=== PATIENT | female | born 1950 | race Caucasian/White ===

== ENCOUNTER 2017-03-10 00:56 | Inpatient (IN) | payer MEDICARE, MEDICAID ==
[2017-03-10] MEDS ORDERED: Diltiazem 25 MG/5 ML SDV IVPUSH ONE ×2 (01:05→01:44)
[2017-03-10] MEDS ORDERED: Diltiazem 25 MG/5 ML SDV ONE (01:09)
--- NOTE | 2017-03-10 01:16 | EDM.PDOC ---
ED HPI GENERAL MEDICAL PROBLEM - General Chief Complaint: Cardiovascular Problem Stated Complaint: [facility] Time Seen by Provider: 03/10/17 01:00 Source of Information: Reports: Patient, EMS History Limitations: Reports: No Limitations - History of Present Illness INITIAL COMMENTS - FREE TEXT/NARRATIVE: This is a 66-year-old female. She was noted to have a fever this afternoon where she resides at the [facility] in [place]. Apparently this evening the staff noted she had an elevated heart rate and a fever of 102 and they called the ambulance and brought her here to the ER for evaluation. She has a history of atrial fibrillation and she's had several episodes of rapid ventricular response and she has that tonight. She is noted to have a rate of approximately 180. She denies any chest pain during this rapid heart rate. The EMS indicated she has a fever of 102.7 when a picture up from the home. The patient is awake and alert and she is talking. She states she's not been coughing though she does have difficulty in defecation and urination. She states she hasn't overreactive bladder she can't control her urine. She normally has swelling in her lower extremities and that has not changed. She does not appear to be in acute distress at this time. She is talkative though she is challenged. He states she's had no nausea and vomiting and no diarrhea though she is constipated. She might have some mild nasal congestion and might have an intermittent sore throat as well. - Related Data Allergies Allergy/AdvReac Type Severity Reaction Status Date / Time clopidogrel [From Plavix] Allergy Cannot Verified 06/21/16 15:19 Remember iodine Allergy Cannot Verified 03/10/17 01:29 Remember Penicillins Allergy Cannot Verified 06/21/16 15:19 Remember Home Meds: Home Meds Acetaminophen [Tylenol Extra Strength] 1,000 mg PO BID 02/02/16 [History] Allopurinol [Zyloprim] 150 mg PO DAILY 02/02/16 [History] Aspirin [Aspir-Low] 81 mg PO DAILY 02/02/16 [History] Cholecalciferol (Vitamin D3) [Vitamin D3] 400 units PO DAILY 02/02/16 [History] Digoxin 125 mcg PO DAILY 02/02/16 [History] Docusate Sodium [Doc-Q-Lace] 100 mg PO BID 02/02/16 [History] Enalapril Maleate 5 mg PO DAILY 02/02/16 [History] Ferrous Sulfate 325 mg PO DAILY 02/02/16 [History] Furosemide 80 mg PO BID 02/02/16 [History] Insulin Aspart [NovoLOG] 8 units SQ 1200 02/02/16 [History] Insulin Aspart [NovoLOG] 10 units SQ 0800 02/02/16 [History] Insulin Aspart [NovoLOG] 10 units SQ 1700 02/02/16 [History] Methimazole 5 mg PO MOTUWETHFR 02/02/16 [History] Metolazone 2.5 mg PO ASDIRECTED 02/02/16 [History] Metoprolol Succinate 100 mg PO DAILY 02/02/16 [History] Potassium Chloride [Klor-Con 10] 10 meq PO 1200 02/02/16 [History] Potassium Chloride [Klor-Con 10] 20 meq PO BID 02/02/16 [History] Pravastatin Sodium 10 mg PO DAILY 02/02/16 [History] Sertraline [Zoloft] 50 mg PO DAILY 02/02/16 [History] Vit C/E/Zn/Coppr/Lutein/Zeaxan [Preservision Areds 2 Softgel] 2 tab PO DAILY [History] Pantoprazole [ProTONIX] 40 mg PO DAILY #30 tab.cr 02/03/16 [Rx] Mirabegron [Myrbetriq] 50 mg PO 1700 06/21/16 [History] Acetaminophen [Tylenol] 650 mg PO Q4H PRN #0 tablet 06/28/16 [Rx] Diltiazem [Cardizem] 180 mg PO DAILY 03/10/17 [History] Warfarin [Coumadin] 2 mg PO ASDIRECTED 03/10/17 [History] Warfarin [Coumadin] 5 mg PO MOFR 03/10/17 [History] Past Medical History HEENT History: Reports: Impaired Vision, Other (See Below) Other HEENT History: blind Cardiovascular History: Reports: Afib, Heart Failure, Other (See Below) Other Cardiovascular History: edema Respiratory History: Reports: Other (See Below) Other Respiratory History: hypoxemia Gastrointestinal History: Reports: Chronic Constipation, Other (See Below) Other Gastrointestinal History: hematochezia Neurological History: Reports: Other (See Below) 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 Psychiatric History: Reports: Depression Endocrine/Metabolic History: Reports: Diabetes, Type II, Hyperthyroidism Hematologic History: Reports: Anemia, Iron Deficiency - Past Surgical History HEENT Surgical History: Reports: Detached Retina, Tonsillectomy Musculoskeletal Surgical History: Reports: Other (See Below) Social & Family History - Tobacco Use Smoking Status *Q: Never Smoker Second Hand Smoke Exposure: No - Caffeine Use Caffeine Use: Reports: Coffee - Alcohol Use Days Per Week of Alcohol Use: 0 - Recreational Drug Use Recreational Drug Use: No - Living Situation & Occupation Living situation: Reports: Single Occupation: Disabled ED ROS GENERAL - Review of Systems Review Of Systems: See Below Constitutional: Reports: Fever, Chills, Malaise HEENT: Reports: Rhinitis, Throat Pain Respiratory: Denies: Shortness of Breath, Wheezing, Cough Cardiovascular: Reports: Other (Rapid heartbeat). Denies: Chest Pain Endocrine: Reports: No Symptoms GI/Abdominal: Reports: Constipation. Denies: Abdominal Pain, Nausea, Vomiting : Reports: Incontinence, Other (She hasn't over active bladder) Musculoskeletal: Reports: No Symptoms, Other (Chronic lower extremity swelling) Skin: Reports: No Symptoms Neurological: Reports: No Symptoms, Other (No change) Psychiatric: Reports: No Symptoms Hematologic/Lymphatic: Reports: No Symptoms ED EXAM, GENERAL - Physical Exam Exam: See Below Exam Limited By: No Limitations General Appearance: Alert, WD/WN, No Apparent Distress Eye Exam: Bilateral Eye: Normal Inspection Ears: Normal External Exam, Normal Canal, Normal TMs Nose: Normal Inspection, Normal Mucosa. No: Nasal Drainage Throat/Mouth: Normal Inspection, Normal Lips, Normal Voice, No Airway Compromise , Other (Mildly inflamed pharynx but no exudates). No: Normal Oropharynx Head: Normocephalic Neck: Supple Respiratory/Chest: No Respiratory Distress, Lungs Clear, Normal Breath Sounds, Other (There are no wheezing crackles or rhonchi there is no consolidation and lung sounds noted) Cardiovascular: Regular Rate, Rhythm, Tachycardia, Other (Monitor suggests atrial fibrillation with a rapid ventricular response) GI/Abdominal: Other (Diminishes protuberant and slightly tense but she does not appear to have pain on palpation in any of the 4 quadrants but over the bladder there is some tenderness noted bowel sounds are decreased, she is noted to have some bruising on her abdomen and I believe it will he give her her insulin shots ) Back Exam: Other (Patient appeared to be bedbound) Extremities: Other (Her lower extremities have 1-2+ pitting edema she does have some abrasions and some brawny skin changes but there is no evidence of a skin infection of her lower extremities at this time) Neurological: Alert, Oriented, Other (H and is oriented to place and person no she's in the ER) Psychiatric: Normal Affect, Normal Mood. No: Anxious Skin Exam: Warm, Dry. No: Diaphoretic Course - Vital Signs Last Recorded V/S: Last Vital Signs Temp 100.1 F 03/10/17 01:00 Pulse 186 H 03/10/17 01:00 Resp 16 03/10/17 01:00 BP 99/76 03/10/17 01:00 Pulse Ox 81 L 03/10/17 01:00 - Orders/Labs/Meds Orders: Active Orders 24 hr Category Date Time Status EKG 12 Lead [EKG Documentation Completion] [RC] STAT Care 03/10/17 01:06 Active Chest 2V [CR] Stat Exams 03/10/17 01:06 Taken CULTURE BLOOD [BC] Stat Lab 03/10/17 01:31 Received CULTURE BLOOD [BC] Stat Lab 03/10/17 01:38 Received Azithromycin [Zithromax] 500 mg Med 03/10/17 02:16 Active Sodium Chloride 0.9% [Normal Saline] 250 ml IV ONETIME Diltiazem 125 mg Med 03/10/17 02:15 Active Sodium Chloride 0.9% [Normal Saline] 100 ml IV TITRATE cefTRIAXone [Rocephin] 1 gm Med 03/10/17 02:23 Active Sodium Chloride 0.9% [Normal Saline] 100 ml IV ONETIME Blood Culture x2 Reflex Set [OM.PC] Stat Oth 03/10/17 01:06 Ordered Medication Orders Diltiazem HCl 125 mg/ Sodium (Chloride) 125 mls @ 5 mls/hr IV TITRATE BRANDON; 5 MG /HR PRN Reason: Protocol Last Admin: 03/10/17 02:36 Dose: 5 mg/hr, 5 mls/hr Azithromycin 500 mg/ Sodium (Chloride) 250 mls @ 250 mls/hr IV ONETIME ONE Stop: 03/10/17 03:15 Ceftriaxone Sodium 1 gm/ (Sodium Chloride) 100 mls @ 200 mls/hr IV ONETIME ONE Stop: 03/10/17 02:52 Last Admin: 03/10/17 02:38 Dose: 200 mls/hr Sodium Chloride (Normal Saline) 500 mls @ 999 mls/hr IV .BOLUS ONE Stop: 03/10/17 03:12 Labs: Laboratory Tests 03/10/17 03/10/17 03/10/17 Range/Units 01:15 01:31 01:31 WBC 30.67 H (3.98-10.04) K/mm3 RBC 3.99 (3.98-5.22) M/mm3 Hgb 12.0 (11.2-15.7) gm/L Hct 37.5 (34.1-44.9) % MCV 94.0 (79.4-94.8) fl MCH 30.1 (25.6-32.2) pg MCHC 32.0 L (32.2-35.5) g/dl RDW Std Deviation 54.0 H (36.4-46.3) fL Plt Count 244 (182-369) K/mm3 MPV 10.4 (9.4-12.3) fl Neut % (Auto) 94.0 H (34.0-71.1) % Lymph % (Auto) 1.9 L (19.3-51.7) % [place] % (Auto) 3.3 L (4.7-12.5) % Eos % (Auto) 0.2 L (0.7-5.8) Baso % (Auto) 0.1 (0.1-1.2) % Neut # (Auto) 28.86 H (1.56-6.13) K/mm3 Lymph # (Auto) 0.59 L (1.18-3.74) K/mm3 [place] # (Auto) 1.01 H (0.24-0.36) K/mm3 Eos # (Auto) 0.05 (0.04-0.36) K/mm3 Baso # (Auto) 0.02 (0.01-0.08) K/mm3 Manual Slide Review Abnormal smear PT (8.0-13.0) SECONDS INR Sodium 141 (136-145) mEq/L Potassium 3.4 L (3.5-5.1) mEq/L Chloride 101 (98-107) mEq/L Carbon Dioxide 26 (21-32) mEq/L Anion Gap 17.4 H (5-15) BUN 49 H (7-18) mg/dL Creatinine 1.4 H (0.55-1.02) mg/dL Est Cr Clr Drug Dosing 42.74 mL/min Estimated GFR (MDRD) 38 (>60) mL/min BUN/Creatinine Ratio 35.0 H (14-18) Glucose 251 H (80-115) mg/dL Lactic Acid (0.4-2.0) mmol/L Calcium 9.0 (8.5-10.1) mg/dL Total Bilirubin 1.0 (0.2-1.0) mg/dL AST 22 (15-37) U/L ALT 18 (14-59) U/L Alkaline Phosphatase 71 (46-116) U/L Troponin I < 0.017 (0.00-0.056) ng/mL Total Protein 6.7 (6.4-8.2) g/dl Albumin 3.6 (3.4-5.0) g/dl Globulin 3.1 gm/dL Albumin/Globulin Ratio 1.2 (1-2) Urine Color Yellow (Yellow) Urine Appearance Clear (Clear) Urine pH 6.0 (5.0-8.0) Ur Specific Kyle 1.015 (1.005-1.030) Urine Protein Negative (Negative) Urine Glucose (UA) Negative (Negative) Urine Ketones Negative (Negative) Urine Occult Blood Negative (Negative) Urine Nitrite Negative (Negative) Urine Bilirubin Negative (Negative) Urine Urobilinogen 0.2 (0.2-1.0) Ur Leukocyte Esterase Negative (Negative) Urine RBC 0-5 (0-5) /hpf Urine WBC 0-5 (0-5) /hpf Ur Epithelial Cells 0-5 (0-5) /hpf Urine Bacteria Not seen (FEW) /hpf Hyaline Casts 0-5 (0-5) /lpf Urine Mucus Not seen (FEW) /hpf Digoxin (0.9-2.0) ng/mL 03/10/17 03/10/17 03/10/17 Range/Units 01:31 01:31 01:31 WBC (3.98-10.04) K/mm3 RBC (3.98-5.22) M/mm3 Hgb (11.2-15.7) gm/L Hct (34.1-44.9) % MCV (79.4-94.8) fl MCH (25.6-32.2) pg MCHC (32.2-35.5) g/dl RDW Std Deviation (36.4-46.3) fL Plt Count (182-369) K/mm3 MPV (9.4-12.3) fl Neut % (Auto) (34.0-71.1) % Lymph % (Auto) (19.3-51.7) % [place] % (Auto) (4.7-12.5) % Eos % (Auto) (0.7-5.8) Baso % (Auto) (0.1-1.2) % Neut # (Auto) (1.56-6.13) K/mm3 Lymph # (Auto) (1.18-3.74) K/mm3 [place] # (Auto) (0.24-0.36) K/mm3 Eos # (Auto) (0.04-0.36) K/mm3 Baso # (Auto) (0.01-0.08) K/mm3 Manual Slide Review PT 23.9 H (8.0-13.0) SECONDS INR 2.09 Sodium (136-145) mEq/L Potassium (3.5-5.1) mEq/L Chloride (98-107) mEq/L Carbon Dioxide (21-32) mEq/L Anion Gap (5-15) BUN (7-18) mg/dL Creatinine (0.55-1.02) mg/dL Est Cr Clr Drug Dosing mL/min Estimated GFR (MDRD) (>60) mL/min BUN/Creatinine Ratio (14-18) Glucose (80-115) mg/dL Lactic Acid 1.8 (0.4-2.0) mmol/L Calcium (8.5-10.1) mg/dL Total Bilirubin (0.2-1.0) mg/dL AST (15-37) U/L ALT (14-59) U/L Alkaline Phosphatase (46-116) U/L Troponin I (0.00-0.056) ng/mL Total Protein (6.4-8.2) g/dl Albumin (3.4-5.0) g/dl Globulin gm/dL Albumin/Globulin Ratio (1-2) Urine Color (Yellow) Urine Appearance (Clear) Urine pH (5.0-8.0) Ur Specific Kyle (1.005-1.030) Urine Protein (Negative) Urine Glucose (UA) (Negative) Urine Ketones (Negative) Urine Occult Blood (Negative) Urine Nitrite (Negative) Urine Bilirubin (Negative) Urine Urobilinogen (0.2-1.0) Ur Leukocyte Esterase (Negative) Urine RBC (0-5) /hpf Urine WBC (0-5) /hpf Ur Epithelial Cells (0-5) /hpf Urine Bacteria (FEW) /hpf Hyaline Casts (0-5) /lpf Urine Mucus (FEW) /hpf Digoxin 0.5 L (0.9-2.0) ng/mL Meds: Medications Generic Name Dose Route Start Last Admin Trade Name Freq PRN Reason Stop Dose Admin Diltiazem HCl 125 mg/ Sodium 125 mls @ 5 mls/hr 03/10/17 02:15 03/10/17 02:36 Chloride IV 5 mg/hr TITRATE BRANDON 5 mls/hr Protocol Administration 5 MG/HR Azithromycin 500 mg/ Sodium 250 mls @ 250 mls/hr 03/10/17 02:16 Chloride IV 03/10/17 03:15 ONETIME ONE Ceftriaxone Sodium 1 gm/ 100 mls @ 200 mls/hr 03/10/17 02:23 03/10/17 02:38 Sodium Chloride IV 03/10/17 02:52 200 mls/hr ONETIME ONE Administration Sodium Chloride 500 mls @ 999 mls/hr 03/10/17 02:42 Normal Saline IV 03/10/17 03:12 .BOLUS ONE Discontinued Medications Generic Name Dose Route Start Last Admin Trade Name Freq PRN Reason Stop Dose Admin Diltiazem HCl 10 mg 03/10/17 01:05 03/10/17 01:07 Diltiazem IVPUSH 03/10/17 01:06 10 mg ONETIME ONE Administration Diltiazem HCl Confirm 03/10/17 01:09 03/10/17 01:25 Diltiazem Administered 03/10/17 01:10 Not Given Dose 25 mg .ROUTE .STK-MED ONE Diltiazem HCl 10 mg 03/10/17 01:44 03/10/17 01:57 Diltiazem IVPUSH 03/10/17 01:45 10 mg ONETIME ONE Administration Sodium Chloride 500 mls @ 500 mls/hr 03/10/17 01:24 03/10/17 01:25 Normal Saline IV 03/10/17 02:23 500 mls/hr .BOLUS ONE Administration Sodium Chloride Confirm 03/10/17 01:27 03/10/17 01:27 Normal Saline Administered 03/10/17 01:28 Not Given Dose 1,000 mls @ as directed .ROUTE .STK-MED ONE Ceftriaxone Sodium 1 gm/ 100 mls @ 200 mls/hr 03/10/17 02:15 Sodium Chloride IV 03/10/17 02:44 ONETIME ONE - Radiology Interpretation Free Text/Narrative:: Chest x-ray suggested a right lower lobe infiltrate beginning - Re-Assessments/Exams Free Text/Narrative Re-Assessment/Exam: 03/10/17 02:01 I spoke to the patient regarding her possible early pneumonia in the right lower lobe. I noted that her white count is 30,000 and I suspect that she is on the verge of sepsis next was keeping her atrial fibrillation with a fast ventricular response somewhat unresponsive to the diltiazem bolus seems to be improving at this time. 03/10/17 02:19 Lab called indicating the patient was strep positive pharyngitis. 03/10/17 02:49 I spoke to the patient regarding her pneumonia and that she'll need to be in the hospital for medication. She is okay with this. 03/10/17 02:[address] Werner and he will admit the patient to the ICU for further evaluation and treatment. Departure - Departure Time of Disposition: 02:50 Disposition: Admitted As Inpatient 66 Condition: Fair Clinical Impression: Atrial fibrillation with rapid ventricular response, Dehydration, Renal insufficiency, Insulin dependent diabetes mellitus, Elevated blood sugar, Strep pharyngitis Right lower lobe pneumonia Qualifiers: Pneumonia type: due to unspecified organism Qualified Code(s): J18.1 - Lobar pneumonia, unspecified organism Sepsis Qualifiers: Sepsis type: sepsis due to unspecified organism Qualified Code(s): A41.9 - Sepsis, unspecified organism Hypotension Qualifiers: Hypotension type: unspecified hypotension type Qualified Code(s): I95.9 - Hypotension, unspecified Leukocytosis Qualifiers: Leukocytosis type: unspecified Qualified Code(s): D72.829 - Elevated white blood cell count, unspecified ED Communication - ED Communication Date/Time Date: 03/10/17 Time Called: 02:49 - Discussed Case With (1) Discussed Case With (1): Admitting Provider Person/s Notified (1): Pili Marquezsantosh (He will admitted to the ICU) - My Orders Last 24 Hours: My Active Orders 03/10/17 01:06 EKG 12 Lead [EKG Documentation Completion] [RC] STAT Chest 2V [CR] Stat Blood Culture x2 Reflex Set [OM.PC] Stat 03/10/17 01:31 CULTURE BLOOD [BC] Stat 03/10/17 01:38 CULTURE BLOOD [BC] Stat 03/10/17 02:15 Diltiazem 125 mg Sodium Chloride 0.9% [Normal Saline] 100 ml IV TITRATE 03/10/17 02:16 Azithromycin [Zithromax] 500 mg Sodium Chloride 0.9% [Normal Saline] 250 ml IV ONETIME 03/10/17 02:23 cefTRIAXone [Rocephin] 1 gm Sodium Chloride 0.9% [Normal Saline] 100 ml IV ONETIME - Assessment/Plan Last 24 Hours: My Active Orders 03/10/17 01:06 EKG 12 Lead [EKG Documentation Completion] [RC] STAT Chest 2V [CR] Stat Blood Culture x2 Reflex Set [OM.PC] Stat 03/10/17 01:31 CULTURE BLOOD [BC] Stat 03/10/17 01:38 CULTURE BLOOD [BC] Stat 03/10/17 02:15 Diltiazem 125 mg Sodium Chloride 0.9% [Normal Saline] 100 ml IV TITRATE 03/10/17 02:16 Azithromycin [Zithromax] 500 mg Sodium Chloride 0.9% [Normal Saline] 250 ml IV ONETIME 03/10/17 02:23 cefTRIAXone [Rocephin] 1 gm Sodium Chloride 0.9% [Normal Saline] 100 ml IV ONETIME
[2017-03-10] MEDS ORDERED: Sodium Chloride 0.9% 500 ML IV ONE ×2 (01:24→02:42)
[2017-03-10] MEDS ORDERED: Sodium Chloride 0.9% 1,000 ML ONE (01:27)
[2017-03-10] MEDS ORDERED: cefTRIAXone 1 GM in Sodium Chloride 0.9% 100 ML IV ONE ×2 (02:15→02:23)
[2017-03-10] MEDS ORDERED: Diltiazem 125 MG in Sodium Chloride 0.9% 100 ML IV SCH (02:15)
[2017-03-10] MEDS ORDERED: Azithromycin 500 MG in Sodium Chloride 0.9% 250 ML IV ONE (02:16)
[2017-03-10] MEDS ORDERED: HYDROmorphone 0.5 MG/0.5 ML Syringe IVPUSH PRN (03:06)
[2017-03-10] MEDS ORDERED: Acetaminophen 325 MG Tab PO PRN (03:06)
[2017-03-10] MEDS ORDERED: Ondansetron 4 MG/2 ML SDV IV PRN (03:06)
[2017-03-10] MEDS ORDERED: Promethazine 12.5 MG in Sodium Chloride 0.9% 50 ML IV PRN (03:06)
[2017-03-10] MEDS ORDERED: Acetaminophen/HYDROcodone 325-5 MG Tab PO PRN (03:06)
--- NOTE | 2017-03-10 03:08 | PCM.HP ---
H&P History of Present Illness - General Date of Service: 03/10/17 Admit Problem/Dx: Admission Diagnosis/Problem Admission Diagnosis/Problem Pneumonia Source of Information: Patient, Old Records, Provider, RN Notes Reviewed History Limitations: Reports: Other (Blind and Mentally Challanged) - History of Present Illness Initial Comments - Free Text/Narative: This is a 66 yo white female with past medical hx/o Chronic Atrial Fibrillation on Warfarin, HLD, Cardiomyopathy, HF with Reduced EF of 20% 12/16/2013, CKD Stage 2-3, GERD with Esophagitis, Gout, LESLYE, Constipation, Overactive Bladder/Urinary Incontinence, Hyperthyroidism, Peripheral Edema, Right Eye Blindness, Dry Eyes Syndrome, Macular Degeneration, Intellectual Disability, and Obesity with BMI of 30+ who presents to the emergency department with complaints of fever of 102 associated with elevated heart rate as high as 180. She denies any chest pain, shortness of breath or dizziness. She denies any other signs of systemic infection. Her initial workup in emergency department shows a CBC remarkable for WBC of 30.77, RBC of 3.67, hemoglobin 10.9, MCHC of 31.4, RDW of 54.2, neutrophils of 94.2%, lymphocytes of 2%, and monocytes of 3.2%. Chemistry is remarkable for potassium of 3.4, and anion gap of 6.4, BUN of 48, creatinine of1.3, glucose of 233, calcium of 8.1, CRP of 10.3 and digoxin level of 0.5. Her EKG shows atrial fibrillation with heart rate of 190. Chest x-ray shows increased lung markings versus right-sided patchy consolidation. Patient is being admitted for medical management of atrial fibrillation with RVR along with possible bronchitis/right-sided pneumonia. She is full code. - Related Data Allergies/Adverse Reactions: Allergies Allergy/AdvReac Type Severity Reaction Status Date / Time clopidogrel [From Plavix] Allergy Cannot Verified 03/10/17 21:39 Remember iodine Allergy Cannot Verified 03/10/17 21:39 Remember Penicillins Allergy Cannot Verified 03/10/17 21:39 Remember Home Medications: Home Meds Acetaminophen [Tylenol Extra Strength] 1,000 mg PO BID 02/02/16 [History] Allopurinol [Zyloprim] 150 mg PO DAILY 02/02/16 [History] Aspirin [Aspir-Low] 81 mg PO DAILY 02/02/16 [History] Cholecalciferol (Vitamin D3) [Vitamin D3] 400 units PO DAILY 02/02/16 [History] Digoxin 125 mcg PO DAILY 02/02/16 [History] Docusate Sodium [Doc-Q-Lace] 100 mg PO BID 02/02/16 [History] Enalapril Maleate 5 mg PO DAILY 02/02/16 [History] Ferrous Sulfate 325 mg PO DAILY 02/02/16 [History] Furosemide 80 mg PO BID 02/02/16 [History] Insulin Aspart [NovoLOG] 8 units SQ 1200 02/02/16 [History] Insulin Aspart [NovoLOG] 10 units SQ 0800 02/02/16 [History] Insulin Aspart [NovoLOG] 10 units SQ 1700 02/02/16 [History] Methimazole 5 mg PO MOTUWETHFR 02/02/16 [History] Metolazone 2.5 mg PO MOTH 02/02/16 [History] Metoprolol Succinate 100 mg PO DAILY 02/02/16 [History] Potassium Chloride [Klor-Con 10] 10 meq PO 1200 02/02/16 [History] Potassium Chloride [Klor-Con 10] 20 meq PO BID 02/02/16 [History] Pravastatin Sodium 10 mg PO DAILY 02/02/16 [History] Sertraline [Zoloft] 50 mg PO DAILY 02/02/16 [History] Vit C/E/Zn/Coppr/Lutein/Zeaxan [Preservision Areds 2 Softgel] 2 tab PO DAILY [History] Pantoprazole [ProTONIX] 40 mg PO DAILY #30 tab.cr 02/03/16 [Rx] Mirabegron [Myrbetriq] 50 mg PO 1700 06/21/16 [History] Acetaminophen [Tylenol] 650 mg PO Q4H PRN #0 tablet 06/28/16 [Rx] Diltiazem [Cardizem] 180 mg PO DAILY 03/10/17 [History] Warfarin [Coumadin] 2 mg PO SUTUWETHSA 03/10/17 [History] Warfarin [Coumadin] 5 mg PO MOFR 03/10/17 [History] Past Medical History HEENT History: Reports: Impaired Vision, Other (See Below) Other HEENT History: blind Cardiovascular History: Reports: Afib, Heart Failure, Other (See Below) Other Cardiovascular History: edema Respiratory History: Reports: Other (See Below) Other Respiratory History: hypoxemia Gastrointestinal History: Reports: Chronic Constipation, Other (See Below) Other Gastrointestinal History: hematochezia Neurological History: Reports: Other (See Below) 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 Psychiatric History: Reports: Depression Endocrine/Metabolic History: Reports: Diabetes, Type II, Hyperthyroidism Hematologic History: Reports: Anemia, Iron Deficiency - Past Surgical History HEENT Surgical History: Reports: Detached Retina, Tonsillectomy Musculoskeletal Surgical History: Reports: Other (See Below) Social & Family History - Family History Family Medical History: Noncontributory - Tobacco Use Smoking Status *Q: Never Smoker Second Hand Smoke Exposure: No - Caffeine Use Caffeine Use: Reports: Coffee - Alcohol Use Days Per Week of Alcohol Use: 0 - Recreational Drug Use Recreational Drug Use: No - Living Situation & Occupation Living situation: Reports: Single Occupation: Disabled H&P Review of Systems - Review of Systems: Review Of Systems: See Below Exam - Exam Exam: See Below - Vital Signs Vital Signs: Last Vital Signs Temp 37.8 C 03/10/17 01:00 Pulse 186 H 03/10/17 01:00 Resp 16 03/10/17 01:00 BP 99/76 03/10/17 01:00 Pulse Ox 81 L 03/10/17 01:00 Weight: 101.151 kg - Exam Quality Assessment: Supplemental Oxygen General: Alert, Oriented, Cooperative, Other (oBese). No: Mild Distress HEENT: Conjunctiva Clear, Hearing Intact, Mucosa Moist & [place], Nares Patent, Normal Nasal Septum, Posterior Pharynx Clear Neck: Supple, Trachea Midline, +2 Carotid Pulse wo Bruit Lungs: Normal Respiratory Effort, Decreased Breath Sounds Cardiovascular: Irregular Rhythm GI/Abdominal Exam: Normal Bowel Sounds, Soft, Non-Tender, No Organomegaly, No Distention, No Abnormal Bruit, Other (protuberant/obese ) (Female) Exam: Deferred Rectal (Female) Exam: Deferred Back Exam: Normal Inspection Extremities: Normal Inspection, Normal Range of Motion, Non-Tender, Pedal Edema (1-2 + pitting). No: Leg Pain, Increased Warmth Peripheral Pulses: 1+: Dorsalis Pedis (L), Dorsalis Pedis (R) Skin: Warm, Dry, Intact, Ecchymosis Neuro Extensive - Mental Status: Alert, Other (Baseline intellectual disability) . No: Disorientation to Time Neuro Extensive - Motor, Sensory, Reflexes: Normal Gait Psychiatric: Alert, Normal Affect, Normal Mood - Patient Data Result Diagrams: 03/10/17 12:06 03/10/17 12:06 EKG INTERPRETATION EKG Date: 03/10/17 Time: 01:05 Rhythm: A-Fib Rate (Beats/Min): 190 *Q Meaningful Use (ADM) - VTE *Q VTE Criteria *Q: - Stroke *Q Stroke Criteria *Q: - AMI *Q AMI Criteria *Q: Problem List Initiated/Reviewed/Updated: Yes Orders Last 24hrs: Active Orders 24 hr Category Date Time Status Patient Status [ADT] Routine ADT 03/10/17 02:59 Active Sodium Chloride 0.9% [Normal Saline] 500 ml Med 03/10/17 02:42 Active IV .BOLUS Medication Orders Diltiazem HCl 125 mg/ Sodium (Chloride) 125 mls @ 5 mls/hr IV TITRATE BRANDON; 5 MG /HR PRN Reason: Protocol Last Admin: 03/10/17 02:36 Dose: 5 mg/hr, 5 mls/hr Azithromycin 500 mg/ Sodium (Chloride) 250 mls @ 250 mls/hr IV ONETIME ONE Stop: 03/10/17 03:15 Sodium Chloride (Normal Saline) 500 mls @ 999 mls/hr IV .BOLUS ONE Stop: 03/10/17 03:12 Assessment/Plan Comment:: Assessment/Plan: Acute: Atrial Fibrillation with RVR - Acute on Chronic - HR as high at 190s - She is on Warfarin for stroke prophylaxis - She takes Digoxin 125 mg po daily, Metoprolol 100 mg po daily and Cardizem 180 mg po daily - Her digoxin level was low - She is currently on cardizem drip; titrate to keep HR < 100 - Daily INR Bronchitis/Right Sided Developing PNA - CXR shows increased lung markings pending formal radiology report - Pending Strep A screening; Influenza screening negative - Supplemental O2, Routine RT Care, Bronchodilators, Sputum Cx/Sx and Mycoplasma/Strep Pneumoniae Ag test - IV ATB with 500 mg Azithromycin and 1 gram Rocephin daily - Oral probiotic daily - IS as directed Heart Failure with Reduced EF 20% 12/16/2013 - Hx/o Cardiomyopathy - BNP 2976; repeat level in AM - Peripheral edema 1-2+ edema - Continue Lasix 80 mg po BID and Metolazone 2.5 mg po MoTh - Is/Os, Daily Weight and Sodium/Fluid Restriction Subtherapeutic Digoxin - Digoxin 0.5 (0.9-2 normal ) - Likely contributory to uncontrolled HR - Will start 125 mcg IVP Q6 x 2 doses then repeat digoxin level - Once therapeutic with continue home oral dose of 125 mcg po daily Leukocytosis - WBC 30.77; CRP 10.3 - Likely 2/2 above - Treat underlying cause - Continue to monitor Hypokalemia - K 3.4 - Likely 2/2 renal loss form loop diuretic - Continue K oral supplements DM2 with Hyperglycemia - On Insulin Regimen: SA and LA - Last A1C was 6.6 10/13/2014; will re-check in AM - Accu-check QID AC and HS with Low dose ISS Chronic: HLD Cardiomyopathy CKD Stage 2-3, Stable GERD with Esophagitis Gout LESLYE, Stable Urinary Incontinence Hyperthyroidism Constipation Peripheral Edema Right Eye Blindness Dry Eyes Syndrome Macular Degeneration Intellectual Disability Obesity with BMI of 31 Plan: Admit to ICU Resume Home Meds Routine AM Labs PT/OT/RT consult [employer] [employer] for swallow eval Aspiration/Fall Precautions DVT/GI PPx: Warfarin and PPI SW/CM for d/c planning Additional orders as above Code status: 1
[2017-03-10] MEDS ORDERED: Bisacodyl 5 MG Tab PO PRN (03:17)
[2017-03-10] MEDS ORDERED: Temazepam 7.5 MG Cap PO PRN (03:17)
[2017-03-10] MEDS ORDERED: Docusate Sodium 100 MG Cap PO PRN (03:17)
[2017-03-10] MEDS ORDERED: Polyethylene Glycol 3350 Powder 17 GM Packet PO PRN (03:17)
[2017-03-10] MEDS ORDERED: Albuterol/Ipratropium 3.0-0.5 MG/3 ML Neb Soln NEB PRN (03:17)
[2017-03-10] MEDS ORDERED: LORazepam 2 MG/ML MDV IVPUSH PRN (03:34)
[2017-03-10] MEDS ORDERED: hydrALAZINE 20 MG/ML SDV IVPUSH PRN (03:34)
[2017-03-10] MEDS ORDERED: Digoxin 500 MCG/2 ML Amp IVPUSH SCH (04:00)
[2017-03-10] MEDS: Digoxin 500 MCG/2 ML Amp IVPUSH SCH ×2 (04:25→11:02)
[2017-03-10] MEDS: Sodium Chloride 0.9% 1,000 ML IV SCH ×2 (04:26→11:41)
[2017-03-10] MEDS: Metoprolol Tartrate 5 MG/5 ML SDV IVPUSH PRN (05:01)
[2017-03-10] MEDS: Pantoprazole 40 MG Tab.CR PO SCH (06:02)
[2017-03-10] MEDS: Furosemide 80 MG Tab PO SCH ×2 (06:02→14:40)
[2017-03-10] MEDS: Insulin Aspart 100 Units/ML 3 ML Pen SUBCUT SCH ×3 (08:33→17:50)
[2017-03-10] MEDS: Ferrous Sulfate 325 MG Tab PO SCH (08:33)
[2017-03-10] MEDS: Allopurinol 300 MG Tab PO SCH (08:35)
[2017-03-10] MEDS: Diltiazem IR 60 MG Tab PO SCH (08:36)
[2017-03-10] MEDS: Sertraline 50 MG Tab PO SCH (08:37)
[2017-03-10] MEDS: Metoprolol Succinate 50 MG Tab.ER PO SCH (08:37)
[2017-03-10] MEDS: Acetaminophen 325 MG Tab PO SCH ×2 (08:38→20:19)
[2017-03-10] MEDS: Aspirin 81 MG Tab.EC PO SCH (08:39)
[2017-03-10] MEDS: Simvastatin 10 MG Tab PO SCH (08:39)
[2017-03-10] MEDS: Cholecalciferol (Vitamin D3) 1,000 Unit Tab PO SCH (08:40)
[2017-03-10] MEDS: Digoxin 125 MCG Tab PO SCH (08:41)
[2017-03-10] MEDS: Saccharomyces Boulardii (Probiotic) 250 MG Cap PO SCH (08:42)
[2017-03-10] MEDS: Potassium Chloride 10 MEQ Tab.ER PO SCH ×3 (08:42→20:19)
--- NOTE | 2017-03-10 09:54 | CR ---
Chest: Two views of the chest were obtained. Comparison: Prior chest x-ray of 06/28/16. Heart is enlarged. Tortuous thoracic aorta is seen. Lung markings diffusely increased from prior study. No alveolar densities are seen. Bony structures are unremarkable for the patient's age. Impression: 1. Cardiomegaly. 2. Diffuse increased lung markings with prior study. Given the history of fever, findings most likely represent diffuse bronchitis. Diagnostic code #3
--- NOTE | 2017-03-10 10:42 | PCM.SN ---
- Free Text/Narrative Note: Patient seen and examined at bedside. She has no new complaints. She is now at 5 mcg on cardizem drip. She feels pretty good and appears clinically stable.
[2017-03-10] MEDS: Mirabegron [Myrbetriq] 50 MG PO SCH (17:00)
[2017-03-10] MEDS: Warfarin 2 MG Tab PO SCH (17:50)
[2017-03-10] MEDS ORDERED: Bumetanide 1 MG/4 ML MDV IVPUSH ONE (18:03)
[2017-03-10] MEDS: Sodium Chloride 0.9% 10 ML Syringe FLUSH PRN (20:20)
[2017-03-11] MEDS: Metoprolol Tartrate 5 MG/5 ML SDV IVPUSH PRN ×3 (00:47→08:14)
[2017-03-11] MEDS: Sodium Chloride 0.9% 10 ML Syringe FLUSH PRN (00:50)
[2017-03-11] MEDS: Pantoprazole 40 MG Tab.CR PO SCH (05:10)
[2017-03-11] MEDS: Furosemide 80 MG Tab PO SCH ×2 (05:11→14:05)
[2017-03-11] MEDS: Insulin Aspart 100 Units/ML 3 ML Pen SUBCUT SCH ×7 (06:47→21:21)
[2017-03-11] MEDS ORDERED: Bumetanide 1 MG/4 ML MDV IVPUSH ONE (07:00)
[2017-03-11] MEDS: Simvastatin 10 MG Tab PO SCH (08:01)
[2017-03-11] MEDS: Aspirin 81 MG Tab.EC PO SCH (08:01)
[2017-03-11] MEDS: Digoxin 125 MCG Tab PO SCH (08:02)
[2017-03-11] MEDS: Cholecalciferol (Vitamin D3) 1,000 Unit Tab PO SCH (08:02)
[2017-03-11] MEDS: Allopurinol 300 MG Tab PO SCH (08:02)
[2017-03-11] MEDS: Potassium Chloride 10 MEQ Tab.ER PO SCH ×3 (08:03→20:04)
[2017-03-11] MEDS: Ferrous Sulfate 325 MG Tab PO SCH (08:03)
[2017-03-11] MEDS: Sertraline 50 MG Tab PO SCH (08:04)
[2017-03-11] MEDS: Metoprolol Succinate 50 MG Tab.ER PO SCH ×2 (08:10→20:04)
[2017-03-11] MEDS: Methimazole 5 MG Tab PO SCH (08:11)
[2017-03-11] MEDS: Potassium Chloride 20 MEQ Tab.ER PO SCH ×2 (08:14→12:48)
[2017-03-11] MEDS: Azithromycin 500 MG in Sodium Chloride 0.9% 250 ML IV SCH (08:22)
[2017-03-11] MEDS: Diltiazem IR 60 MG Tab PO SCH (08:37)
[2017-03-11] MEDS: Acetaminophen 325 MG Tab PO SCH ×2 (09:20→20:03)
[2017-03-11] MEDS: Saccharomyces Boulardii (Probiotic) 250 MG Cap PO SCH (09:20)
[2017-03-11] MEDS: Metolazone 2.5 MG Tab PO SCH (09:21)
[2017-03-11] MEDS: Esmolol/Normal Saline 2.5 GM/250 ML BAG IV SCH ×4 (09:22→21:14)
[2017-03-11] MEDS: cefTRIAXone 1 GM in Sodium Chloride 0.9% 100 ML IV SCH (09:35)
--- NOTE | 2017-03-11 11:10 | CR ---
Chest: Portable view of the chest was obtained. Comparison: Previous chest x-ray of 03/10/17. Heart is enlarged. Lung markings are diffusely increased which appear fairly stable from previous exam. Bony structures are grossly intact. Impression: 1. Findings as noted above without definite change from previous study. Diagnostic code #3
--- NOTE | 2017-03-11 11:40 | PCM.PN ---
- General Info Date of Service: 03/11/17 Admission Dx/Problem (Free Text): Admission Diagnosis/Problem Admission Diagnosis/Problem Pneumonia Subjective Update: Follow Up Functional Status: Reports: Pain Controlled, Tolerating Diet, Urinating. Denies : New Symptoms - Review of Systems General: Denies: Fever, Weakness, Fatigue, Malaise, Chills HEENT: Reports: No Symptoms Pulmonary: Denies: Shortness of Breath, Cough Cardiovascular: Denies: Chest Pain Gastrointestinal: Denies: Abdominal Pain, Nausea, Vomiting Genitourinary: Reports: No Symptoms Musculoskeletal: Reports: No Symptoms Neurological: Denies: Confusion, Difficulty Walking, Weakness, Gait Disturbance Psychiatric: Denies: Depression, Anxiety, Agitation, Hallucinations Systems Review Comment:: No significant overnight or acute issues. She was off Cardizem drip but her heart rate this morning is not controlled. She is running in the 130s-140s and at some point it went up to as high as 160s. She reports no symptoms. - Patient Data Vitals - Most Recent: Last Vital Signs Temp 36.9 C 03/11/17 08:00 Pulse 121 H 03/11/17 09:22 Resp 22 H 03/11/17 08:00 BP 100/70 03/11/17 08:14 Pulse Ox 90 L 03/11/17 08:00 Weight - Most Recent: 111.357 kg I&O - Last 24 Hours: Intake & Output 03/10/17 03/11/17 03/11/17 22:59 06:59 14:59 Intake Total 3927 300 300 Output Total 250 Balance 3927 300 50 Lab Results Last 24 Hours: Laboratory Results - last 24 hr 03/10/17 03/10/17 03/10/17 Range/Units 11:45 12:06 12:06 WBC 20.70 H (3.98-10.04) K/mm3 RBC 3.52 L (3.98-5.22) M/mm3 Hgb 10.6 L (11.2-15.7) gm/L Hct 33.5 L (34.1-44.9) % MCV 95.2 H (79.4-94.8) fl MCH 30.1 (25.6-32.2) pg MCHC 31.6 L (32.2-35.5) g/dl RDW Std Deviation 54.5 H (36.4-46.3) fL Plt Count 204 (182-369) K/mm3 MPV 10.3 (9.4-12.3) fl Neut % (Auto) 92.2 H (34.0-71.1) % Lymph % (Auto) 4.1 L (19.3-51.7) % Bladen % (Auto) 3.2 L (4.7-12.5) % Eos % (Auto) 0.1 L (0.7-5.8) Baso % (Auto) 0.1 (0.1-1.2) % Neut # (Auto) 19.07 H (1.56-6.13) K/mm3 Lymph # (Auto) 0.85 L (1.18-3.74) K/mm3 Bladen # (Auto) 0.67 H (0.24-0.36) K/mm3 Eos # (Auto) 0.02 L (0.04-0.36) K/mm3 Baso # (Auto) 0.02 (0.01-0.08) K/mm3 Manual Slide Review Abnormal smear PT (8.0-13.0) SECONDS INR Sodium 145 (136-145) mEq/L Potassium 3.2 L (3.5-5.1) mEq/L Chloride 107 (98-107) mEq/L Carbon Dioxide 26 (21-32) mEq/L Anion Gap 15.2 H (5-15) BUN 47 H (7-18) mg/dL Creatinine 1.2 H (0.55-1.02) mg/dL Est Cr Clr Drug Dosing 51.54 mL/min Estimated GFR (MDRD) 45 (>60) mL/min BUN/Creatinine Ratio 39.2 H (14-18) Glucose 185 H (80-115) mg/dL POC Glucose 223 H (80-115) mg/dL Hemoglobin A1c (4.50-6.20) % Calcium 8.2 L (8.5-10.1) mg/dL Magnesium 2.0 (1.8-2.4) mg/dl Troponin I < 0.017 (0.00-0.056) ng/mL C-Reactive Protein 13.8 H* (<1.0) mg/dL NT-Pro-B Natriuret Pep (0-125) pg/mL Digoxin (0.9-2.0) ng/mL Mycoplasma pneumon IgM (NEGATIVE) 03/10/17 03/10/17 03/10/17 Range/Units 17:27 18:40 18:40 WBC (3.98-10.04) K/mm3 RBC (3.98-5.22) M/mm3 Hgb (11.2-15.7) gm/L Hct (34.1-44.9) % MCV (79.4-94.8) fl MCH (25.6-32.2) pg MCHC (32.2-35.5) g/dl RDW Std Deviation (36.4-46.3) fL Plt Count (182-369) K/mm3 MPV (9.4-12.3) fl Neut % (Auto) (34.0-71.1) % Lymph % (Auto) (19.3-51.7) % Bladen % (Auto) (4.7-12.5) % Eos % (Auto) (0.7-5.8) Baso % (Auto) (0.1-1.2) % Neut # (Auto) (1.56-6.13) K/mm3 Lymph # (Auto) (1.18-3.74) K/mm3 Bladen # (Auto) (0.24-0.36) K/mm3 Eos # (Auto) (0.04-0.36) K/mm3 Baso # (Auto) (0.01-0.08) K/mm3 Manual Slide Review PT (8.0-13.0) SECONDS INR Sodium (136-145) mEq/L Potassium (3.5-5.1) mEq/L Chloride (98-107) mEq/L Carbon Dioxide (21-32) mEq/L Anion Gap (5-15) BUN (7-18) mg/dL Creatinine (0.55-1.02) mg/dL Est Cr Clr Drug Dosing mL/min Estimated GFR (MDRD) (>60) mL/min BUN/Creatinine Ratio (14-18) Glucose (80-115) mg/dL POC Glucose 142 H (80-115) mg/dL Hemoglobin A1c (4.50-6.20) % Calcium (8.5-10.1) mg/dL Magnesium (1.8-2.4) mg/dl Troponin I (0.00-0.056) ng/mL C-Reactive Protein (<1.0) mg/dL NT-Pro-B Natriuret Pep 2976 H (0-125) pg/mL Digoxin 0.8 L (0.9-2.0) ng/mL Mycoplasma pneumon IgM (NEGATIVE) 03/10/17 03/11/17 03/11/17 Range/Units 20:24 05:54 05:54 WBC 12.95 H (3.98-10.04) K/mm3 RBC 3.78 L (3.98-5.22) M/mm3 Hgb 11.3 (11.2-15.7) gm/L Hct 36.3 (34.1-44.9) % MCV 96.0 H (79.4-94.8) fl MCH 29.9 (25.6-32.2) pg MCHC 31.1 L (32.2-35.5) g/dl RDW Std Deviation 55.8 H (36.4-46.3) fL Plt Count 208 (182-369) K/mm3 MPV 10.2 (9.4-12.3) fl Neut % (Auto) 85.8 H (34.0-71.1) % Lymph % (Auto) 7.3 L (19.3-51.7) % Bladen % (Auto) 5.1 (4.7-12.5) % Eos % (Auto) 1.5 (0.7-5.8) Baso % (Auto) 0.1 (0.1-1.2) % Neut # (Auto) 11.12 H (1.56-6.13) K/mm3 Lymph # (Auto) 0.95 L (1.18-3.74) K/mm3 Bladen # (Auto) 0.66 H (0.24-0.36) K/mm3 Eos # (Auto) 0.19 (0.04-0.36) K/mm3 Baso # (Auto) 0.01 (0.01-0.08) K/mm3 Manual Slide Review Abnormal smear PT (8.0-13.0) SECONDS INR Sodium 148 H (136-145) mEq/L Potassium 3.2 L (3.5-5.1) mEq/L Chloride 109 H (98-107) mEq/L Carbon Dioxide 27 (21-32) mEq/L Anion Gap 15.2 H (5-15) BUN 34 H (7-18) mg/dL Creatinine 0.9 (0.55-1.02) mg/dL Est Cr Clr Drug Dosing 68.72 mL/min Estimated GFR (MDRD) > 60 (>60) mL/min BUN/Creatinine Ratio 37.8 H (14-18) Glucose 135 H (80-115) mg/dL POC Glucose 161 H (80-115) mg/dL Hemoglobin A1c (4.50-6.20) % Calcium 8.8 (8.5-10.1) mg/dL Magnesium (1.8-2.4) mg/dl Troponin I (0.00-0.056) ng/mL C-Reactive Protein 15.0 H* (<1.0) mg/dL NT-Pro-B Natriuret Pep (0-125) pg/mL Digoxin (0.9-2.0) ng/mL Mycoplasma pneumon IgM Negative (NEGATIVE) 03/11/17 03/11/17 03/11/17 Range/Units 05:54 05:54 06:38 WBC (3.98-10.04) K/mm3 RBC (3.98-5.22) M/mm3 Hgb (11.2-15.7) gm/L Hct (34.1-44.9) % MCV (79.4-94.8) fl MCH (25.6-32.2) pg MCHC (32.2-35.5) g/dl RDW Std Deviation (36.4-46.3) fL Plt Count (182-369) K/mm3 MPV (9.4-12.3) fl Neut % (Auto) (34.0-71.1) % Lymph % (Auto) (19.3-51.7) % Bladen % (Auto) (4.7-12.5) % Eos % (Auto) (0.7-5.8) Baso % (Auto) (0.1-1.2) % Neut # (Auto) (1.56-6.13) K/mm3 Lymph # (Auto) (1.18-3.74) K/mm3 Bladen # (Auto) (0.24-0.36) K/mm3 Eos # (Auto) (0.04-0.36) K/mm3 Baso # (Auto) (0.01-0.08) K/mm3 Manual Slide Review PT 28.8 H (8.0-13.0) SECONDS INR 2.49 Sodium (136-145) mEq/L Potassium (3.5-5.1) mEq/L Chloride (98-107) mEq/L Carbon Dioxide (21-32) mEq/L Anion Gap (5-15) BUN (7-18) mg/dL Creatinine (0.55-1.02) mg/dL Est Cr Clr Drug Dosing mL/min Estimated GFR (MDRD) (>60) mL/min BUN/Creatinine Ratio (14-18) Glucose (80-115) mg/dL POC Glucose 150 H (80-115) mg/dL Hemoglobin A1c 7.50 H (4.50-6.20) % Calcium (8.5-10.1) mg/dL Magnesium (1.8-2.4) mg/dl Troponin I (0.00-0.056) ng/mL C-Reactive Protein (<1.0) mg/dL NT-Pro-B Natriuret Pep (0-125) pg/mL Digoxin (0.9-2.0) ng/mL Mycoplasma pneumon IgM (NEGATIVE) 03/11/17 Range/Units 11:33 WBC (3.98-10.04) K/mm3 RBC (3.98-5.22) M/mm3 Hgb (11.2-15.7) gm/L Hct (34.1-44.9) % MCV (79.4-94.8) fl MCH (25.6-32.2) pg MCHC (32.2-35.5) g/dl RDW Std Deviation (36.4-46.3) fL Plt Count (182-369) K/mm3 MPV (9.4-12.3) fl Neut % (Auto) (34.0-71.1) % Lymph % (Auto) (19.3-51.7) % Bladen % (Auto) (4.7-12.5) % Eos % (Auto) (0.7-5.8) Baso % (Auto) (0.1-1.2) % Neut # (Auto) (1.56-6.13) K/mm3 Lymph # (Auto) (1.18-3.74) K/mm3 Bladen # (Auto) (0.24-0.36) K/mm3 Eos # (Auto) (0.04-0.36) K/mm3 Baso # (Auto) (0.01-0.08) K/mm3 Manual Slide Review PT (8.0-13.0) SECONDS INR Sodium (136-145) mEq/L Potassium (3.5-5.1) mEq/L Chloride (98-107) mEq/L Carbon Dioxide (21-32) mEq/L Anion Gap (5-15) BUN (7-18) mg/dL Creatinine (0.55-1.02) mg/dL Est Cr Clr Drug Dosing mL/min Estimated GFR (MDRD) (>60) mL/min BUN/Creatinine Ratio (14-18) Glucose (80-115) mg/dL POC Glucose 203 H (80-115) mg/dL Hemoglobin A1c (4.50-6.20) % Calcium (8.5-10.1) mg/dL Magnesium (1.8-2.4) mg/dl Troponin I (0.00-0.056) ng/mL C-Reactive Protein (<1.0) mg/dL NT-Pro-B Natriuret Pep (0-125) pg/mL Digoxin (0.9-2.0) ng/mL Mycoplasma pneumon IgM (NEGATIVE) Shaun Results Last 24 Hours: Microbiology 03/11/17 06:10 Gram Stain - Final Sputum - Expectorated Med Orders - Current: Current Medications Acetaminophen (Tylenol) 650 mg PO Q4H PRN PRN Reason: Pain (Mild 1-3)/fever Acetaminophen (Tylenol) 975 mg PO BID [facility] Last Admin: 03/11/17 09:20 Dose: 975 mg Hydrocodone Bitart/Acetaminophen ([place] 325-5 Mg) 1 tab PO Q4H PRN PRN Reason: Pain (moderate 4-6) Albuterol/Ipratropium (Duoneb 3.0-0.5 Mg/3 Ml) 3 ml NEB Q4H PRN PRN Reason: Shortness Of Breath/wheezing Allopurinol (Zyloprim) 150 mg PO DAILY [facility] Last Admin: 03/11/17 08:02 Dose: 150 mg Aspirin (Halfprin) 81 mg PO DAILY [facility] Last Admin: 03/11/17 08:01 Dose: 81 mg Bisacodyl (Dulcolax) 5 mg PO DAILY PRN PRN Reason: Constipation Cholecalciferol (Vitamin D3) 500 units PO DAILY [facility] Last Admin: 03/11/17 08:02 Dose: 500 units Digoxin (Lanoxin) 125 mcg PO DAILY [facility] Last Admin: 03/11/17 08:02 Dose: 125 mcg Diltiazem HCl (Cardizem) 180 mg PO DAILY [facility] Last Admin: 03/11/17 08:37 Dose: Not Given Docusate Sodium (Colace) 100 mg PO BID PRN PRN Reason: Constipation Last Admin: 03/10/17 20:19 Dose: 100 mg Enalapril Maleate (Vasotec) 5 mg PO DAILY [facility] Last Admin: 03/11/17 08:38 Dose: Not Given Ferrous Sulfate (Ferrous Sulfate) 325 mg PO DAILY [facility] Last Admin: 03/11/17 08:03 Dose: 325 mg Furosemide (Lasix) 80 mg PO BIDDIURETIC [facility] Last Admin: 03/11/17 05:11 Dose: 80 mg Hydralazine HCl (Apresoline) 20 mg IVPUSH Q4H PRN PRN Reason: Hypertension Hydromorphone HCl (Dilaudid) 0.25 mg IVPUSH Q2H PRN PRN Reason: Pain (severe 7-10) Diltiazem HCl 125 mg/ Sodium (Chloride) 125 mls @ 5 mls/hr IV TITRATE [facility]; 5 MG /HR PRN Reason: Protocol Last Titration: 03/10/17 10:16 Dose: 0 mg/hr, 0 mls/hr Promethazine HCl 12.5 mg/ (Sodium Chloride) 50.5 mls @ 100 mls/hr IV Q6H PRN PRN Reason: Nausea/Vomiting Azithromycin 500 mg/ Sodium (Chloride) 250 mls @ 250 mls/hr IV Q24H [facility] Last Admin: 03/11/17 08:22 Dose: 250 mls/hr Ceftriaxone Sodium 1 gm/ (Sodium Chloride) 100 mls @ 200 mls/hr IV Q24H [facility] Last Admin: 03/11/17 09:35 Dose: 200 mls/hr Sodium Chloride (Normal Saline) 1,000 mls @ 125 mls/hr IV ASDIRECTED [facility] Last Admin: 03/10/17 11:41 Dose: 125 mls/hr Esmolol HCl (Brevibloc In Ns Premix) 2.5 gm in 250 mls @ 33.3 mls/hr IV TITRATE [facility]; 50 MCG/KG/MIN PRN Reason: Protocol Last Titration: 03/11/17 11:20 Dose: 100 mcg/kg/min, 66.6 mls/hr Insulin Aspart (Novolog) 8 unit SUBCUT 1200 [facility] Last Admin: 03/10/17 12:34 Dose: 8 units Insulin Aspart (Novolog) 10 unit SUBCUT 0800 [facility] Last Admin: 03/11/17 08:32 Dose: 10 units Insulin Aspart (Novolog) 10 unit SUBCUT 1700 [facility] Last Admin: 03/10/17 17:50 Dose: 10 units Insulin Aspart (Novolog) 0 unit SUBCUT QIDACANDBED [facility] PRN Reason: Protocol Last Admin: 03/11/17 11:34 Dose: 2 unit Lorazepam (Ativan) 0.5 mg IV Q6H PRN PRN Reason: Anxiety Lorazepam (Ativan) 2 mg IVPUSH Q4H PRN PRN Reason: Seizures Magnesium Sulfate (Pharmacy To Dose - Magnesium Replacement) 1 dose .XX ASDIRECTED PRN PRN Reason: RX to Dose Methimazole (Methimazole) 5 mg PO MoTuWeThFr@0900 [facility] Last Admin: 03/11/17 08:11 Dose: 5 mg Metolazone (Zaroxolyn) 2.5 mg PO MoTh [facility] Last Admin: 03/11/17 09:21 Dose: 2.5 mg Metoprolol Succinate (Toprol Xl) 100 mg PO DAILY [facility] Last Admin: 03/11/17 08:10 Dose: 100 mg Metoprolol Tartrate (Lopressor) 5 mg IVPUSH Q4H PRN PRN Reason: Tachycardia Last Admin: 03/11/17 08:14 Dose: 5 mg Ondansetron HCl (Zofran) 4 mg IV Q6H PRN PRN Reason: Nausea/Vomiting Pantoprazole Sodium (Protonix) 40 mg PO ACBREAKFAST [facility] Last Admin: 03/11/17 05:10 Dose: 40 mg Mirabegron [ (Myrbetriq] 50 Mg) 0 each PO DAILY@1700 [facility] Last Admin: 03/10/17 17:00 Dose: Not Given Polyethylene Glycol (Miralax) 17 gm PO DAILY PRN PRN Reason: Constipation Potassium Chloride (Klor-Con 10) 10 meq PO 1200 [facility] Last Admin: 03/10/17 12:33 Dose: 10 meq Potassium Chloride (Klor-Con 10) 20 meq PO BID [facility] Last Admin: 03/11/17 08:03 Dose: 20 meq Potassium Chloride (Pharmacy To Dose - Potassium Replacement) 0 dose .XX ASDIRECTED PRN PRN Reason: RX TO WATCH K LEVELS Potassium Chloride (Klor-Con M20) 40 meq PO Q4H [facility] Stop: 03/11/17 12:01 Last Admin: 03/11/17 08:14 Dose: 40 meq Saccharomyces Boulardii (Florastor) 250 mg PO DAILY [facility] Last Admin: 03/11/17 09:20 Dose: 250 mg Senna/Docusate Sodium (Senna Plus) 1 tab PO BID PRN PRN Reason: Constipation Sertraline HCl (Zoloft) 50 mg PO DAILY [facility] Last Admin: 03/11/17 08:04 Dose: 50 mg Simvastatin (Zocor) 5 mg PO DAILY [facility] Last Admin: 03/11/17 08:01 Dose: 5 mg Sodium Chloride (Saline Flush) 10 ml FLUSH ASDIRECTED PRN PRN Reason: Keep Vein Open Last Admin: 03/11/17 00:50 Dose: 10 ml Temazepam (Restoril) 7.5 mg PO BEDTIME PRN PRN Reason: Sleep Warfarin Sodium (Coumadin) 2 mg PO SuTuWeThSa@1800 [facility] Last Admin: 03/10/17 17:50 Dose: 2 mg Warfarin Sodium (Coumadin) 5 mg PO MoFr@1800 [facility] Discontinued Medications Bumetanide (Bumex) 1 mg IVPUSH ONETIME ONE Stop: 03/10/17 18:04 Last Admin: 03/10/17 18:48 Dose: 1 mg Bumetanide (Bumex) 0.5 mg IVPUSH ONETIME ONE Stop: 03/11/17 07:01 Last Admin: 03/11/17 06:44 Dose: 0.5 mg Digoxin (Lanoxin) 250 mcg IVPUSH Q6H [facility] Stop: 03/10/17 10:01 Digoxin (Lanoxin) 125 mcg IVPUSH Q6H [facility] Stop: 03/10/17 10:01 Last Admin: 03/10/17 11:02 Dose: Not Given Diltiazem HCl (Diltiazem) 10 mg IVPUSH ONETIME ONE Stop: 03/10/17 01:06 Last Admin: 03/10/17 01:07 Dose: 10 mg Diltiazem HCl (Diltiazem) Confirm Administered Dose 25 mg .ROUTE .STK-MED ONE Stop: 03/10/17 01:10 Last Admin: 03/10/17 01:25 Dose: Not Given Diltiazem HCl (Diltiazem) 10 mg IVPUSH ONETIME ONE Stop: 03/10/17 01:45 Last Admin: 03/10/17 01:57 Dose: 10 mg Sodium Chloride (Normal Saline) 500 mls @ 500 mls/hr IV .BOLUS ONE Stop: 03/10/17 02:23 Last Admin: 03/10/17 01:25 Dose: 500 mls/hr Sodium Chloride (Normal Saline) Confirm Administered Dose 1,000 mls @ as directed .ROUTE .STK-MED ONE Stop: 03/10/17 01:28 Last Admin: 03/10/17 01:27 Dose: Not Given Ceftriaxone Sodium 1 gm/ (Sodium Chloride) 100 mls @ 200 mls/hr IV ONETIME ONE Stop: 03/10/17 02:44 Last Admin: 03/10/17 03:17 Dose: Not Given Azithromycin 500 mg/ Sodium (Chloride) 250 mls @ 250 mls/hr IV ONETIME ONE Stop: 03/10/17 03:15 Last Admin: 03/10/17 03:09 Dose: 250 mls/hr Ceftriaxone Sodium 1 gm/ (Sodium Chloride) 100 mls @ 200 mls/hr IV ONETIME ONE Stop: 03/10/17 02:52 Last Admin: 03/10/17 02:38 Dose: 200 mls/hr Sodium Chloride (Normal Saline) 500 mls @ 999 mls/hr IV .BOLUS ONE Stop: 03/10/17 03:12 Last Admin: 03/10/17 02:55 Dose: 999 mls/hr - Exam Quality Assessment: Supplemental Oxygen General: Alert, Oriented, Cooperative, No Acute Distress HEENT: Pupils Equal, Pupils Reactive, EOMI, Mucous Membr. Moist/[place] Neck: Supple, Trachea Midline, No JVD Lungs: Normal Respiratory Effort, Decreased Breath Sounds, Crackles (baibasilar) Cardiovascular: Irregular Rhythm, Tachycardia GI/Abdominal Exam: Normal Bowel Sounds, Soft, Non-Tender, No Organomegaly, No Distention, No Abnormal Bruit, No Mass (Female) Exam: Deferred Back Exam: Normal Inspection, Decreased Range of Motion Extremities: Normal Inspection, Normal Range of Motion, Non-Tender, Normal Capillary Refill, Pedal Edema (trace-1+) Peripheral Pulses: 1+: Dorsalis Pedis (L), Dorsalis Pedis (R) Skin: Warm, Dry, Intact Neurological: No New Focal Deficit, Other (Baseline Intellectual Disability) Psy/Mental Status: Alert, Normal Affect, Normal Mood - Problem List Review Problem List Initiated/Reviewed/Updated: Yes - My Orders Last 24 Hours: My Active Orders 03/10/17 11:49 Blood Glucose Check, Bedside [RC] QIDACANDBED 03/10/17 12:00 Insulin Aspart [NovoLOG] 8 unit SUBCUT 1200 Potassium Chloride [Klor-Con 10] 10 meq PO 1200 03/10/17 17:00 Insulin Aspart [NovoLOG] 10 unit SUBCUT 1700 Patient's Own Medication [Ptom] 0 each PO DAILY@1700 03/10/17 18:00 Warfarin [Coumadin] 2 mg PO SuTuWeThSa@1800 03/10/17 18:02 Sodium Chloride 0.9% [Saline Flush] 10 ml FLUSH ASDIRECTED PRN Saline Lock Insert [OM.PC] Routine 03/11/17 00:14 STREP PNEUMONIAE ANTIGEN [MREF] Routine 03/11/17 05:54 BASIC METABOLIC PANEL,BMP [CHEM] AM C-REACTIVE PROTEIN [CHEM] AM MYCOPLASMA PNEUMONIAE IGM AB [CHEM] AM PRO B-TYPE NATRIUR PEPT,BNPPRO [CHEM] Routine 03/11/17 06:10 CULTURE SPUTUM + SMEAR [RM] Stat 03/11/17 07:00 Echo Comp wo Cont [US] Routine Insulin Aspart [NovoLOG] See Protocol SUBCUT QIDACANDBED 03/11/17 07:30 Potassium Rep Pharmacy to Dose [Pharmacy to Dose - Potassium Replacement] 0 dose .XX ASDIRECTED PRN 03/11/17 08:00 Potassium Chloride [Klor-Con M20] 40 meq PO Q4H 03/11/17 09:00 Azithromycin [Zithromax] 500 mg Sodium Chloride 0.9% [Normal Saline] 250 ml IV Q24H Methimazole 5 mg PO MoTuWeThFr@0900 Metolazone [Zaroxolyn] 2.5 mg PO MoTh 03/11/17 09:15 Esmolol/Normal Saline [Brevibloc in NS Premix] 2.5 gm in 250 ml IV TITRATE 03/11/17 10:00 cefTRIAXone [Rocephin] 1 gm Sodium Chloride 0.9% [Normal Saline] 100 ml IV Q24H 03/11/17 18:00 Warfarin [Coumadin] 5 mg PO MoFr@1800 03/11/17 Breakfast Fluid Restriction [DIET] Heart Healthy Diet [DIET] Sodium Restricted Diet [DIET] 03/12/17 05:11 BASIC METABOLIC PANEL,BMP [CHEM] AM C-REACTIVE PROTEIN [CHEM] AM CBC WITH AUTO DIFF [HEME] AM INR,PT,PROTHROMBIN TIME [COAG] AM 03/13/17 05:11 BASIC METABOLIC PANEL,BMP [CHEM] AM C-REACTIVE PROTEIN [CHEM] AM CBC WITH AUTO DIFF [HEME] AM INR,PT,PROTHROMBIN TIME [COAG] AM 03/14/17 05:11 BASIC METABOLIC PANEL,BMP [CHEM] AM C-REACTIVE PROTEIN [CHEM] AM CBC WITH AUTO DIFF [HEME] AM INR,PT,PROTHROMBIN TIME [COAG] AM - Plan Plan:: Assessment/Plan: Acute: Atrial Fibrillation with RVR, Still uncontrolled - Acute on Chronic - HR as high as 160s this am - She is on Warfarin for stroke prophylaxis - She takes Digoxin 125 mg po daily, Metoprolol 100 mg po daily and Cardizem 180 mg po daily - Her digoxin level was low - She was off cardizem drip; will swithc to esmolol drip since her pressues significantly dropped with cardziem drip yesterday. - Daily INR Bronchitis/Pulmonary Vascular Congestion, Unchanged - Initial CXR shows increased lung markings pending formal radiology report; Follow up CXR is about the same - Pos Strep A screening; Influenza screening negative - Continue Supplemental O2, Routine RT Care, Bronchodilators, - Sputum Cx/Sx-pending; Mycoplasma/Strep Pneumoniae Ag test both negative - Continue IV ATB with 500 mg Azithromycin and 1 gram Rocephin daily - Oral probiotic daily - IS as directed Strep Pharyngitis - Antibiotic as above; awaiting culture? for confirmation - She is allergic to PCN - Continue current treatment Heart Failure with Reduced EF 20% 12/16/2013, Slightly Improved - Hx/o Cardiomyopathy - BNP 2976--> 2288 - Peripheral edema 1+ now - Continue Lasix 80 mg po BID, Metolazone 2.5 mg po MoTh, Is/Os, Daily Weight and Sodium/Fluid Restriction - 2D echo 06/21/2016: EF 35-40% With Moderate-Severe Mitral and Tricuspid [place] Regurgitation Subtherapeutic Digoxin, Improved - Digoxin 0.5--> 0.8 (0.9-2 normal) - Likely contributory to uncontrolled HR - Continue daily Digoxin 125 mcg po; consider additional dose - Will repeat level this afternoon Leukocytosis, Improved - WBC 30.77--> 12.95; CRP 10.3--> 15.0 - Likely 2/2 above - Treat underlying cause - Continue to monitor Hypokalemia, Slightly Worse - K 3.4--> 3.2 - Likely 2/2 renal loss form loop diuretic - Pharmacy to replete and monitor DM2 with Hyperglycemia, Improved - On Insulin Regimen: SA and LA - Last A1C was 6.6 10/13/2014; new A1C 7.6 - Accu-check QID AC and HS with Low dose ISS Chronic: HLD Cardiomyopathy CKD Stage 2-3, Stable GERD with Esophagitis Gout LESLYE, Stable Urinary Incontinence Hyperthyroidism Constipation Peripheral Edema Right Eye Blindness Dry Eyes Syndrome Macular Degeneration Intellectual Disability Obesity with BMI of 31 Plan: She is clinically better Continue current treatment Routine AM Labs 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
[2017-03-11] MEDS ORDERED: Digoxin 500 MCG/2 ML Amp IVPUSH ONE (11:42)
[2017-03-11] MEDS: LORazepam 2 MG/ML MDV IV PRN (14:20)
[2017-03-11] MEDS: Mirabegron [Myrbetriq] 50 MG PO SCH (17:28)
[2017-03-11] MEDS: Warfarin 5 MG Tab PO SCH (17:29)
[2017-03-12] MEDS: Metoprolol Tartrate 5 MG/5 ML SDV IVPUSH PRN (05:31)
[2017-03-12] MEDS: Insulin Aspart 100 Units/ML 3 ML Pen SUBCUT SCH ×7 (06:34→21:08)
[2017-03-12] MEDS: Pantoprazole 40 MG Tab.CR PO SCH (06:35)
[2017-03-12] MEDS ORDERED: Bumetanide 1 MG/4 ML MDV IVPUSH ONE (07:00)
--- NOTE | 2017-03-12 07:15 | PCM.PN ---
- General Info Date of Service: 03/12/17 Admission Dx/Problem (Free Text): Admission Diagnosis/Problem Admission Diagnosis/Problem Pneumonia Subjective Update: Follow Up Functional Status: Reports: Pain Controlled, Tolerating Diet, Ambulating, Urinating, Incentive Spirometry. Denies: New Symptoms - Review of Systems General: Denies: Fever, Weakness, Fatigue, Malaise, Chills HEENT: Reports: No Symptoms Pulmonary: Denies: Shortness of Breath, Cough Cardiovascular: Denies: Chest Pain, Dyspnea on Exertion, Edema, Lightheadedness Gastrointestinal: Denies: Abdominal Pain, Nausea, Vomiting Genitourinary: Reports: No Symptoms Musculoskeletal: Reports: Back Pain Skin: Denies: Cyanosis, Pallor, Diaphoresis, Rash Neurological: Denies: Confusion, Difficulty Walking, Weakness, Gait Disturbance Psychiatric: Denies: Confusion, Mood Lability, Anxiety, Agitation, Hallucinations Systems Review Comment:: No overnight or acute issues. She is now off esmolol drip. She slept pretty good and reports no new complaints. She has no new complaints. - Patient Data Vitals - Most Recent: Last Vital Signs Temp 36.5 C 03/12/17 04:00 Pulse 116 H 03/12/17 05:31 Resp 21 H 03/12/17 06:00 BP 135/82 03/12/17 06:00 Pulse Ox 92 L 03/12/17 06:00 Weight - Most Recent: 100.38 kg I&O - Last 24 Hours: Intake & Output 03/11/17 03/12/17 03/12/17 22:59 06:59 14:59 Intake Total 1890 880 Balance 1890 880 Lab Results Last 24 Hours: Laboratory Results - last 24 hr 03/11/17 03/11/17 03/11/17 Range/Units 05:54 05:54 05:54 WBC (3.98-10.04) K/mm3 RBC (3.98-5.22) M/mm3 Hgb (11.2-15.7) gm/L Hct (34.1-44.9) % MCV (79.4-94.8) fl MCH (25.6-32.2) pg MCHC (32.2-35.5) g/dl RDW Std Deviation (36.4-46.3) fL Plt Count (182-369) K/mm3 MPV (9.4-12.3) fl Neut % (Auto) (34.0-71.1) % Lymph % (Auto) (19.3-51.7) % [place] % (Auto) (4.7-12.5) % Eos % (Auto) (0.7-5.8) Baso % (Auto) (0.1-1.2) % Neut # (Auto) (1.56-6.13) K/mm3 Lymph # (Auto) (1.18-3.74) K/mm3 [place] # (Auto) (0.24-0.36) K/mm3 Eos # (Auto) (0.04-0.36) K/mm3 Baso # (Auto) (0.01-0.08) K/mm3 Manual Slide Review Abnormal smear PT (8.0-13.0) SECONDS INR POC Glucose (80-115) mg/dL Hemoglobin A1c 7.50 H (4.50-6.20) % NT-Pro-B Natriuret Pep 2288 H (0-125) pg/mL Free T4 (0.76-1.46) ng/dL Digoxin (0.9-2.0) ng/mL Mycoplasma pneumon IgM Negative (NEGATIVE) 03/11/17 03/11/17 03/11/17 Range/Units 11:33 15:28 15:28 WBC (3.98-10.04) K/mm3 RBC (3.98-5.22) M/mm3 Hgb (11.2-15.7) gm/L Hct (34.1-44.9) % MCV (79.4-94.8) fl MCH (25.6-32.2) pg MCHC (32.2-35.5) g/dl RDW Std Deviation (36.4-46.3) fL Plt Count (182-369) K/mm3 MPV (9.4-12.3) fl Neut % (Auto) (34.0-71.1) % Lymph % (Auto) (19.3-51.7) % [place] % (Auto) (4.7-12.5) % Eos % (Auto) (0.7-5.8) Baso % (Auto) (0.1-1.2) % Neut # (Auto) (1.56-6.13) K/mm3 Lymph # (Auto) (1.18-3.74) K/mm3 [place] # (Auto) (0.24-0.36) K/mm3 Eos # (Auto) (0.04-0.36) K/mm3 Baso # (Auto) (0.01-0.08) K/mm3 Manual Slide Review PT (8.0-13.0) SECONDS INR POC Glucose 203 H (80-115) mg/dL Hemoglobin A1c (4.50-6.20) % NT-Pro-B Natriuret Pep (0-125) pg/mL Free T4 0.95 (0.76-1.46) ng/dL Digoxin 1.1 (0.9-2.0) ng/mL Mycoplasma pneumon IgM (NEGATIVE) 03/11/17 03/11/17 03/12/17 Range/Units 17:18 20:53 05:01 WBC 11.48 H (3.98-10.04) K/mm3 RBC 3.68 L (3.98-5.22) M/mm3 Hgb 10.8 L (11.2-15.7) gm/L Hct 35.7 (34.1-44.9) % MCV 97.0 H (79.4-94.8) fl MCH 29.3 (25.6-32.2) pg MCHC 30.3 L (32.2-35.5) g/dl RDW Std Deviation 55.3 H (36.4-46.3) fL Plt Count 205 (182-369) K/mm3 MPV 10.2 (9.4-12.3) fl Neut % (Auto) 83.7 H (34.0-71.1) % Lymph % (Auto) 9.1 L (19.3-51.7) % [place] % (Auto) 5.0 (4.7-12.5) % Eos % (Auto) 1.7 (0.7-5.8) Baso % (Auto) 0.2 (0.1-1.2) % Neut # (Auto) 9.63 H (1.56-6.13) K/mm3 Lymph # (Auto) 1.04 L (1.18-3.74) K/mm3 [place] # (Auto) 0.57 H (0.24-0.36) K/mm3 Eos # (Auto) 0.19 (0.04-0.36) K/mm3 Baso # (Auto) 0.02 (0.01-0.08) K/mm3 Manual Slide Review PT (8.0-13.0) SECONDS INR POC Glucose 200 H 111 (80-115) mg/dL Hemoglobin A1c (4.50-6.20) % NT-Pro-B Natriuret Pep (0-125) pg/mL Free T4 (0.76-1.46) ng/dL Digoxin (0.9-2.0) ng/mL Mycoplasma pneumon IgM (NEGATIVE) 03/12/17 03/12/17 Range/Units 05:01 06:33 WBC (3.98-10.04) K/mm3 RBC (3.98-5.22) M/mm3 Hgb (11.2-15.7) gm/L Hct (34.1-44.9) % MCV (79.4-94.8) fl MCH (25.6-32.2) pg MCHC (32.2-35.5) g/dl RDW Std Deviation (36.4-46.3) fL Plt Count (182-369) K/mm3 MPV (9.4-12.3) fl Neut % (Auto) (34.0-71.1) % Lymph % (Auto) (19.3-51.7) % [place] % (Auto) (4.7-12.5) % Eos % (Auto) (0.7-5.8) Baso % (Auto) (0.1-1.2) % Neut # (Auto) (1.56-6.13) K/mm3 Lymph # (Auto) (1.18-3.74) K/mm3 [place] # (Auto) (0.24-0.36) K/mm3 Eos # (Auto) (0.04-0.36) K/mm3 Baso # (Auto) (0.01-0.08) K/mm3 Manual Slide Review PT 32.2 H (8.0-13.0) SECONDS INR 2.77 POC Glucose 122 H (80-115) mg/dL Hemoglobin A1c (4.50-6.20) % NT-Pro-B Natriuret Pep (0-125) pg/mL Free T4 (0.76-1.46) ng/dL Digoxin (0.9-2.0) ng/mL Mycoplasma pneumon IgM (NEGATIVE) Shaun Results Last 24 Hours: Microbiology 03/11/17 06:10 Gram Stain - Final Sputum - Expectorated Med Orders - Current: Current Medications Acetaminophen (Tylenol) 650 mg PO Q4H PRN PRN Reason: Pain (Mild 1-3)/fever Acetaminophen (Tylenol) 975 mg PO BID REPLACED BY [facility] Last Admin: 03/11/17 20:03 Dose: 975 mg Hydrocodone Bitart/Acetaminophen (Lamar 325-5 Mg) 1 tab PO Q4H PRN PRN Reason: Pain (moderate 4-6) Albuterol/Ipratropium (Duoneb 3.0-0.5 Mg/3 Ml) 3 ml NEB Q4H PRN PRN Reason: Shortness Of Breath/wheezing Allopurinol (Zyloprim) 150 mg PO DAILY REPLACED BY [facility] Last Admin: 03/11/17 08:02 Dose: 150 mg Aspirin (Halfprin) 81 mg PO DAILY REPLACED BY [facility] Last Admin: 03/11/17 08:01 Dose: 81 mg Bisacodyl (Dulcolax) 5 mg PO DAILY PRN PRN Reason: Constipation Cholecalciferol (Vitamin D3) 500 units PO DAILY REPLACED BY [facility] Last Admin: 03/11/17 08:02 Dose: 500 units Digoxin (Lanoxin) 125 mcg PO DAILY REPLACED BY [facility] Last Admin: 03/11/17 08:02 Dose: 125 mcg Diltiazem HCl (Cardizem) 180 mg PO DAILY REPLACED BY [facility] Last Admin: 03/11/17 08:37 Dose: Not Given Docusate Sodium (Colace) 100 mg PO BID PRN PRN Reason: Constipation Last Admin: 03/10/17 20:19 Dose: 100 mg Enalapril Maleate (Vasotec) 5 mg PO DAILY REPLACED BY [facility] Last Admin: 03/11/17 08:38 Dose: Not Given Ferrous Sulfate (Ferrous Sulfate) 325 mg PO DAILY REPLACED BY [facility] Last Admin: 03/11/17 08:03 Dose: 325 mg Furosemide (Lasix) 80 mg PO BIDDIURETIC REPLACED BY [facility] Last Admin: 03/11/17 14:05 Dose: 80 mg Hydralazine HCl (Apresoline) 20 mg IVPUSH Q4H PRN PRN Reason: Hypertension Hydromorphone HCl (Dilaudid) 0.25 mg IVPUSH Q2H PRN PRN Reason: Pain (severe 7-10) Diltiazem HCl 125 mg/ Sodium (Chloride) 125 mls @ 5 mls/hr IV TITRATE BRANDON; 5 MG /HR PRN Reason: Protocol Last Titration: 03/10/17 10:16 Dose: 0 mg/hr, 0 mls/hr Promethazine HCl 12.5 mg/ (Sodium Chloride) 50.5 mls @ 100 mls/hr IV Q6H PRN PRN Reason: Nausea/Vomiting Azithromycin 500 mg/ Sodium (Chloride) 250 mls @ 250 mls/hr IV Q24H [facility] Last Admin: 03/11/17 08:22 Dose: 250 mls/hr Ceftriaxone Sodium 1 gm/ (Sodium Chloride) 100 mls @ 200 mls/hr IV Q24H [facility] Last Admin: 03/11/17 09:35 Dose: 200 mls/hr Sodium Chloride (Normal Saline) 1,000 mls @ 125 mls/hr IV ASDIRECTED [facility] Last Admin: 03/10/17 11:41 Dose: 125 mls/hr Esmolol HCl (Brevibloc In Ns Premix) 2.5 gm in 250 mls @ 33.3 mls/hr IV TITRATE BRANDON; 50 MCG/KG/MIN PRN Reason: Protocol Last Titration: 03/12/17 03:20 Dose: 0 mcg/kg/min, 0 mls/hr Insulin Aspart (Novolog) 8 unit SUBCUT 1200 [facility] Last Admin: 03/11/17 12:50 Dose: 8 units Insulin Aspart (Novolog) 10 unit SUBCUT 0800 [facility] Last Admin: 03/11/17 08:32 Dose: 10 units Insulin Aspart (Novolog) 10 unit SUBCUT 1700 REPLACED BY [facility] Last Admin: 03/11/17 17:19 Dose: 10 units Insulin Aspart (Novolog) 0 unit SUBCUT QIDACANDBED BR[facility]ON PRN Reason: Protocol Last Admin: 03/12/17 06:34 Dose: Not Given Lorazepam (Ativan) 0.5 mg IV Q6H PRN PRN Reason: Anxiety Last Admin: 03/11/17 14:20 Dose: 0.5 mg Lorazepam (Ativan) 2 mg IVPUSH Q4H PRN PRN Reason: Seizures Magnesium Sulfate (Pharmacy To Dose - Magnesium Replacement) 1 dose .XX ASDIRECTED PRN PRN Reason: RX to Dose Methimazole (Methimazole) 5 mg PO MoTuWeThFr@0900 REPLACED BY [facility] Last Admin: 03/11/17 08:11 Dose: 5 mg Metolazone (Zaroxolyn) 2.5 mg PO MoTh REPLACED BY [facility] Last Admin: 03/11/17 09:21 Dose: 2.5 mg Metoprolol Succinate (Toprol Xl) 100 mg PO BID REPLACED BY [facility] Last Admin: 03/11/17 20:04 Dose: 100 mg Metoprolol Tartrate (Lopressor) 5 mg IVPUSH Q4H PRN PRN Reason: Tachycardia Last Admin: 03/12/17 05:31 Dose: 5 mg Ondansetron HCl (Zofran) 4 mg IV Q6H PRN PRN Reason: Nausea/Vomiting Pantoprazole Sodium (Protonix) 40 mg PO ACBREAKFAST REPLACED BY [facility] Last Admin: 03/12/17 06:35 Dose: 40 mg Mirabegron [ (Myrbetriq] 50 Mg) 0 each PO DAILY@1700 REPLACED BY [facility] Last Admin: 03/11/17 17:28 Dose: 1 each Polyethylene Glycol (Miralax) 17 gm PO DAILY PRN PRN Reason: Constipation Potassium Chloride (Klor-Con 10) 10 meq PO 1200 REPLACED BY [facility] Last Admin: 03/11/17 12:48 Dose: 10 meq Potassium Chloride (Klor-Con 10) 20 meq PO BID REPLACED BY [facility] Last Admin: 03/11/17 20:04 Dose: 20 meq Potassium Chloride (Pharmacy To Dose - Potassium Replacement) 0 dose .XX ASDIRECTED PRN PRN Reason: RX TO WATCH K LEVELS Saccharomyces Boulardii (Florastor) 250 mg PO DAILY REPLACED BY [facility] Last Admin: 03/11/17 09:20 Dose: 250 mg Senna/Docusate Sodium (Senna Plus) 1 tab PO BID PRN PRN Reason: Constipation Sertraline HCl (Zoloft) 50 mg PO DAILY REPLACED BY [facility] Last Admin: 03/11/17 08:04 Dose: 50 mg Simvastatin (Zocor) 5 mg PO DAILY REPLACED BY [facility] Last Admin: 03/11/17 08:01 Dose: 5 mg Sodium Chloride (Saline Flush) 10 ml FLUSH ASDIRECTED PRN PRN Reason: Keep Vein Open Last Admin: 03/11/17 00:50 Dose: 10 ml Temazepam (Restoril) 7.5 mg PO BEDTIME PRN PRN Reason: Sleep Warfarin Sodium (Coumadin) 2 mg PO SuTuWeThSa@1800 [facility] Last Admin: 03/10/17 17:50 Dose: 2 mg Warfarin Sodium (Coumadin) 5 mg PO MoFr@1800 [facility] Last Admin: 03/11/17 17:29 Dose: 5 mg Discontinued Medications Bumetanide (Bumex) 1 mg IVPUSH ONETIME ONE Stop: 03/10/17 18:04 Last Admin: 03/10/17 18:48 Dose: 1 mg Bumetanide (Bumex) 0.5 mg IVPUSH ONETIME ONE Stop: 03/11/17 07:01 Last Admin: 03/11/17 06:44 Dose: 0.5 mg Bumetanide (Bumex) 1 mg IVPUSH ONETIME ONE Stop: 03/12/17 07:01 Last Admin: 03/12/17 06:35 Dose: 1 mg Digoxin (Lanoxin) 250 mcg IVPUSH Q6H REPLACED BY [facility] Stop: 03/10/17 10:01 Digoxin (Lanoxin) 125 mcg IVPUSH Q6H REPLACED BY [facility] Stop: 03/10/17 10:01 Last Admin: 03/10/17 11:02 Dose: Not Given Digoxin (Lanoxin) 125 mcg IVPUSH ONETIME ONE Stop: 03/11/17 11:43 Last Admin: 03/11/17 12:09 Dose: 125 mcg Diltiazem HCl (Diltiazem) 10 mg IVPUSH ONETIME ONE Stop: 03/10/17 01:06 Last Admin: 03/10/17 01:07 Dose: 10 mg Diltiazem HCl (Diltiazem) Confirm Administered Dose 25 mg .ROUTE .STK-MED ONE Stop: 03/10/17 01:10 Last Admin: 03/10/17 01:25 Dose: Not Given Diltiazem HCl (Diltiazem) 10 mg IVPUSH ONETIME ONE Stop: 03/10/17 01:45 Last Admin: 03/10/17 01:57 Dose: 10 mg Sodium Chloride (Normal Saline) 500 mls @ 500 mls/hr IV .BOLUS ONE Stop: 03/10/17 02:23 Last Admin: 03/10/17 01:25 Dose: 500 mls/hr Sodium Chloride (Normal Saline) Confirm Administered Dose 1,000 mls @ as directed .ROUTE .STK-MED ONE Stop: 03/10/17 01:28 Last Admin: 03/10/17 01:27 Dose: Not Given Ceftriaxone Sodium 1 gm/ (Sodium Chloride) 100 mls @ 200 mls/hr IV ONETIME ONE Stop: 03/10/17 02:44 Last Admin: 03/10/17 03:17 Dose: Not Given Azithromycin 500 mg/ Sodium (Chloride) 250 mls @ 250 mls/hr IV ONETIME ONE Stop: 03/10/17 03:15 Last Admin: 03/10/17 03:09 Dose: 250 mls/hr Ceftriaxone Sodium 1 gm/ (Sodium Chloride) 100 mls @ 200 mls/hr IV ONETIME ONE Stop: 03/10/17 02:52 Last Admin: 03/10/17 02:38 Dose: 200 mls/hr Sodium Chloride (Normal Saline) 500 mls @ 999 mls/hr IV .BOLUS ONE Stop: 03/10/17 03:12 Last Admin: 03/10/17 02:55 Dose: 999 mls/hr Metoprolol Succinate (Toprol Xl) 100 mg PO DAILY REPLACED BY [facility] Last Admin: 03/11/17 08:10 Dose: 100 mg Potassium Chloride (Klor-Con M20) 40 meq PO Q4H REPLACED BY [facility] Stop: 03/11/17 12:01 Last Admin: 03/11/17 12:48 Dose: 40 meq - Exam Quality Assessment: Supplemental Oxygen General: Alert, Oriented, Cooperative, No Acute Distress HEENT: Pupils Equal, Pupils Reactive, EOMI, Mucous Membr. Moist/[place] Neck: Supple, Trachea Midline, No JVD Lungs: Clear to Auscultation, Normal Respiratory Effort, Decreased Breath Sounds Cardiovascular: Irregular Rhythm GI/Abdominal Exam: Normal Bowel Sounds, Soft, Non-Tender, No Organomegaly, No Distention, No Abnormal Bruit (Female) Exam: Deferred Back Exam: Normal Inspection, Decreased Range of Motion Extremities: Normal Inspection, Normal Range of Motion, Non-Tender, Normal Capillary Refill (trace), Pedal Edema, Other (varicose veins ) Peripheral Pulses: 2+: Dorsalis Pedis (L), Dorsalis Pedis (R) Skin: Warm, Dry, Intact Neurological: No New Focal Deficit Psy/Mental Status: Alert, Normal Affect, Normal Mood - Problem List Review Problem List Initiated/Reviewed/Updated: Yes - My Orders Last 24 Hours: My Active Orders 03/11/17 07:00 Insulin Aspart [NovoLOG] See Protocol SUBCUT QIDACANDBED 03/11/17 07:30 Potassium Rep Pharmacy to Dose [Pharmacy to Dose - Potassium Replacement] 0 dose .XX ASDIRECTED PRN 03/11/17 09:00 Azithromycin [Zithromax] 500 mg Sodium Chloride 0.9% [Normal Saline] 250 ml IV Q24H Methimazole 5 mg PO MoTuWeThFr@0900 Metolazone [Zaroxolyn] 2.5 mg PO MoTh 03/11/17 09:15 Esmolol/Normal Saline [Brevibloc in NS Premix] 2.5 gm in 250 ml IV TITRATE 03/11/17 10:00 cefTRIAXone [Rocephin] 1 gm Sodium Chloride 0.9% [Normal Saline] 100 ml IV Q24H 03/11/17 18:00 Warfarin [Coumadin] 5 mg PO MoFr@1800 03/11/17 21:00 Metoprolol Succinate [Toprol XL] 100 mg PO BID 03/11/17 Breakfast Fluid Restriction [DIET] Heart Healthy Diet [DIET] Sodium Restricted Diet [DIET] 03/12/17 05:01 BASIC METABOLIC PANEL,BMP [CHEM] AM C-REACTIVE PROTEIN [CHEM] AM CBC WITH AUTO DIFF [HEME] AM 03/12/17 08:00 Modified Barium Swallow Study [Swallowing Function w Video] [CR] Routine 03/12/17 10:00 CXR [Chest 1V Frontal] [CR] Routine 03/13/17 05:11 BASIC METABOLIC PANEL,BMP [CHEM] AM C-REACTIVE PROTEIN [CHEM] AM CBC WITH AUTO DIFF [HEME] AM INR,PT,PROTHROMBIN TIME [COAG] AM 03/14/17 05:11 BASIC METABOLIC PANEL,BMP [CHEM] AM C-REACTIVE PROTEIN [CHEM] AM CBC WITH AUTO DIFF [HEME] AM INR,PT,PROTHROMBIN TIME [COAG] AM - Plan Plan:: Assessment/Plan: Acute: Atrial Fibrillation with RVR, Still not fully controlled - Acute on Chronic - HR as high as 160s this am - She is on Warfarin for stroke prophylaxis - She is now on Digoxin 125 mg po daily, Metoprolol 100 mg po BID and Cardizem 180 mg po daily - Consider increasing Cardizem dose to 240 mg po Daily if no response to treatment - Daily INR Bronchitis/Pulmonary Vascular Congestion, Continues to Improve - Initial CXR shows increased lung markings pending formal radiology report - Pos Strep A screening; Influenza screening negative - Continue Supplemental O2, Routine RT Care, Bronchodilators, Oral Probiotic - Sputum Cx/Sx/Mycoplasma/Strep Pneumoniae Ag test all negative - Discontinue today IV ATB with 500 mg Azithromycin and 1 gram Rocephin daily - Repeat CXR shows improved lung markings - IS as directed Strep Pharyngitis - Antibiotic as above; awaiting culture? for confirmation - She is allergic to PCN - Continue current treatment Heart Failure with Reduced EF 20% 12/16/2013, Slightly Improved - Hx/o Cardiomyopathy - BNP 2976--> 2288; BNP level in AM - Peripheral edema 1+ now - Continue Lasix 80 mg po BID, Metolazone 2.5 mg po MoTh, Is/Os, Daily Weight and Sodium/Fluid Restriction - 2D echo 06/21/2016: EF 35-40% With Moderate-Severe Mitral and Tricuspid Jacqui Regurgitation Leukocytosis, Improved - WBC 30.77--> 12.95--> 11.48; CRP 10.3--> 15.0 --> 13.7 - Likely 2/2 above - Treat underlying cause - Continue to monitor Hypokalemia, Slightly Worse - K 3.4--> now 3.2 - Likely 2/2 renal loss form loop diuretic - Pharmacy to replete and monitor DM2 with Hyperglycemia, Improved - On Insulin Regimen: SA and LA - Last A1C was 6.6 10/13/2014; new A1C 7.6 - Accu-check QID AC and HS with Low dose ISS Probable AMEE - She has apneic episode when she is sleeping - Sleep Study outpatient - Abby Loss Anxiety - 1 mg po Ativan BID Resolved: Subtherapeutic Digoxin, Improved - Digoxin 0.5--> 1.1 (0.9-2 normal) - Likely contributory to uncontrolled HR - Continue daily Digoxin 125 mcg po; consider additional dose - Will repeat level this afternoon Chronic: HLD Cardiomyopathy CKD Stage 2-3, Stable GERD with Esophagitis Gout LESLYE, Stable Urinary Incontinence Hyperthyroidism Constipation Peripheral Edema Right Eye Blindness Dry Eyes Syndrome Macular Degeneration Intellectual Disability Obesity with BMI of 31 Plan: She looks clinically stable Transfer to med-Surg with Tele Continue current treatment with adjustment to rate control meds Routine AM Labs Continue PT/OT/RT Swallow eval --> regular and thin liquid diet [employer]ACHINE recommends Modified Barium Swallow-next week Hypoxia screening if she requires supplemental O2 Aspiration/Fall Precautions DVT/GI PPx: Warfarin and PPI SW/CM for d/c planning Additional orders as above Code status: 1
[2017-03-12] MEDS: Aspirin 81 MG Tab.EC PO SCH (08:20)
[2017-03-12] MEDS: Diltiazem IR 60 MG Tab PO SCH (08:20)
[2017-03-12] MEDS: Metoprolol Succinate 50 MG Tab.ER PO SCH ×2 (08:21→21:04)
[2017-03-12] MEDS: Digoxin 125 MCG Tab PO SCH (08:21)
[2017-03-12] MEDS: Potassium Chloride 20 MEQ Tab.ER PO SCH ×3 (08:22→16:19)
[2017-03-12] MEDS: Saccharomyces Boulardii (Probiotic) 250 MG Cap PO SCH (09:06)
[2017-03-12] MEDS: Allopurinol 300 MG Tab PO SCH (09:07)
[2017-03-12] MEDS: Ferrous Sulfate 325 MG Tab PO SCH (09:07)
[2017-03-12] MEDS: Methimazole 5 MG Tab PO SCH (09:07)
[2017-03-12] MEDS: Cholecalciferol (Vitamin D3) 1,000 Unit Tab PO SCH (09:08)
[2017-03-12] MEDS: Simvastatin 10 MG Tab PO SCH (09:08)
[2017-03-12] MEDS: Acetaminophen 325 MG Tab PO SCH ×2 (09:09→21:03)
[2017-03-12] MEDS: Sertraline 50 MG Tab PO SCH (09:10)
[2017-03-12] MEDS: Azithromycin 500 MG in Sodium Chloride 0.9% 250 ML IV SCH (09:11)
[2017-03-12] MEDS: Potassium Chloride 10 MEQ Tab.ER PO SCH ×3 (09:20→21:04)
[2017-03-12] MEDS: LORazepam 2 MG/ML MDV IV PRN (09:27)
--- NOTE | 2017-03-12 10:53 | CR ---
Chest: Portable view of the chest was obtained. Comparison: Prior chest x-ray of 03/11/17. Heart is enlarged. Pulmonary vessels are congested which appear fairly stable from prior chest x-ray. Possible small right-sided pleural effusion. Bony structures are grossly intact. Impression: 1. Cardiomegaly and pulmonary vascular congestion. Findings are fairly stable from prior exam. 2. Possible small right-sided pleural effusion. Diagnostic code #3
[2017-03-12] MEDS: cefTRIAXone 1 GM in Sodium Chloride 0.9% 100 ML IV SCH (10:58)
[2017-03-12] MEDS: Mirabegron [Myrbetriq] 50 MG PO SCH (17:56)
[2017-03-12] MEDS: Warfarin 2 MG Tab PO SCH (18:18)
[2017-03-12] MEDS: LORazepam 1 MG Tab PO SCH (21:03)
[2017-03-13] MEDS: Pantoprazole 40 MG Tab.CR PO SCH (06:08)
[2017-03-13] MEDS: Sodium Chloride 0.9% 10 ML Syringe FLUSH PRN (06:46)
[2017-03-13] MEDS ORDERED: Bumetanide 1 MG/4 ML MDV IVPUSH ONE (07:00)
[2017-03-13] MEDS ORDERED: Dextrose 5% in Water 1,000 ML IV SCH (07:30)
--- NOTE | 2017-03-13 07:30 | PCM.PN ---
- General Info Date of Service: 03/13/17 Admission Dx/Problem (Free Text): Admission Diagnosis/Problem Admission Diagnosis/Problem Pneumonia Subjective Update: Follow Up Functional Status: Reports: Pain Controlled, Tolerating Diet, Ambulating, Urinating. Denies: New Symptoms - Review of Systems General: Denies: Fever, Chills HEENT: Reports: No Symptoms Pulmonary: Reports: Shortness of Breath Cardiovascular: Denies: Chest Pain, Palpitations, Dyspnea on Exertion, Edema, Lightheadedness Gastrointestinal: Denies: Abdominal Pain, Nausea, Vomiting Genitourinary: Reports: No Symptoms Musculoskeletal: Reports: No Symptoms Skin: Denies: Cyanosis, Pallor, Diaphoresis, Rash Neurological: Reports: Gait Disturbance. Denies: Confusion, Difficulty Walking , Weakness Psychiatric: Denies: Depression, Anxiety, Agitation, Hallucinations Systems Review Comment:: No significant overnight or acute issues. She is essentially the same. However her HR remains uncontrolled. However her sodium continues to trend up. Her INR is slightly elevated at 3.29. - Patient Data Vitals - Most Recent: Last Vital Signs Temp 36.4 C 03/13/17 00:00 Pulse 120 H 03/13/17 04:00 Resp 18 03/13/17 04:00 BP 122/75 03/13/17 04:00 Pulse Ox 92 L 03/13/17 04:00 Weight - Most Recent: 112.173 kg I&O - Last 24 Hours: Intake & Output 03/12/17 03/13/17 03/13/17 22:59 06:59 14:59 Intake Total 950 120 Balance 950 120 Lab Results Last 24 Hours: Laboratory Results - last 24 hr 03/12/17 03/12/17 03/12/17 Range/Units 05:01 05:01 08:42 WBC (3.98-10.04) K/mm3 RBC (3.98-5.22) M/mm3 Hgb (11.2-15.7) gm/L Hct (34.1-44.9) % MCV (79.4-94.8) fl MCH (25.6-32.2) pg MCHC (32.2-35.5) g/dl RDW Std Deviation (36.4-46.3) fL Plt Count (182-369) K/mm3 MPV (9.4-12.3) fl Neut % (Auto) (34.0-71.1) % Lymph % (Auto) (19.3-51.7) % [place] % (Auto) (4.7-12.5) % Eos % (Auto) (0.7-5.8) Baso % (Auto) (0.1-1.2) % Neut # (Auto) (1.56-6.13) K/mm3 Lymph # (Auto) (1.18-3.74) K/mm3 [place] # (Auto) (0.24-0.36) K/mm3 Eos # (Auto) (0.04-0.36) K/mm3 Baso # (Auto) (0.01-0.08) K/mm3 Manual Slide Review Abnormal smear PT (8.0-13.0) SECONDS INR Sodium 147 H (136-145) mEq/L Potassium 3.2 L (3.5-5.1) mEq/L Chloride 109 H (98-107) mEq/L Carbon Dioxide 28 (21-32) mEq/L Anion Gap 13.2 (5-15) BUN 26 H (7-18) mg/dL Creatinine 0.8 (0.55-1.02) mg/dL Est Cr Clr Drug Dosing 77.31 mL/min Estimated GFR (MDRD) > 60 (>60) mL/min BUN/Creatinine Ratio 32.5 H (14-18) Glucose 104 (80-115) mg/dL POC Glucose 228 H (80-115) mg/dL Calcium 9.1 (8.5-10.1) mg/dL C-Reactive Protein 13.7 H* (<1.0) mg/dL 03/12/17 03/12/17 03/12/17 Range/Units 11:04 17:53 21:01 WBC (3.98-10.04) K/mm3 RBC (3.98-5.22) M/mm3 Hgb (11.2-15.7) gm/L Hct (34.1-44.9) % MCV (79.4-94.8) fl MCH (25.6-32.2) pg MCHC (32.2-35.5) g/dl RDW Std Deviation (36.4-46.3) fL Plt Count (182-369) K/mm3 MPV (9.4-12.3) fl Neut % (Auto) (34.0-71.1) % Lymph % (Auto) (19.3-51.7) % [place] % (Auto) (4.7-12.5) % Eos % (Auto) (0.7-5.8) Baso % (Auto) (0.1-1.2) % Neut # (Auto) (1.56-6.13) K/mm3 Lymph # (Auto) (1.18-3.74) K/mm3 [place] # (Auto) (0.24-0.36) K/mm3 Eos # (Auto) (0.04-0.36) K/mm3 Baso # (Auto) (0.01-0.08) K/mm3 Manual Slide Review PT (8.0-13.0) SECONDS INR Sodium (136-145) mEq/L Potassium (3.5-5.1) mEq/L Chloride (98-107) mEq/L Carbon Dioxide (21-32) mEq/L Anion Gap (5-15) BUN (7-18) mg/dL Creatinine (0.55-1.02) mg/dL Est Cr Clr Drug Dosing mL/min Estimated GFR (MDRD) (>60) mL/min BUN/Creatinine Ratio (14-18) Glucose (80-115) mg/dL POC Glucose 270 H 172 H 195 H (80-115) mg/dL Calcium (8.5-10.1) mg/dL C-Reactive Protein (<1.0) mg/dL 03/13/17 03/13/17 03/13/17 Range/Units 05:40 05:40 05:40 WBC 10.44 H (3.98-10.04) K/mm3 RBC 3.76 L (3.98-5.22) M/mm3 Hgb 11.3 (11.2-15.7) gm/L Hct 36.5 (34.1-44.9) % MCV 97.1 H (79.4-94.8) fl MCH 30.1 (25.6-32.2) pg MCHC 31.0 L (32.2-35.5) g/dl RDW Std Deviation 55.5 H (36.4-46.3) fL Plt Count 231 (182-369) K/mm3 MPV 10.3 (9.4-12.3) fl Neut % (Auto) 76.6 H (34.0-71.1) % Lymph % (Auto) 13.8 L (19.3-51.7) % [place] % (Auto) 6.5 (4.7-12.5) % Eos % (Auto) 2.5 (0.7-5.8) Baso % (Auto) 0.2 (0.1-1.2) % Neut # (Auto) 8.00 H (1.56-6.13) K/mm3 Lymph # (Auto) 1.44 (1.18-3.74) K/mm3 [place] # (Auto) 0.68 H (0.24-0.36) K/mm3 Eos # (Auto) 0.26 (0.04-0.36) K/mm3 Baso # (Auto) 0.02 (0.01-0.08) K/mm3 Manual Slide Review PT 38.7 H (8.0-13.0) SECONDS INR 3.29 Sodium 150 H (136-145) mEq/L Potassium 4.1 (3.5-5.1) mEq/L Chloride 111 H (98-107) mEq/L Carbon Dioxide 28 (21-32) mEq/L Anion Gap 15.1 H (5-15) BUN 28 H (7-18) mg/dL Creatinine 0.8 (0.55-1.02) mg/dL Est Cr Clr Drug Dosing 77.31 mL/min Estimated GFR (MDRD) > 60 (>60) mL/min BUN/Creatinine Ratio 35.0 H (14-18) Glucose 163 H (80-115) mg/dL POC Glucose (80-115) mg/dL Calcium 9.6 (8.5-10.1) mg/dL C-Reactive Protein 11.4 H* (<1.0) mg/dL 03/13/17 Range/Units 05:50 WBC (3.98-10.04) K/mm3 RBC (3.98-5.22) M/mm3 Hgb (11.2-15.7) gm/L Hct (34.1-44.9) % MCV (79.4-94.8) fl MCH (25.6-32.2) pg MCHC (32.2-35.5) g/dl RDW Std Deviation (36.4-46.3) fL Plt Count (182-369) K/mm3 MPV (9.4-12.3) fl Neut % (Auto) (34.0-71.1) % Lymph % (Auto) (19.3-51.7) % [place] % (Auto) (4.7-12.5) % Eos % (Auto) (0.7-5.8) Baso % (Auto) (0.1-1.2) % Neut # (Auto) (1.56-6.13) K/mm3 Lymph # (Auto) (1.18-3.74) K/mm3 [place] # (Auto) (0.24-0.36) K/mm3 Eos # (Auto) (0.04-0.36) K/mm3 Baso # (Auto) (0.01-0.08) K/mm3 Manual Slide Review PT (8.0-13.0) SECONDS INR Sodium (136-145) mEq/L Potassium (3.5-5.1) mEq/L Chloride (98-107) mEq/L Carbon Dioxide (21-32) mEq/L Anion Gap (5-15) BUN (7-18) mg/dL Creatinine (0.55-1.02) mg/dL Est Cr Clr Drug Dosing mL/min Estimated GFR (MDRD) (>60) mL/min BUN/Creatinine Ratio (14-18) Glucose (80-115) mg/dL POC Glucose 250 H (80-115) mg/dL Calcium (8.5-10.1) mg/dL C-Reactive Protein (<1.0) mg/dL Shaun Results Last 24 Hours: Microbiology 03/11/17 06:10 Gram Stain - Final Sputum - Expectorated Sputum Culture - Preliminary Med Orders - Current: Current Medications Acetaminophen (Tylenol) 650 mg PO Q4H PRN PRN Reason: Pain (Mild 1-3)/fever Acetaminophen (Tylenol) 975 mg PO BID [facility] Last Admin: 03/12/17 21:03 Dose: 975 mg Hydrocodone Bitart/Acetaminophen ([place] 325-5 Mg) 1 tab PO Q4H PRN PRN Reason: Pain (moderate 4-6) Albuterol/Ipratropium (Duoneb 3.0-0.5 Mg/3 Ml) 3 ml NEB Q4H PRN PRN Reason: Shortness Of Breath/wheezing Allopurinol (Zyloprim) 150 mg PO DAILY [facility] Last Admin: 03/12/17 09:07 Dose: 150 mg Aspirin (Halfprin) 81 mg PO DAILY [facility] Last Admin: 03/12/17 08:20 Dose: 81 mg Bisacodyl (Dulcolax) 5 mg PO DAILY PRN PRN Reason: Constipation Cholecalciferol (Vitamin D3) 500 units PO DAILY [facility] Last Admin: 03/12/17 09:08 Dose: 500 units Digoxin (Lanoxin) 125 mcg PO DAILY [facility] Last Admin: 03/12/17 08:21 Dose: 125 mcg Diltiazem HCl (Cardizem) 240 mg PO DAILY [facility] Docusate Sodium (Colace) 100 mg PO BID PRN PRN Reason: Constipation Last Admin: 03/10/17 20:19 Dose: 100 mg Enalapril Maleate (Vasotec) 5 mg PO DAILY [facility] Last Admin: 03/12/17 08:43 Dose: 5 mg Ferrous Sulfate (Ferrous Sulfate) 325 mg PO DAILY [facility] Last Admin: 03/12/17 09:07 Dose: 325 mg Furosemide (Lasix) 80 mg PO BIDDIURETIC [facility] Last Admin: 03/11/17 14:05 Dose: 80 mg Hydralazine HCl (Apresoline) 20 mg IVPUSH Q4H PRN PRN Reason: Hypertension Hydromorphone HCl (Dilaudid) 0.25 mg IVPUSH Q2H PRN PRN Reason: Pain (severe 7-10) Diltiazem HCl 125 mg/ Sodium (Chloride) 125 mls @ 5 mls/hr IV TITRATE BRANDON; 5 MG /HR PRN Reason: Protocol Last Titration: 03/10/17 10:16 Dose: 0 mg/hr, 0 mls/hr Promethazine HCl 12.5 mg/ (Sodium Chloride) 50.5 mls @ 100 mls/hr IV Q6H PRN PRN Reason: Nausea/Vomiting Azithromycin 500 mg/ Sodium (Chloride) 250 mls @ 250 mls/hr IV Q24H [facility] Last Admin: 03/12/17 09:11 Dose: 250 mls/hr Ceftriaxone Sodium 1 gm/ (Sodium Chloride) 100 mls @ 200 mls/hr IV Q24H [facility] Last Admin: 03/12/17 10:58 Dose: 200 mls/hr Sodium Chloride (Normal Saline) 1,000 mls @ 125 mls/hr IV ASDIRECTED [facility] Last Admin: 03/10/17 11:41 Dose: 125 mls/hr Esmolol HCl (Brevibloc In Ns Premix) 2.5 gm in 250 mls @ 33.3 mls/hr IV TITRATE BRANDON; 50 MCG/KG/MIN PRN Reason: Protocol Last Titration: 03/12/17 03:20 Dose: 0 mcg/kg/min, 0 mls/hr Dextrose/Water (Dextrose 5% In Water) 1,000 mls @ 125 mls/hr IV ASDIRECTED [facility] Insulin Aspart (Novolog) 8 unit SUBCUT 1200 [facility] Last Admin: 03/12/17 11:48 Dose: 8 units Insulin Aspart (Novolog) 10 unit SUBCUT 0800 [facility] Last Admin: 03/12/17 08:38 Dose: 10 units Insulin Aspart (Novolog) 10 unit SUBCUT 1700 [facility] Last Admin: 03/12/17 17:54 Dose: 10 units Insulin Aspart (Novolog) 0 unit SUBCUT QIDACANDBED [facility] PRN Reason: Protocol Last Admin: 03/12/17 21:08 Dose: 1 unit Lorazepam (Ativan) 0.5 mg IV Q6H PRN PRN Reason: Anxiety Last Admin: 03/12/17 09:27 Dose: 0.5 mg Lorazepam (Ativan) 2 mg IVPUSH Q4H PRN PRN Reason: Seizures Lorazepam (Ativan) 1 mg PO BID [facility] Last Admin: 03/12/17 21:03 Dose: 1 mg Magnesium Sulfate (Pharmacy To Dose - Magnesium Replacement) 1 dose .XX ASDIRECTED PRN PRN Reason: RX to Dose Methimazole (Methimazole) 5 mg PO MoTuWeThFr@0900 [facility] Last Admin: 03/12/17 09:07 Dose: 5 mg Metolazone (Zaroxolyn) 2.5 mg PO MoTh [facility] Last Admin: 03/11/17 09:21 Dose: 2.5 mg Metoprolol Succinate (Toprol Xl) 100 mg PO BID [facility] Last Admin: 03/12/17 21:04 Dose: 100 mg Metoprolol Tartrate (Lopressor) 5 mg IVPUSH Q4H PRN PRN Reason: Tachycardia Last Admin: 03/12/17 05:31 Dose: 5 mg Ondansetron HCl (Zofran) 4 mg IV Q6H PRN PRN Reason: Nausea/Vomiting Pantoprazole Sodium (Protonix) 40 mg PO ACBREAKFAST [facility] Last Admin: 03/13/17 06:08 Dose: 40 mg Mirabegron [ (Myrbetriq] 50 Mg) 0 each PO DAILY@1700 [facility] Last Admin: 03/12/17 17:56 Dose: 1 each Polyethylene Glycol (Miralax) 17 gm PO DAILY PRN PRN Reason: Constipation Potassium Chloride (Klor-Con 10) 10 meq PO 1200 [facility] Last Admin: 03/12/17 12:48 Dose: 10 meq Potassium Chloride (Klor-Con 10) 20 meq PO BID [facility] Last Admin: 03/12/17 21:04 Dose: 20 meq Potassium Chloride (Pharmacy To Dose - Potassium Replacement) 0 dose .XX ASDIRECTED PRN PRN Reason: RX TO WATCH K LEVELS Saccharomyces Boulardii (Florastor) 250 mg PO DAILY [facility] Last Admin: 03/12/17 09:06 Dose: 250 mg Senna/Docusate Sodium (Senna Plus) 1 tab PO BID PRN PRN Reason: Constipation Sertraline HCl (Zoloft) 50 mg PO DAILY [facility] Last Admin: 03/12/17 09:10 Dose: 50 mg Simvastatin (Zocor) 5 mg PO DAILY [facility] Last Admin: 03/12/17 09:08 Dose: 5 mg Sodium Chloride (Saline Flush) 10 ml FLUSH ASDIRECTED PRN PRN Reason: Keep Vein Open Last Admin: 03/13/17 06:46 Dose: 10 ml Temazepam (Restoril) 7.5 mg PO BEDTIME PRN PRN Reason: Sleep Warfarin Sodium (Coumadin) 2 mg PO SuTuWeThSa@1800 [facility] Last Admin: 03/12/17 18:18 Dose: 2 mg Warfarin Sodium (Coumadin) 5 mg PO MoFr@1800 [facility] Last Admin: 03/11/17 17:29 Dose: 5 mg Discontinued Medications Bumetanide (Bumex) 1 mg IVPUSH ONETIME ONE Stop: 03/10/17 18:04 Last Admin: 03/10/17 18:48 Dose: 1 mg Bumetanide (Bumex) 0.5 mg IVPUSH ONETIME ONE Stop: 03/11/17 07:01 Last Admin: 03/11/17 06:44 Dose: 0.5 mg Bumetanide (Bumex) 1 mg IVPUSH ONETIME ONE Stop: 03/12/17 07:01 Last Admin: 03/12/17 06:35 Dose: 1 mg Bumetanide (Bumex) 1 mg IVPUSH ONETIME ONE Stop: 03/13/17 07:01 Last Admin: 03/13/17 06:46 Dose: 1 mg Digoxin (Lanoxin) 250 mcg IVPUSH Q6H [facility] Stop: 03/10/17 10:01 Digoxin (Lanoxin) 125 mcg IVPUSH Q6H [facility] Stop: 03/10/17 10:01 Last Admin: 03/10/17 11:02 Dose: Not Given Digoxin (Lanoxin) 125 mcg IVPUSH ONETIME ONE Stop: 03/11/17 11:43 Last Admin: 03/11/17 12:09 Dose: 125 mcg Diltiazem HCl (Diltiazem) 10 mg IVPUSH ONETIME ONE Stop: 03/10/17 01:06 Last Admin: 03/10/17 01:07 Dose: 10 mg Diltiazem HCl (Diltiazem) Confirm Administered Dose 25 mg .ROUTE .STK-MED ONE Stop: 03/10/17 01:10 Last Admin: 03/10/17 01:25 Dose: Not Given Diltiazem HCl (Diltiazem) 10 mg IVPUSH ONETIME ONE Stop: 03/10/17 01:45 Last Admin: 03/10/17 01:57 Dose: 10 mg Diltiazem HCl (Cardizem) 180 mg PO DAILY [facility] Last Admin: 03/12/17 08:20 Dose: 180 mg Sodium Chloride (Normal Saline) 500 mls @ 500 mls/hr IV .BOLUS ONE Stop: 03/10/17 02:23 Last Admin: 03/10/17 01:25 Dose: 500 mls/hr Sodium Chloride (Normal Saline) Confirm Administered Dose 1,000 mls @ as directed .ROUTE .STK-MED ONE Stop: 03/10/17 01:28 Last Admin: 03/10/17 01:27 Dose: Not Given Ceftriaxone Sodium 1 gm/ (Sodium Chloride) 100 mls @ 200 mls/hr IV ONETIME ONE Stop: 03/10/17 02:44 Last Admin: 03/10/17 03:17 Dose: Not Given Azithromycin 500 mg/ Sodium (Chloride) 250 mls @ 250 mls/hr IV ONETIME ONE Stop: 03/10/17 03:15 Last Admin: 03/10/17 03:09 Dose: 250 mls/hr Ceftriaxone Sodium 1 gm/ (Sodium Chloride) 100 mls @ 200 mls/hr IV ONETIME ONE Stop: 03/10/17 02:52 Last Admin: 03/10/17 02:38 Dose: 200 mls/hr Sodium Chloride (Normal Saline) 500 mls @ 999 mls/hr IV .BOLUS ONE Stop: 03/10/17 03:12 Last Admin: 03/10/17 02:55 Dose: 999 mls/hr Metoprolol Succinate (Toprol Xl) 100 mg PO DAILY [facility] Last Admin: 03/11/17 08:10 Dose: 100 mg Potassium Chloride (Klor-Con M20) 40 meq PO Q4H [facility] Stop: 03/11/17 12:01 Last Admin: 03/11/17 12:48 Dose: 40 meq Potassium Chloride (Klor-Con M20) 40 meq PO Q4H [facility] Stop: 03/12/17 16:16 Last Admin: 03/12/17 16:19 Dose: 40 meq - Exam Quality Assessment: Supplemental Oxygen General: Alert, Oriented, Cooperative, No Acute Distress HEENT: Pupils Equal, Pupils Reactive, EOMI, Mucous Membr. Moist/[place] Neck: Supple, Trachea Midline, No JVD, No Thyromegaly Lungs: Normal Respiratory Effort, Decreased Breath Sounds Cardiovascular: Irregular Rhythm GI/Abdominal Exam: Normal Bowel Sounds, Soft, Non-Tender, No Organomegaly, No Distention, No Abnormal Bruit, No Mass, Pelvis Stable (Female) Exam: Deferred Back Exam: Normal Inspection, Decreased Range of Motion Extremities: Normal Inspection, Normal Range of Motion, Non-Tender, No Pedal Edema, Normal Capillary Refill, Pedal Edema (trace) Peripheral Pulses: 2+: Popliteal (R), Dorsalis Pedis (L), Dorsalis Pedis (R) Skin: Warm, Dry, Intact Neurological: No New Focal Deficit Psy/Mental Status: Alert, Normal Affect, Normal Mood - Problem List Review Problem List Initiated/Reviewed/Updated: Yes - My Orders Last 24 Hours: My Active Orders 03/12/17 11:43 Patient Status [ADT] Routine 03/12/17 13:48 Evaluate for Home Oxygen [RT Evaluate for Home Oxygen] [RC] Click to Edit 03/12/17 21:00 LORazepam [Ativan] 1 mg PO BID 03/13/17 05:40 BASIC METABOLIC PANEL,BMP [CHEM] AM C-REACTIVE PROTEIN [CHEM] AM PRO B-TYPE NATRIUR PEPT,BNPPRO [CHEM] Routine 03/13/17 07:30 Dextrose 5% in Water @ 125 MLS/HR(1,000ml) Dextrose 5% in Water 1,000 ml IV ASDIRECTED 03/13/17 09:00 Diltiazem [Cardizem] 240 mg PO DAILY 03/13/17 15:00 BMP [BASIC METABOLIC PANEL,BMP] [CHEM] Routine 03/13/17 Lunch Sodium Restricted Diet [DIET] 03/14/17 05:11 BASIC METABOLIC PANEL,BMP [CHEM] AM C-REACTIVE PROTEIN [CHEM] AM CBC WITH AUTO DIFF [HEME] AM INR,PT,PROTHROMBIN TIME [COAG] AM - Plan Plan:: Assessment/Plan: Acute: Atrial Fibrillation with RVR, remains uncontrolled - Acute on Chronic - HR as high as 160s this am - She is on Warfarin for stroke prophylaxis - Continue Metoprolol 100 mg po BID and Cardizem 240 mg po daily - Digoxin level; optimize level with additional dose - Consider increasing Cardizem dose to 240 mg po Daily if no response to treatment - Daily INR and Continue PRN IV Lopressor for rate control Bronchitis/Pulmonary Vascular Congestion, Continues to Improve - Initial CXR shows increased lung markings pending formal radiology report - Pos Strep A screening; Influenza screening negative - Continue Supplemental O2, Routine RT Care, Bronchodilators, Oral Probiotic - Sputum Cx/Sx/Mycoplasma/Strep Pneumoniae Ag test all negative - Discontinue today IV ATB with 500 mg Azithromycin and 1 gram Rocephin daily - Repeat CXR shows improved lung markings - IS as directed Heart Failure with Reduced EF 20% 12/16/2013, Slightly Improved - Hx/o Cardiomyopathy - BNP 2976--> 2288--> 2722 - Peripheral edema 1+ now - Continue Lasix 80 mg po BID, Metolazone 2.5 mg po MoTh, Is/Os, Daily Weight and Sodium/Fluid Restriction - 2D echo 06/21/2016: EF 35-40% With Moderate-Severe Mitral and Tricuspid [place] Regurgitation Leukocytosis, Improved - WBC 30.77--> 10.44; CRP 10.3--> 11.4 - Likely 2/2 above - Treat underlying cause - Continue to monitor DM2 with Hyperglycemia, Improved - On Insulin Regimen: SA and LA - Last A1C was 6.6 10/13/2014; new A1C 7.6 - Accu-check QID AC and HS with Low dose ISS Mild Hypernatremia - Na 148 --> now 150 - Will start D5W IVF at 125 cc/hr - Repeat BMP this afternoon - Continue salt and fluid restriction - PRN loop diuretic Probable AMEE - She has apneic episode when she is sleeping - Sleep Study outpatient - Abby Loss Anxiety, Improved - Undiagnosed - 1 mg po Ativan BID Resolved: Subtherapeutic Digoxin, Improved - Digoxin 0.5--> 1.1 (0.9-2 normal) - Likely contributory to uncontrolled HR - Continue daily Digoxin 125 mcg po; consider additional dose - Will repeat level this afternoon Hypokalemia - K 3.4--> now 4.1 - Likely 2/2 renal loss form loop diuretic - Pharmacy to replete and monitor Strep A Colonization - Received Macrolide/Cephalosporin for antibiotic treatment - She is allergic to PCN - Sputum culture negative for Strep A organism Chronic: HLD Cardiomyopathy CKD Stage 2-3, Stable GERD with Esophagitis Gout LESLYE, Stable Urinary Incontinence Hyperthyroidism Constipation Peripheral Edema Right Eye Blindness Dry Eyes Syndrome Macular Degeneration Intellectual Disability Obesity with BMI of 31 Plan: She remains clinically stable Transfer to med-Surg with Tele Continue current treatment Routine AM Labs Continue PT/OT/RT Hold warfarin dose tonight HOUSE NURSE recommends Modified Barium Swallow-next week Hypoxia screening if she requires supplemental O2 Aspiration/Fall Precautions DVT/GI PPx: Warfarin and PPI SW/CM for d/c planning Additional orders as above Code status: 1 LOS anticipate > 96 hrs due to slow response to treatment and electrolyte/INR abnormalities
[2017-03-13] MEDS: Insulin Aspart 100 Units/ML 3 ML Pen SUBCUT SCH ×7 (07:44→21:33)
[2017-03-13] MEDS: Ferrous Sulfate 325 MG Tab PO SCH (08:36)
[2017-03-13] MEDS: Acetaminophen 325 MG Tab PO SCH ×2 (08:37→21:32)
[2017-03-13] MEDS: LORazepam 1 MG Tab PO SCH ×2 (08:38→21:32)
[2017-03-13] MEDS: Allopurinol 300 MG Tab PO SCH (08:39)
[2017-03-13] MEDS: Potassium Chloride 10 MEQ Tab.ER PO SCH ×2 (08:40→12:58)
[2017-03-13] MEDS: Cholecalciferol (Vitamin D3) 1,000 Unit Tab PO SCH (08:42)
[2017-03-13] MEDS: Methimazole 5 MG Tab PO SCH (08:43)
[2017-03-13] MEDS: Aspirin 81 MG Tab.EC PO SCH (08:44)
[2017-03-13] MEDS: Digoxin 125 MCG Tab PO SCH (08:44)
[2017-03-13] MEDS: Simvastatin 10 MG Tab PO SCH (08:45)
[2017-03-13] MEDS: Sertraline 50 MG Tab PO SCH (08:46)
[2017-03-13] MEDS: Saccharomyces Boulardii (Probiotic) 250 MG Cap PO SCH (08:47)
[2017-03-13] MEDS ORDERED: Diltiazem IR 60 MG Tab PO SCH (09:00)
[2017-03-13] MEDS: Azithromycin 500 MG in Sodium Chloride 0.9% 250 ML IV SCH (09:27)
[2017-03-13] MEDS: Metoprolol Succinate 50 MG Tab.ER PO SCH ×2 (09:28→21:31)
[2017-03-13] MEDS: cefTRIAXone 1 GM in Sodium Chloride 0.9% 100 ML IV SCH (10:23)
[2017-03-13] MEDS: Warfarin 2 MG Tab PO SCH (17:40)
[2017-03-13] MEDS: Mirabegron [Myrbetriq] 50 MG PO SCH (19:01)
[2017-03-13] MEDS: Potassium Chloride 20 MEQ Tab.ER PO SCH (21:32)
[2017-03-14] MEDS ORDERED: Dextrose 5% in Water 1,000 ML IV SCH (02:45)
[2017-03-14] MEDS: Pantoprazole 40 MG Tab.CR PO SCH (06:34)
[2017-03-14] MEDS: Furosemide 80 MG Tab PO SCH ×2 (06:34→14:55)
[2017-03-14] MEDS: Insulin Aspart 100 Units/ML 3 ML Pen SUBCUT SCH ×7 (08:28→21:06)
[2017-03-14] MEDS: Sertraline 50 MG Tab PO SCH (08:29)
[2017-03-14] MEDS: Acetaminophen 325 MG Tab PO SCH ×2 (08:29→21:05)
[2017-03-14] MEDS: Saccharomyces Boulardii (Probiotic) 250 MG Cap PO SCH (08:29)
[2017-03-14] MEDS: Methimazole 5 MG Tab PO SCH (08:32)
[2017-03-14] MEDS: Allopurinol 300 MG Tab PO SCH (08:32)
[2017-03-14] MEDS: Cholecalciferol (Vitamin D3) 1,000 Unit Tab PO SCH (08:32)
[2017-03-14] MEDS: Potassium Chloride 20 MEQ Tab.ER PO SCH ×2 (08:34→21:06)
[2017-03-14] MEDS: Simvastatin 10 MG Tab PO SCH (08:35)
[2017-03-14] MEDS: Metoprolol Succinate 50 MG Tab.ER PO SCH ×2 (08:35→21:06)
[2017-03-14] MEDS: Ferrous Sulfate 325 MG Tab PO SCH (08:36)
[2017-03-14] MEDS: LORazepam 1 MG Tab PO SCH ×2 (08:37→21:06)
[2017-03-14] MEDS: Aspirin 81 MG Tab.EC PO SCH (08:37)
[2017-03-14] MEDS: Digoxin 125 MCG Tab PO SCH (08:39)
[2017-03-14] MEDS ORDERED: Diltiazem 240 MG Cap.ER PO SCH (09:00)
[2017-03-14] MEDS: Metolazone 2.5 MG Tab PO SCH (09:08)
--- NOTE | 2017-03-14 09:49 | PCM.PN ---
- General Info Date of Service: 03/14/17 Admission Dx/Problem (Free Text): Admission Diagnosis/Problem Admission Diagnosis/Problem Pneumonia Subjective Update: Follow Up Functional Status: Reports: Pain Controlled, Tolerating Diet, Urinating. Denies : Ambulating, New Symptoms - Review of Systems General: Denies: Fever, Weakness, Fatigue, Malaise, Chills HEENT: Reports: No Symptoms Pulmonary: Denies: Shortness of Breath Cardiovascular: Denies: Chest Pain Gastrointestinal: Denies: Abdominal Pain, Nausea, Vomiting Genitourinary: Reports: No Symptoms Musculoskeletal: Reports: No Symptoms Skin: Denies: Cyanosis, Diaphoresis Neurological: Reports: Gait Disturbance. Denies: Confusion, Difficulty Walking , Weakness Psychiatric: Denies: Depression, Anxiety, Agitation, Hallucinations Systems Review Comment:: No significant overnight or acute issues. Her HR still not fully controlled. Her cardizem has been increased to 240 mg po daily. She has no new complaints. - Patient Data Vitals - Most Recent: Last Vital Signs Temp 36.6 C 03/14/17 08:00 Pulse 132 H 03/14/17 08:39 Resp 20 03/14/17 08:00 BP 118/96 H 03/14/17 08:38 Pulse Ox 88 L 03/14/17 08:01 Weight - Most Recent: 112.173 kg I&O - Last 24 Hours: Intake & Output 03/13/17 03/14/17 03/14/17 22:59 06:59 14:59 Intake Total 1220 475 Balance 1220 475 Lab Results Last 24 Hours: Laboratory Results - last 24 hr 03/13/17 03/13/17 03/13/17 Range/Units 05:40 11:09 15:19 WBC (3.98-10.04) K/mm3 RBC (3.98-5.22) M/mm3 Hgb (11.2-15.7) gm/L Hct (34.1-44.9) % MCV (79.4-94.8) fl MCH (25.6-32.2) pg MCHC (32.2-35.5) g/dl RDW Std Deviation (36.4-46.3) fL Plt Count (182-369) K/mm3 MPV (9.4-12.3) fl Neut % (Auto) (34.0-71.1) % Lymph % (Auto) (19.3-51.7) % Glynn % (Auto) (4.7-12.5) % Eos % (Auto) (0.7-5.8) Baso % (Auto) (0.1-1.2) % Neut # (Auto) (1.56-6.13) K/mm3 Lymph # (Auto) (1.18-3.74) K/mm3 Glynn # (Auto) (0.24-0.36) K/mm3 Eos # (Auto) (0.04-0.36) K/mm3 Baso # (Auto) (0.01-0.08) K/mm3 PT (8.0-13.0) SECONDS INR Sodium 148 H (136-145) mEq/L Potassium 4.0 (3.5-5.1) mEq/L Chloride 110 H (98-107) mEq/L Carbon Dioxide 28 (21-32) mEq/L Anion Gap 14.0 (5-15) BUN 29 H (7-18) mg/dL Creatinine 1.0 (0.55-1.02) mg/dL Est Cr Clr Drug Dosing 61.85 mL/min Estimated GFR (MDRD) 55 (>60) mL/min BUN/Creatinine Ratio 29.0 H (14-18) Glucose 142 H (80-115) mg/dL POC Glucose 217 H (80-115) mg/dL Calcium 9.2 (8.5-10.1) mg/dL Magnesium (1.8-2.4) mg/dl C-Reactive Protein (<1.0) mg/dL Digoxin 1.0 (0.9-2.0) ng/mL 03/13/17 03/13/17 03/13/17 Range/Units 17:06 20:15 21:20 WBC (3.98-10.04) K/mm3 RBC (3.98-5.22) M/mm3 Hgb (11.2-15.7) gm/L Hct (34.1-44.9) % MCV (79.4-94.8) fl MCH (25.6-32.2) pg MCHC (32.2-35.5) g/dl RDW Std Deviation (36.4-46.3) fL Plt Count (182-369) K/mm3 MPV (9.4-12.3) fl Neut % (Auto) (34.0-71.1) % Lymph % (Auto) (19.3-51.7) % Glynn % (Auto) (4.7-12.5) % Eos % (Auto) (0.7-5.8) Baso % (Auto) (0.1-1.2) % Neut # (Auto) (1.56-6.13) K/mm3 Lymph # (Auto) (1.18-3.74) K/mm3 Glynn # (Auto) (0.24-0.36) K/mm3 Eos # (Auto) (0.04-0.36) K/mm3 Baso # (Auto) (0.01-0.08) K/mm3 PT (8.0-13.0) SECONDS INR Sodium 148 H (136-145) mEq/L Potassium 3.9 (3.5-5.1) mEq/L Chloride 110 H (98-107) mEq/L Carbon Dioxide 28 (21-32) mEq/L Anion Gap 13.9 (5-15) BUN 30 H (7-18) mg/dL Creatinine 0.9 (0.55-1.02) mg/dL Est Cr Clr Drug Dosing 68.72 mL/min Estimated GFR (MDRD) > 60 (>60) mL/min BUN/Creatinine Ratio 33.3 H (14-18) Glucose 174 H (80-115) mg/dL POC Glucose 128 H 141 H (80-115) mg/dL Calcium 9.4 (8.5-10.1) mg/dL Magnesium 2.0 (1.8-2.4) mg/dl C-Reactive Protein (<1.0) mg/dL Digoxin (0.9-2.0) ng/mL 03/14/17 03/14/17 03/14/17 Range/Units 05:19 05:19 05:19 WBC 9.47 (3.98-10.04) K/mm3 RBC 3.72 L (3.98-5.22) M/mm3 Hgb 11.1 L (11.2-15.7) gm/L Hct 36.3 (34.1-44.9) % MCV 97.6 H (79.4-94.8) fl MCH 29.8 (25.6-32.2) pg MCHC 30.6 L (32.2-35.5) g/dl RDW Std Deviation 55.5 H (36.4-46.3) fL Plt Count 241 (182-369) K/mm3 MPV 10.3 (9.4-12.3) fl Neut % (Auto) 73.7 H (34.0-71.1) % Lymph % (Auto) 14.9 L (19.3-51.7) % Glynn % (Auto) 7.0 (4.7-12.5) % Eos % (Auto) 4.1 (0.7-5.8) Baso % (Auto) 0.3 (0.1-1.2) % Neut # (Auto) 6.98 H (1.56-6.13) K/mm3 Lymph # (Auto) 1.41 (1.18-3.74) K/mm3 Glynn # (Auto) 0.66 H (0.24-0.36) K/mm3 Eos # (Auto) 0.39 H (0.04-0.36) K/mm3 Baso # (Auto) 0.03 (0.01-0.08) K/mm3 PT 34.6 H (8.0-13.0) SECONDS INR 2.96 Sodium 149 H (136-145) mEq/L Potassium 4.3 (3.5-5.1) mEq/L Chloride 112 H (98-107) mEq/L Carbon Dioxide 27 (21-32) mEq/L Anion Gap 14.3 (5-15) BUN 24 H (7-18) mg/dL Creatinine 0.8 (0.55-1.02) mg/dL Est Cr Clr Drug Dosing 77.31 mL/min Estimated GFR (MDRD) > 60 (>60) mL/min BUN/Creatinine Ratio 30.0 H (14-18) Glucose 160 H (80-115) mg/dL POC Glucose (80-115) mg/dL Calcium 9.1 (8.5-10.1) mg/dL Magnesium (1.8-2.4) mg/dl C-Reactive Protein 7.8 H* (<1.0) mg/dL Digoxin (0.9-2.0) ng/mL 03/14/17 Range/Units 06:33 WBC (3.98-10.04) K/mm3 RBC (3.98-5.22) M/mm3 Hgb (11.2-15.7) gm/L Hct (34.1-44.9) % MCV (79.4-94.8) fl MCH (25.6-32.2) pg MCHC (32.2-35.5) g/dl RDW Std Deviation (36.4-46.3) fL Plt Count (182-369) K/mm3 MPV (9.4-12.3) fl Neut % (Auto) (34.0-71.1) % Lymph % (Auto) (19.3-51.7) % Glynn % (Auto) (4.7-12.5) % Eos % (Auto) (0.7-5.8) Baso % (Auto) (0.1-1.2) % Neut # (Auto) (1.56-6.13) K/mm3 Lymph # (Auto) (1.18-3.74) K/mm3 Glynn # (Auto) (0.24-0.36) K/mm3 Eos # (Auto) (0.04-0.36) K/mm3 Baso # (Auto) (0.01-0.08) K/mm3 PT (8.0-13.0) SECONDS INR Sodium (136-145) mEq/L Potassium (3.5-5.1) mEq/L Chloride (98-107) mEq/L Carbon Dioxide (21-32) mEq/L Anion Gap (5-15) BUN (7-18) mg/dL Creatinine (0.55-1.02) mg/dL Est Cr Clr Drug Dosing mL/min Estimated GFR (MDRD) (>60) mL/min BUN/Creatinine Ratio (14-18) Glucose (80-115) mg/dL POC Glucose 170 H (80-115) mg/dL Calcium (8.5-10.1) mg/dL Magnesium (1.8-2.4) mg/dl C-Reactive Protein (<1.0) mg/dL Digoxin (0.9-2.0) ng/mL Shaun Results Last 24 Hours: Microbiology 03/11/17 06:10 Gram Stain - Final Sputum - Expectorated Sputum Culture - Final Med Orders - Current: Current Medications Acetaminophen (Tylenol) 650 mg PO Q4H PRN PRN Reason: Pain (Mild 1-3)/fever Acetaminophen (Tylenol) 975 mg PO BID [facility] Last Admin: 03/14/17 08:29 Dose: 975 mg Hydrocodone Bitart/Acetaminophen ([place] 325-5 Mg) 1 tab PO Q4H PRN PRN Reason: Pain (moderate 4-6) Albuterol/Ipratropium (Duoneb 3.0-0.5 Mg/3 Ml) 3 ml NEB Q4H PRN PRN Reason: Shortness Of Breath/wheezing Allopurinol (Zyloprim) 150 mg PO DAILY [facility] Last Admin: 03/14/17 08:32 Dose: 150 mg Aspirin (Halfprin) 81 mg PO DAILY [facility] Last Admin: 03/14/17 08:37 Dose: 81 mg Bisacodyl (Dulcolax) 5 mg PO DAILY PRN PRN Reason: Constipation Cholecalciferol (Vitamin D3) 500 units PO DAILY [facility] Last Admin: 03/14/17 08:32 Dose: 500 units Digoxin (Lanoxin) 125 mcg PO DAILY [facility] Last Admin: 03/14/17 08:39 Dose: 125 mcg Diltiazem HCl (Dilacor Xr) 240 mg PO DAILY [facility] Last Admin: 03/14/17 09:07 Dose: 240 mg Docusate Sodium (Colace) 100 mg PO BID PRN PRN Reason: Constipation Last Admin: 03/10/17 20:19 Dose: 100 mg Enalapril Maleate (Vasotec) 5 mg PO DAILY [facility] Last Admin: 03/14/17 08:38 Dose: 5 mg Ferrous Sulfate (Ferrous Sulfate) 325 mg PO DAILY [facility] Last Admin: 03/14/17 08:36 Dose: 325 mg Furosemide (Lasix) 80 mg PO BIDDIURETIC [facility] Last Admin: 03/14/17 06:34 Dose: 80 mg Hydralazine HCl (Apresoline) 20 mg IVPUSH Q4H PRN PRN Reason: Hypertension Hydromorphone HCl (Dilaudid) 0.25 mg IVPUSH Q2H PRN PRN Reason: Pain (severe 7-10) Promethazine HCl 12.5 mg/ (Sodium Chloride) 50.5 mls @ 100 mls/hr IV Q6H PRN PRN Reason: Nausea/Vomiting Dextrose/Water (Dextrose 5% In Water) 1,000 mls @ 75 mls/hr IV ASDIRECTED [facility] Last Admin: 03/14/17 03:14 Dose: 75 mls/hr Insulin Aspart (Novolog) 8 unit SUBCUT 1200 [facility] Last Admin: 03/13/17 12:59 Dose: 8 units Insulin Aspart (Novolog) 10 unit SUBCUT 0800 [facility] Last Admin: 03/14/17 08:28 Dose: 10 units Insulin Aspart (Novolog) 10 unit SUBCUT 1700 [facility] Last Admin: 03/13/17 19:03 Dose: 10 units Insulin Aspart (Novolog) 0 unit SUBCUT QIDACANDBED [facility] PRN Reason: Protocol Last Admin: 03/14/17 08:28 Dose: 1 unit Lorazepam (Ativan) 0.5 mg IV Q6H PRN PRN Reason: Anxiety Last Admin: 03/12/17 09:27 Dose: 0.5 mg Lorazepam (Ativan) 2 mg IVPUSH Q4H PRN PRN Reason: Seizures Lorazepam (Ativan) 1 mg PO BID [facility] Last Admin: 03/14/17 08:37 Dose: 1 mg Magnesium Sulfate (Pharmacy To Dose - Magnesium Replacement) 1 dose .XX ASDIRECTED PRN PRN Reason: RX to Dose Methimazole (Methimazole) 5 mg PO MoTuWeThFr@0900 [facility] Last Admin: 03/14/17 08:32 Dose: 5 mg Metolazone (Zaroxolyn) 2.5 mg PO MoTh [facility] Last Admin: 03/14/17 09:08 Dose: 2.5 mg Metoprolol Succinate (Toprol Xl) 100 mg PO BID [facility] Last Admin: 03/14/17 08:35 Dose: 100 mg Metoprolol Tartrate (Lopressor) 5 mg IVPUSH Q4H PRN PRN Reason: Tachycardia Last Admin: 03/12/17 05:31 Dose: 5 mg Ondansetron HCl (Zofran) 4 mg IV Q6H PRN PRN Reason: Nausea/Vomiting Pantoprazole Sodium (Protonix) 40 mg PO ACBREAKFAST [facility] Last Admin: 03/14/17 06:34 Dose: 40 mg Mirabegron [ (Myrbetriq] 50 Mg) 0 each PO DAILY@1700 [facility] Last Admin: 03/13/17 19:01 Dose: 1 each Polyethylene Glycol (Miralax) 17 gm PO DAILY PRN PRN Reason: Constipation Potassium Chloride (Klor-Con 10) 10 meq PO 1200 [facility] Last Admin: 03/13/17 12:58 Dose: 10 meq Potassium Chloride (Pharmacy To Dose - Potassium Replacement) 0 dose .XX ASDIRECTED PRN PRN Reason: RX TO WATCH K LEVELS Potassium Chloride (Klor-Con M20) 20 meq PO BID [facility] Last Admin: 03/14/17 08:34 Dose: 20 meq Saccharomyces Boulardii (Florastor) 250 mg PO DAILY [facility] Last Admin: 03/14/17 08:29 Dose: 250 mg Senna/Docusate Sodium (Senna Plus) 1 tab PO BID PRN PRN Reason: Constipation Sertraline HCl (Zoloft) 50 mg PO DAILY [facility] Last Admin: 03/14/17 08:29 Dose: 50 mg Simvastatin (Zocor) 5 mg PO DAILY [facility] Last Admin: 03/14/17 08:35 Dose: 5 mg Sodium Chloride (Saline Flush) 10 ml FLUSH ASDIRECTED PRN PRN Reason: Keep Vein Open Last Admin: 03/13/17 06:46 Dose: 10 ml Temazepam (Restoril) 7.5 mg PO BEDTIME PRN PRN Reason: Sleep Warfarin Sodium (Coumadin) 2 mg PO SuTuWeThSa@1800 [facility] Last Admin: 03/13/17 17:40 Dose: Not Given Warfarin Sodium (Coumadin) 5 mg PO MoFr@1800 [facility] Last Admin: 03/11/17 17:29 Dose: 5 mg Discontinued Medications Bumetanide (Bumex) 1 mg IVPUSH ONETIME ONE Stop: 03/10/17 18:04 Last Admin: 03/10/17 18:48 Dose: 1 mg Bumetanide (Bumex) 0.5 mg IVPUSH ONETIME ONE Stop: 03/11/17 07:01 Last Admin: 03/11/17 06:44 Dose: 0.5 mg Bumetanide (Bumex) 1 mg IVPUSH ONETIME ONE Stop: 03/12/17 07:01 Last Admin: 03/12/17 06:35 Dose: 1 mg Bumetanide (Bumex) 1 mg IVPUSH ONETIME ONE Stop: 03/13/17 07:01 Last Admin: 03/13/17 06:46 Dose: 1 mg Digoxin (Lanoxin) 250 mcg IVPUSH Q6H [facility] Stop: 03/10/17 10:01 Digoxin (Lanoxin) 125 mcg IVPUSH Q6H [facility] Stop: 03/10/17 10:01 Last Admin: 03/10/17 11:02 Dose: Not Given Digoxin (Lanoxin) 125 mcg IVPUSH ONETIME ONE Stop: 03/11/17 11:43 Last Admin: 03/11/17 12:09 Dose: 125 mcg Diltiazem HCl (Diltiazem) 10 mg IVPUSH ONETIME ONE Stop: 03/10/17 01:06 Last Admin: 03/10/17 01:07 Dose: 10 mg Diltiazem HCl (Diltiazem) Confirm Administered Dose 25 mg .ROUTE .STK-MED ONE Stop: 03/10/17 01:10 Last Admin: 03/10/17 01:25 Dose: Not Given Diltiazem HCl (Diltiazem) 10 mg IVPUSH ONETIME ONE Stop: 03/10/17 01:45 Last Admin: 03/10/17 01:57 Dose: 10 mg Diltiazem HCl (Cardizem) 180 mg PO DAILY [facility] Last Admin: 03/12/17 08:20 Dose: 180 mg Diltiazem HCl (Cardizem) 240 mg PO DAILY [facility] Last Admin: 03/13/17 08:41 Dose: 240 mg Sodium Chloride (Normal Saline) 500 mls @ 500 mls/hr IV .BOLUS ONE Stop: 03/10/17 02:23 Last Admin: 03/10/17 01:25 Dose: 500 mls/hr Sodium Chloride (Normal Saline) Confirm Administered Dose 1,000 mls @ as directed .ROUTE .STK-MED ONE Stop: 03/10/17 01:28 Last Admin: 03/10/17 01:27 Dose: Not Given Diltiazem HCl 125 mg/ Sodium (Chloride) 125 mls @ 5 mls/hr IV TITRATE [facility]; 5 MG /HR PRN Reason: Protocol Last Titration: 03/10/17 10:16 Dose: 0 mg/hr, 0 mls/hr Ceftriaxone Sodium 1 gm/ (Sodium Chloride) 100 mls @ 200 mls/hr IV ONETIME ONE Stop: 03/10/17 02:44 Last Admin: 03/10/17 03:17 Dose: Not Given Azithromycin 500 mg/ Sodium (Chloride) 250 mls @ 250 mls/hr IV ONETIME ONE Stop: 03/10/17 03:15 Last Admin: 03/10/17 03:09 Dose: 250 mls/hr Ceftriaxone Sodium 1 gm/ (Sodium Chloride) 100 mls @ 200 mls/hr IV ONETIME ONE Stop: 03/10/17 02:52 Last Admin: 03/10/17 02:38 Dose: 200 mls/hr Sodium Chloride (Normal Saline) 500 mls @ 999 mls/hr IV .BOLUS ONE Stop: 03/10/17 03:12 Last Admin: 03/10/17 02:55 Dose: 999 mls/hr Azithromycin 500 mg/ Sodium (Chloride) 250 mls @ 250 mls/hr IV Q24H [facility] Last Admin: 03/13/17 09:27 Dose: 250 mls/hr Ceftriaxone Sodium 1 gm/ (Sodium Chloride) 100 mls @ 200 mls/hr IV Q24H [facility] Last Admin: 03/13/17 10:23 Dose: 200 mls/hr Sodium Chloride (Normal Saline) 1,000 mls @ 125 mls/hr IV ASDIRECTED [facility] Last Admin: 03/10/17 11:41 Dose: 125 mls/hr Esmolol HCl (Brevibloc In Ns Premix) 2.5 gm in 250 mls @ 33.3 mls/hr IV TITRATE [facility]; 50 MCG/KG/MIN PRN Reason: Protocol Last Titration: 03/12/17 03:20 Dose: 0 mcg/kg/min, 0 mls/hr Dextrose/Water (Dextrose 5% In Water) 1,000 mls @ 125 mls/hr IV ASDIRECTED [facility] Metoprolol Succinate (Toprol Xl) 100 mg PO DAILY [facility] Last Admin: 03/11/17 08:10 Dose: 100 mg Potassium Chloride (Klor-Con 10) 20 meq PO BID [facility] Last Admin: 03/13/17 08:40 Dose: 20 meq Potassium Chloride (Klor-Con M20) 40 meq PO Q4H [facility] Stop: 03/11/17 12:01 Last Admin: 03/11/17 12:48 Dose: 40 meq Potassium Chloride (Klor-Con M20) 40 meq PO Q4H [facility] Stop: 03/12/17 16:16 Last Admin: 03/12/17 16:19 Dose: 40 meq - Exam Quality Assessment: Supplemental Oxygen General: Alert, Cooperative, No Acute Distress, Other (Obese) HEENT: Pupils Equal, Pupils Reactive, EOMI, Mucous Membr. Moist/[place] Neck: Supple, Trachea Midline, No JVD, No Thyromegaly Lungs: Normal Respiratory Effort, Decreased Breath Sounds Cardiovascular: Irregular Rhythm GI/Abdominal Exam: Normal Bowel Sounds, Soft, Non-Tender, No Organomegaly, No Distention, Other (Obese) Back Exam: Normal Inspection, Decreased Range of Motion Extremities: Normal Inspection, Normal Range of Motion, Non-Tender, Normal Capillary Refill, Pedal Edema, Other (varicose veins on both legs) Peripheral Pulses: 2+: Dorsalis Pedis (L), Dorsalis Pedis (R) Skin: Warm, Dry, Intact Neurological: No New Focal Deficit Psy/Mental Status: Alert, Normal Affect, Normal Mood - Problem List Review Problem List Initiated/Reviewed/Updated: Yes - My Orders Last 24 Hours: My Active Orders 03/13/17 14:35 Patient Status [ADT] Routine 03/13/17 21:00 Potassium Chloride [Klor-Con M20] 20 meq PO BID 03/13/17 Lunch Sodium Restricted Diet [DIET] 03/14/17 02:45 Dextrose 5% in Water 1,000 ml IV ASDIRECTED 03/14/17 09:00 Diltiazem [Dilacor XR] 240 mg PO DAILY - Plan Plan:: Assessment/Plan: Acute: Atrial Fibrillation with RVR, remains not quite controlled - Acute on Chronic - HR in the 130s this am - She is on Warfarin for stroke prophylaxis - Cut down Metoprolol to 50 mg po BID and changed Cardizem (SA)regimen to 60 mg po QID - Continue oral digoxin - Daily INR and Continue PRN IV Lopressor for rate control Bronchitis/Pulmonary Vascular Congestion, Likely Resolved - Initial CXR shows increased lung markings pending formal radiology report - Pos Strep A screening; Influenza screening negative - Continue Supplemental O2, Routine RT Care, Bronchodilators, Oral Probiotic - Sputum Cx/Sx/Mycoplasma/Strep Pneumoniae Ag test all negative - Received IV ATB with 500 mg Azithromycin and 1 gram Rocephin daily - Repeat CXR shows improved lung markings - IS as directed - WBC is now normal and CRP is 7.8 Heart Failure with Reduced EF 20% 12/16/2013, Slightly Improved - Hx/o Cardiomyopathy - BNP 2976--> 2288--> 2722 - Peripheral edema 1+ now - Continue Lasix 80 mg po BID, Metolazone 2.5 mg po MoTh, Is/Os, Daily Weight and Sodium/Fluid Restriction - 2D echo 06/21/2016: EF 35-40% With Moderate-Severe Mitral and Tricuspid [place] Regurgitation DM2 with Hyperglycemia, Stable - On Insulin Regimen: SA and LA - Last A1C was 6.6 10/13/2014; new A1C 7.6 - Accu-check QID AC and HS with Low dose ISS Mild Hypernatremia - Na 148 --> now 149 - Received D5W IVF at 125 cc/hr - Continue salt and fluid restriction - Monitor labs Probable AMEE - She has apneic episode when she is sleeping - Sleep Study outpatient - Abby Loss Anxiety, Improved - Undiagnosed - 1 mg po Ativan BID Resolved: Subtherapeutic Digoxin, Improved - Digoxin 0.5--> 1.1 (0.9-2 normal) - Likely contributory to uncontrolled HR - Continue daily Digoxin 125 mcg po; consider additional dose - Will repeat level this afternoon Hypokalemia - K 3.4--> now 4.1 - Likely 2/2 renal loss form loop diuretic - Pharmacy to replete and monitor Strep A Colonization - Received Macrolide/Cephalosporin for antibiotic treatment - She is allergic to PCN - Sputum culture negative for Strep A organism Leukocytosis, - WBC 30.77--> 9.47; CRP 10.3--> 11.4 --> 7.8 - Likely 2/2 above - Treat underlying cause - Continue to monitor Chronic: HLD Cardiomyopathy CKD Stage 2-3, Stable GERD with Esophagitis Gout LESLYE, Stable Urinary Incontinence Hyperthyroidism Constipation Peripheral Edema Right Eye Blindness Dry Eyes Syndrome Macular Degeneration Intellectual Disability Obesity with BMI of 31 Plan: She remains clinically stable otherwise Continue current treatment Routine AM Labs Continue PT/OT/RT INFRASTRUCTURE TECH recommends Modified Barium Swallow-next week Aspiration/Fall Precautions DVT/GI PPx: Warfarin and PPI SW/CM for d/c planning Additional orders as above Code status: 1 LOS > 96 hrs due to slow response to treatment and electrolyte/INR abnormalities. Spoke to on-call ethnology teacher, Dr. Sparrow and asked for further input. He recommended changes on her rate control regimen as noted above. We will monitor on how her rate response tomorrow. Patient already received 240 mg po of Cardizem CD and 100 mg of oral Metoprolol Tartrate this morning.
[2017-03-14] MEDS: Potassium Chloride 10 MEQ Tab.ER PO SCH (11:27)
[2017-03-14] MEDS: Warfarin 2 MG Tab PO SCH (17:20)
[2017-03-14] MEDS: Mirabegron [Myrbetriq] 50 MG PO SCH (17:21)
[2017-03-15] MEDS: Metoprolol Tartrate 5 MG/5 ML SDV IVPUSH PRN (00:26)
[2017-03-15] MEDS: Furosemide 80 MG Tab PO SCH ×2 (06:23→14:59)
[2017-03-15] MEDS: Pantoprazole 40 MG Tab.CR PO SCH (06:23)
[2017-03-15] MEDS: Diltiazem IR 60 MG Tab PO SCH ×4 (06:23→23:47)
[2017-03-15] MEDS: Insulin Aspart 100 Units/ML 3 ML Pen SUBCUT SCH ×7 (07:48→21:55)
[2017-03-15] MEDS: LORazepam 1 MG Tab PO SCH (07:59)
[2017-03-15] MEDS: Sertraline 50 MG Tab PO SCH (07:59)
[2017-03-15] MEDS: Acetaminophen 325 MG Tab PO SCH ×2 (08:00→21:38)
[2017-03-15] MEDS: Methimazole 5 MG Tab PO SCH (08:01)
[2017-03-15] MEDS: Metoprolol Succinate 50 MG Tab.ER PO SCH ×2 (08:01→21:38)
[2017-03-15] MEDS: Simvastatin 10 MG Tab PO SCH (08:03)
[2017-03-15] MEDS: Potassium Chloride 20 MEQ Tab.ER PO SCH ×2 (08:04→21:38)
[2017-03-15] MEDS: Ferrous Sulfate 325 MG Tab PO SCH (08:04)
[2017-03-15] MEDS: Allopurinol 300 MG Tab PO SCH (08:06)
[2017-03-15] MEDS: Digoxin 125 MCG Tab PO SCH (08:06)
[2017-03-15] MEDS: Aspirin 81 MG Tab.EC PO SCH (08:07)
[2017-03-15] MEDS: Cholecalciferol (Vitamin D3) 1,000 Unit Tab PO SCH (08:07)
[2017-03-15] MEDS: Saccharomyces Boulardii (Probiotic) 250 MG Cap PO SCH (08:08)
[2017-03-15] MEDS ORDERED: Sodium Chloride 0.9% 1,000 ML IV ONE (11:53)
[2017-03-15] MEDS: Potassium Chloride 10 MEQ Tab.ER PO SCH (12:07)
[2017-03-15] MEDS: Diltiazem 125 MG in Sodium Chloride 0.9% 100 ML IV SCH (12:58)
--- NOTE | 2017-03-15 13:37 | PCM.PN ---
- General Info Date of Service: 03/15/17 Functional Status: Reports: Pain Controlled, Tolerating Diet - Review of Systems General: Reports: Weakness HEENT: Reports: No Symptoms Pulmonary: Reports: No Symptoms Cardiovascular: Reports: No Symptoms Gastrointestinal: Reports: No Symptoms Genitourinary: Reports: No Symptoms Musculoskeletal: Reports: No Symptoms Skin: Reports: No Symptoms Neurological: Reports: No Symptoms Psychiatric: Reports: No Symptoms - Patient Data Vitals - Most Recent: Last Vital Signs Temp 36.2 C 03/15/17 12:00 Pulse 114 H 03/15/17 12:00 Resp 22 H 03/15/17 12:00 BP 117/63 03/15/17 12:00 Pulse Ox 92 L 03/15/17 12:00 Weight - Most Recent: 111.765 kg I&O - Last 24 Hours: Intake & Output 03/14/17 03/15/17 03/15/17 22:59 06:59 14:59 Intake Total 1747 240 Balance 1747 240 Lab Results Last 24 Hours: Laboratory Results - last 24 hr 03/14/17 03/14/17 03/15/17 Range/Units 17:00 20:54 06:42 POC Glucose 116 H 92 118 H (80-115) mg/dL NT-Pro-B Natriuret Pep (0-125) pg/mL 03/15/17 03/15/17 Range/Units 06:45 11:09 POC Glucose 184 H (80-115) mg/dL NT-Pro-B Natriuret Pep 2171 H (0-125) pg/mL Med Orders - Current: Current Medications Acetaminophen (Tylenol) 650 mg PO Q4H PRN PRN Reason: Pain (Mild 1-3)/fever Acetaminophen (Tylenol) 975 mg PO BID [facility] Last Admin: 03/15/17 08:00 Dose: 975 mg Hydrocodone Bitart/Acetaminophen ([place] 325-5 Mg) 1 tab PO Q4H PRN PRN Reason: Pain (moderate 4-6) Allopurinol (Zyloprim) 150 mg PO DAILY [facility] Last Admin: 03/15/17 08:06 Dose: 150 mg Aspirin (Halfprin) 81 mg PO DAILY [facility] Last Admin: 03/15/17 08:07 Dose: 81 mg Bisacodyl (Dulcolax) 5 mg PO DAILY PRN PRN Reason: Constipation Cholecalciferol (Vitamin D3) 500 units PO DAILY [facility] Last Admin: 03/15/17 08:07 Dose: 500 units Digoxin (Lanoxin) 125 mcg PO DAILY [facility] Last Admin: 03/15/17 08:06 Dose: 125 mcg Diltiazem HCl (Cardizem) 60 mg PO Q6HR [facility] Last Admin: 03/15/17 12:58 Dose: Not Given Docusate Sodium (Colace) 100 mg PO BID PRN PRN Reason: Constipation Last Admin: 03/10/17 20:19 Dose: 100 mg Enalapril Maleate (Vasotec) 5 mg PO BEDTIME BRANDON Ferrous Sulfate (Ferrous Sulfate) 325 mg PO DAILY [facility] Last Admin: 03/15/17 08:04 Dose: 325 mg Furosemide (Lasix) 80 mg PO BIDDIURETIC [facility] Last Admin: 03/15/17 06:23 Dose: 80 mg Hydralazine HCl (Apresoline) 20 mg IVPUSH Q4H PRN PRN Reason: Hypertension Hydromorphone HCl (Dilaudid) 0.25 mg IVPUSH Q2H PRN PRN Reason: Pain (severe 7-10) Promethazine HCl 12.5 mg/ (Sodium Chloride) 50.5 mls @ 100 mls/hr IV Q6H PRN PRN Reason: Nausea/Vomiting Diltiazem HCl 125 mg/ Sodium (Chloride) 125 mls @ 5 mls/hr IV TITRATE BRANDON; 5 MG /HR PRN Reason: Protocol Last Admin: 03/15/17 12:58 Dose: 5 mg/hr, 5 mls/hr Insulin Aspart (Novolog) 8 unit SUBCUT 1200 [facility] Last Admin: 03/15/17 12:05 Dose: 8 units Insulin Aspart (Novolog) 10 unit SUBCUT 0800 [facility] Last Admin: 03/15/17 08:08 Dose: 10 units Insulin Aspart (Novolog) 10 unit SUBCUT 1700 [facility] Last Admin: 03/14/17 17:20 Dose: 10 units Insulin Aspart (Novolog) 0 unit SUBCUT QIDACANDBED [facility] PRN Reason: Protocol Last Admin: 03/15/17 12:07 Dose: 1 unit Lorazepam (Ativan) 0.5 mg IV Q6H PRN PRN Reason: Anxiety Last Admin: 03/12/17 09:27 Dose: 0.5 mg Lorazepam (Ativan) 2 mg IVPUSH Q4H PRN PRN Reason: Seizures Methimazole (Methimazole) 5 mg PO MoTuWeThFr@0900 [facility] Last Admin: 03/15/17 08:01 Dose: 5 mg Metolazone (Zaroxolyn) 2.5 mg PO MoTh [facility] Last Admin: 03/14/17 09:08 Dose: 2.5 mg Metoprolol Succinate (Toprol Xl) 50 mg PO BID [facility] Last Admin: 03/15/17 08:01 Dose: 50 mg Metoprolol Tartrate (Lopressor) 5 mg IVPUSH Q4H PRN PRN Reason: Tachycardia Last Admin: 03/15/17 00:26 Dose: 5 mg Ondansetron HCl (Zofran) 4 mg IV Q6H PRN PRN Reason: Nausea/Vomiting Pantoprazole Sodium (Protonix) 40 mg PO ACBREAKFAST [facility] Last Admin: 03/15/17 06:23 Dose: 40 mg Mirabegron [ (Myrbetriq] 50 Mg) 0 each PO DAILY@1700 [facility] Polyethylene Glycol (Miralax) 17 gm PO DAILY PRN PRN Reason: Constipation Potassium Chloride (Klor-Con 10) 10 meq PO 1200 [facility] Last Admin: 03/15/17 12:07 Dose: 10 meq Potassium Chloride (Klor-Con M20) 20 meq PO BID [facility] Last Admin: 03/15/17 08:04 Dose: 20 meq Saccharomyces Boulardii (Florastor) 250 mg PO DAILY [facility] Last Admin: 03/15/17 08:08 Dose: 250 mg Senna/Docusate Sodium (Senna Plus) 1 tab PO BID PRN PRN Reason: Constipation Sertraline HCl (Zoloft) 50 mg PO DAILY [facility] Last Admin: 03/15/17 07:59 Dose: 50 mg Simvastatin (Zocor) 5 mg PO DAILY [facility] Last Admin: 03/15/17 08:03 Dose: 5 mg Sodium Chloride (Saline Flush) 10 ml FLUSH ASDIRECTED PRN PRN Reason: Keep Vein Open Last Admin: 03/13/17 06:46 Dose: 10 ml Temazepam (Restoril) 7.5 mg PO BEDTIME PRN PRN Reason: Sleep Warfarin Sodium (Coumadin) 2 mg PO SuTuWeThSa@1800 [facility] Last Admin: 03/14/17 17:20 Dose: 2 mg Warfarin Sodium (Coumadin) 5 mg PO MoFr@1800 [facility] Last Admin: 03/11/17 17:29 Dose: 5 mg Discontinued Medications Albuterol/Ipratropium (Duoneb 3.0-0.5 Mg/3 Ml) 3 ml NEB Q4H PRN PRN Reason: Shortness Of Breath/wheezing Bumetanide (Bumex) 1 mg IVPUSH ONETIME ONE Stop: 03/10/17 18:04 Last Admin: 03/10/17 18:48 Dose: 1 mg Bumetanide (Bumex) 0.5 mg IVPUSH ONETIME ONE Stop: 03/11/17 07:01 Last Admin: 03/11/17 06:44 Dose: 0.5 mg Bumetanide (Bumex) 1 mg IVPUSH ONETIME ONE Stop: 03/12/17 07:01 Last Admin: 03/12/17 06:35 Dose: 1 mg Bumetanide (Bumex) 1 mg IVPUSH ONETIME ONE Stop: 03/13/17 07:01 Last Admin: 03/13/17 06:46 Dose: 1 mg Digoxin (Lanoxin) 250 mcg IVPUSH Q6H [facility] Stop: 03/10/17 10:01 Digoxin (Lanoxin) 125 mcg IVPUSH Q6H [facility] Stop: 03/10/17 10:01 Last Admin: 03/10/17 11:02 Dose: Not Given Digoxin (Lanoxin) 125 mcg IVPUSH ONETIME ONE Stop: 03/11/17 11:43 Last Admin: 03/11/17 12:09 Dose: 125 mcg Diltiazem HCl (Diltiazem) 10 mg IVPUSH ONETIME ONE Stop: 03/10/17 01:06 Last Admin: 03/10/17 01:07 Dose: 10 mg Diltiazem HCl (Diltiazem) Confirm Administered Dose 25 mg .ROUTE .STK-MED ONE Stop: 03/10/17 01:10 Last Admin: 03/10/17 01:25 Dose: Not Given Diltiazem HCl (Diltiazem) 10 mg IVPUSH ONETIME ONE Stop: 03/10/17 01:45 Last Admin: 03/10/17 01:57 Dose: 10 mg Diltiazem HCl (Cardizem) 180 mg PO DAILY [facility] Last Admin: 03/12/17 08:20 Dose: 180 mg Diltiazem HCl (Cardizem) 240 mg PO DAILY [facility] Last Admin: 03/13/17 08:41 Dose: 240 mg Diltiazem HCl (Dilacor Xr) 240 mg PO DAILY [facility] Last Admin: 03/14/17 09:07 Dose: 240 mg Enalapril Maleate (Vasotec) 5 mg PO DAILY [facility] Last Admin: 03/15/17 08:04 Dose: 5 mg Sodium Chloride (Normal Saline) 500 mls @ 500 mls/hr IV .BOLUS ONE Stop: 03/10/17 02:23 Last Admin: 03/10/17 01:25 Dose: 500 mls/hr Sodium Chloride (Normal Saline) Confirm Administered Dose 1,000 mls @ as directed .ROUTE .STK-MED ONE Stop: 03/10/17 01:28 Last Admin: 03/10/17 01:27 Dose: Not Given Diltiazem HCl 125 mg/ Sodium (Chloride) 125 mls @ 5 mls/hr IV TITRATE BRANDON; 5 MG /HR PRN Reason: Protocol Last Titration: 03/10/17 10:16 Dose: 0 mg/hr, 0 mls/hr Ceftriaxone Sodium 1 gm/ (Sodium Chloride) 100 mls @ 200 mls/hr IV ONETIME ONE Stop: 03/10/17 02:44 Last Admin: 03/10/17 03:17 Dose: Not Given Azithromycin 500 mg/ Sodium (Chloride) 250 mls @ 250 mls/hr IV ONETIME ONE Stop: 03/10/17 03:15 Last Admin: 03/10/17 03:09 Dose: 250 mls/hr Ceftriaxone Sodium 1 gm/ (Sodium Chloride) 100 mls @ 200 mls/hr IV ONETIME ONE Stop: 03/10/17 02:52 Last Admin: 03/10/17 02:38 Dose: 200 mls/hr Sodium Chloride (Normal Saline) 500 mls @ 999 mls/hr IV .BOLUS ONE Stop: 03/10/17 03:12 Last Admin: 03/10/17 02:55 Dose: 999 mls/hr Azithromycin 500 mg/ Sodium (Chloride) 250 mls @ 250 mls/hr IV Q24H [facility] Last Admin: 03/13/17 09:27 Dose: 250 mls/hr Ceftriaxone Sodium 1 gm/ (Sodium Chloride) 100 mls @ 200 mls/hr IV Q24H [facility] Last Admin: 03/13/17 10:23 Dose: 200 mls/hr Sodium Chloride (Normal Saline) 1,000 mls @ 125 mls/hr IV ASDIRECTED [facility] Last Admin: 03/10/17 11:41 Dose: 125 mls/hr Esmolol HCl (Brevibloc In Ns Premix) 2.5 gm in 250 mls @ 33.3 mls/hr IV TITRATE BRANDON; 50 MCG/KG/MIN PRN Reason: Protocol Last Titration: 03/12/17 03:20 Dose: 0 mcg/kg/min, 0 mls/hr Dextrose/Water (Dextrose 5% In Water) 1,000 mls @ 125 mls/hr IV ASDIRECTED [facility] Dextrose/Water (Dextrose 5% In Water) 1,000 mls @ 75 mls/hr IV ASDIRECTED [facility] Last Admin: 03/14/17 03:14 Dose: 75 mls/hr Sodium Chloride (Normal Saline) 1,000 mls @ 999 mls/hr IV ONETIME ONE Stop: 03/15/17 12:53 Last Admin: 03/15/17 12:09 Dose: 999 mls/hr Lorazepam (Ativan) 1 mg PO BID [facility] Last Admin: 03/15/17 07:59 Dose: 1 mg Magnesium Sulfate (Pharmacy To Dose - Magnesium Replacement) 1 dose .XX ASDIRECTED PRN PRN Reason: RX to Dose Metoprolol Succinate (Toprol Xl) 100 mg PO DAILY [facility] Last Admin: 03/11/17 08:10 Dose: 100 mg Metoprolol Succinate (Toprol Xl) 100 mg PO BID [facility] Last Admin: 03/14/17 08:35 Dose: 100 mg Mirabegron [ (Myrbetriq] 50 Mg) 0 each PO DAILY@1700 [facility] Last Admin: 03/14/17 17:21 Dose: 1 each Potassium Chloride (Klor-Con 10) 20 meq PO BID [facility] Last Admin: 03/13/17 08:40 Dose: 20 meq Potassium Chloride (Pharmacy To Dose - Potassium Replacement) 0 dose .XX ASDIRECTED PRN PRN Reason: RX TO WATCH K LEVELS Potassium Chloride (Klor-Con M20) 40 meq PO Q4H BRANDON Stop: 03/11/17 12:01 Last Admin: 03/11/17 12:48 Dose: 40 meq Potassium Chloride (Klor-Con M20) 40 meq PO Q4H BRANDON Stop: 03/12/17 16:16 Last Admin: 03/12/17 16:19 Dose: 40 meq - Exam Quality Assessment: DVT Prophylaxis General: Alert, Oriented, Cooperative, No Acute Distress HEENT: Pupils Equal, Pupils Reactive, EOMI Neck: Supple, Trachea Midline Lungs: Normal Respiratory Effort Cardiovascular: Regular Rate, Irregular Rhythm, Tachycardia GI/Abdominal Exam: Normal Bowel Sounds, Soft, Non-Tender, No Organomegaly, No Distention (Female) Exam: Deferred Back Exam: Normal Inspection Extremities: Normal Inspection, Pedal Edema (+3) Skin: Warm Neurological: No New Focal Deficit, Normal Speech Psy/Mental Status: Alert, Normal Affect, Normal Mood - Problem List Review Problem List Initiated/Reviewed/Updated: Yes - My Orders Last 24 Hours: My Active Orders 03/15/17 11:41 Patient Status [ADT] Routine 03/15/17 12:00 Diltiazem 125 mg Sodium Chloride 0.9% [Normal Saline] 100 ml IV TITRATE - Plan Plan:: Assessment/Plan: Acute: Atrial Fibrillation with RVR, control needed - Acute on Chronic - HR in the 130s this am - She is on Warfarin for stroke prophylaxis - Cut down Metoprolol to 50 mg po BID and changed Cardizem (SA)regimen to 60 mg po QID - Continue oral digoxin - Daily INR and Continue PRN IV Lopressor for rate control Bronchitis/Pulmonary Vascular Congestion, Likely Resolved - Initial CXR shows increased lung markings pending formal radiology report - Pos Strep A screening; Influenza screening negative - Continue Supplemental O2, Routine RT Care, Bronchodilators, Oral Probiotic - Sputum Cx/Sx/Mycoplasma/Strep Pneumoniae Ag test all negative - Received IV ATB with 500 mg Azithromycin and 1 gram Rocephin daily - Repeat CXR shows improved lung markings - IS as directed Heart Failure with Reduced EF 20% 12/16/2013, Slightly Improved - Hx/o Cardiomyopathy - BNP 2976--> 2288--> 2722 - Peripheral edema 2+ - Continue Lasix 80 mg po BID--stopped, Metolazone 2.5 mg po MoTh, Is/Os, Daily Weight and Sodium/Fluid Restriction; Bumex 1 mg IV qd - 2D echo 06/21/2016: EF 35-40% With Moderate-Severe Mitral and Tricuspid Jacqui Regurgitation DM2 with Hyperglycemia, Stable - On Insulin Regimen: SA and LA - Last A1C was 6.6 10/13/2014; new A1C 7.6 - Accu-check QID AC and HS with Low dose ISS Mild Hypernatremia - Na 148 --> now 149 - Received D5W IVF at 125 cc/hr - Continue salt and fluid restriction - Monitor labs Probable AMEE - She has apneic episode when she is sleeping - Sleep Study outpatient - Abby Loss Anxiety, Improved - Undiagnosed - 1 mg po Ativan BID Resolved: Subtherapeutic Digoxin, Improved - Digoxin 0.5--> 1.1 (0.9-2 normal) - Likely contributory to uncontrolled HR - Continue daily Digoxin 125 mcg po; consider additional dose - Will repeat level this afternoon Hypokalemia - K normalized - Likely 2/2 renal loss form loop diuretic - Pharmacy to replete and monitor Strep A Colonization - Received Macrolide/Cephalosporin for antibiotic treatment - She is allergic to PCN - Sputum culture negative for Strep A organism Leukocytosis, - WBC improved - Likely 2/2 above - Treat underlying cause - Continue to monitor Chronic: HLD Cardiomyopathy CKD Stage 2-3, Stable GERD with Esophagitis Gout LESLYE, Stable Urinary Incontinence Hyperthyroidism Constipation Peripheral Edema Right Eye Blindness Dry Eyes Syndrome Macular Degeneration Intellectual Disability Obesity with BMI of 31 Plan: ICU bed, resume cardizem gtt at 5 She remains clinically stable otherwise Continue current treatment Routine AM Labs Continue PT/OT/RT [employer] SUPPORT SPECIALIST recommends Modified Barium Swallow-next week Aspiration/Fall Precautions DVT/GI PPx: Warfarin and PPI SW/CM for d/c planning Additional orders as above Code status: 1 LOS > 96 hrs due to slow response to treatment and electrolyte/INR abnormalities.
[2017-03-15] MEDS: Warfarin 5 MG Tab PO SCH (17:26)
[2017-03-15] MEDS ORDERED: Bumetanide 1 MG/4 ML MDV IVPUSH ONE (18:00)
[2017-03-16] MEDS: Diltiazem 125 MG in Sodium Chloride 0.9% 100 ML IV SCH (02:14)
[2017-03-16] MEDS: Diltiazem IR 60 MG Tab PO SCH ×3 (05:57→17:27)
[2017-03-16] MEDS: Insulin Aspart 100 Units/ML 3 ML Pen SUBCUT SCH ×7 (06:01→21:00)
[2017-03-16] MEDS: Pantoprazole 40 MG Tab.CR PO SCH (06:05)
[2017-03-16] MEDS: Saccharomyces Boulardii (Probiotic) 250 MG Cap PO SCH (08:07)
[2017-03-16] MEDS: Acetaminophen 325 MG Tab PO SCH ×2 (08:07→20:41)
[2017-03-16] MEDS: Simvastatin 10 MG Tab PO SCH (08:08)
[2017-03-16] MEDS: Potassium Chloride 20 MEQ Tab.ER PO SCH ×2 (08:08→20:56)
[2017-03-16] MEDS: Allopurinol 300 MG Tab PO SCH (08:10)
[2017-03-16] MEDS: Ferrous Sulfate 325 MG Tab PO SCH (08:11)
[2017-03-16] MEDS: Metoprolol Succinate 50 MG Tab.ER PO SCH ×2 (08:11→20:41)
[2017-03-16] MEDS: Aspirin 81 MG Tab.EC PO SCH (08:12)
[2017-03-16] MEDS: Cholecalciferol (Vitamin D3) 1,000 Unit Tab PO SCH (08:12)
[2017-03-16] MEDS: Digoxin 125 MCG Tab PO SCH (08:13)
[2017-03-16] MEDS: Sertraline 50 MG Tab PO SCH (08:15)
[2017-03-16] MEDS: Bumetanide 1 MG/4 ML MDV IVPUSH SCH (10:26)
--- NOTE | 2017-03-16 10:58 | CR ---
Chest: Portable view of the chest was obtained. Comparison: Previous chest x-ray of 03/12/17. Heart is enlarged. Pulmonary vessels are somewhat congested but remain fairly stable. Small right sided pleural effusion is likely present. Bony structures are grossly intact. Impression: 1. Findings as described above. No significant change is identified from prior exam. Diagnostic code #3
[2017-03-16] MEDS: Potassium Chloride 10 MEQ Tab.ER PO SCH (11:09)
--- NOTE | 2017-03-16 11:56 | PCM.PN ---
- General Info Date of Service: 03/16/17 Functional Status: Reports: Tolerating Diet, Ambulating, Urinating - Review of Systems General: Reports: No Symptoms HEENT: Reports: No Symptoms Pulmonary: Reports: No Symptoms Cardiovascular: Reports: Edema Gastrointestinal: Reports: No Symptoms Genitourinary: Reports: No Symptoms Musculoskeletal: Reports: No Symptoms Skin: Reports: No Symptoms Neurological: Reports: No Symptoms Psychiatric: Reports: No Symptoms - Patient Data Vitals - Most Recent: Last Vital Signs Temp 36.6 C 03/16/17 08:00 Pulse 96 03/16/17 11:00 Resp 20 03/16/17 08:00 BP 92/68 03/16/17 11:00 Pulse Ox 91 L 03/16/17 08:00 Weight - Most Recent: 111.765 kg I&O - Last 24 Hours: Intake & Output 03/15/17 03/16/17 03/16/17 22:59 06:59 14:59 Intake Total 868 120 Output Total 550 Balance 868 120 -550 Lab Results Last 24 Hours: Laboratory Results - last 24 hr 03/15/17 03/15/17 03/16/17 Range/Units 17:10 21:41 05:15 WBC 10.18 H (3.98-10.04) K/mm3 RBC 3.97 L (3.98-5.22) M/mm3 Hgb 11.6 (11.2-15.7) gm/L Hct 37.9 (34.1-44.9) % MCV 95.5 H (79.4-94.8) fl MCH 29.2 (25.6-32.2) pg MCHC 30.6 L (32.2-35.5) g/dl RDW Std Deviation 53.5 H (36.4-46.3) fL Plt Count 281 (182-369) K/mm3 MPV 10.2 (9.4-12.3) fl Neut % (Auto) 76.6 H (34.0-71.1) % Lymph % (Auto) 12.6 L (19.3-51.7) % Harding % (Auto) 6.6 (4.7-12.5) % Eos % (Auto) 3.0 (0.7-5.8) Baso % (Auto) 0.5 (0.1-1.2) % Neut # (Auto) 7.80 H (1.56-6.13) K/mm3 Lymph # (Auto) 1.28 (1.18-3.74) K/mm3 Harding # (Auto) 0.67 H (0.24-0.36) K/mm3 Eos # (Auto) 0.31 (0.04-0.36) K/mm3 Baso # (Auto) 0.05 (0.01-0.08) K/mm3 PT (8.0-13.0) SECONDS INR Sodium (136-145) mEq/L Potassium (3.5-5.1) mEq/L Chloride (98-107) mEq/L Carbon Dioxide (21-32) mEq/L Anion Gap (5-15) BUN (7-18) mg/dL Creatinine (0.55-1.02) mg/dL Est Cr Clr Drug Dosing mL/min Estimated GFR (MDRD) (>60) mL/min BUN/Creatinine Ratio (14-18) Glucose (80-115) mg/dL POC Glucose 133 H 144 H (80-115) mg/dL Calcium (8.5-10.1) mg/dL Magnesium (1.8-2.4) mg/dl C-Reactive Protein (<1.0) mg/dL 03/16/17 03/16/17 03/16/17 Range/Units 05:15 05:15 05:23 WBC (3.98-10.04) K/mm3 RBC (3.98-5.22) M/mm3 Hgb (11.2-15.7) gm/L Hct (34.1-44.9) % MCV (79.4-94.8) fl MCH (25.6-32.2) pg MCHC (32.2-35.5) g/dl RDW Std Deviation (36.4-46.3) fL Plt Count (182-369) K/mm3 MPV (9.4-12.3) fl Neut % (Auto) (34.0-71.1) % Lymph % (Auto) (19.3-51.7) % Harding % (Auto) (4.7-12.5) % Eos % (Auto) (0.7-5.8) Baso % (Auto) (0.1-1.2) % Neut # (Auto) (1.56-6.13) K/mm3 Lymph # (Auto) (1.18-3.74) K/mm3 Harding # (Auto) (0.24-0.36) K/mm3 Eos # (Auto) (0.04-0.36) K/mm3 Baso # (Auto) (0.01-0.08) K/mm3 PT 30.4 H (8.0-13.0) SECONDS INR 2.62 Sodium 147 H (136-145) mEq/L Potassium 3.7 (3.5-5.1) mEq/L Chloride 107 (98-107) mEq/L Carbon Dioxide 30 (21-32) mEq/L Anion Gap 13.7 (5-15) BUN 21 H (7-18) mg/dL Creatinine 0.7 (0.55-1.02) mg/dL Est Cr Clr Drug Dosing 88.36 mL/min Estimated GFR (MDRD) > 60 (>60) mL/min BUN/Creatinine Ratio 30.0 H (14-18) Glucose 126 H (80-115) mg/dL POC Glucose 138 H (80-115) mg/dL Calcium 9.3 (8.5-10.1) mg/dL Magnesium 1.9 (1.8-2.4) mg/dl C-Reactive Protein 5.5 H* (<1.0) mg/dL 03/16/17 Range/Units 11:01 WBC (3.98-10.04) K/mm3 RBC (3.98-5.22) M/mm3 Hgb (11.2-15.7) gm/L Hct (34.1-44.9) % MCV (79.4-94.8) fl MCH (25.6-32.2) pg MCHC (32.2-35.5) g/dl RDW Std Deviation (36.4-46.3) fL Plt Count (182-369) K/mm3 MPV (9.4-12.3) fl Neut % (Auto) (34.0-71.1) % Lymph % (Auto) (19.3-51.7) % Harding % (Auto) (4.7-12.5) % Eos % (Auto) (0.7-5.8) Baso % (Auto) (0.1-1.2) % Neut # (Auto) (1.56-6.13) K/mm3 Lymph # (Auto) (1.18-3.74) K/mm3 Harding # (Auto) (0.24-0.36) K/mm3 Eos # (Auto) (0.04-0.36) K/mm3 Baso # (Auto) (0.01-0.08) K/mm3 PT (8.0-13.0) SECONDS INR Sodium (136-145) mEq/L Potassium (3.5-5.1) mEq/L Chloride (98-107) mEq/L Carbon Dioxide (21-32) mEq/L Anion Gap (5-15) BUN (7-18) mg/dL Creatinine (0.55-1.02) mg/dL Est Cr Clr Drug Dosing mL/min Estimated GFR (MDRD) (>60) mL/min BUN/Creatinine Ratio (14-18) Glucose (80-115) mg/dL POC Glucose 197 H (80-115) mg/dL Calcium (8.5-10.1) mg/dL Magnesium (1.8-2.4) mg/dl C-Reactive Protein (<1.0) mg/dL Shaun Results Last 24 Hours: Microbiology 03/16/17 09:47 Group A Streptococcus Rapid Screen - Final Throat NEGATIVE STREP A SCREEN Med Orders - Current: Current Medications Acetaminophen (Tylenol) 650 mg PO Q4H PRN PRN Reason: Pain (Mild 1-3)/fever Acetaminophen (Tylenol) 975 mg PO BID [facility] Last Admin: 03/16/17 08:07 Dose: 975 mg Hydrocodone Bitart/Acetaminophen ([place] 325-5 Mg) 1 tab PO Q4H PRN PRN Reason: Pain (moderate 4-6) Allopurinol (Zyloprim) 150 mg PO DAILY [facility] Last Admin: 03/16/17 08:10 Dose: 150 mg Aspirin (Halfprin) 81 mg PO DAILY [facility] Last Admin: 03/16/17 08:12 Dose: 81 mg Bisacodyl (Dulcolax) 5 mg PO DAILY PRN PRN Reason: Constipation Bumetanide (Bumex) 1 mg IVPUSH DAILY [facility] Last Admin: 03/16/17 10:26 Dose: 1 mg Cholecalciferol (Vitamin D3) 500 units PO DAILY [facility] Last Admin: 03/16/17 08:12 Dose: 500 units Digoxin (Lanoxin) 125 mcg PO DAILY [facility] Last Admin: 03/16/17 08:13 Dose: 125 mcg Diltiazem HCl (Cardizem) 60 mg PO Q6HR [facility] Last Admin: 03/16/17 11:09 Dose: 60 mg Docusate Sodium (Colace) 100 mg PO BID PRN PRN Reason: Constipation Last Admin: 03/10/17 20:19 Dose: 100 mg Ferrous Sulfate (Ferrous Sulfate) 325 mg PO DAILY [facility] Last Admin: 03/16/17 08:11 Dose: 325 mg Hydralazine HCl (Apresoline) 20 mg IVPUSH Q4H PRN PRN Reason: Hypertension Hydromorphone HCl (Dilaudid) 0.25 mg IVPUSH Q2H PRN PRN Reason: Pain (severe 7-10) Last Admin: 03/16/17 06:05 Dose: 0.25 mg Promethazine HCl 12.5 mg/ (Sodium Chloride) 50.5 mls @ 100 mls/hr IV Q6H PRN PRN Reason: Nausea/Vomiting Diltiazem HCl 125 mg/ Sodium (Chloride) 125 mls @ 5 mls/hr IV TITRATE [facility]; 5 MG /HR PRN Reason: Protocol Last Titration: 03/16/17 11:05 Dose: 7 mg/hr, 7 mls/hr Insulin Aspart (Novolog) 8 unit SUBCUT 1200 [facility] Last Admin: 03/16/17 11:10 Dose: 8 units Insulin Aspart (Novolog) 10 unit SUBCUT 0800 [facility] Last Admin: 03/16/17 08:14 Dose: 10 units Insulin Aspart (Novolog) 10 unit SUBCUT 1700 [facility] Last Admin: 03/15/17 17:26 Dose: 10 units Insulin Aspart (Novolog) 0 unit SUBCUT QIDACANDBED [facility] PRN Reason: Protocol Last Admin: 03/16/17 11:11 Dose: 1 unit Lorazepam (Ativan) 0.5 mg IV Q6H PRN PRN Reason: Anxiety Last Admin: 03/12/17 09:27 Dose: 0.5 mg Lorazepam (Ativan) 2 mg IVPUSH Q4H PRN PRN Reason: Seizures Methimazole (Methimazole) 5 mg PO MoTuWeThFr@0900 [facility] Last Admin: 03/15/17 08:01 Dose: 5 mg Metolazone (Zaroxolyn) 2.5 mg PO MoTh [facility] Last Admin: 03/14/17 09:08 Dose: 2.5 mg Metoprolol Succinate (Toprol Xl) 50 mg PO BID [facility] Last Admin: 03/16/17 08:11 Dose: 50 mg Metoprolol Tartrate (Lopressor) 5 mg IVPUSH Q4H PRN PRN Reason: Tachycardia Last Admin: 03/15/17 00:26 Dose: 5 mg Ondansetron HCl (Zofran) 4 mg IV Q6H PRN PRN Reason: Nausea/Vomiting Pantoprazole Sodium (Protonix) 40 mg PO ACBREAKFAST [facility] Last Admin: 03/16/17 06:05 Dose: 40 mg Mirabegron [ (Myrbetriq] 50 Mg) 0 each PO DAILY@1700 [facility] Polyethylene Glycol (Miralax) 17 gm PO DAILY PRN PRN Reason: Constipation Potassium Chloride (Klor-Con 10) 10 meq PO 1200 [facility] Last Admin: 03/16/17 11:09 Dose: 10 meq Potassium Chloride (Klor-Con M20) 20 meq PO BID [facility] Last Admin: 03/16/17 08:08 Dose: 20 meq Saccharomyces Boulardii (Florastor) 250 mg PO DAILY [facility] Last Admin: 03/16/17 08:07 Dose: 250 mg Senna/Docusate Sodium (Senna Plus) 1 tab PO BID PRN PRN Reason: Constipation Sertraline HCl (Zoloft) 50 mg PO DAILY [facility] Last Admin: 03/16/17 08:15 Dose: 50 mg Simvastatin (Zocor) 5 mg PO DAILY [facility] Last Admin: 03/16/17 08:08 Dose: 5 mg Sodium Chloride (Saline Flush) 10 ml FLUSH ASDIRECTED PRN PRN Reason: Keep Vein Open Last Admin: 03/13/17 06:46 Dose: 10 ml Temazepam (Restoril) 7.5 mg PO BEDTIME PRN PRN Reason: Sleep Warfarin Sodium (Coumadin) 2 mg PO SuTuWeThSa@1800 [facility] Last Admin: 03/14/17 17:20 Dose: 2 mg Warfarin Sodium (Coumadin) 5 mg PO MoFr@1800 [facility] Last Admin: 03/15/17 17:26 Dose: 5 mg Discontinued Medications Albuterol/Ipratropium (Duoneb 3.0-0.5 Mg/3 Ml) 3 ml NEB Q4H PRN PRN Reason: Shortness Of Breath/wheezing Bumetanide (Bumex) 1 mg IVPUSH ONETIME ONE Stop: 03/10/17 18:04 Last Admin: 03/10/17 18:48 Dose: 1 mg Bumetanide (Bumex) 0.5 mg IVPUSH ONETIME ONE Stop: 03/11/17 07:01 Last Admin: 03/11/17 06:44 Dose: 0.5 mg Bumetanide (Bumex) 1 mg IVPUSH ONETIME ONE Stop: 03/12/17 07:01 Last Admin: 03/12/17 06:35 Dose: 1 mg Bumetanide (Bumex) 1 mg IVPUSH ONETIME ONE Stop: 03/13/17 07:01 Last Admin: 03/13/17 06:46 Dose: 1 mg Bumetanide (Bumex) 1 mg IVPUSH DAILY ONE Stop: 03/15/17 18:01 Last Admin: 03/15/17 18:35 Dose: 1 mg Digoxin (Lanoxin) 250 mcg IVPUSH Q6H [facility] Stop: 03/10/17 10:01 Digoxin (Lanoxin) 125 mcg IVPUSH Q6H [facility] Stop: 03/10/17 10:01 Last Admin: 03/10/17 11:02 Dose: Not Given Digoxin (Lanoxin) 125 mcg IVPUSH ONETIME ONE Stop: 03/11/17 11:43 Last Admin: 03/11/17 12:09 Dose: 125 mcg Diltiazem HCl (Diltiazem) 10 mg IVPUSH ONETIME ONE Stop: 03/10/17 01:06 Last Admin: 03/10/17 01:07 Dose: 10 mg Diltiazem HCl (Diltiazem) Confirm Administered Dose 25 mg .ROUTE .STK-MED ONE Stop: 03/10/17 01:10 Last Admin: 03/10/17 01:25 Dose: Not Given Diltiazem HCl (Diltiazem) 10 mg IVPUSH ONETIME ONE Stop: 03/10/17 01:45 Last Admin: 03/10/17 01:57 Dose: 10 mg Diltiazem HCl (Cardizem) 180 mg PO DAILY [facility] Last Admin: 03/12/17 08:20 Dose: 180 mg Diltiazem HCl (Cardizem) 240 mg PO DAILY [facility] Last Admin: 03/13/17 08:41 Dose: 240 mg Diltiazem HCl (Dilacor Xr) 240 mg PO DAILY [facility] Last Admin: 03/14/17 09:07 Dose: 240 mg Enalapril Maleate (Vasotec) 5 mg PO DAILY [facility] Last Admin: 03/15/17 08:04 Dose: 5 mg Enalapril Maleate (Vasotec) 5 mg PO BEDTIME [facility] Furosemide (Lasix) 80 mg PO BIDDIURETIC [facility] Last Admin: 03/15/17 14:59 Dose: 80 mg Sodium Chloride (Normal Saline) 500 mls @ 500 mls/hr IV .BOLUS ONE Stop: 03/10/17 02:23 Last Admin: 03/10/17 01:25 Dose: 500 mls/hr Sodium Chloride (Normal Saline) Confirm Administered Dose 1,000 mls @ as directed .ROUTE .STK-MED ONE Stop: 03/10/17 01:28 Last Admin: 03/10/17 01:27 Dose: Not Given Diltiazem HCl 125 mg/ Sodium (Chloride) 125 mls @ 5 mls/hr IV TITRATE [facility]ANDON; 5 MG /HR PRN Reason: Protocol Last Titration: 03/10/17 10:16 Dose: 0 mg/hr, 0 mls/hr Ceftriaxone Sodium 1 gm/ (Sodium Chloride) 100 mls @ 200 mls/hr IV ONETIME ONE Stop: 03/10/17 02:44 Last Admin: 03/10/17 03:17 Dose: Not Given Azithromycin 500 mg/ Sodium (Chloride) 250 mls @ 250 mls/hr IV ONETIME ONE Stop: 03/10/17 03:15 Last Admin: 03/10/17 03:09 Dose: 250 mls/hr Ceftriaxone Sodium 1 gm/ (Sodium Chloride) 100 mls @ 200 mls/hr IV ONETIME ONE Stop: 03/10/17 02:52 Last Admin: 03/10/17 02:38 Dose: 200 mls/hr Sodium Chloride (Normal Saline) 500 mls @ 999 mls/hr IV .BOLUS ONE Stop: 03/10/17 03:12 Last Admin: 03/10/17 02:55 Dose: 999 mls/hr Azithromycin 500 mg/ Sodium (Chloride) 250 mls @ 250 mls/hr IV Q24H [facility] Last Admin: 03/13/17 09:27 Dose: 250 mls/hr Ceftriaxone Sodium 1 gm/ (Sodium Chloride) 100 mls @ 200 mls/hr IV Q24H [facility] Last Admin: 03/13/17 10:23 Dose: 200 mls/hr Sodium Chloride (Normal Saline) 1,000 mls @ 125 mls/hr IV ASDIRECTED [facility] Last Admin: 03/10/17 11:41 Dose: 125 mls/hr Esmolol HCl (Brevibloc In Ns Premix) 2.5 gm in 250 mls @ 33.3 mls/hr IV TITRATE BRANDON; 50 MCG/KG/MIN PRN Reason: Protocol Last Titration: 03/12/17 03:20 Dose: 0 mcg/kg/min, 0 mls/hr Dextrose/Water (Dextrose 5% In Water) 1,000 mls @ 125 mls/hr IV ASDIRECTED [facility] Dextrose/Water (Dextrose 5% In Water) 1,000 mls @ 75 mls/hr IV ASDIRECTED [facility] Last Admin: 03/14/17 03:14 Dose: 75 mls/hr Sodium Chloride (Normal Saline) 1,000 mls @ 999 mls/hr IV ONETIME ONE Stop: 03/15/17 12:53 Last Admin: 03/15/17 12:09 Dose: 999 mls/hr Lorazepam (Ativan) 1 mg PO BID [facility] Last Admin: 03/15/17 07:59 Dose: 1 mg Magnesium Sulfate (Pharmacy To Dose - Magnesium Replacement) 1 dose .XX ASDIRECTED PRN PRN Reason: RX to Dose Metoprolol Succinate (Toprol Xl) 100 mg PO DAILY [facility] Last Admin: 03/11/17 08:10 Dose: 100 mg Metoprolol Succinate (Toprol Xl) 100 mg PO BID [facility] Last Admin: 03/14/17 08:35 Dose: 100 mg Mirabegron [ (Myrbetriq] 50 Mg) 0 each PO DAILY@1700 [facility] Last Admin: 03/14/17 17:21 Dose: 1 each Potassium Chloride (Klor-Con 10) 20 meq PO BID [facility] Last Admin: 03/13/17 08:40 Dose: 20 meq Potassium Chloride (Pharmacy To Dose - Potassium Replacement) 0 dose .XX ASDIRECTED PRN PRN Reason: RX TO WATCH K LEVELS Potassium Chloride (Klor-Con M20) 40 meq PO Q4H [facility] Stop: 03/11/17 12:01 Last Admin: 03/11/17 12:48 Dose: 40 meq Potassium Chloride (Klor-Con M20) 40 meq PO Q4H [facility] Stop: 03/12/17 16:16 Last Admin: 03/12/17 16:19 Dose: 40 meq - Exam Quality Assessment: Supplemental Oxygen, DVT Prophylaxis General: Alert, Oriented, Cooperative, No Acute Distress HEENT: Pupils Equal, Pupils Reactive, EOMI Neck: Supple, Trachea Midline, No JVD Lungs: Normal Respiratory Effort, Decreased Breath Sounds Cardiovascular: Regular Rate, Irregular Rhythm GI/Abdominal Exam: Normal Bowel Sounds, Soft, Non-Tender, No Organomegaly, No Distention (Female) Exam: Deferred Back Exam: Normal Inspection Extremities: Normal Inspection, Pedal Edema (2+) Skin: Warm Neurological: No New Focal Deficit Psy/Mental Status: Alert, Normal Affect, Normal Mood - Problem List Review Problem List Initiated/Reviewed/Updated: Yes - My Orders Last 24 Hours: My Active Orders 03/15/17 11:41 Patient Status [ADT] Routine 03/15/17 12:00 Diltiazem 125 mg Sodium Chloride 0.9% [Normal Saline] 100 ml IV TITRATE 03/16/17 09:47 CULTURE STREP A CONFIRMATION [] Stat Rapid Strep w/culture conf [STREP SCRN A RAPID W CULT CONF] [] Stat 03/16/17 09:48 Communication Order [RC] QSHIFT 03/16/17 10:00 Bumetanide [Bumex] 1 mg IVPUSH DAILY 03/17/17 05:00 BMP [BASIC METABOLIC PANEL,BMP] [CHEM] DAILY CBC WITH AUTO DIFF [HEME] DAILY CRP [C-REACTIVE PROTEIN] [CHEM] DAILY INR,PT,PROTHROMBIN TIME [COAG] DAILY MAGNESIUM [CHEM] DAILY 03/18/17 05:00 BMP [BASIC METABOLIC PANEL,BMP] [CHEM] DAILY CBC WITH AUTO DIFF [HEME] DAILY CRP [C-REACTIVE PROTEIN] [CHEM] DAILY INR,PT,PROTHROMBIN TIME [COAG] DAILY MAGNESIUM [CHEM] DAILY 03/19/17 05:00 BMP [BASIC METABOLIC PANEL,BMP] [CHEM] DAILY CBC WITH AUTO DIFF [HEME] DAILY CRP [C-REACTIVE PROTEIN] [CHEM] DAILY MAGNESIUM [CHEM] DAILY - Plan Plan:: Assessment/Plan: Acute: Atrial Fibrillation with RVR, improved, will titrate off gtt - Acute on Chronic - HR in the 130s this am - She is on Warfarin for stroke prophylaxis - Cut down Metoprolol to 50 mg po BID and changed Cardizem (SA)regimen to 60 mg po QID - Continue oral digoxin - Daily INR and Continue PRN IV Lopressor for rate control Bronchitis/Pulmonary Vascular Congestion, Likely Resolved - Initial CXR shows increased lung markings pending formal radiology report - Pos Strep A screening; Influenza screening negative - Continue Supplemental O2, Routine RT Care, Bronchodilators, Oral Probiotic - Sputum Cx/Sx/Mycoplasma/Strep Pneumoniae Ag test all negative - Received IV ATB with 500 mg Azithromycin and 1 gram Rocephin daily - Repeat CXR shows improved lung markings - IS as directed Heart Failure with Reduced EF 20% 12/16/2013, Slightly Improved - Hx/o Cardiomyopathy - BNP 2976--> 2288--> 2722 - Peripheral edema 2+ - Continue Lasix 80 mg po BID--stopped, Metolazone 2.5 mg po MoTh, Is/Os, Daily Weight and Sodium/Fluid Restriction; Bumex 1 mg IV qd - 2D echo 06/21/2016: EF 35-40% With Moderate-Severe Mitral and Tricuspid Basalt Regurgitation DM2 with Hyperglycemia, Stable - On Insulin Regimen: SA and LA - Last A1C was 6.6 10/13/2014; new A1C 7.6 - Accu-check QID AC and HS with Low dose ISS Mild Hypernatremia - Na 148 --> now 149 - Received D5W IVF at 125 cc/hr - Continue salt and fluid restriction - Monitor labs Probable AMEE - She has apneic episode when she is sleeping - Sleep Study outpatient - Abby Loss Anxiety, Improved - Undiagnosed - 1 mg po Ativan BID Resolved: Subtherapeutic Digoxin, Improved - Digoxin 0.5--> 1.1 (0.9-2 normal) - Likely contributory to uncontrolled HR - Continue daily Digoxin 125 mcg po; consider additional dose - Will repeat level this afternoon Hypokalemia - K normalized - Likely 2/2 renal loss form loop diuretic - Pharmacy to replete and monitor Strep A Colonization - Received Macrolide/Cephalosporin for antibiotic treatment - She is allergic to PCN - Sputum culture negative for Strep A organism Leukocytosis, - WBC improved - Likely 2/2 above - Treat underlying cause - Continue to monitor Chronic: HLD Cardiomyopathy CKD Stage 2-3, Stable GERD with Esophagitis Gout LESLYE, Stable Urinary Incontinence Hyperthyroidism Constipation Peripheral Edema Right Eye Blindness Dry Eyes Syndrome Macular Degeneration Intellectual Disability Obesity with BMI of 31 Plan: ICU bed, resume cardizem gtt at 5 She remains clinically stable otherwise Continue current treatment Routine AM Labs Continue PT/OT/RT [employer] recommends Modified Barium Swallow-next week Aspiration/Fall Precautions DVT/GI PPx: Warfarin and PPI SW/CM for d/c planning Additional orders as above Code status: 1 LOS > 96 hrs due to slow response to treatment and electrolyte/INR abnormalities.
[2017-03-16] MEDS: Furosemide 80 MG Tab PO SCH (12:47)
[2017-03-16] MEDS: Warfarin 2 MG Tab PO SCH (17:27)
[2017-03-17] MEDS: Diltiazem IR 60 MG Tab PO SCH ×5 (00:42→23:44)
[2017-03-17] MEDS: Pantoprazole 40 MG Tab.CR PO SCH (06:45)
[2017-03-17] MEDS: Aspirin 81 MG Tab.EC PO SCH (08:20)
[2017-03-17] MEDS: Acetaminophen 325 MG Tab PO SCH ×2 (08:21→20:56)
[2017-03-17] MEDS: Simvastatin 10 MG Tab PO SCH (08:21)
[2017-03-17] MEDS: Metoprolol Succinate 50 MG Tab.ER PO SCH ×2 (08:21→20:52)
[2017-03-17] MEDS: Ferrous Sulfate 325 MG Tab PO SCH (08:22)
[2017-03-17] MEDS: Potassium Chloride 20 MEQ Tab.ER PO SCH ×2 (08:22→20:56)
[2017-03-17] MEDS: Allopurinol 300 MG Tab PO SCH (08:22)
[2017-03-17] MEDS: Cholecalciferol (Vitamin D3) 1,000 Unit Tab PO SCH (08:23)
[2017-03-17] MEDS: Digoxin 125 MCG Tab PO SCH (08:23)
[2017-03-17] MEDS: Sertraline 50 MG Tab PO SCH (08:23)
[2017-03-17] MEDS: Bumetanide 1 MG/4 ML MDV IVPUSH SCH (08:24)
[2017-03-17] MEDS: Saccharomyces Boulardii (Probiotic) 250 MG Cap PO SCH (08:24)
[2017-03-17] MEDS: Insulin Aspart 100 Units/ML 3 ML Pen SUBCUT SCH ×7 (08:24→21:01)
[2017-03-17] MEDS: Potassium Chloride 10 MEQ Tab.ER PO SCH (11:38)
--- NOTE | 2017-03-17 13:10 | PCM.PN ---
- General Info Date of Service: 03/17/17 Functional Status: Reports: Tolerating Diet, Ambulating, Urinating - Review of Systems General: Reports: No Symptoms HEENT: Reports: No Symptoms Pulmonary: Reports: No Symptoms Cardiovascular: Reports: No Symptoms Gastrointestinal: Reports: No Symptoms Genitourinary: Reports: No Symptoms Musculoskeletal: Reports: No Symptoms Skin: Reports: No Symptoms Neurological: Reports: No Symptoms Psychiatric: Reports: No Symptoms - Patient Data Vitals - Most Recent: Last Vital Signs Temp 36.9 C 03/17/17 08:00 Pulse 112 H 03/17/17 08:23 Resp 18 03/17/17 08:00 BP 115/73 03/17/17 08:21 Pulse Ox 93 L 03/17/17 08:00 Weight - Most Recent: 106.503 kg I&O - Last 24 Hours: Intake & Output 03/16/17 03/17/17 03/17/17 23:59 06:59 14:59 Intake Total 420 Output Total 600 Balance -180 Lab Results Last 24 Hours: Laboratory Results - last 24 hr 03/16/17 03/16/17 03/17/17 Range/Units 17:26 20:34 05:54 WBC 9.24 (3.98-10.04) K/mm3 RBC 3.77 L (3.98-5.22) M/mm3 Hgb 11.2 (11.2-15.7) gm/L Hct 35.9 (34.1-44.9) % MCV 95.2 H (79.4-94.8) fl MCH 29.7 (25.6-32.2) pg MCHC 31.2 L (32.2-35.5) g/dl RDW Std Deviation 53.0 H (36.4-46.3) fL Plt Count 284 (182-369) K/mm3 MPV 10.4 (9.4-12.3) fl Neut % (Auto) 76.5 H (34.0-71.1) % Lymph % (Auto) 13.6 L (19.3-51.7) % [place] % (Auto) 5.6 (4.7-12.5) % Eos % (Auto) 3.6 (0.7-5.8) Baso % (Auto) 0.2 (0.1-1.2) % Neut # (Auto) 7.06 H (1.56-6.13) K/mm3 Lymph # (Auto) 1.26 (1.18-3.74) K/mm3 [place] # (Auto) 0.52 H (0.24-0.36) K/mm3 Eos # (Auto) 0.33 (0.04-0.36) K/mm3 Baso # (Auto) 0.02 (0.01-0.08) K/mm3 PT (8.0-13.0) SECONDS INR Sodium (136-145) mEq/L Potassium (3.5-5.1) mEq/L Chloride (98-107) mEq/L Carbon Dioxide (21-32) mEq/L Anion Gap (5-15) BUN (7-18) mg/dL Creatinine (0.55-1.02) mg/dL Est Cr Clr Drug Dosing mL/min Estimated GFR (MDRD) (>60) mL/min BUN/Creatinine Ratio (14-18) Glucose (80-115) mg/dL POC Glucose 190 H 241 H (80-115) mg/dL Calcium (8.5-10.1) mg/dL Magnesium (1.8-2.4) mg/dl C-Reactive Protein (<1.0) mg/dL 03/17/17 03/17/17 03/17/17 Range/Units 05:54 05:54 06:44 WBC (3.98-10.04) K/mm3 RBC (3.98-5.22) M/mm3 Hgb (11.2-15.7) gm/L Hct (34.1-44.9) % MCV (79.4-94.8) fl MCH (25.6-32.2) pg MCHC (32.2-35.5) g/dl RDW Std Deviation (36.4-46.3) fL Plt Count (182-369) K/mm3 MPV (9.4-12.3) fl Neut % (Auto) (34.0-71.1) % Lymph % (Auto) (19.3-51.7) % [place] % (Auto) (4.7-12.5) % Eos % (Auto) (0.7-5.8) Baso % (Auto) (0.1-1.2) % Neut # (Auto) (1.56-6.13) K/mm3 Lymph # (Auto) (1.18-3.74) K/mm3 [place] # (Auto) (0.24-0.36) K/mm3 Eos # (Auto) (0.04-0.36) K/mm3 Baso # (Auto) (0.01-0.08) K/mm3 PT 31.0 H (8.0-13.0) SECONDS INR 2.67 Sodium 144 (136-145) mEq/L Potassium 3.8 (3.5-5.1) mEq/L Chloride 104 (98-107) mEq/L Carbon Dioxide 29 (21-32) mEq/L Anion Gap 14.8 (5-15) BUN 30 H (7-18) mg/dL Creatinine 0.8 (0.55-1.02) mg/dL Est Cr Clr Drug Dosing 77.31 mL/min Estimated GFR (MDRD) > 60 (>60) mL/min BUN/Creatinine Ratio 37.5 H (14-18) Glucose 154 H (80-115) mg/dL POC Glucose 160 H (80-115) mg/dL Calcium 9.5 (8.5-10.1) mg/dL Magnesium 2.0 (1.8-2.4) mg/dl C-Reactive Protein 6.0 H* (<1.0) mg/dL 03/17/17 Range/Units 12:07 WBC (3.98-10.04) K/mm3 RBC (3.98-5.22) M/mm3 Hgb (11.2-15.7) gm/L Hct (34.1-44.9) % MCV (79.4-94.8) fl MCH (25.6-32.2) pg MCHC (32.2-35.5) g/dl RDW Std Deviation (36.4-46.3) fL Plt Count (182-369) K/mm3 MPV (9.4-12.3) fl Neut % (Auto) (34.0-71.1) % Lymph % (Auto) (19.3-51.7) % [place] % (Auto) (4.7-12.5) % Eos % (Auto) (0.7-5.8) Baso % (Auto) (0.1-1.2) % Neut # (Auto) (1.56-6.13) K/mm3 Lymph # (Auto) (1.18-3.74) K/mm3 [place] # (Auto) (0.24-0.36) K/mm3 Eos # (Auto) (0.04-0.36) K/mm3 Baso # (Auto) (0.01-0.08) K/mm3 PT (8.0-13.0) SECONDS INR Sodium (136-145) mEq/L Potassium (3.5-5.1) mEq/L Chloride (98-107) mEq/L Carbon Dioxide (21-32) mEq/L Anion Gap (5-15) BUN (7-18) mg/dL Creatinine (0.55-1.02) mg/dL Est Cr Clr Drug Dosing mL/min Estimated GFR (MDRD) (>60) mL/min BUN/Creatinine Ratio (14-18) Glucose (80-115) mg/dL POC Glucose 283 H (80-115) mg/dL Calcium (8.5-10.1) mg/dL Magnesium (1.8-2.4) mg/dl C-Reactive Protein (<1.0) mg/dL Shaun Results Last 24 Hours: Microbiology 03/16/17 09:47 Quick Strep Confirmation Culture - Final Throat NEGATIVE FOR BETA STREP Group A Streptococcus Rapid Screen - Final NEGATIVE STREP A SCREEN Med Orders - Current: Current Medications Acetaminophen (Tylenol) 975 mg PO BID [facility] Last Admin: 03/17/17 08:21 Dose: 975 mg Allopurinol (Zyloprim) 150 mg PO DAILY [facility] Last Admin: 03/17/17 08:22 Dose: 150 mg Aspirin (Halfprin) 81 mg PO DAILY [facility] Last Admin: 03/17/17 08:20 Dose: 81 mg Bumetanide (Bumex) 1 mg IVPUSH DAILY [facility] Last Admin: 03/17/17 08:24 Dose: 1 mg Cholecalciferol (Vitamin D3) 500 units PO DAILY [facility] Last Admin: 03/17/17 08:23 Dose: 500 units Digoxin (Lanoxin) 125 mcg PO DAILY [facility] Last Admin: 03/17/17 08:23 Dose: 125 mcg Diltiazem HCl (Cardizem) 60 mg PO Q6HR [facility] Last Admin: 03/17/17 11:37 Dose: 60 mg Ferrous Sulfate (Ferrous Sulfate) 325 mg PO DAILY [facility] Last Admin: 03/17/17 08:22 Dose: 325 mg Hydralazine HCl (Apresoline) 20 mg IVPUSH Q4H PRN PRN Reason: Hypertension Diltiazem HCl 125 mg/ Sodium (Chloride) 125 mls @ 5 mls/hr IV TITRATE [facility]ON; 5 MG /HR PRN Reason: Protocol Last Titration: 03/16/17 13:44 Dose: 0 mg/hr, 0 mls/hr Insulin Aspart (Novolog) 8 unit SUBCUT 1200 [facility] Last Admin: 03/17/17 11:38 Dose: 8 units Insulin Aspart (Novolog) 10 unit SUBCUT 0800 [facility] Last Admin: 03/17/17 08:24 Dose: 10 units Insulin Aspart (Novolog) 10 unit SUBCUT 1700 [facility] Last Admin: 03/16/17 17:28 Dose: 10 units Insulin Aspart (Novolog) 0 unit SUBCUT QIDACANDBED [facility] PRN Reason: Protocol Last Admin: 03/17/17 11:39 Dose: 3 unit Lorazepam (Ativan) 2 mg IVPUSH Q4H PRN PRN Reason: Seizures Methimazole (Methimazole) 5 mg PO MoTuWeThFr@0900 [facility] Last Admin: 03/15/17 08:01 Dose: 5 mg Metolazone (Zaroxolyn) 2.5 mg PO MoTh [facility] Last Admin: 03/14/17 09:08 Dose: 2.5 mg Metoprolol Succinate (Toprol Xl) 50 mg PO BID [facility] Last Admin: 03/17/17 08:21 Dose: 50 mg Metoprolol Tartrate (Lopressor) 5 mg IVPUSH Q4H PRN PRN Reason: Tachycardia Last Admin: 03/15/17 00:26 Dose: 5 mg Pantoprazole Sodium (Protonix) 40 mg PO ACBREAKFAST [facility] Last Admin: 03/17/17 06:45 Dose: 40 mg Mirabegron [ (Myrbetriq] 50 Mg) 0 each PO DAILY@1700 [facility] Potassium Chloride (Klor-Con 10) 10 meq PO 1200 [facility] Last Admin: 03/17/17 11:38 Dose: 10 meq Potassium Chloride (Klor-Con M20) 20 meq PO BID [facility] Last Admin: 03/17/17 08:22 Dose: 20 meq Saccharomyces Boulardii (Florastor) 250 mg PO DAILY [facility] Last Admin: 03/17/17 08:24 Dose: 250 mg Sertraline HCl (Zoloft) 50 mg PO DAILY [facility] Last Admin: 03/17/17 08:23 Dose: 50 mg Simvastatin (Zocor) 5 mg PO DAILY [facility] Last Admin: 03/17/17 08:21 Dose: 5 mg Sodium Chloride (Saline Flush) 10 ml FLUSH ASDIRECTED PRN PRN Reason: Keep Vein Open Last Admin: 03/13/17 06:46 Dose: 10 ml Warfarin Sodium (Coumadin) 2 mg PO SuTuWeThSa@1800 [facility] Last Admin: 03/16/17 17:27 Dose: 2 mg Warfarin Sodium (Coumadin) 5 mg PO MoFr@1800 [facility] Last Admin: 03/15/17 17:26 Dose: 5 mg Discontinued Medications Acetaminophen (Tylenol) 650 mg PO Q4H PRN PRN Reason: Pain (Mild 1-3)/fever Hydrocodone Bitart/Acetaminophen ([place] 325-5 Mg) 1 tab PO Q4H PRN PRN Reason: Pain (moderate 4-6) Albuterol/Ipratropium (Duoneb 3.0-0.5 Mg/3 Ml) 3 ml NEB Q4H PRN PRN Reason: Shortness Of Breath/wheezing Bisacodyl (Dulcolax) 5 mg PO DAILY PRN PRN Reason: Constipation Bumetanide (Bumex) 1 mg IVPUSH ONETIME ONE Stop: 03/10/17 18:04 Last Admin: 03/10/17 18:48 Dose: 1 mg Bumetanide (Bumex) 0.5 mg IVPUSH ONETIME ONE Stop: 03/11/17 07:01 Last Admin: 03/11/17 06:44 Dose: 0.5 mg Bumetanide (Bumex) 1 mg IVPUSH ONETIME ONE Stop: 03/12/17 07:01 Last Admin: 03/12/17 06:35 Dose: 1 mg Bumetanide (Bumex) 1 mg IVPUSH ONETIME ONE Stop: 03/13/17 07:01 Last Admin: 03/13/17 06:46 Dose: 1 mg Bumetanide (Bumex) 1 mg IVPUSH DAILY ONE Stop: 03/15/17 18:01 Last Admin: 03/15/17 18:35 Dose: 1 mg Digoxin (Lanoxin) 250 mcg IVPUSH Q6H [facility] Stop: 03/10/17 10:01 Digoxin (Lanoxin) 125 mcg IVPUSH Q6H [facility] Stop: 03/10/17 10:01 Last Admin: 03/10/17 11:02 Dose: Not Given Digoxin (Lanoxin) 125 mcg IVPUSH ONETIME ONE Stop: 03/11/17 11:43 Last Admin: 03/11/17 12:09 Dose: 125 mcg Diltiazem HCl (Diltiazem) 10 mg IVPUSH ONETIME ONE Stop: 03/10/17 01:06 Last Admin: 03/10/17 01:07 Dose: 10 mg Diltiazem HCl (Diltiazem) Confirm Administered Dose 25 mg .ROUTE .STK-MED ONE Stop: 03/10/17 01:10 Last Admin: 03/10/17 01:25 Dose: Not Given Diltiazem HCl (Diltiazem) 10 mg IVPUSH ONETIME ONE Stop: 03/10/17 01:45 Last Admin: 03/10/17 01:57 Dose: 10 mg Diltiazem HCl (Cardizem) 180 mg PO DAILY [facility] Last Admin: 03/12/17 08:20 Dose: 180 mg Diltiazem HCl (Cardizem) 240 mg PO DAILY [facility] Last Admin: 03/13/17 08:41 Dose: 240 mg Diltiazem HCl (Dilacor Xr) 240 mg PO DAILY [facility] Last Admin: 03/14/17 09:07 Dose: 240 mg Docusate Sodium (Colace) 100 mg PO BID PRN PRN Reason: Constipation Last Admin: 03/10/17 20:19 Dose: 100 mg Enalapril Maleate (Vasotec) 5 mg PO DAILY [facility] Last Admin: 03/15/17 08:04 Dose: 5 mg Enalapril Maleate (Vasotec) 5 mg PO BEDTIME [facility] Furosemide (Lasix) 80 mg PO BIDDIURETIC [facility] Last Admin: 03/16/17 12:47 Dose: Not Given Hydromorphone HCl (Dilaudid) 0.25 mg IVPUSH Q2H PRN PRN Reason: Pain (severe 7-10) Last Admin: 03/16/17 06:05 Dose: 0.25 mg Sodium Chloride (Normal Saline) 500 mls @ 500 mls/hr IV .BOLUS ONE Stop: 03/10/17 02:23 Last Admin: 03/10/17 01:25 Dose: 500 mls/hr Sodium Chloride (Normal Saline) Confirm Administered Dose 1,000 mls @ as directed .ROUTE .STK-MED ONE Stop: 03/10/17 01:28 Last Admin: 03/10/17 01:27 Dose: Not Given Diltiazem HCl 125 mg/ Sodium (Chloride) 125 mls @ 5 mls/hr IV TITRATE BRANDON; 5 MG /HR PRN Reason: Protocol Last Titration: 03/10/17 10:16 Dose: 0 mg/hr, 0 mls/hr Ceftriaxone Sodium 1 gm/ (Sodium Chloride) 100 mls @ 200 mls/hr IV ONETIME ONE Stop: 03/10/17 02:44 Last Admin: 03/10/17 03:17 Dose: Not Given Azithromycin 500 mg/ Sodium (Chloride) 250 mls @ 250 mls/hr IV ONETIME ONE Stop: 03/10/17 03:15 Last Admin: 03/10/17 03:09 Dose: 250 mls/hr Ceftriaxone Sodium 1 gm/ (Sodium Chloride) 100 mls @ 200 mls/hr IV ONETIME ONE Stop: 03/10/17 02:52 Last Admin: 03/10/17 02:38 Dose: 200 mls/hr Sodium Chloride (Normal Saline) 500 mls @ 999 mls/hr IV .BOLUS ONE Stop: 03/10/17 03:12 Last Admin: 03/10/17 02:55 Dose: 999 mls/hr Promethazine HCl 12.5 mg/ (Sodium Chloride) 50.5 mls @ 100 mls/hr IV Q6H PRN PRN Reason: Nausea/Vomiting Azithromycin 500 mg/ Sodium (Chloride) 250 mls @ 250 mls/hr IV Q24H [facility] Last Admin: 03/13/17 09:27 Dose: 250 mls/hr Ceftriaxone Sodium 1 gm/ (Sodium Chloride) 100 mls @ 200 mls/hr IV Q24H [facility] Last Admin: 03/13/17 10:23 Dose: 200 mls/hr Sodium Chloride (Normal Saline) 1,000 mls @ 125 mls/hr IV ASDIRECTED [facility] Last Admin: 03/10/17 11:41 Dose: 125 mls/hr Esmolol HCl (Brevibloc In Ns Premix) 2.5 gm in 250 mls @ 33.3 mls/hr IV TITRATE [place]; 50 MCG/KG/MIN PRN Reason: Protocol Last Titration: 03/12/17 03:20 Dose: 0 mcg/kg/min, 0 mls/hr Dextrose/Water (Dextrose 5% In Water) 1,000 mls @ 125 mls/hr IV ASDIRECTED [facility] Dextrose/Water (Dextrose 5% In Water) 1,000 mls @ 75 mls/hr IV ASDIRECTED [facility] Last Admin: 03/14/17 03:14 Dose: 75 mls/hr Sodium Chloride (Normal Saline) 1,000 mls @ 999 mls/hr IV ONETIME ONE Stop: 03/15/17 12:53 Last Admin: 03/15/17 12:09 Dose: 999 mls/hr Lorazepam (Ativan) 0.5 mg IV Q6H PRN PRN Reason: Anxiety Last Admin: 03/12/17 09:27 Dose: 0.5 mg Lorazepam (Ativan) 1 mg PO BID [facility] Last Admin: 03/15/17 07:59 Dose: 1 mg Magnesium Sulfate (Pharmacy To Dose - Magnesium Replacement) 1 dose .XX ASDIRECTED PRN PRN Reason: RX to Dose Metoprolol Succinate (Toprol Xl) 100 mg PO DAILY [facility] Last Admin: 03/11/17 08:10 Dose: 100 mg Metoprolol Succinate (Toprol Xl) 100 mg PO BID [facility] Last Admin: 03/14/17 08:35 Dose: 100 mg Ondansetron HCl (Zofran) 4 mg IV Q6H PRN PRN Reason: Nausea/Vomiting Mirabegron [ (Myrbetriq] 50 Mg) 0 each PO DAILY@1700 [facility] Last Admin: 03/14/17 17:21 Dose: 1 each Polyethylene Glycol (Miralax) 17 gm PO DAILY PRN PRN Reason: Constipation Potassium Chloride (Klor-Con 10) 20 meq PO BID [facility] Last Admin: 03/13/17 08:40 Dose: 20 meq Potassium Chloride (Pharmacy To Dose - Potassium Replacement) 0 dose .XX ASDIRECTED PRN PRN Reason: RX TO WATCH K LEVELS Potassium Chloride (Klor-Con M20) 40 meq PO Q4H [facility] Stop: 03/11/17 12:01 Last Admin: 03/11/17 12:48 Dose: 40 meq Potassium Chloride (Klor-Con M20) 40 meq PO Q4H [facility] Stop: 03/12/17 16:16 Last Admin: 03/12/17 16:19 Dose: 40 meq Senna/Docusate Sodium (Senna Plus) 1 tab PO BID PRN PRN Reason: Constipation Temazepam (Restoril) 7.5 mg PO BEDTIME PRN PRN Reason: Sleep - Exam Quality Assessment: DVT Prophylaxis General: Alert, Oriented, Cooperative, No Acute Distress HEENT: Pupils Equal, Pupils Reactive, EOMI Neck: Supple, Trachea Midline Lungs: Normal Respiratory Effort Cardiovascular: Regular Rate, Irregular Rhythm GI/Abdominal Exam: Normal Bowel Sounds, Soft, Non-Tender, No Organomegaly, No Distention (Female) Exam: Deferred Back Exam: Normal Inspection Extremities: Normal Inspection, Pedal Edema Skin: Warm Neurological: No New Focal Deficit Psy/Mental Status: Alert, Normal Affect, Normal Mood - Problem List Review Problem List Initiated/Reviewed/Updated: Yes - My Orders Last 24 Hours: My Active Orders 03/17/17 09:30 Patient Status [ADT] Routine 03/17/17 18:00 PRO B-TYPE NATRIUR PEPT,BNPPRO [CHEM] Routine 03/17/17 Breakfast ADA Diabetic [[place] [employer] Diet] [DIET] Fluid Restriction [DIET] Sodium Restricted Diet [DIET] 03/18/17 05:00 BMP [BASIC METABOLIC PANEL,BMP] [CHEM] DAILY CBC WITH AUTO DIFF [HEME] DAILY CRP [C-REACTIVE PROTEIN] [CHEM] DAILY INR,PT,PROTHROMBIN TIME [COAG] DAILY MAGNESIUM [CHEM] DAILY 03/19/17 05:00 BMP [BASIC METABOLIC PANEL,BMP] [CHEM] DAILY CBC WITH AUTO DIFF [HEME] DAILY CRP [C-REACTIVE PROTEIN] [CHEM] DAILY MAGNESIUM [CHEM] DAILY - Plan Plan:: Assessment/Plan: Acute: Atrial Fibrillation with RVR, improved; off gtt - Acute on Chronic - HR in the 130s this am - She is on Warfarin for stroke prophylaxis - Cut down Metoprolol to 50 mg po BID and changed Cardizem (SA)regimen to 60 mg po QID - Continue oral digoxin - Daily INR and Continue PRN IV Lopressor for rate control Bronchitis/Pulmonary Vascular Congestion; stable - Initial CXR shows increased lung markings pending formal radiology report - Pos Strep A screening; Influenza screening negative - Continue Supplemental O2, Routine RT Care, Bronchodilators, Oral Probiotic - Sputum Cx/Sx/Mycoplasma/Strep Pneumoniae Ag test all negative - Received IV ATB with 500 mg Azithromycin and 1 gram Rocephin daily - Repeat CXR shows improved lung markings - IS as directed Heart Failure with Reduced EF 20% 12/16/2013, Slightly Improved - Hx/o Cardiomyopathy - BNP 2976--> 2288--> 2722 - Peripheral edema 2+ - Continue Lasix 80 mg po BID--stopped, Metolazone 2.5 mg po MoTh, Is/Os, Daily Weight and Sodium/Fluid Restriction; Bumex 1 mg IV qd - 2D echo 06/21/2016: EF 35-40% With Moderate-Severe Mitral and Tricuspid Mark Regurgitation DM2 with Hyperglycemia, Stable - On Insulin Regimen: SA and LA - Last A1C was 6.6 10/13/2014; new A1C 7.6 - Accu-check QID AC and HS with Low dose ISS Mild Hypernatremia - Na 148 --> now 149 - Received D5W IVF at 125 cc/hr - Continue salt and fluid restriction - Monitor labs Probable AMEE - She has apneic episode when she is sleeping - Sleep Study outpatient - Abby Loss Anxiety, Improved - Undiagnosed - 1 mg po Ativan BID Resolved: Subtherapeutic Digoxin, Improved - Digoxin 0.5--> 1.1 (0.9-2 normal) - Likely contributory to uncontrolled HR - Continue daily Digoxin 125 mcg po; consider additional dose - Will repeat level this afternoon Hypokalemia - K normalized - Likely 2/2 renal loss form loop diuretic - Pharmacy to replete and monitor Strep A Colonization - Received Macrolide/Cephalosporin for antibiotic treatment - She is allergic to PCN - Sputum culture negative for Strep A organism Leukocytosis, - WBC improved - Likely 2/2 above - Treat underlying cause - Continue to monitor Chronic: HLD Cardiomyopathy CKD Stage 2-3, Stable GERD with Esophagitis Gout LESLYE, Stable Urinary Incontinence Hyperthyroidism Constipation Peripheral Edema Right Eye Blindness Dry Eyes Syndrome Macular Degeneration Intellectual Disability Obesity with BMI of 31 Plan: ICU bed, resume cardizem gtt at 5 She remains clinically stable otherwise Continue current treatment Routine AM Labs 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 Anticipated DC 03/18/17
[2017-03-17] MEDS ORDERED: Mirabegron [Myrbetriq] 50 MG PO SCH (17:00)
[2017-03-17] MEDS: Warfarin 2 MG Tab PO SCH (17:53)
[2017-03-17] MEDS ORDERED: Temazepam 15 MG Cap PO PRN (23:36)
[2017-03-18] MEDS: Pantoprazole 40 MG Tab.CR PO SCH (06:40)
[2017-03-18] MEDS: Diltiazem IR 60 MG Tab PO SCH ×2 (06:40→11:31)
[2017-03-18] MEDS: Insulin Aspart 100 Units/ML 3 ML Pen SUBCUT SCH ×4 (08:19→11:22)
[2017-03-18] MEDS: Saccharomyces Boulardii (Probiotic) 250 MG Cap PO SCH (08:26)
[2017-03-18] MEDS: Cholecalciferol (Vitamin D3) 1,000 Unit Tab PO SCH (08:28)
[2017-03-18] MEDS: Metoprolol Succinate 50 MG Tab.ER PO SCH (08:28)
[2017-03-18] MEDS: Digoxin 125 MCG Tab PO SCH (08:28)
[2017-03-18] MEDS: Ferrous Sulfate 325 MG Tab PO SCH (08:28)
[2017-03-18] MEDS: Methimazole 5 MG Tab PO SCH (08:29)
[2017-03-18] MEDS: Allopurinol 300 MG Tab PO SCH (08:29)
[2017-03-18] MEDS: Simvastatin 10 MG Tab PO SCH (08:29)
[2017-03-18] MEDS: Sertraline 50 MG Tab PO SCH (08:29)
[2017-03-18] MEDS: Aspirin 81 MG Tab.EC PO SCH (08:29)
[2017-03-18] MEDS: Acetaminophen 325 MG Tab PO SCH (08:30)
[2017-03-18] MEDS: Bumetanide 1 MG/4 ML MDV IVPUSH SCH (08:35)
[2017-03-18] MEDS: Sodium Chloride 0.9% 10 ML Syringe FLUSH PRN (08:35)
[2017-03-18] MEDS: Metolazone 2.5 MG Tab PO SCH (08:45)
[2017-03-18] MEDS: Potassium Chloride 20 MEQ Tab.ER PO SCH (09:06)
[2017-03-18] MEDS ORDERED: Potassium Chloride 10% 20 MEQ/15 ML Soln 30 ML UD Cup PO ONE (10:00)
--- NOTE | 2017-03-18 11:00 | PCM.DCSUM1 ---
Discharge Summary - Hospital Course Free Text/Narrative:: 66 year old female resident at [facility] presented with a fever and elevated HR; she was admitted with A fib with RVR and a WBC ct of >30K. She required adjustment of AV vivi agenst and transfer to the ICU for a Cardizem gtt. The patient has cardiomyopathy with an LVEF 20%; She returned to [facility] after changes in her cardiac meds and treatment of Strep A as wellas pulmonary congestion. Primary Dx A fib with RVR Strep A infection with leukocytosis CHF, systolic failure Acute on chronic renal failure Hypokalemia Subtherapeutic Digoxin level Disposition SNF Diet Resume usual with diabetic and heart healthy choice Activity As tolerated Meds (changes) Toprol XL 50 mg BID Cardizem IR 60 mg Q 6 H Lab studies Dig level, BMP - Discharge Data Discharge Date: 03/18/17 Discharge Disposition: DC/Tfer to [facility] 03 Condition: Good - Patient Summary/Data Consults: Consultations 03/10/17 03:48 Consult to Speech Language Pathology [[employer] Evaluation and Treatment] [CONS] Routine - Patient Instructions Diet: Usual Diet as Tolerated Activity: As Tolerated Driving: Do Not Drive Showering/Bathing: May Shower Notify Provider of: Nausea and/or Vomiting - Discharge Plan Prescriptions/Med Rec: Diltiazem IR [Cardizem] 60 mg PO Q6HR #240 tablet Metoprolol Succinate [Toprol XL] 50 mg PO BID #60 tab.er Home Medications: Home Meds Acetaminophen [Tylenol Extra Strength] 1,000 mg PO BID 02/02/16 [History] Allopurinol [Zyloprim] 150 mg PO DAILY 02/02/16 [History] Aspirin [Aspir-Low] 81 mg PO DAILY 02/02/16 [History] Cholecalciferol (Vitamin D3) [Vitamin D3] 400 units PO DAILY 02/02/16 [History] Digoxin 125 mcg PO DAILY 02/02/16 [History] Docusate Sodium [Doc-Q-Lace] 100 mg PO BID 02/02/16 [History] Ferrous Sulfate 325 mg PO DAILY 02/02/16 [History] Furosemide 80 mg PO BID 02/02/16 [History] Insulin Aspart [NovoLOG] 8 units SQ 1200 02/02/16 [History] Insulin Aspart [NovoLOG] 10 units SQ 0800 02/02/16 [History] Insulin Aspart [NovoLOG] 10 units SQ 1700 02/02/16 [History] Methimazole 5 mg PO MOTUWETHFR 02/02/16 [History] Metolazone 2.5 mg PO MOTH 02/02/16 [History] Potassium Chloride [Klor-Con 10] 10 meq PO 1200 02/02/16 [History] Potassium Chloride [Klor-Con 10] 20 meq PO BID 02/02/16 [History] Pravastatin Sodium 10 mg PO DAILY 02/02/16 [History] Sertraline [Zoloft] 50 mg PO DAILY 02/02/16 [History] Vit C/E/Zn/Coppr/Lutein/Zeaxan [Preservision Areds 2 Softgel] 2 tab PO DAILY [History] Pantoprazole [ProTONIX] 40 mg PO DAILY #30 tab.cr 02/03/16 [Rx] Mirabegron [Myrbetriq] 50 mg PO 1700 06/21/16 [History] Acetaminophen [Tylenol] 650 mg PO Q4H PRN #0 tablet 06/28/16 [Rx] Warfarin [Coumadin] 2 mg PO SUTUWETHSA 03/10/17 [History] Warfarin [Coumadin] 5 mg PO MOFR 03/10/17 [History] Diltiazem IR [Cardizem] 60 mg PO Q6HR #240 tablet 03/18/17 [Rx] Enalapril Maleate 5 mg PO DAILY #0 03/18/17 [Rx] Metoprolol Succinate [Toprol XL] 50 mg PO BID #60 tab.er 03/18/17 [Rx] Patient Handouts: Strep Throat, [id number], Heart Failure, [id number], Sore Throat, [id number], Atrial Fibrillation, [id number]-[id number] Forms: ED Department Discharge Referrals: Anthony Sood MD [Primary Care Provider] - - Discharge Summary/Plan Comment DC Time >30 min.: No - General Info Date of Service: 03/10/17 Functional Status: Reports: Tolerating Diet, Ambulating, Urinating - Review of Systems General: Reports: No Symptoms HEENT: Reports: No Symptoms Pulmonary: Reports: No Symptoms Cardiovascular: Reports: No Symptoms Gastrointestinal: Reports: No Symptoms Genitourinary: Reports: No Symptoms Musculoskeletal: Reports: No Symptoms Skin: Reports: No Symptoms Neurological: Reports: No Symptoms Psychiatric: Reports: No Symptoms - Patient Data Vitals - Most Recent: Last Vital Signs Temp 36.4 C 03/18/17 07:47 Pulse 110 H 03/18/17 08:28 Resp 16 03/18/17 07:47 BP 121/78 03/18/17 08:28 Pulse Ox 91 L 03/18/17 07:47 Weight - Most Recent: 104.508 kg I&O - Last 24 hours: Intake & Output 03/17/17 03/18/17 03/18/17 22:59 06:59 14:59 Intake Total 780 260 600 Output Total 300 Balance 480 260 600 Lab Results - Last 24 hrs: Laboratory Results - last 24 hr 03/17/17 03/17/17 03/17/17 Range/Units 12:07 17:47 18:46 WBC (3.98-10.04) K/mm3 RBC (3.98-5.22) M/mm3 Hgb (11.2-15.7) gm/L Hct (34.1-44.9) % MCV (79.4-94.8) fl MCH (25.6-32.2) pg MCHC (32.2-35.5) g/dl RDW Std Deviation (36.4-46.3) fL Plt Count (182-369) K/mm3 MPV (9.4-12.3) fl Neut % (Auto) (34.0-71.1) % Lymph % (Auto) (19.3-51.7) % [place] % (Auto) (4.7-12.5) % Eos % (Auto) (0.7-5.8) Baso % (Auto) (0.1-1.2) % Neut # (Auto) (1.56-6.13) K/mm3 Lymph # (Auto) (1.18-3.74) K/mm3 Loup # (Auto) (0.24-0.36) K/mm3 Eos # (Auto) (0.04-0.36) K/mm3 Baso # (Auto) (0.01-0.08) K/mm3 PT (8.0-13.0) SECONDS INR Sodium (136-145) mEq/L Potassium (3.5-5.1) mEq/L Chloride (98-107) mEq/L Carbon Dioxide (21-32) mEq/L Anion Gap (5-15) BUN (7-18) mg/dL Creatinine (0.55-1.02) mg/dL Est Cr Clr Drug Dosing mL/min Estimated GFR (MDRD) (>60) mL/min BUN/Creatinine Ratio (14-18) Glucose (80-115) mg/dL POC Glucose 283 H 149 H (80-115) mg/dL Calcium (8.5-10.1) mg/dL Magnesium (1.8-2.4) mg/dl C-Reactive Protein (<1.0) mg/dL NT-Pro-B Natriuret Pep 1129 H (0-125) pg/mL 03/17/17 03/18/17 03/18/17 Range/Units 21:52 06:18 06:18 WBC 9.74 (3.98-10.04) K/mm3 RBC 3.91 L (3.98-5.22) M/mm3 Hgb 11.9 (11.2-15.7) gm/L Hct 37.6 (34.1-44.9) % MCV 96.2 H (79.4-94.8) fl MCH 30.4 (25.6-32.2) pg MCHC 31.6 L (32.2-35.5) g/dl RDW Std Deviation 52.8 H (36.4-46.3) fL Plt Count 267 (182-369) K/mm3 MPV 10.2 (9.4-12.3) fl Neut % (Auto) 75.8 H (34.0-71.1) % Lymph % (Auto) 13.1 L (19.3-51.7) % Loup % (Auto) 6.2 (4.7-12.5) % Eos % (Auto) 3.9 (0.7-5.8) Baso % (Auto) 0.4 (0.1-1.2) % Neut # (Auto) 7.38 H (1.56-6.13) K/mm3 Lymph # (Auto) 1.28 (1.18-3.74) K/mm3 Loup # (Auto) 0.60 H (0.24-0.36) K/mm3 Eos # (Auto) 0.38 H (0.04-0.36) K/mm3 Baso # (Auto) 0.04 (0.01-0.08) K/mm3 PT 27.7 H (8.0-13.0) SECONDS INR 2.40 Sodium (136-145) mEq/L Potassium (3.5-5.1) mEq/L Chloride (98-107) mEq/L Carbon Dioxide (21-32) mEq/L Anion Gap (5-15) BUN (7-18) mg/dL Creatinine (0.55-1.02) mg/dL Est Cr Clr Drug Dosing mL/min Estimated GFR (MDRD) (>60) mL/min BUN/Creatinine Ratio (14-18) Glucose (80-115) mg/dL POC Glucose 163 H (80-115) mg/dL Calcium (8.5-10.1) mg/dL Magnesium (1.8-2.4) mg/dl C-Reactive Protein (<1.0) mg/dL NT-Pro-B Natriuret Pep (0-125) pg/mL 03/18/17 Range/Units 06:18 WBC (3.98-10.04) K/mm3 RBC (3.98-5.22) M/mm3 Hgb (11.2-15.7) gm/L Hct (34.1-44.9) % MCV (79.4-94.8) fl MCH (25.6-32.2) pg MCHC (32.2-35.5) g/dl RDW Std Deviation (36.4-46.3) fL Plt Count (182-369) K/mm3 MPV (9.4-12.3) fl Neut % (Auto) (34.0-71.1) % Lymph % (Auto) (19.3-51.7) % [place] % (Auto) (4.7-12.5) % Eos % (Auto) (0.7-5.8) Baso % (Auto) (0.1-1.2) % Neut # (Auto) (1.56-6.13) K/mm3 Lymph # (Auto) (1.18-3.74) K/mm3 [place] # (Auto) (0.24-0.36) K/mm3 Eos # (Auto) (0.04-0.36) K/mm3 Baso # (Auto) (0.01-0.08) K/mm3 PT (8.0-13.0) SECONDS INR Sodium 143 (136-145) mEq/L Potassium 3.9 (3.5-5.1) mEq/L Chloride 106 (98-107) mEq/L Carbon Dioxide 29 (21-32) mEq/L Anion Gap 11.9 (5-15) BUN 25 H (7-18) mg/dL Creatinine 0.8 (0.55-1.02) mg/dL Est Cr Clr Drug Dosing 77.31 mL/min Estimated GFR (MDRD) > 60 (>60) mL/min BUN/Creatinine Ratio 31.3 H (14-18) Glucose 161 H (80-115) mg/dL POC Glucose (80-115) mg/dL Calcium 9.9 (8.5-10.1) mg/dL Magnesium 2.1 (1.8-2.4) mg/dl C-Reactive Protein 5.0 H* (<1.0) mg/dL NT-Pro-B Natriuret Pep (0-125) pg/mL [id number] Results - Last 24 hrs: Microbiology 03/16/17 09:47 Quick Strep Confirmation Culture - Final Throat NEGATIVE FOR BETA STREP Group A Streptococcus Rapid Screen - Final NEGATIVE STREP A SCREEN Med Orders - Current: Current Medications Acetaminophen (Tylenol) 975 mg PO BID [facility] Last Admin: 03/18/17 08:30 Dose: 975 mg Allopurinol (Zyloprim) 150 mg PO DAILY [facility] Last Admin: 03/18/17 08:29 Dose: 150 mg Aspirin (Halfprin) 81 mg PO DAILY [facility] Last Admin: 03/18/17 08:29 Dose: 81 mg Bumetanide (Bumex) 1 mg IVPUSH DAILY [facility] Last Admin: 03/18/17 08:35 Dose: 1 mg Cholecalciferol (Vitamin D3) 500 units PO DAILY [facility] Last Admin: 03/18/17 08:28 Dose: 500 units Digoxin (Lanoxin) 125 mcg PO DAILY [facility] Last Admin: 03/18/17 08:28 Dose: 125 mcg Diltiazem HCl (Cardizem) 60 mg PO Q6HR [facility] Last Admin: 03/18/17 06:40 Dose: 60 mg Ferrous Sulfate (Ferrous Sulfate) 325 mg PO DAILY [facility] Last Admin: 03/18/17 08:28 Dose: 325 mg Hydralazine HCl (Apresoline) 20 mg IVPUSH Q4H PRN PRN Reason: Hypertension Diltiazem HCl 125 mg/ Sodium (Chloride) 125 mls @ 5 mls/hr IV TITRATE BRANDON; 5 MG /HR PRN Reason: Protocol Last Titration: 03/16/17 13:44 Dose: 0 mg/hr, 0 mls/hr Insulin Aspart (Novolog) 8 unit SUBCUT 1200 [facility] Last Admin: 03/17/17 11:38 Dose: 8 units Insulin Aspart (Novolog) 10 unit SUBCUT 0800 [facility] Last Admin: 03/18/17 08:21 Dose: 10 units Insulin Aspart (Novolog) 10 unit SUBCUT 1700 [facility] Last Admin: 03/17/17 17:52 Dose: 10 units Insulin Aspart (Novolog) 0 unit SUBCUT QIDACANDBED [facility] PRN Reason: Protocol Last Admin: 03/18/17 08:19 Dose: 1 unit Lorazepam (Ativan) 2 mg IVPUSH Q4H PRN PRN Reason: Seizures Methimazole (Methimazole) 5 mg PO MoTuWeThFr@0900 [facility] Last Admin: 03/18/17 08:29 Dose: 5 mg Metolazone (Zaroxolyn) 2.5 mg PO MoTh [facility] Last Admin: 03/18/17 08:45 Dose: 2.5 mg Metoprolol Succinate (Toprol Xl) 50 mg PO BID [facility] Last Admin: 03/18/17 08:28 Dose: 50 mg Metoprolol Tartrate (Lopressor) 5 mg IVPUSH Q4H PRN PRN Reason: Tachycardia Last Admin: 03/15/17 00:26 Dose: 5 mg Pantoprazole Sodium (Protonix) 40 mg PO ACBREAKFAST [facility] Last Admin: 03/18/17 06:40 Dose: 40 mg Mirabegron [ (Myrbetriq] 50 Mg) 0 each PO DAILY@1700 [facility] Last Admin: 03/17/17 17:53 Dose: 1 each Potassium Chloride (Klor-Con 10) 10 meq PO 1200 [facility] Last Admin: 03/17/17 11:38 Dose: 10 meq Potassium Chloride (Klor-Con M20) 20 meq PO BID [facility] Last Admin: 03/18/17 09:06 Dose: 20 meq Saccharomyces Boulardii (Florastor) 250 mg PO DAILY [facility] Last Admin: 03/18/17 08:26 Dose: 250 mg Sertraline HCl (Zoloft) 50 mg PO DAILY [facility] Last Admin: 03/18/17 08:29 Dose: 50 mg Simvastatin (Zocor) 5 mg PO DAILY [facility] Last Admin: 03/18/17 08:29 Dose: 5 mg Sodium Chloride (Saline Flush) 10 ml FLUSH ASDIRECTED PRN PRN Reason: Keep Vein Open Last Admin: 03/18/17 08:35 Dose: 10 ml Temazepam (Restoril) 15 mg PO BEDTIME PRN PRN Reason: Sleep Last Admin: 03/17/17 23:44 Dose: 15 mg Warfarin Sodium (Coumadin) 2 mg PO SuTuWeThSa@1800 [facility] Last Admin: 03/17/17 17:53 Dose: 2 mg Warfarin Sodium (Coumadin) 5 mg PO MoFr@1800 [facility] Last Admin: 03/15/17 17:26 Dose: 5 mg Discontinued Medications Acetaminophen (Tylenol) 650 mg PO Q4H PRN PRN Reason: Pain (Mild 1-3)/fever Hydrocodone Bitart/Acetaminophen ([place] 325-5 Mg) 1 tab PO Q4H PRN PRN Reason: Pain (moderate 4-6) Albuterol/Ipratropium (Duoneb 3.0-0.5 Mg/3 Ml) 3 ml NEB Q4H PRN PRN Reason: Shortness Of Breath/wheezing Bisacodyl (Dulcolax) 5 mg PO DAILY PRN PRN Reason: Constipation Bumetanide (Bumex) 1 mg IVPUSH ONETIME ONE Stop: 03/10/17 18:04 Last Admin: 03/10/17 18:48 Dose: 1 mg Bumetanide (Bumex) 0.5 mg IVPUSH ONETIME ONE Stop: 03/11/17 07:01 Last Admin: 03/11/17 06:44 Dose: 0.5 mg Bumetanide (Bumex) 1 mg IVPUSH ONETIME ONE Stop: 03/12/17 07:01 Last Admin: 03/12/17 06:35 Dose: 1 mg Bumetanide (Bumex) 1 mg IVPUSH ONETIME ONE Stop: 03/13/17 07:01 Last Admin: 03/13/17 06:46 Dose: 1 mg Bumetanide (Bumex) 1 mg IVPUSH DAILY ONE Stop: 03/15/17 18:01 Last Admin: 03/15/17 18:35 Dose: 1 mg Digoxin (Lanoxin) 250 mcg IVPUSH Q6H [facility] Stop: 03/10/17 10:01 Digoxin (Lanoxin) 125 mcg IVPUSH Q6H [facility] Stop: 03/10/17 10:01 Last Admin: 03/10/17 11:02 Dose: Not Given Digoxin (Lanoxin) 125 mcg IVPUSH ONETIME ONE Stop: 03/11/17 11:43 Last Admin: 03/11/17 12:09 Dose: 125 mcg Diltiazem HCl (Diltiazem) 10 mg IVPUSH ONETIME ONE Stop: 03/10/17 01:06 Last Admin: 03/10/17 01:07 Dose: 10 mg Diltiazem HCl (Diltiazem) Confirm Administered Dose 25 mg .ROUTE .STK-MED ONE Stop: 03/10/17 01:10 Last Admin: 03/10/17 01:25 Dose: Not Given Diltiazem HCl (Diltiazem) 10 mg IVPUSH ONETIME ONE Stop: 03/10/17 01:45 Last Admin: 03/10/17 01:57 Dose: 10 mg Diltiazem HCl (Cardizem) 180 mg PO DAILY [facility] Last Admin: 03/12/17 08:20 Dose: 180 mg Diltiazem HCl (Cardizem) 240 mg PO DAILY [facility] Last Admin: 03/13/17 08:41 Dose: 240 mg Diltiazem HCl (Dilacor Xr) 240 mg PO DAILY [facility] Last Admin: 03/14/17 09:07 Dose: 240 mg Docusate Sodium (Colace) 100 mg PO BID PRN PRN Reason: Constipation Last Admin: 03/10/17 20:19 Dose: 100 mg Enalapril Maleate (Vasotec) 5 mg PO DAILY [facility] Last Admin: 03/15/17 08:04 Dose: 5 mg Enalapril Maleate (Vasotec) 5 mg PO BEDTIME [facility] Furosemide (Lasix) 80 mg PO BIDDIURETIC [facility] Last Admin: 03/16/17 12:47 Dose: Not Given Hydromorphone HCl (Dilaudid) 0.25 mg IVPUSH Q2H PRN PRN Reason: Pain (severe 7-10) Last Admin: 03/16/17 06:05 Dose: 0.25 mg Sodium Chloride (Normal Saline) 500 mls @ 500 mls/hr IV .BOLUS ONE Stop: 03/10/17 02:23 Last Admin: 03/10/17 01:25 Dose: 500 mls/hr Sodium Chloride (Normal Saline) Confirm Administered Dose 1,000 mls @ as directed .ROUTE .STK-MED ONE Stop: 03/10/17 01:28 Last Admin: 03/10/17 01:27 Dose: Not Given Diltiazem HCl 125 mg/ Sodium (Chloride) 125 mls @ 5 mls/hr IV TITRATE BRANDON; 5 MG /HR PRN Reason: Protocol Last Titration: 03/10/17 10:16 Dose: 0 mg/hr, 0 mls/hr Ceftriaxone Sodium 1 gm/ (Sodium Chloride) 100 mls @ 200 mls/hr IV ONETIME ONE Stop: 03/10/17 02:44 Last Admin: 03/10/17 03:17 Dose: Not Given Azithromycin 500 mg/ Sodium (Chloride) 250 mls @ 250 mls/hr IV ONETIME ONE Stop: 03/10/17 03:15 Last Admin: 03/10/17 03:09 Dose: 250 mls/hr Ceftriaxone Sodium 1 gm/ (Sodium Chloride) 100 mls @ 200 mls/hr IV ONETIME ONE Stop: 03/10/17 02:52 Last Admin: 03/10/17 02:38 Dose: 200 mls/hr Sodium Chloride (Normal Saline) 500 mls @ 999 mls/hr IV .BOLUS ONE Stop: 03/10/17 03:12 Last Admin: 03/10/17 02:55 Dose: 999 mls/hr Promethazine HCl 12.5 mg/ (Sodium Chloride) 50.5 mls @ 100 mls/hr IV Q6H PRN PRN Reason: Nausea/Vomiting Azithromycin 500 mg/ Sodium (Chloride) 250 mls @ 250 mls/hr IV Q24H [facility] Last Admin: 03/13/17 09:27 Dose: 250 mls/hr Ceftriaxone Sodium 1 gm/ (Sodium Chloride) 100 mls @ 200 mls/hr IV Q24H [facility] Last Admin: 03/13/17 10:23 Dose: 200 mls/hr Sodium Chloride (Normal Saline) 1,000 mls @ 125 mls/hr IV ASDIRECTED [facility] Last Admin: 03/10/17 11:41 Dose: 125 mls/hr Esmolol HCl (Brevibloc In Ns Premix) 2.5 gm in 250 mls @ 33.3 mls/hr IV TITRATE BRANDON; 50 MCG/KG/MIN PRN Reason: Protocol Last Titration: 03/12/17 03:20 Dose: 0 mcg/kg/min, 0 mls/hr Dextrose/Water (Dextrose 5% In Water) 1,000 mls @ 125 mls/hr IV ASDIRECTED [facility] Dextrose/Water (Dextrose 5% In Water) 1,000 mls @ 75 mls/hr IV ASDIRECTED [facility] Last Admin: 03/14/17 03:14 Dose: 75 mls/hr Sodium Chloride (Normal Saline) 1,000 mls @ 999 mls/hr IV ONETIME ONE Stop: 03/15/17 12:53 Last Admin: 03/15/17 12:09 Dose: 999 mls/hr Lorazepam (Ativan) 0.5 mg IV Q6H PRN PRN Reason: Anxiety Last Admin: 03/12/17 09:27 Dose: 0.5 mg Lorazepam (Ativan) 1 mg PO BID [facility] Last Admin: 03/15/17 07:59 Dose: 1 mg Magnesium Sulfate (Pharmacy To Dose - Magnesium Replacement) 1 dose .XX ASDIRECTED PRN PRN Reason: RX to Dose Metoprolol Succinate (Toprol Xl) 100 mg PO DAILY [facility] Last Admin: 03/11/17 08:10 Dose: 100 mg Metoprolol Succinate (Toprol Xl) 100 mg PO BID [facility] Last Admin: 03/14/17 08:35 Dose: 100 mg Ondansetron HCl (Zofran) 4 mg IV Q6H PRN PRN Reason: Nausea/Vomiting Mirabegron [ (Myrbetriq] 50 Mg) 0 each PO DAILY@1700 [facility] Last Admin: 03/14/17 17:21 Dose: 1 each Polyethylene Glycol (Miralax) 17 gm PO DAILY PRN PRN Reason: Constipation Potassium Chloride (Klor-Con 10) 20 meq PO BID [facility] Last Admin: 03/13/17 08:40 Dose: 20 meq Potassium Chloride (Pharmacy To Dose - Potassium Replacement) 0 dose .XX ASDIRECTED PRN PRN Reason: RX TO WATCH K LEVELS Potassium Chloride (Klor-Con M20) 40 meq PO Q4H [facility] Stop: 03/11/17 12:01 Last Admin: 03/11/17 12:48 Dose: 40 meq Potassium Chloride (Klor-Con M20) 40 meq PO Q4H [facility] Stop: 03/12/17 16:16 Last Admin: 03/12/17 16:19 Dose: 40 meq Potassium Chloride (Potassium Chloride) 40 meq PO ONETIME ONE Stop: 03/18/17 10:01 Last Admin: 03/18/17 10:16 Dose: 40 meq Senna/Docusate Sodium (Senna Plus) 1 tab PO BID PRN PRN Reason: Constipation Temazepam (Restoril) 7.5 mg PO BEDTIME PRN PRN Reason: Sleep - Exam Quality Assessment: Reports: DVT Prophylaxis General: Reports: Alert, Oriented, Cooperative, No Acute Distress HEENT: Reports: Pupils Equal, Pupils Reactive, EOMI Neck: Reports: Supple, Trachea Midline Lungs: Reports: Normal Respiratory Effort Cardiovascular: Reports: Regular Rate, Irregular Rhythm GI/Abdominal Exam: Normal Bowel Sounds, Soft, Non-Tender, No Organomegaly, No Distention (Female) Exam: Deferred Rectal (Female) Exam: Deferred Back Exam: Reports: Normal Inspection Extremities: Normal Inspection Skin: Reports: Warm Neurological: Reports: No New Focal Deficit Psy/Mental Status: Reports: Alert, Normal Affect, Normal Mood *Q Meaningful Use (DIS) - VTE *Q VTE Criteria *Q: - Stroke *Q Stroke Criteria *Q: - AMI *Q AMI Criteria *Q:
[2017-03-18 11:24] VITALS: BP 115/67
[2017-03-18] MEDS: Potassium Chloride 10 MEQ Tab.ER PO SCH (11:31)
== END 2017-03-18 12:01 | DRG 309 ==
LOC: JD.ED 00:56 → JD.ICU 02:40
PROVIDERS: ADMIT Internal Medicine; ATTEND Internal Medicine Cardiovascular Disease
DX: A41.9 Sepsis, unspecified organism (principal); J18.9 Pneumonia, unspecified organism; E86.0 Dehydration; I48.91 Unspecified atrial fibrillation; N28.9 Disorder of kidney and ureter, unspecified; I48.2 Chronic atrial fibrillation; E87.1 Hypo-osmolality and hyponatremia; J02.0 Streptococcal pharyngitis; J40 Bronchitis, not specified as acute or chronic; I50.9 Heart failure, unspecified; N18.3 Chronic kidney disease, stage 3 (moderate); E87.6 Hypokalemia; E11.65 Type 2 diabetes mellitus with hyperglycemia; Z79.4 Long term (current) use of insulin; E78.5 Hyperlipidemia, unspecified; K21.0 Gastro-esophageal reflux disease with esophagitis; M10.9 Gout, unspecified; D50.9 Iron deficiency anemia, unspecified; R32 Unspecified urinary incontinence; N32.81 Overactive bladder; E05.90 Thyrotoxicosis, unspecified without thyrotoxic crisis or storm; K59.00 Constipation, unspecified; H35.30 Unspecified macular degeneration; H04.129 Dry eye syndrome of unspecified lacrimal gland; F70 Mild intellectual disabilities; E66.9 Obesity, unspecified; Z68.31 Body mass index [BMI] 31.0-31.9, adult; Z88.0 Allergy status to penicillin; Z88.8 Allergy status to other drugs, medicaments and biological substances; F41.9 Anxiety disorder, unspecified; G47.33 Obstructive sleep apnea (adult) (pediatric); Z79.01 Long term (current) use of anticoagulants; Z79.82 Long term (current) use of aspirin; Z79.899 Other long term (current) drug therapy
CPT/HCPCS: 36415; 71020; 80053; 80162; 81001; 83605; 84484; 85025; 85610; 87040 ×2; 87430; 87804 ×2; 87899; 93005; 96361; 96365; 96368; 96376; 99285; J0696; J3490 ×2; J7030 ×2; J7040; P9612; 71010; 71010-26; 80048; 82962; 83036; 83735; 83880; 84439; 86140; 86738; 87070; 87081; 87205; 87641; 92610-GN; 93010; 97110-GO; 97110-GP; 97116-GP; 97162-GP; 97166-GO; 97530-GO; 97530-GP; A9270-GY; J0456; J1160; J1170; J1815-GY; J2060; J7050; J7060

== ENCOUNTER 2019-10-03 05:40 | Inpatient (IN) | payer MEDICARE, MEDICAID, OTHER ==
--- NOTE | 2019-10-03 06:31 | EDM.PDOC ---
ED HPI GENERAL MEDICAL PROBLEM - General Chief Complaint: Fever Stated Complaint: [facility] Time Seen by Provider: 10/03/19 06:07 Source of Information: Reports: Patient History Limitations: Reports: Physical Impairment (Cognitive disability) - History of Present Illness INITIAL COMMENTS - FREE TEXT/NARRATIVE: Ms. Vu is a very pleasant 69-year-old woman with a past medical history significant for cognitive disability, CHF, chronic renal insufficiency, and diabetes who is now sent from [facility] by EMS due to a fever and increased redness and swelling of her left leg. The patient states that she had a fever and chills last night. She states that her left leg has been swollen and red for about a week, and that she has had pain to both of her legs for more than a month. Here in the ED, the patient is found to be hemodynamically stable, afebrile, saturating 80% on room air, 91% on 4 L of oxygen per nasal cannula. She denies dyspnea. She states that she ordinarily takes oxygen at night, but does not know how much. The patient denies recent sore throat, ear pain, nasal or sinus congestion, cough, dyspnea, chest pain, palpitations, nausea, vomiting, constipation, diarrhea, abdominal pain, urinary symptoms, recent weight gain or weight loss, recent bloody bowel movements or black bowel movements, or headaches. Medical records sent over from [facility] indicate that the patient was on clindamycin from 09/09/2019 through 09/14/2019, then started on Keflex milligrams po TID 2 days ago, 10/01/2019. The patient's PCP is Dr. Hany Mchugh. Bilateral Leg Pain Score (Numeric/FACES): 6 - Related Data Allergies Allergy/AdvReac Type Severity Reaction Status Date / Time clopidogrel [From Plavix] Allergy Cannot Verified 10/03/19 06:12 Remember Penicillins Allergy Cannot Verified 10/03/19 06:12 Remember Home Meds: Home Meds Acetaminophen [Tylenol Extra Strength] 1,000 mg PO 08,1730 02/02/16 [History] Allopurinol [Zyloprim] 150 mg PO DAILY 02/02/16 [History] Cholecalciferol (Vitamin D3) [Vitamin D3] 400 units PO DAILY 02/02/16 [History] Digoxin 125 mcg PO DAILY 02/02/16 [History] Docusate Sodium [Doc-Q-Lace] 100 mg PO BID 02/02/16 [History] Ferrous Sulfate 325 mg PO 08 02/02/16 [History] Furosemide 80 mg PO 0800 02/02/16 [History] Insulin Aspart [NovoLOG] 12 units SQ 1700 02/02/16 [History] Potassium Chloride [Klor-Con 10] 20 meq PO BID 02/02/16 [History] Pravastatin Sodium 10 mg PO DAILY 02/02/16 [History] Sertraline [Zoloft] 100 mg PO DAILY 02/02/16 [History] Vit C/E/Zn/Coppr/Lutein/Zeaxan [Preservision Areds 2 Softgel] 2 tab PO DAILY [History] metOLazone [Metolazone] 2.5 mg PO MOTH 02/02/16 [History] methIMAzole [Methimazole] 5 mg PO MOTUWETHFR 02/02/16 [History] Mirabegron [Myrbetriq] 50 mg PO 1700 06/21/16 [History] Warfarin [Coumadin] 1.25 mg PO WESA 03/10/17 [History] Henley/Min Oil/Meghan/Wool Alcoh [Eucerin Creme] 1 applic TOP DAILY 02/27/18 [ History] Pantoprazole [ProTONIX] 20 mg PO DAILY 02/27/18 [History] Diltiazem [Cardizem CD] 120 mg PO BID 12/13/18 [History] Insulin Detemir [Levemir] 48 units SQ 0600 12/13/18 [History] Spironolactone [Aldactone] 25 mg PO DAILY 12/13/18 [History] Warfarin [Coumadin] 2.5 mg PO SUMOTUTHFR 12/16/18 [History] Ascorbate Calcium [Vitamin C] 500 mg PO DAILY 10/03/19 [History] Aspirin [Aspirin EC] 81 mg PO DAILY 10/03/19 [History] Carboxymethylcellulose Sodium [Artificial Tears] 1 drop EYEBOTH ASDIRECTED 10/02 [History] Furosemide 40 mg PO 1700 10/03/19 [History] Insulin Detemir [Levemir Flextouch] 44 unit SQ 2100 10/03/19 [History] Metoprolol Succinate [Toprol XL] 75 mg 10/03/19 [History] Metoprolol Tartrate [Lopressor] 75 mg PO BID 10/03/19 [History] Mupirocin Oint [Bactroban Oint] 1 applic TOP DAILY 10/03/19 [History] Triamcinolone Acetonide [Triamcinolone Acetonide 0.1% Crm] 1 applic TOP BID [History] cephALEXin [Keflex] 500 mg PO TID 10/03/19 [History] Past Medical History HEENT History: Reports: Macular Degeneration Cardiovascular History: Reports: Afib (chronic), CAD, Heart Failure, High Cholesterol, Hypertension, [place] Gastrointestinal History: Reports: GERD Genitourinary History: Reports: Chronic Renal Insuffiency, Retention, Urinary ( with overflow incontinence) Musculoskeletal History: Reports: Gout Neurological History: Reports: Other (See Below) (Cognitively delayed) Psychiatric History: Reports: Anxiety, Depression Endocrine/Metabolic History: Reports: Diabetes, Type II, Obesity/BMI 30+ Hematologic History: Reports: Anemia, Iron Deficiency - Infectious Disease History Infectious Disease History: Reports: Chicken Pox, Measles, Mumps - Past Surgical History HEENT Surgical History: Reports: Detached Retina, Tonsillectomy Female Surgical History: Reports: Hysterectomy Oncologic Surgical History: Reports: Biopsy of Breast Social & Family History - Family History Family Medical History: Noncontributory - Tobacco Use Smoking Status *Q: Never Smoker - Caffeine Use Caffeine Use: Reports: None - Living Situation & Occupation Living situation: Reports: Single Occupation: Disabled ED ROS GENERAL - Review of Systems Review Of Systems: Comprehensive ROS is negative, except as noted in HPI. ED EXAM, GENERAL - Physical Exam Exam: See Below Exam Limited By: No Limitations General Appearance: Alert, WD/WN, No Apparent Distress Eye Exam: Bilateral Eye: EOMI, Normal Inspection Ears: Normal External Exam, Hearing Grossly Normal Nose: Normal Inspection Throat/Mouth: Normal Inspection, Normal Lips, Normal Voice, No Airway Compromise Head: Atraumatic, Normocephalic Neck: Normal Inspection, Full Range of Motion Respiratory/Chest: No Respiratory Distress, Lungs Clear, Normal Breath Sounds, No Accessory Muscle Use Cardiovascular: Normal Peripheral Pulses, Regular Rate, Rhythm, No Gallop, No JVD, No Murmur, No Rub Peripheral Pulses: 4+: Radial (L), Radial (R) GI/Abdominal: Normal Bowel Sounds, Soft, Non-Tender, No Organomegaly, No Distention, No Abnormal Bruit, No Mass (Female) Exam: Deferred Rectal (Female) Exam: Deferred Back Exam: Normal Inspection, Full Range of Motion, NT Extremities: Normal Capillary Refill, Other (There is hyperpigmentation consistent with chronic venous stasis changes noted to the right leg, however, at this time, there is only about 1+ pitting edema pretibially. There is significant erythema to the anterior left leg, with a deeply red/almost purplish center, with associated calor and tenderness. About 1-2+ edema to the left leg pretibially.) Neurological: Alert, Oriented, Normal Cognition, No Motor/Sensory Deficits Psychiatric: Normal Affect Skin Exam: Warm, Dry, Intact, Normal Color, No Rash EKG INTERPRETATION EKG Date: 10/03/19 Time: 06:41 Rhythm: A-Fib Rate (Beats/Min): 104 [place]: RAD-Right [place] Deviation P-Wave: Absent QRS: Normal ST-T: Depressed (numerous leads, likely due to repolarization abnormality) QT: Prolonged (QTc 541 ms) Comparison: Change From Previous EKG (QTc prolongation new since 12/13/2018) Course - Vital Signs Last Recorded V/S: Last Vital Signs Temp 37.1 C 10/03/19 05:47 Pulse 94 10/03/19 05:47 Resp 20 10/03/19 05:47 BP 115/59 L 10/03/19 05:47 Pulse Ox 91 L 10/03/19 05:47 - Orders/Labs/Meds Orders: Active Orders 24 hr Category Date Time Status EKG Documentation Completion [RC] STAT Care 10/03/19 06:26 Active Chest 1V Frontal [CR] Stat Exams 10/03/19 06:25 Taken CORONAVIRUS COVID-19 PCR PHL Stat Lab 10/03/19 08:05 Ordered CULTURE BLOOD [BC] Stat Lab 10/03/19 06:54 Received CULTURE BLOOD [BC] Stat Lab 10/03/19 06:59 Received Blood Culture x2 Reflex Set [OM.PC] Stat Oth 10/03/19 06:27 Ordered Labs: Laboratory Tests 10/03/19 10/03/19 10/03/19 Range/Units 06:40 06:54 06:54 WBC 20.87 H (3.98-10.04) K/mm3 RBC 4.43 (3.98-5.22) M/mm3 Hgb 13.6 D (11.2-15.7) gm/dl Hct 42.4 (34.1-44.9) % MCV 95.7 H D (79.4-94.8) fl MCH 30.7 (25.6-32.2) pg MCHC 32.1 L (32.2-35.5) g/dl RDW Std Deviation 53.2 H (36.4-46.3) fL Plt Count 274 (182-369) K/mm3 MPV 10.9 (9.4-12.3) fl Neutrophils % (Manual) 92 H (40-60) % Band Neutrophils % 0 (0-10) % Lymphocytes % (Manual) 3 L (20-40) % Atypical Lymphs % 0 % Monocytes % (Manual) 4 (2-10) % Eosinophils % (Manual) 1 (0.7-5.8) % Basophils % (Manual) 0 L (0.1-1.2) Platelet Estimate Adequate Hypochromasia 1+ slight Anisocytosis 1+ slight Microcytosis 1+ slight RBC Morph Comment Abnormal PT (9.7-12.0) SECONDS INR APTT (22-31) SECONDS D-Dimer, Quantitative (0.19-0.50) mg/L Sodium 134 L (136-145) mEq/L Potassium 3.6 (3.5-5.1) mEq/L Chloride 98 (98-107) mEq/L Carbon Dioxide 27 (21-32) mEq/L Anion Gap 12.6 (5-15) BUN 49 H (7-18) mg/dL Creatinine 1.3 H (0.55-1.02) mg/dL Est Cr Clr Drug Dosing 44.17 mL/min Estimated GFR (MDRD) 41 (>60) mL/min BUN/Creatinine Ratio 37.7 H (14-18) Glucose 211 H (80-115) mg/dL Lactic Acid (0.4-2.0) mmol/L Calcium 9.2 (8.5-10.1) mg/dL Ferritin (8-252) ng/ml Total Bilirubin 1.0 (0.2-1.0) mg/dL AST 14 L (15-37) U/L ALT 14 (14-59) U/L Alkaline Phosphatase 76 (46-116) U/L Lactate Dehydrogenase 178 (81-234) U/L NT-Pro-B Natriuret Pep (0-125) pg/mL Total Protein 7.2 (6.4-8.2) g/dl Albumin 3.5 (3.4-5.0) g/dl Globulin 3.7 gm/dL Albumin/Globulin Ratio 1.0 (1-2) Urine Color (Yellow) Urine Appearance (Clear) Urine pH (5.0-8.0) Ur Specific [place] (1.005-1.030) Urine Protein (Negative) Urine Glucose (UA) (Negative) Urine Ketones (Negative) Urine Occult Blood (Negative) Urine Nitrite (Negative) Urine Bilirubin (Negative) Urine Urobilinogen (0.2-1.0) Ur Leukocyte Esterase (Negative) Urine RBC (0-5) /hpf Urine WBC (0-5) /hpf Ur Squamous Epith Cells (0-5) /hpf Urine Bacteria (FEW) /hpf Urine Mucus (FEW) /hpf MRSA (PCR) Negative 10/03/19 10/03/19 10/03/19 Range/Units 06:54 06:54 06:54 WBC (3.98-10.04) K/mm3 RBC (3.98-5.22) M/mm3 Hgb (11.2-15.7) gm/dl Hct (34.1-44.9) % MCV (79.4-94.8) fl MCH (25.6-32.2) pg MCHC (32.2-35.5) g/dl RDW Std Deviation (36.4-46.3) fL Plt Count (182-369) K/mm3 MPV (9.4-12.3) fl Neutrophils % (Manual) (40-60) % Band Neutrophils % (0-10) % Lymphocytes % (Manual) (20-40) % Atypical Lymphs % % Monocytes % (Manual) (2-10) % Eosinophils % (Manual) (0.7-5.8) % Basophils % (Manual) (0.1-1.2) Platelet Estimate Hypochromasia Anisocytosis Microcytosis RBC Morph Comment PT 24.5 H (9.7-12.0) SECONDS INR 2.36 APTT 52 H (22-31) SECONDS D-Dimer, Quantitative 0.24 (0.19-0.50) mg/L Sodium (136-145) mEq/L Potassium (3.5-5.1) mEq/L Chloride (98-107) mEq/L Carbon Dioxide (21-32) mEq/L Anion Gap (5-15) BUN (7-18) mg/dL Creatinine (0.55-1.02) mg/dL Est Cr Clr Drug Dosing mL/min Estimated GFR (MDRD) (>60) mL/min BUN/Creatinine Ratio (14-18) Glucose (80-115) mg/dL Lactic Acid 1.2 (0.4-2.0) mmol/L Calcium (8.5-10.1) mg/dL Ferritin 213 (8-252) ng/ml Total Bilirubin (0.2-1.0) mg/dL AST (15-37) U/L ALT (14-59) U/L Alkaline Phosphatase (46-116) U/L Lactate Dehydrogenase (81-234) U/L NT-Pro-B Natriuret Pep (0-125) pg/mL Total Protein (6.4-8.2) g/dl Albumin (3.4-5.0) g/dl Globulin gm/dL Albumin/Globulin Ratio (1-2) Urine Color (Yellow) Urine Appearance (Clear) Urine pH (5.0-8.0) Ur Specific [place] (1.005-1.030) Urine Protein (Negative) Urine Glucose (UA) (Negative) Urine Ketones (Negative) Urine Occult Blood (Negative) Urine Nitrite (Negative) Urine Bilirubin (Negative) Urine Urobilinogen (0.2-1.0) Ur Leukocyte Esterase (Negative) Urine RBC (0-5) /hpf Urine WBC (0-5) /hpf Ur Squamous Epith Cells (0-5) /hpf Urine Bacteria (FEW) /hpf Urine Mucus (FEW) /hpf MRSA (PCR) 10/03/19 10/03/19 Range/Units 06:54 07:30 WBC (3.98-10.04) K/mm3 RBC (3.98-5.22) M/mm3 Hgb (11.2-15.7) gm/dl Hct (34.1-44.9) % MCV (79.4-94.8) fl MCH (25.6-32.2) pg MCHC (32.2-35.5) g/dl RDW Std Deviation (36.4-46.3) fL Plt Count (182-369) K/mm3 MPV (9.4-12.3) fl Neutrophils % (Manual) (40-60) % Band Neutrophils % (0-10) % Lymphocytes % (Manual) (20-40) % Atypical Lymphs % % Monocytes % (Manual) (2-10) % Eosinophils % (Manual) (0.7-5.8) % Basophils % (Manual) (0.1-1.2) Platelet Estimate Hypochromasia Anisocytosis Microcytosis RBC Morph Comment PT (9.7-12.0) SECONDS INR APTT (22-31) SECONDS D-Dimer, Quantitative (0.19-0.50) mg/L Sodium (136-145) mEq/L Potassium (3.5-5.1) mEq/L Chloride (98-107) mEq/L Carbon Dioxide (21-32) mEq/L Anion Gap (5-15) BUN (7-18) mg/dL Creatinine (0.55-1.02) mg/dL Est Cr Clr Drug Dosing mL/min Estimated GFR (MDRD) (>60) mL/min BUN/Creatinine Ratio (14-18) Glucose (80-115) mg/dL Lactic Acid (0.4-2.0) mmol/L Calcium (8.5-10.1) mg/dL Ferritin (8-252) ng/ml Total Bilirubin (0.2-1.0) mg/dL AST (15-37) U/L ALT (14-59) U/L Alkaline Phosphatase (46-116) U/L Lactate Dehydrogenase (81-234) U/L NT-Pro-B Natriuret Pep 3155 H (0-125) pg/mL Total Protein (6.4-8.2) g/dl Albumin (3.4-5.0) g/dl Globulin gm/dL Albumin/Globulin Ratio (1-2) Urine Color Yellow (Yellow) Urine Appearance Clear (Clear) Urine pH 6.0 (5.0-8.0) Ur Specific [place] 1.020 (1.005-1.030) Urine Protein Negative (Negative) Urine Glucose (UA) Negative (Negative) Urine Ketones Negative (Negative) Urine Occult Blood Negative (Negative) Urine Nitrite Negative (Negative) Urine Bilirubin Negative (Negative) Urine Urobilinogen 0.2 (0.2-1.0) Ur Leukocyte Esterase 1+ H (Negative) Urine RBC Not seen (0-5) /hpf Urine WBC 10-20 H (0-5) /hpf Ur Squamous Epith Cells 0-5 (0-5) /hpf Urine Bacteria Few (FEW) /hpf Urine Mucus Few (FEW) /hpf MRSA (PCR) Meds: Medications Discontinued Medications Generic Name Dose Route Start Last Admin Trade Name Omayra PRN Reason Stop Dose Admin Furosemide 40 mg 10/03/19 07:58 Lasix IVPUSH 10/03/19 07:59 NOW ONE - Re-Assessments/Exams Free Text/Narrative Re-Assessment/Exam: 10/03/19 06:29 As above, the patient is sent from [facility] with a fever and chills that developed last night, although she is afebrile here, and on examination she has what appears to be advanced cellulitis to her left leg. She is also found to be hypoxemic, although she has no dyspnea or cough. I have ordered a work-up that includes blood work, 2 sets of blood cultures, a urinalysis by quick catheter, a portable chest x-ray, and MRSA screen by PCR, and an ECG. If her chest x-ray shows bilateral infiltrates concerning for COVID-19, I will order a test for the SARS-CoV-2 virus. 10/03/19 07:43 Notified by Saray BURKETT that she recovered >900 urine when she straight-cathed the patient. She also noted that the patient's genitalia and buttocks are inflamed. Portable chest radiograph reviewed. There is substantial cardiomegaly and modest bilateral pulmonary vascular congestion, consistent with decompensated CHF. No pleural effusions seen on this AP view. No focal infiltrate. No pneumothorax. Formal read per the Radiologist pending. Based on the above, I will order furosemide 40 mg IVP. 10/03/19 08:15 Because the patient will almost certainly be admitted, I have ordered a test for the SARS-CoV-2 virus. 10/03/19 08:22 The patient CBC is remarkable for a WBC count elevated at 20.87, but with 0% bandemia. The remainder of her CBC is unremarkable. Her CMP is remarkable for a sodium slightly depressed at 134, and a BUN/Cr elevated at 49/1.3. Her blood glucose is elevated at 211, with the remainder of her CMP being unremarkable. Her lactic acid level is within normal limits at 1.2. Her LDH is within normal limits at 178. Her D-dimer is within normal limits at 0.24. Her coags are within normal limits. The patient's MRSA screen, BNP, and ferritin levels are still pending. Case discussed with Dr. Rollins at 08:18. He accepted the patient for admission , however, he requested that the patient not be physically transferred to the floor until the results of the COVID-19 test has returned. He will determine the appropriate antibiotic based on the MRSA screen results. Departure - Departure Time of Disposition: 08:25 Disposition: Admitted As Inpatient 66 Condition: Good Clinical Impression: Cellulitis of left leg, CHF exacerbation, Chronic atrial fibrillation, Hypoxemia - Discharge Information *PRESCRIPTION DRUG MONITORING PROGRAM REVIEWED*: Not Applicable *COPY OF PRESCRIPTION DRUG MONITORING REPORT IN PATIENT BALJEET: Not Applicable Referrals: Hany Mchugh MD [Physician] - Forms: ED Department Discharge Sepsis Event Note - Evaluation Sepsis Screening Result: Possible Sepsis Risk - Focused Exam Vital Signs: Vital Signs Temp Pulse Resp BP Pulse Ox 10/03/19 05:47 37.1 C 94 20 115/59 L 91 L 10/03/19 05:45 80 L Date Exam was Performed: 10/03/19 Time Exam was Performed: 08:28 - My Orders Last 24 Hours: My Active Orders 10/03/19 06:25 Chest 1V Frontal [CR] Stat 10/03/19 06:26 EKG Documentation Completion [RC] STAT 10/03/19 06:27 Blood Culture x2 Reflex Set [OM.PC] Stat 10/03/19 06:54 CULTURE BLOOD [BC] Stat 10/03/19 06:59 CULTURE BLOOD [BC] Stat 10/03/19 08:05 CORONAVIRUS COVID-19 PCR PHL Stat - Assessment/Plan Last 24 Hours: My Active Orders 10/03/19 06:25 Chest 1V Frontal [CR] Stat 10/03/19 06:26 EKG Documentation Completion [RC] STAT 10/03/19 06:27 Blood Culture x2 Reflex Set [OM.PC] Stat 10/03/19 06:54 CULTURE BLOOD [BC] Stat 10/03/19 06:59 CULTURE BLOOD [BC] Stat 10/03/19 08:05 CORONAVIRUS COVID-19 PCR PHL Stat
[2019-10-03] MEDS ORDERED: Furosemide 40 MG/4 ML VIAL IVPUSH ONE (07:58)
[2019-10-03] MEDS ORDERED: Acetaminophen 325 MG Tab PO PRN (12:31)
[2019-10-03] MEDS ORDERED: Insulin Lispro 100 Units/ML 3 ML Vial SUBCUT ONE (12:34)
[2019-10-03] MEDS ORDERED: 50% Dextrose in Water 50 ML Syringe IVPUSH PRN (12:35)
--- NOTE | 2019-10-03 12:40 | PCM.HP.2 ---
H&P History of Present Illness - General Date of Service: 10/03/19 Admit Problem/Dx: Admission Diagnosis/Problem Admission Diagnosis/Problem Cellulitis History Limitations: Reports: Other (Cognitive disability) - History of Present Illness Initial Comments - Free Text/Narative: 59-year-old female from [facility] presents to the ED via EMS secondary to fever and chills last night. Patient states that she has had a swollen red left lower extremity for the last week or more. She has been on clindamycin and Keflex without improvement. Patient started on clindamycin on September 09, 2019 through September 14, 2019. Started on Keflex 2 days ago. She denies any significant pain in the left leg versus the right. Temperature last night is unknown. She does complain of pain in both legs. In the emergency department she was found to have oxygen saturations of 80% on room air and 91% on 4 L of O2 per nasal cannula. Patient denies any shortness of breath, chest pain, cough. She does use oxygen at night but not during the day. In the emergency department they did a straight cath and she had greater than 900 mL of urine. Nursing noted that her genitalia and buttocks are inflamed. Patient is on medication for overactive bladder which can cause urinary retention. Chest x-ray done showed pulmonary vascular congestion and cardiomegaly. No infiltrate. Patient was then given furosemide 40 mg IV push. PCR for COVID was negative. Blood work showed a white count of 20.87 with no bandemia. Sodium was 134 and a BUN/creatinine of 49/1.3. Lactic acid was normal at 1.2. proBNP 3155, ferritin 213, d-dimer 0.24 Patient has multiple chronic medical conditions including diabetes, CHF, renal insufficiency, cognitive disability, urinary incontinence, atrial fibrillation, and others Bilateral Leg Pain Score (Numeric/FACES): 6 - Related Data Allergies/Adverse Reactions: Allergies Allergy/AdvReac Type Severity Reaction Status Date / Time clopidogrel [From Plavix] Allergy Cannot Verified 10/03/19 06:12 Remember Penicillins Allergy Cannot Verified 10/03/19 06:12 Remember Home Medications: Home Meds Acetaminophen [Tylenol Extra Strength] 1,000 mg PO 08,1730 02/02/16 [History] Allopurinol [Zyloprim] 150 mg PO DAILY 02/02/16 [History] Cholecalciferol (Vitamin D3) [Vitamin D3] 400 units PO DAILY 02/02/16 [History] Digoxin 125 mcg PO DAILY 02/02/16 [History] Docusate Sodium [Doc-Q-Lace] 100 mg PO BID 02/02/16 [History] Ferrous Sulfate 325 mg PO DAILY 02/02/16 [History] Furosemide 80 mg PO 0800 02/02/16 [History] Potassium Chloride [Klor-Con 10] 20 meq PO BID 02/02/16 [History] Pravastatin Sodium 10 mg PO DAILY 02/02/16 [History] Sertraline [Zoloft] 100 mg PO DAILY 02/02/16 [History] Vit C/E/Zn/Coppr/Lutein/Zeaxan [Preservision Areds 2 Softgel] 2 tab PO DAILY [History] metOLazone [Metolazone] 2.5 mg PO MOTH 02/02/16 [History] methIMAzole [Methimazole] 5 mg PO MOTUWETHFR 02/02/16 [History] Mirabegron [Myrbetriq] 50 mg PO 1730 06/21/16 [History] Warfarin [Coumadin] 1.25 mg PO WESA 03/10/17 [History] Lorenzo/Min Oil/Meghan/Wool Alcoh [Eucerin Creme] 1 applic TOP DAILY 02/27/18 [ History] Pantoprazole [ProTONIX] 20 mg PO DAILY 02/27/18 [History] Diltiazem [Cardizem CD] 120 mg PO BID 12/13/18 [History] Insulin Detemir [Levemir] 48 units SQ 0600 12/13/18 [History] Spironolactone [Aldactone] 25 mg PO DAILY 12/13/18 [History] Warfarin [Coumadin] 2.5 mg PO SUMOTUTHFR 12/16/18 [History] Ascorbate Calcium [Vitamin C] 500 mg PO DAILY 10/03/19 [History] Aspirin [Aspirin EC] 81 mg PO DAILY 10/03/19 [History] Carboxymethylcellulose Sodium [Artificial Tears] 1 drop EYEBOTH ASDIRECTED PRN 10/03/19 [History] Furosemide 40 mg PO 1700 10/03/19 [History] Insulin Aspart [NovoLOG] 0 unit SQ TID PRN 10/03/19 [History] Insulin Aspart [NovoLOG] 20 unit SQ 1200 10/03/19 [History] Insulin Aspart [NovoLOG] 26 unit SQ BID 10/03/19 [History] Insulin Detemir [Levemir Flextouch] 44 unit SQ 2100 10/03/19 [History] Metoprolol Tartrate [Lopressor] 75 mg PO BID 10/03/19 [History] Mupirocin Oint [Bactroban Oint] 1 applic TOP DAILY 10/03/19 [History] Triamcinolone Acetonide [Triamcinolone Acetonide 0.1% Crm] 1 applic TOP BID [History] cephALEXin [Keflex] 500 mg PO TID 10/03/19 [History] Past Medical History HEENT History: Reports: Macular Degeneration Other HEENT History: 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; cataract to left eye; dry eyes Cardiovascular History: Reports: Afib (chronic), CAD, Heart Failure, High Cholesterol, Hypertension, CT Other Cardiovascular History: edema; Respiratory History: Reports: None Other Respiratory History: hypoxemia, O2/NC at night Gastrointestinal History: Reports: GERD Other Gastrointestinal History: hx hematochezia Genitourinary History: Reports: Chronic Renal Insuffiency, Retention, Urinary ( with overflow incontinence) Other Genitourinary History: overactive bladder Musculoskeletal History: Reports: Gout Other Musculoskeletal History: chronic pain; dorsalgia Neurological History: Reports: Other (See Below) (Cognitively delayed) 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 Psychiatric History: Reports: Anxiety, Depression Other Psychiatric History: cognitive deficits Endocrine/Metabolic History: Reports: Diabetes, Type II, Obesity/BMI 30+ Other Endocrine/Metabolic History: thyrotoxicosis Hematologic History: Reports: Anemia, Iron Deficiency Dermatologic History: Reports: None Other Dermatologic History: bruising - Infectious Disease History Infectious Disease History: Reports: Chicken Pox, Measles, Mumps - Past Surgical History HEENT Surgical History: Reports: Detached Retina, Tonsillectomy Female Surgical History: Reports: Hysterectomy Oncologic Surgical History: Reports: Biopsy of Breast Social & Family History - Family History Family Medical History: Noncontributory - Tobacco Use Smoking Status *Q: Never Smoker - Caffeine Use Caffeine Use: Reports: None - Living Situation & Occupation Living situation: Reports: Single Occupation: Disabled H&P Review of Systems - Review of Systems: Review Of Systems: See Below General: Reports: Fever, Chills HEENT: Reports: No Symptoms Pulmonary: Reports: No Symptoms. Denies: Shortness of Breath, Wheezing, Pleuritic Chest Pain, Cough Cardiovascular: Reports: Edema. Denies: Chest Pain, Palpitations, Lightheadedness Gastrointestinal: Reports: No Symptoms. Denies: Abdominal Pain, Black Stool, Bloody Stool, Constipation, Diarrhea Genitourinary: Reports: No Symptoms. Denies: Dysuria, Frequency Musculoskeletal: Reports: Leg Pain Skin: Reports: Rash, Erythema, Change in Color Psychiatric: Reports: Confusion. Denies: Depression, Mood Lability, Anxiety Neurological: Reports: No Symptoms Hematologic/Lymphatic: Reports: No Symptoms Immunologic: Reports: No Symptoms Exam - Exam Exam: See Below - Vital Signs Vital Signs: Last Vital Signs Temp 98.7 F 10/03/19 05:47 Pulse 101 H 10/03/19 10:30 Resp 19 10/03/19 10:30 BP 119/62 10/03/19 10:30 Pulse Ox 98 10/03/19 10:30 Weight: 275 lb - Exam Quality Assessment: Supplemental Oxygen General: Alert, Oriented, 4 HEENT: Conjunctiva Clear, Hearing Intact, Mucosa Moist & [place] Neck: Supple, Trachea Midline, Carotid Bruit Lungs: Crackles (Bibasilar) Cardiovascular: Irregular Rhythm. No: Regular Rate GI/Abdominal Exam: Normal Bowel Sounds, Soft, Non-Tender, No Organomegaly, No Distention, No Abnormal Bruit, No Mass Back Exam: Normal Inspection Extremities: Non-Tender, Normal Capillary Refill, Pedal Edema (2+ bilaterally), Increased Warmth (Left lower extremity), Redness (Sharply demarcated cellulitis with induration in the anterior left leg.) Peripheral Pulses: 1+: Posterior Tibial (L), Posterior Tibial (R), Dorsalis Pedis (L), Dorsalis Pedis (R) Skin: Warm, Dry, Intact, Rash (Right lower extremity with stasis dermatitis) Neuro Extensive - Mental Status: Alert, Normal Mood/Affect. No: Normal Cognition Psychiatric: Alert, Normal Affect, Normal Mood - Patient Data Lab Results Last 24 hrs: Laboratory Results - last 24 hr 10/03/19 10/03/19 10/03/19 Range/Units 06:40 06:54 06:54 WBC 20.87 H (3.98-10.04) K/mm3 RBC 4.43 (3.98-5.22) M/mm3 Hgb 13.6 D (11.2-15.7) gm/dl Hct 42.4 (34.1-44.9) % MCV 95.7 H D (79.4-94.8) fl MCH 30.7 (25.6-32.2) pg MCHC 32.1 L (32.2-35.5) g/dl RDW Std Deviation 53.2 H (36.4-46.3) fL Plt Count 274 (182-369) K/mm3 MPV 10.9 (9.4-12.3) fl Neutrophils % (Manual) 92 H (40-60) % Band Neutrophils % 0 (0-10) % Lymphocytes % (Manual) 3 L (20-40) % Atypical Lymphs % 0 % Monocytes % (Manual) 4 (2-10) % Eosinophils % (Manual) 1 (0.7-5.8) % Basophils % (Manual) 0 L (0.1-1.2) Platelet Estimate Adequate Hypochromasia 1+ slight Anisocytosis 1+ slight Microcytosis 1+ slight RBC Morph Comment Abnormal PT (9.7-12.0) SECONDS INR APTT (22-31) SECONDS D-Dimer, Quantitative (0.19-0.50) mg/L Sodium 134 L (136-145) mEq/L Potassium 3.6 (3.5-5.1) mEq/L Chloride 98 (98-107) mEq/L Carbon Dioxide 27 (21-32) mEq/L Anion Gap 12.6 (5-15) BUN 49 H (7-18) mg/dL Creatinine 1.3 H (0.55-1.02) mg/dL Est Cr Clr Drug Dosing 44.17 mL/min Estimated GFR (MDRD) 41 (>60) mL/min BUN/Creatinine Ratio 37.7 H (14-18) Glucose 211 H (80-115) mg/dL Lactic Acid (0.4-2.0) mmol/L Calcium 9.2 (8.5-10.1) mg/dL Ferritin (8-252) ng/ml Total Bilirubin 1.0 (0.2-1.0) mg/dL AST 14 L (15-37) U/L ALT 14 (14-59) U/L Alkaline Phosphatase 76 (46-116) U/L Lactate Dehydrogenase 178 (81-234) U/L NT-Pro-B Natriuret Pep (0-125) pg/mL Total Protein 7.2 (6.4-8.2) g/dl Albumin 3.5 (3.4-5.0) g/dl Globulin 3.7 gm/dL Albumin/Globulin Ratio 1.0 (1-2) Urine Color (Yellow) Urine Appearance (Clear) Urine pH (5.0-8.0) Ur Specific [place] (1.005-1.030) Urine Protein (Negative) Urine Glucose (UA) (Negative) Urine Ketones (Negative) Urine Occult Blood (Negative) Urine Nitrite (Negative) Urine Bilirubin (Negative) Urine Urobilinogen (0.2-1.0) Ur Leukocyte Esterase (Negative) Urine RBC (0-5) /hpf Urine WBC (0-5) /hpf Ur Squamous Epith Cells (0-5) /hpf Urine Bacteria (FEW) /hpf Urine Mucus (FEW) /hpf SARS Virus RNA (PCR) (NEGATIVE) MRSA (PCR) Negative 10/03/19 10/03/19 10/03/19 Range/Units 06:54 06:54 06:54 WBC (3.98-10.04) K/mm3 RBC (3.98-5.22) M/mm3 Hgb (11.2-15.7) gm/dl Hct (34.1-44.9) % MCV (79.4-94.8) fl MCH (25.6-32.2) pg MCHC (32.2-35.5) g/dl RDW Std Deviation (36.4-46.3) fL Plt Count (182-369) K/mm3 MPV (9.4-12.3) fl Neutrophils % (Manual) (40-60) % Band Neutrophils % (0-10) % Lymphocytes % (Manual) (20-40) % Atypical Lymphs % % Monocytes % (Manual) (2-10) % Eosinophils % (Manual) (0.7-5.8) % Basophils % (Manual) (0.1-1.2) Platelet Estimate Hypochromasia Anisocytosis Microcytosis RBC Morph Comment PT 24.5 H (9.7-12.0) SECONDS INR 2.36 APTT 52 H (22-31) SECONDS D-Dimer, Quantitative 0.24 (0.19-0.50) mg/L Sodium (136-145) mEq/L Potassium (3.5-5.1) mEq/L Chloride (98-107) mEq/L Carbon Dioxide (21-32) mEq/L Anion Gap (5-15) BUN (7-18) mg/dL Creatinine (0.55-1.02) mg/dL Est Cr Clr Drug Dosing mL/min Estimated GFR (MDRD) (>60) mL/min BUN/Creatinine Ratio (14-18) Glucose (80-115) mg/dL Lactic Acid 1.2 (0.4-2.0) mmol/L Calcium (8.5-10.1) mg/dL Ferritin 213 (8-252) ng/ml Total Bilirubin (0.2-1.0) mg/dL AST (15-37) U/L ALT (14-59) U/L Alkaline Phosphatase (46-116) U/L Lactate Dehydrogenase (81-234) U/L NT-Pro-B Natriuret Pep (0-125) pg/mL Total Protein (6.4-8.2) g/dl Albumin (3.4-5.0) g/dl Globulin gm/dL Albumin/Globulin Ratio (1-2) Urine Color (Yellow) Urine Appearance (Clear) Urine pH (5.0-8.0) Ur Specific [place] (1.005-1.030) Urine Protein (Negative) Urine Glucose (UA) (Negative) Urine Ketones (Negative) Urine Occult Blood (Negative) Urine Nitrite (Negative) Urine Bilirubin (Negative) Urine Urobilinogen (0.2-1.0) Ur Leukocyte Esterase (Negative) Urine RBC (0-5) /hpf Urine WBC (0-5) /hpf Ur Squamous Epith Cells (0-5) /hpf Urine Bacteria (FEW) /hpf Urine Mucus (FEW) /hpf SARS Virus RNA (PCR) (NEGATIVE) MRSA (PCR) 10/03/19 10/03/19 10/03/19 Range/Units 06:54 07:30 08:45 WBC (3.98-10.04) K/mm3 RBC (3.98-5.22) M/mm3 Hgb (11.2-15.7) gm/dl Hct (34.1-44.9) % MCV (79.4-94.8) fl MCH (25.6-32.2) pg MCHC (32.2-35.5) g/dl RDW Std Deviation (36.4-46.3) fL Plt Count (182-369) K/mm3 MPV (9.4-12.3) fl Neutrophils % (Manual) (40-60) % Band Neutrophils % (0-10) % Lymphocytes % (Manual) (20-40) % Atypical Lymphs % % Monocytes % (Manual) (2-10) % Eosinophils % (Manual) (0.7-5.8) % Basophils % (Manual) (0.1-1.2) Platelet Estimate Hypochromasia Anisocytosis Microcytosis RBC Morph Comment PT (9.7-12.0) SECONDS INR APTT (22-31) SECONDS D-Dimer, Quantitative (0.19-0.50) mg/L Sodium (136-145) mEq/L Potassium (3.5-5.1) mEq/L Chloride (98-107) mEq/L Carbon Dioxide (21-32) mEq/L Anion Gap (5-15) BUN (7-18) mg/dL Creatinine (0.55-1.02) mg/dL Est Cr Clr Drug Dosing mL/min Estimated GFR (MDRD) (>60) mL/min BUN/Creatinine Ratio (14-18) Glucose (80-115) mg/dL Lactic Acid (0.4-2.0) mmol/L Calcium (8.5-10.1) mg/dL Ferritin (8-252) ng/ml Total Bilirubin (0.2-1.0) mg/dL AST (15-37) U/L ALT (14-59) U/L Alkaline Phosphatase (46-116) U/L Lactate Dehydrogenase (81-234) U/L NT-Pro-B Natriuret Pep 3155 H (0-125) pg/mL Total Protein (6.4-8.2) g/dl Albumin (3.4-5.0) g/dl Globulin gm/dL Albumin/Globulin Ratio (1-2) Urine Color Yellow (Yellow) Urine Appearance Clear (Clear) Urine pH 6.0 (5.0-8.0) Ur Specific [place] 1.020 (1.005-1.030) Urine Protein Negative (Negative) Urine Glucose (UA) Negative (Negative) Urine Ketones Negative (Negative) Urine Occult Blood Negative (Negative) Urine Nitrite Negative (Negative) Urine Bilirubin Negative (Negative) Urine Urobilinogen 0.2 (0.2-1.0) Ur Leukocyte Esterase 1+ H (Negative) Urine RBC Not seen (0-5) /hpf Urine WBC 10-20 H (0-5) /hpf Ur Squamous Epith Cells 0-5 (0-5) /hpf Urine Bacteria Few (FEW) /hpf Urine Mucus Few (FEW) /hpf SARS Virus RNA (PCR) Negative (NEGATIVE) MRSA (PCR) Result Diagrams: 10/03/19 06:54 10/03/19 06:54 Sepsis Event Note - Evaluation Sepsis Screening Result: No Definite Risk - Focused Exam Vital Signs: Vital Signs Temp Pulse Resp BP Pulse Ox 10/03/19 10:30 101 H 19 119/62 98 10/03/19 05:47 98.7 F 94 20 115/59 L 91 L 10/03/19 05:45 80 L Date Exam was Performed: 10/03/19 Time Exam was Performed: 15:17 Problem List Initiated/Reviewed/Updated: Yes Orders Last 24hrs: Active Orders 24 hr Category Date Time Status Patient Status [ADT] Routine ADT 10/03/19 09:59 Active Blood Glucose Check, Bedside [RC] WITHMEALSANDBED Care 10/03/19 12:35 Ordered EKG Documentation Completion [RC] STAT Care 10/03/19 06:26 Active Insert Kaur Catheter [Insert Urinary Catheter] [OM.PC] Care 10/03/19 07:25 Ordered Stat Intake and Output Strict [RC] ASDIRECTED Care 10/03/19 12:33 Ordered Oxygen Therapy [RC] PRN Care 10/03/19 12:31 Ordered Urinary Catheter Assessment [RC] ASDIRECTED Care 10/03/19 07:25 Active VTE/DVT Education [RC] PER UNIT ROUTINE Care 10/03/19 12:31 Ordered Vital Signs [RC] ASDIRECTED Care 10/03/19 12:31 Ordered [employer] Diet [DIET] Diet 10/03/19 Dinner Ordered [employer] Diet [DIET] Diet 10/03/19 Lunch Ordered Chest 1V Frontal [CR] Stat Exams 10/03/19 06:25 Taken C-REACTIVE PROTEIN [CHEM] AM Lab 10/04/19 05:11 Ordered C-REACTIVE PROTEIN [CHEM] AM Lab 10/05/19 05:11 Ordered C-REACTIVE PROTEIN [CHEM] AM Lab 10/06/19 05:11 Ordered C-REACTIVE PROTEIN [CHEM] AM Lab 10/07/19 05:11 Ordered CBC WITH AUTO DIFF [HEME] AM Lab 10/04/19 05:11 Ordered CBC WITH AUTO DIFF [HEME] AM Lab 10/05/19 05:11 Ordered CBC WITH AUTO DIFF [HEME] AM Lab 10/06/19 05:11 Ordered CBC WITH AUTO DIFF [HEME] AM Lab 10/07/19 05:11 Ordered COMPREHENSIVE METABOLIC PN,CMP [CHEM] AM Lab 10/04/19 05:11 Ordered COMPREHENSIVE METABOLIC PN,CMP [CHEM] AM Lab 10/05/19 05:11 Ordered COMPREHENSIVE METABOLIC PN,CMP [CHEM] AM Lab 10/06/19 05:11 Ordered COMPREHENSIVE METABOLIC PN,CMP [CHEM] AM Lab 10/07/19 05:11 Ordered CULTURE BLOOD [BC] Stat Lab 10/03/19 06:54 Received CULTURE BLOOD [BC] Stat Lab 10/03/19 06:59 Received INR,PT,PROTHROMBIN TIME [COAG] AM Lab 10/04/19 05:11 Ordered INR,PT,PROTHROMBIN TIME [COAG] AM Lab 10/05/19 05:11 Ordered INR,PT,PROTHROMBIN TIME [COAG] AM Lab 10/06/19 05:11 Ordered INR,PT,PROTHROMBIN TIME [COAG] AM Lab 10/07/19 05:11 Ordered INR,PT,PROTHROMBIN TIME [COAG] AM Lab 10/08/19 05:11 Ordered INR,PT,PROTHROMBIN TIME [COAG] AM Lab 10/09/19 05:11 Ordered MAGNESIUM [CHEM] AM Lab 10/04/19 05:11 Ordered MAGNESIUM [CHEM] AM Lab 10/05/19 05:11 Ordered MAGNESIUM [CHEM] AM Lab 10/06/19 05:11 Ordered MAGNESIUM [CHEM] AM Lab 10/07/19 05:11 Ordered Acetaminophen [Tylenol] Med 10/03/19 12:31 Ordered 650 mg PO Q4H PRN Dextrose 50% in Water Med 10/03/19 12:35 Ordered 50 ml IVPUSH ASDIRECTED PRN Insulin Lispro [HumaLOG] Med 10/03/19 12:34 Once 20 unit SUBCUT ONETIME ONE Insulin Lispro [HumaLOG] Med 10/03/19 17:00 Ordered See Protocol SUBCUT QIDACANDBED Pharmacy to Dose - Warfarin Med 10/03/19 12:45 Ordered 1 dose .XX ASDIRECTED cefTRIAXone [Rocephin] 2 gm Med 10/03/19 12:00 Active Sodium Chloride 0.9% [Normal Saline] 100 ml IV Q24H Blood Culture x2 Reflex Set [OM.PC] Stat Oth 10/03/19 06:27 Ordered Code Status [Resuscitation Status] Routine Resus Stat 10/03/19 11:33 Ordered Medication Orders Acetaminophen (Tylenol) 650 mg PO Q4H PRN PRN Reason: Pain (Mild 1-3)/fever Dextrose/Water (Dextrose 50% In Water) 50 ml IVPUSH ASDIRECTED PRN PRN Reason: Hypoglycemia Ceftriaxone Sodium 2 gm/ (Sodium Chloride) 100 mls @ 200 mls/hr IV Q24H [facility] Insulin Human Lispro (Humalog) 0 unit SUBCUT QIDACANDBED [facility]; Protocol Warfarin Sodium (Pharmacy To Dose - Warfarin) 1 dose .XX ASDIRECTED [facility] Assessment/Plan Comment:: Left lower extremity cellulitis * Fever with chills night prior to admission * White count 20,000 * Treated with clindamycin for 1 week and then Keflex for the last 2 days. * Complains of redness in the left leg. * Bilateral lower extremity pain. * MRSA screen negative * No signs of sepsis Plan * Rocephin 2 g IV every 24 hours. * If no response after 24 to 48 hours will switch to vancomycin. * Procalcitonin * CBC and C-reactive protein in the morning Urinary retention * Greater than 900 mL out in the emergency department with straight cath * History of overactive bladder * On mirabegron for OAB. Side effects include urinary retention Plan * Stop mirabegron * Monitor urinary output and follow with bladder ultrasound * Decompensated congestive heart failure * Requiring 4 to 5 L FiO2 * proBNP 3155 * Chest x-ray consistent with pulmonary vascular congestion and cardiomegaly * Patient is asymptomatic. * Given Lasix 40 mg IV push in the emergency room Plan * Lasix 40 mg IV 3 times daily * Follow electrolytes and renal function * Goal to decrease need for FiO2 * Daily I's and O's and weights Acute on chronic renal insufficiency * Creatinine 1.3, BUN 49, estimated GFR 41 Plan * Monitor renal function closely since she will be getting an increase in furosemide secondary to her decompensated heart failure * Avoid nephrotoxic medications. Atrial fibrillation * Patient on multiple medications including: Diltiazem, metoprolol, digoxin * Rate controlled * INR 2.36 Plan * Telemetry * Continue home meds * Pharmacy to dose warfarin Insulin-dependent diabetes * Levemir 48 units in the morning and 44 units in the evening * NovoLog 26 units with breakfast and dinner and 20 units at lunch. * No recent hemoglobin A1c Plan * Decrease insulin dose slightly from home dose to prevent hypoglycemia and use sliding scale insulin. * Lantus 44 units twice daily * Humalog 20 units with meals * Check hemoglobin A1c Hyperthyroid * On methimazole 2.5 mg Saturday, Saturday, Saturday, , and Saturday * TSH not available Plan * Continue home methimazole * Check TSH VTE prophylaxis with warfarin CODE STATUS: Full code Disposition: Admit to floor on telemetry - Mortality Measure Prognosis:: Good
[2019-10-03] MEDS: cefTRIAXone 2 GM in Sodium Chloride 0.9% 100 ML IV SCH (13:06)
[2019-10-03] MEDS ORDERED: Carboxymethylcellulose Sodium 1% Ophth Gel 15 ML Bottle EYEBOTH PRN (14:24)
[2019-10-03] MEDS ORDERED: Insulin Glarg,Human.Rec.Analog 100 Unit/ML SUBCUT SCH (16:00)
[2019-10-03] MEDS: Furosemide 40 MG/4 ML VIAL IVPUSH SCH ×2 (16:44→21:36)
[2019-10-03] MEDS ORDERED: Furosemide 40 MG Tab PO SCH (17:00)
[2019-10-03] MEDS ORDERED: Insulin Lispro 100 Units/ML 3 ML Vial SUBCUT SCH (17:00)
[2019-10-03] MEDS: Insulin Lispro 100 Units/ML 3 ML Vial SUBCUT SCH ×3 (17:54→21:38)
[2019-10-03] MEDS ORDERED: Warfarin 2.5 MG Tab PO ONE (18:00)
[2019-10-03] MEDS: Docusate Sodium 100 MG Cap PO SCH (21:33)
[2019-10-03] MEDS: Diltiazem 120 MG Cap.CD PO SCH (21:33)
[2019-10-03] MEDS: Potassium Chloride 10 MEQ Tab.ER PO SCH (21:33)
[2019-10-03] MEDS: Metoprolol Tartrate 50 MG Tab PO SCH (21:34)
[2019-10-03] MEDS: Insulin Glarg,Human.Rec.Analog 100 Unit/ML SUBCUT SCH (21:36)
[2019-10-04] MEDS: Pantoprazole 40 MG Tab.CR PO SCH (06:43)
[2019-10-04] MEDS ORDERED: Furosemide 80 MG Tab PO SCH (08:00)
[2019-10-04] MEDS ORDERED: Pantoprazole 40 MG Tab.CR PO SCH (09:00)
[2019-10-04] MEDS: Sertraline 50 MG Tab PO SCH (09:12)
[2019-10-04] MEDS: Metoprolol Tartrate 50 MG Tab PO SCH ×2 (09:13→21:38)
[2019-10-04] MEDS: Allopurinol 300 MG Tab PO SCH (09:15)
[2019-10-04] MEDS: Aspirin 81 MG Tab.EC PO SCH (09:15)
[2019-10-04] MEDS: Docusate Sodium 100 MG Cap PO SCH ×2 (09:16→21:38)
[2019-10-04] MEDS: Diltiazem 120 MG Cap.CD PO SCH ×2 (09:16→21:38)
[2019-10-04] MEDS: Spironolactone 25 MG Tab PO SCH (09:17)
[2019-10-04] MEDS: Potassium Chloride 10 MEQ Tab.ER PO SCH ×2 (09:18→21:38)
[2019-10-04] MEDS: Potassium Chloride 20 MEQ Tab.ER PO SCH ×2 (09:18→21:37)
[2019-10-04] MEDS: Furosemide 40 MG/4 ML VIAL IVPUSH SCH ×3 (09:21→21:37)
[2019-10-04] MEDS: Mineral Oil/White Petrolatum Crm 113 GM Jar TOP SCH (09:23)
[2019-10-04] MEDS: Mupirocin Oint 22 GM Tube TOP SCH (09:24)
[2019-10-04] MEDS: Insulin Lispro 100 Units/ML 3 ML Vial SUBCUT SCH ×7 (10:03→21:50)
[2019-10-04] MEDS: Insulin Glarg,Human.Rec.Analog 100 Unit/ML SUBCUT SCH ×2 (10:05→21:40)
--- NOTE | 2019-10-04 10:28 | CR ---
Chest: Semi-upright portable view of the chest was obtained. Comparison: Prior chest x-ray of 12/13/18. Heart is enlarged. Tortuous thoracic aorta is seen. Lungs are clear with no acute parenchymal change. Bony structures are grossly intact. Impression: 1. Cardiomegaly. 2. Nothing acute is otherwise seen on portable chest x-ray. Diagnostic code #2 This report was dictated in MDT
[2019-10-04] MEDS: cefTRIAXone 2 GM in Sodium Chloride 0.9% 100 ML IV SCH (11:49)
[2019-10-04] MEDS: Digoxin 125 MCG Tab PO SCH (11:49)
--- NOTE | 2019-10-04 13:09 | PCM.PN ---
- General Info Date of Service: 10/04/19 Admission Dx/Problem (Free Text): Admission Diagnosis/Problem Admission Diagnosis/Problem Cellulitis Subjective Update: Patient is without complaints. She is eating well and blood sugars are controlled. Left lower leg cellulitis has regressed slightly. She denies any pain. No fever or chills. She continues to be on 5 L of O2 - Review of Systems General: Reports: No Symptoms HEENT: Reports: No Symptoms Pulmonary: Reports: No Symptoms Cardiovascular: Reports: No Symptoms Gastrointestinal: Reports: No Symptoms Musculoskeletal: Reports: No Symptoms - Patient Data Vitals - Most Recent: Last Vital Signs Temp 97.7 F 10/04/19 11:52 Pulse 98 10/04/19 11:52 Resp 16 10/04/19 11:52 BP 105/64 10/04/19 11:52 Pulse Ox 93 L 10/04/19 11:52 Weight - Most Recent: 226 lb 3.2 oz I&O - Last 24 Hours: Intake & Output 10/03/19 10/04/19 10/04/19 22:59 06:59 14:59 Intake Total 680 50 690 Output Total 200 Balance 680 50 490 Lab Results Last 24 Hours: Laboratory Results - last 24 hr 10/03/19 10/03/19 10/03/19 Range/Units 15:19 16:44 21:32 WBC (3.98-10.04) K/mm3 RBC (3.98-5.22) M/mm3 Hgb (11.2-15.7) gm/dl Hct (34.1-44.9) % MCV (79.4-94.8) fl MCH (25.6-32.2) pg MCHC (32.2-35.5) g/dl RDW Std Deviation (36.4-46.3) fL Plt Count (182-369) K/mm3 MPV (9.4-12.3) fl Neut % (Auto) (34.0-71.1) % Lymph % (Auto) (19.3-51.7) % Rooks % (Auto) (4.7-12.5) % Eos % (Auto) (0.7-5.8) Baso % (Auto) (0.1-1.2) % Neut # (Auto) (1.56-6.13) K/mm3 Lymph # (Auto) (1.18-3.74) K/mm3 Rooks # (Auto) (0.24-0.36) K/mm3 Eos # (Auto) (0.04-0.36) K/mm3 Baso # (Auto) (0.01-0.08) K/mm3 Manual Slide Review PT (9.7-12.0) SECONDS INR Sodium (136-145) mEq/L Potassium (3.5-5.1) mEq/L Chloride (98-107) mEq/L Carbon Dioxide (21-32) mEq/L Anion Gap (5-15) BUN (7-18) mg/dL Creatinine (0.55-1.02) mg/dL Est Cr Clr Drug Dosing mL/min Estimated GFR (MDRD) (>60) mL/min BUN/Creatinine Ratio (14-18) Glucose (80-115) mg/dL POC Glucose 189 H 193 H (80-115) mg/dL Calcium (8.5-10.1) mg/dL Magnesium (1.8-2.4) mg/dl Total Bilirubin (0.2-1.0) mg/dL AST (15-37) U/L ALT (14-59) U/L Alkaline Phosphatase (46-116) U/L C-Reactive Protein (<1.0) mg/dL Total Protein (6.4-8.2) g/dl Albumin (3.4-5.0) g/dl Globulin gm/dL Albumin/Globulin Ratio (1-2) Procalcitonin 0.32 H (<0.10) ng/mL 10/04/19 10/04/19 10/04/19 Range/Units 05:11 05:11 05:11 WBC 13.98 H (3.98-10.04) K/mm3 RBC 4.19 (3.98-5.22) M/mm3 Hgb 12.9 (11.2-15.7) gm/dl Hct 40.9 (34.1-44.9) % MCV 97.6 H (79.4-94.8) fl MCH 30.8 (25.6-32.2) pg MCHC 31.5 L (32.2-35.5) g/dl RDW Std Deviation 54.0 H (36.4-46.3) fL Plt Count 256 (182-369) K/mm3 MPV 10.8 (9.4-12.3) fl Neut % (Auto) 84.8 H (34.0-71.1) % Lymph % (Auto) 4.8 L (19.3-51.7) % Rooks % (Auto) 8.4 (4.7-12.5) % Eos % (Auto) 1.6 (0.7-5.8) Baso % (Auto) 0.1 (0.1-1.2) % Neut # (Auto) 11.86 H (1.56-6.13) K/mm3 Lymph # (Auto) 0.67 L (1.18-3.74) K/mm3 Rooks # (Auto) 1.17 H (0.24-0.36) K/mm3 Eos # (Auto) 0.22 (0.04-0.36) K/mm3 Baso # (Auto) 0.02 (0.01-0.08) K/mm3 Manual Slide Review Abnormal smear PT 23.9 H (9.7-12.0) SECONDS INR 2.30 Sodium 139 (136-145) mEq/L Potassium 3.1 L (3.5-5.1) mEq/L Chloride 100 (98-107) mEq/L Carbon Dioxide 29 (21-32) mEq/L Anion Gap 13.1 (5-15) BUN 45 H (7-18) mg/dL Creatinine 1.0 (0.55-1.02) mg/dL Est Cr Clr Drug Dosing 57.42 mL/min Estimated GFR (MDRD) 55 (>60) mL/min BUN/Creatinine Ratio 45.0 H (14-18) Glucose 151 H (80-115) mg/dL POC Glucose (80-115) mg/dL Calcium 9.3 (8.5-10.1) mg/dL Magnesium 2.1 (1.8-2.4) mg/dl Total Bilirubin 0.8 (0.2-1.0) mg/dL AST 13 L (15-37) U/L ALT 12 L (14-59) U/L Alkaline Phosphatase 64 (46-116) U/L C-Reactive Protein 23.9 H* (<1.0) mg/dL Total Protein 6.8 (6.4-8.2) g/dl Albumin 3.1 L (3.4-5.0) g/dl Globulin 3.7 gm/dL Albumin/Globulin Ratio 0.8 L (1-2) Procalcitonin (<0.10) ng/mL 10/04/19 10/04/19 Range/Units 06:40 11:43 WBC (3.98-10.04) K/mm3 RBC (3.98-5.22) M/mm3 Hgb (11.2-15.7) gm/dl Hct (34.1-44.9) % MCV (79.4-94.8) fl MCH (25.6-32.2) pg MCHC (32.2-35.5) g/dl RDW Std Deviation (36.4-46.3) fL Plt Count (182-369) K/mm3 MPV (9.4-12.3) fl Neut % (Auto) (34.0-71.1) % Lymph % (Auto) (19.3-51.7) % Rooks % (Auto) (4.7-12.5) % Eos % (Auto) (0.7-5.8) Baso % (Auto) (0.1-1.2) % Neut # (Auto) (1.56-6.13) K/mm3 Lymph # (Auto) (1.18-3.74) K/mm3 Rooks # (Auto) (0.24-0.36) K/mm3 Eos # (Auto) (0.04-0.36) K/mm3 Baso # (Auto) (0.01-0.08) K/mm3 Manual Slide Review PT (9.7-12.0) SECONDS INR Sodium (136-145) mEq/L Potassium (3.5-5.1) mEq/L Chloride (98-107) mEq/L Carbon Dioxide (21-32) mEq/L Anion Gap (5-15) BUN (7-18) mg/dL Creatinine (0.55-1.02) mg/dL Est Cr Clr Drug Dosing mL/min Estimated GFR (MDRD) (>60) mL/min BUN/Creatinine Ratio (14-18) Glucose (80-115) mg/dL POC Glucose 157 H 284 H (80-115) mg/dL Calcium (8.5-10.1) mg/dL Magnesium (1.8-2.4) mg/dl Total Bilirubin (0.2-1.0) mg/dL AST (15-37) U/L ALT (14-59) U/L Alkaline Phosphatase (46-116) U/L C-Reactive Protein (<1.0) mg/dL Total Protein (6.4-8.2) g/dl Albumin (3.4-5.0) g/dl Globulin gm/dL Albumin/Globulin Ratio (1-2) Procalcitonin (<0.10) ng/mL Shaun Results Last 24 Hours: Microbiology 10/03/19 06:59 Aerobic Blood Culture - Preliminary Blood - Venous NO GROWTH AFTER 1 DAY Anaerobic Blood Culture - Preliminary NO GROWTH AFTER 1 DAY 10/03/19 06:54 Aerobic Blood Culture - Preliminary Blood - Venous - Lab Draw NO GROWTH AFTER 1 DAY Anaerobic Blood Culture - Preliminary NO GROWTH AFTER 1 DAY Med Orders - Current: Current Medications Acetaminophen (Tylenol) 650 mg PO Q4H PRN PRN Reason: Pain (Mild 1-3)/fever Allopurinol (Zyloprim) 150 mg PO DAILY [facility] Last Admin: 10/04/19 09:15 Dose: 150 mg Artificial Tears (Refresh Liquigel 1%) 0 ml EYEBOTH Q2H PRN PRN Reason: Dry Eyes Aspirin (Halfprin) 81 mg PO DAILY [facility] Last Admin: 10/04/19 09:15 Dose: 81 mg Dextrose/Water (Dextrose 50% In Water) 50 ml IVPUSH ASDIRECTED PRN PRN Reason: Hypoglycemia Digoxin (Lanoxin) 125 mcg PO 1200 [facility] Last Admin: 10/04/19 11:49 Dose: 125 mcg Diltiazem HCl (Cardizem Cd) 120 mg PO BID [facility] Last Admin: 10/04/19 09:16 Dose: 120 mg Docusate Sodium (Colace) 100 mg PO BID [facility] Last Admin: 10/04/19 09:16 Dose: 100 mg Furosemide (Lasix) 40 mg IVPUSH TID [facility] Last Admin: 10/04/19 09:21 Dose: 40 mg Ceftriaxone Sodium 2 gm/ (Sodium Chloride) 100 mls @ 200 mls/hr IV Q24H [facility] Last Admin: 10/04/19 11:49 Dose: 200 mls/hr Insulin Glargine (Lantus) 30 unit SUBCUT BID [facility] Last Admin: 10/04/19 10:05 Dose: 30 units Insulin Human Lispro (Humalog) 0 unit SUBCUT QIDACANDBED [facility]; Protocol Last Admin: 10/04/19 13:02 Dose: 3 unit Insulin Human Lispro (Humalog) 15 unit SUBCUT TIDPC [facility] Last Admin: 10/04/19 13:03 Dose: 15 units Methimazole (Methimazole) 5 mg PO MoTuWeThFr@1400 [facility] Metolazone (Zaroxolyn) 2.5 mg PO MoTh@0730 [facility] Metoprolol Tartrate (Lopressor) 75 mg PO BID [facility] Last Admin: 10/04/19 09:13 Dose: 75 mg Mineral Oil/White Petrolatum (Hydrocerin Crm) 0 gm TOP DAILY [facility] Last Admin: 10/04/19 09:23 Dose: 1 applic Mupirocin (Bactroban Oint) 0 gm TOP DAILY [facility] Last Admin: 10/04/19 09:24 Dose: 1 applic Pantoprazole Sodium (Protonix) 40 mg PO ACBREAKFAST [facility] Last Admin: 10/04/19 06:43 Dose: 40 mg Potassium Chloride (Klor-Con 10) 20 meq PO BID [facility] Last Admin: 10/04/19 09:18 Dose: 20 meq Potassium Chloride (Klor-Con M20) 40 meq PO BID [facility] Stop: 10/04/19 21:01 Last Admin: 10/04/19 09:18 Dose: 40 meq Sertraline HCl (Zoloft) 100 mg PO DAILY [facility] Last Admin: 10/04/19 09:12 Dose: 100 mg Spironolactone (Aldactone) 25 mg PO DAILY [facility] Last Admin: 10/04/19 09:17 Dose: 25 mg Warfarin Sodium (Pharmacy To Dose - Warfarin) 1 dose .XX ASDIRECTED PRN PRN Reason: RX TO DOSE WARFARIN Warfarin Sodium (Coumadin) 2.5 mg PO QPM [facility] Stop: 10/04/19 18:01 Discontinued Medications Furosemide (Lasix) 40 mg IVPUSH NOW ONE Stop: 10/03/19 07:59 Last Admin: 10/03/19 09:30 Dose: 40 mg Furosemide (Lasix) 40 mg PO 1700 [facility] Furosemide (Lasix) 80 mg PO 0800 [facility] Insulin Glargine (Lantus) 44 unit SUBCUT BIDAC [facility] Last Admin: 10/03/19 17:26 Dose: Not Given Insulin Human Lispro (Humalog) 20 unit SUBCUT ONETIME ONE Stop: 10/03/19 12:35 Last Admin: 10/03/19 14:02 Dose: 20 units Insulin Human Lispro (Humalog) 20 unit SUBCUT TIDAC [facility] Last Admin: 10/03/19 17:27 Dose: Not Given Pantoprazole Sodium (Protonix) 20 mg PO DAILY [facility] Warfarin Sodium (Coumadin) 1.25 mg PO ONETIME ONE Stop: 10/03/19 18:01 Last Admin: 10/03/19 17:57 Dose: 1.25 mg - Exam Quality Assessment: Supplemental Oxygen HEENT: Pupils Equal Neck: Supple Lungs: Normal Respiratory Effort, Decreased Breath Sounds, Crackles Cardiovascular: Irregular Rhythm. No: Regular Rate GI/Abdominal Exam: Normal Bowel Sounds, Soft, Non-Tender, No Distention Extremities: Normal Inspection, Pedal Edema, Redness (Left lower extremity with redness and induration. Redness has recessed since yesterday.) Skin: Rash Neurological: No New Focal Deficit Psy/Mental Status: Alert, Normal Affect, Normal Mood Sepsis Event Note - Evaluation Sepsis Screening Result: Sepsis Risk - Focused Exam Vital Signs: Vital Signs Temp Pulse Pulse Resp BP BP Pulse Ox 10/04/19 11:52 97.7 F 98 16 105/64 93 L 10/04/19 11:49 98 10/04/19 09:16 94 115/87 10/04/19 09:13 94 115/87 10/04/19 09:12 94 115/75 10/04/19 08:51 98.2 F 123 H 20 105/47 L 96 10/04/19 08:20 10/04/19 05:44 99.1 F 103 H 17 114/74 92 L Pulse Ox 10/04/19 11:52 10/04/19 11:49 10/04/19 09:16 10/04/19 09:13 10/04/19 09:12 10/04/19 08:51 10/04/19 08:20 90 L 10/04/19 05:44 Date Exam was Performed: 10/04/19 Time Exam was Performed: 13:04 - Problem List Review Problem List Initiated/Reviewed/Updated: Yes - My Orders Last 24 Hours: My Active Orders 10/03/19 12:31 Oxygen Therapy [RC] PRN VTE/DVT Education [RC] DAILY Vital Signs [RC] Q4HR Acetaminophen [Tylenol] 650 mg PO Q4H PRN 10/03/19 12:33 Intake and Output Strict [RC] Q2HR 10/03/19 12:35 Blood Glucose Check, Bedside [RC] WITHMEALSANDBED Dextrose 50% in Water 50 ml IVPUSH ASDIRECTED PRN 10/03/19 12:45 Pharmacy to Dose - Warfarin 1 dose .XX ASDIRECTED PRN 10/03/19 14:24 Carboxymethylcellulose Sodium [Refresh Liquigel 1%] 0 ml EYEBOTH Q2H PRN 10/03/19 15:00 Furosemide [Lasix] 40 mg IVPUSH TID 10/03/19 17:00 Insulin Lispro [HumaLOG] See Protocol SUBCUT QIDACANDBED 10/03/19 17:29 Up With Assistance [RC] BID 10/03/19 19:00 Insulin Lispro [HumaLOG] 15 unit SUBCUT TIDPC 10/03/19 21:00 Diltiazem [Cardizem CD] 120 mg PO BID Docusate Sodium [Colace] 100 mg PO BID Insulin Glarg,Human.Rec.Analog [LantUS] 30 unit SUBCUT BID Metoprolol Tartrate [Lopressor] 75 mg PO BID Potassium Chloride [Klor-Con 10] 20 meq PO BID 10/04/19 06:00 Pantoprazole [ProTONIX] 40 mg PO ACBREAKFAST 10/04/19 09:00 Aspirin [Halfprin] 81 mg PO DAILY Mineral Oil/Petrolatum,White [Hydrocerin Crm] 0 gm TOP DAILY Mupirocin Oint [Bactroban Oint] 0 gm TOP DAILY Potassium Chloride [Klor-Con M20] 40 meq PO BID Sertraline [Zoloft] 100 mg PO DAILY Spironolactone [Aldactone] 25 mg PO DAILY allopurinoL [Zyloprim] 150 mg PO DAILY 10/04/19 12:00 Digoxin [Lanoxin] 125 mcg PO 1200 10/04/19 18:00 Warfarin [Coumadin] 2.5 mg PO QPM 10/05/19 05:11 C-REACTIVE PROTEIN [CHEM] AM CBC WITH AUTO DIFF [HEME] AM COMPREHENSIVE METABOLIC PN,CMP [CHEM] AM INR,PT,PROTHROMBIN TIME [COAG] AM MAGNESIUM [CHEM] AM 10/05/19 07:30 metOLazone [Zaroxolyn] 2.5 mg PO MoTh@0730 10/05/19 14:00 methIMAzole 5 mg PO MoTuWeThFr@1400 10/06/19 05:11 C-REACTIVE PROTEIN [CHEM] AM CBC WITH AUTO DIFF [HEME] AM COMPREHENSIVE METABOLIC PN,CMP [CHEM] AM INR,PT,PROTHROMBIN TIME [COAG] AM MAGNESIUM [CHEM] AM 10/07/19 05:11 C-REACTIVE PROTEIN [CHEM] AM CBC WITH AUTO DIFF [HEME] AM COMPREHENSIVE METABOLIC PN,CMP [CHEM] AM INR,PT,PROTHROMBIN TIME [COAG] AM MAGNESIUM [CHEM] AM 10/08/19 05:11 INR,PT,PROTHROMBIN TIME [COAG] AM 10/09/19 05:11 INR,PT,PROTHROMBIN TIME [COAG] AM - Plan Plan:: Left lower extremity cellulitis * Fever with chills night prior to admission * White count 21-->14 * Improvement while on Rocephin * Complains of redness in the left leg. -Improved * Bilateral lower extremity pain. -Improved * MRSA screen negative * No signs of sepsis * Procalcitonin 0.32 * C-reactive protein 23.9 Plan * Continue Rocephin 2 g IV every 24 hours. * CBC and C-reactive protein in the morning Urinary retention * Greater than 900 mL out in the emergency department with straight cath * History of overactive bladder * On mirabegron for OAB. Side effects include urinary retention * No urinary retention since admission, but incontinent. Plan * Stop mirabegron * Monitor urinary output and follow with bladder ultrasound Decompensated congestive heart failure * Requiring 4 to 5 L FiO2 * proBNP 3155 * Chest x-ray consistent with pulmonary vascular congestion and cardiomegaly * Patient is asymptomatic. * Given Lasix 40 mg IV push in the emergency room Plan * Lasix 40 mg IV 3 times daily * Follow electrolytes and renal function * Goal to decrease need for FiO2 * Daily I's and O's and weights Acute on chronic renal insufficiency * Creatinine 1.3-->1.0, BUN 49-->45, estimated GFR 41-->55 Plan * Monitor renal function closely since she will be getting an increase in furosemide secondary to her decompensated heart failure * Avoid nephrotoxic medications. Atrial fibrillation * Patient on multiple medications including: Diltiazem, metoprolol, digoxin * Rate controlled * INR 2.36-->2.3 Plan * Telemetry * Continue home meds * Pharmacy to dose warfarin Insulin-dependent diabetes * No recent hemoglobin A1c Plan * Decrease insulin dose slightly from home dose to prevent hypoglycemia and use sliding scale insulin. * Lantus 20 units twice daily * Humalog 15 units with meals * Check hemoglobin A1c Hyperthyroid * On methimazole 2.5 mg Saturday, Saturday, Saturday, , and Saturday * TSH not available Plan * Continue home methimazole * Check TSH VTE prophylaxis with warfarin CODE STATUS: Full code Disposition: Admit to floor on telemetry
[2019-10-04] MEDS ORDERED: Warfarin 2.5 MG Tab PO SCH (18:00)
[2019-10-05] MEDS: Pantoprazole 40 MG Tab.CR PO SCH (06:44)
[2019-10-05 06:53] LABS: HEMOGLOBIN A1C 7.7 % (4.50-6.20)
[2019-10-05] MEDS: Metolazone 2.5 MG Tab PO SCH (08:05)
[2019-10-05] MEDS: Sertraline 50 MG Tab PO SCH (08:06)
[2019-10-05] MEDS: Allopurinol 300 MG Tab PO SCH (08:07)
[2019-10-05] MEDS: Diltiazem 120 MG Cap.CD PO SCH ×2 (08:10→21:08)
[2019-10-05] MEDS: Metoprolol Tartrate 50 MG Tab PO SCH ×2 (08:11→21:07)
[2019-10-05] MEDS: Docusate Sodium 100 MG Cap PO SCH ×2 (08:12→21:09)
[2019-10-05] MEDS: Spironolactone 25 MG Tab PO SCH (08:12)
[2019-10-05] MEDS: Aspirin 81 MG Tab.EC PO SCH (08:13)
[2019-10-05] MEDS: Potassium Chloride 10 MEQ Tab.ER PO SCH ×2 (08:15→21:09)
[2019-10-05] MEDS: Mineral Oil/White Petrolatum Crm 113 GM Jar TOP SCH (08:19)
[2019-10-05] MEDS: Mupirocin Oint 22 GM Tube TOP SCH (08:20)
[2019-10-05] MEDS: Furosemide 40 MG/4 ML VIAL IVPUSH SCH ×3 (08:37→21:09)
--- NOTE | 2019-10-05 08:54 | PCM.PN ---
- General Info Date of Service: 10/05/19 Admission Dx/Problem (Free Text): Admission Diagnosis/Problem Admission Diagnosis/Problem Cellulitis Subjective Update: Patient states that she is feeling well. She denies any pain, nausea, vomiting. Appetite is good. Functional Status: Reports: Pain Controlled - Review of Systems General: Reports: No Symptoms HEENT: Reports: No Symptoms Pulmonary: Reports: No Symptoms Cardiovascular: Reports: No Symptoms Gastrointestinal: Reports: No Symptoms Musculoskeletal: Reports: No Symptoms - Patient Data Vitals - Most Recent: Last Vital Signs Temp 98.1 F 10/05/19 08:17 Pulse 95 10/05/19 08:17 Resp 20 10/05/19 08:17 BP 106/65 10/05/19 08:17 Pulse Ox 94 L 10/05/19 08:17 Weight - Most Recent: 228 lb 11.2 oz I&O - Last 24 Hours: Intake & Output 10/04/19 10/05/19 10/05/19 22:59 06:59 14:59 Intake Total 450 80 150 Output Total 200 Balance 250 80 150 Lab Results Last 24 Hours: Laboratory Results - last 24 hr 10/03/19 10/04/19 10/04/19 Range/Units 15:19 11:43 16:45 WBC (3.98-10.04) K/mm3 RBC (3.98-5.22) M/mm3 Hgb (11.2-15.7) gm/dl Hct (34.1-44.9) % MCV (79.4-94.8) fl MCH (25.6-32.2) pg MCHC (32.2-35.5) g/dl RDW Std Deviation (36.4-46.3) fL Plt Count (182-369) K/mm3 MPV (9.4-12.3) fl Neut % (Auto) (34.0-71.1) % Lymph % (Auto) (19.3-51.7) % [place] % (Auto) (4.7-12.5) % Eos % (Auto) (0.7-5.8) Baso % (Auto) (0.1-1.2) % Neut # (Auto) (1.56-6.13) K/mm3 Lymph # (Auto) (1.18-3.74) K/mm3 [place] # (Auto) (0.24-0.36) K/mm3 Eos # (Auto) (0.04-0.36) K/mm3 Baso # (Auto) (0.01-0.08) K/mm3 Manual Slide Review PT (9.7-12.0) SECONDS INR Sodium (136-145) mEq/L Potassium (3.5-5.1) mEq/L Chloride (98-107) mEq/L Carbon Dioxide (21-32) mEq/L Anion Gap (5-15) BUN (7-18) mg/dL Creatinine (0.55-1.02) mg/dL Est Cr Clr Drug Dosing mL/min Estimated GFR (MDRD) (>60) mL/min BUN/Creatinine Ratio (14-18) Glucose (80-115) mg/dL POC Glucose 284 H 200 H (80-115) mg/dL Hemoglobin A1c (4.50-6.20) % Calcium (8.5-10.1) mg/dL Magnesium (1.8-2.4) mg/dl Total Bilirubin (0.2-1.0) mg/dL AST (15-37) U/L ALT (14-59) U/L Alkaline Phosphatase (46-116) U/L C-Reactive Protein (<1.0) mg/dL Total Protein (6.4-8.2) g/dl Albumin (3.4-5.0) g/dl Globulin gm/dL Albumin/Globulin Ratio (1-2) Procalcitonin 0.32 H (<0.10) ng/mL TSH 3rd Generation (0.358-3.74) uIU/mL 10/04/19 10/05/19 10/05/19 Range/Units 20:36 05:27 05:27 WBC 15.21 H (3.98-10.04) K/mm3 RBC 4.20 (3.98-5.22) M/mm3 Hgb 12.7 (11.2-15.7) gm/dl Hct 41.1 (34.1-44.9) % MCV 97.9 H (79.4-94.8) fl MCH 30.2 (25.6-32.2) pg MCHC 30.9 L (32.2-35.5) g/dl RDW Std Deviation 54.5 H (36.4-46.3) fL Plt Count 238 (182-369) K/mm3 MPV 10.4 (9.4-12.3) fl Neut % (Auto) 85.6 H (34.0-71.1) % Lymph % (Auto) 5.7 L (19.3-51.7) % [place] % (Auto) 5.5 (4.7-12.5) % Eos % (Auto) 2.8 (0.7-5.8) Baso % (Auto) 0.2 (0.1-1.2) % Neut # (Auto) 13.02 H (1.56-6.13) K/mm3 Lymph # (Auto) 0.87 L (1.18-3.74) K/mm3 [place] # (Auto) 0.84 H (0.24-0.36) K/mm3 Eos # (Auto) 0.42 H (0.04-0.36) K/mm3 Baso # (Auto) 0.03 (0.01-0.08) K/mm3 Manual Slide Review Abnormal smear PT 23.0 H (9.7-12.0) SECONDS INR 2.21 Sodium (136-145) mEq/L Potassium (3.5-5.1) mEq/L Chloride (98-107) mEq/L Carbon Dioxide (21-32) mEq/L Anion Gap (5-15) BUN (7-18) mg/dL Creatinine (0.55-1.02) mg/dL Est Cr Clr Drug Dosing mL/min Estimated GFR (MDRD) (>60) mL/min BUN/Creatinine Ratio (14-18) Glucose (80-115) mg/dL POC Glucose 147 H (80-115) mg/dL Hemoglobin A1c (4.50-6.20) % Calcium (8.5-10.1) mg/dL Magnesium (1.8-2.4) mg/dl Total Bilirubin (0.2-1.0) mg/dL AST (15-37) U/L ALT (14-59) U/L Alkaline Phosphatase (46-116) U/L C-Reactive Protein (<1.0) mg/dL Total Protein (6.4-8.2) g/dl Albumin (3.4-5.0) g/dl Globulin gm/dL Albumin/Globulin Ratio (1-2) Procalcitonin (<0.10) ng/mL TSH 3rd Generation (0.358-3.74) uIU/mL 10/05/19 10/05/19 10/05/19 Range/Units 05:27 05:27 06:36 WBC (3.98-10.04) K/mm3 RBC (3.98-5.22) M/mm3 Hgb (11.2-15.7) gm/dl Hct (34.1-44.9) % MCV (79.4-94.8) fl MCH (25.6-32.2) pg MCHC (32.2-35.5) g/dl RDW Std Deviation (36.4-46.3) fL Plt Count (182-369) K/mm3 MPV (9.4-12.3) fl Neut % (Auto) (34.0-71.1) % Lymph % (Auto) (19.3-51.7) % [place] % (Auto) (4.7-12.5) % Eos % (Auto) (0.7-5.8) Baso % (Auto) (0.1-1.2) % Neut # (Auto) (1.56-6.13) K/mm3 Lymph # (Auto) (1.18-3.74) K/mm3 [place] # (Auto) (0.24-0.36) K/mm3 Eos # (Auto) (0.04-0.36) K/mm3 Baso # (Auto) (0.01-0.08) K/mm3 Manual Slide Review PT (9.7-12.0) SECONDS INR Sodium 139 (136-145) mEq/L Potassium 4.4 (3.5-5.1) mEq/L Chloride 100 (98-107) mEq/L Carbon Dioxide 29 (21-32) mEq/L Anion Gap 14.4 (5-15) BUN 54 H (7-18) mg/dL Creatinine 1.1 H (0.55-1.02) mg/dL Est Cr Clr Drug Dosing 52.20 mL/min Estimated GFR (MDRD) 49 (>60) mL/min BUN/Creatinine Ratio 49.1 H (14-18) Glucose 140 H (80-115) mg/dL POC Glucose 173 H (80-115) mg/dL Hemoglobin A1c 7.70 H (4.50-6.20) % Calcium 9.3 (8.5-10.1) mg/dL Magnesium 2.2 (1.8-2.4) mg/dl Total Bilirubin 0.7 (0.2-1.0) mg/dL AST 18 (15-37) U/L ALT 11 L (14-59) U/L Alkaline Phosphatase 61 (46-116) U/L C-Reactive Protein 18.1 H* (<1.0) mg/dL Total Protein 6.7 (6.4-8.2) g/dl Albumin 3.0 L (3.4-5.0) g/dl Globulin 3.7 gm/dL Albumin/Globulin Ratio 0.8 L (1-2) Procalcitonin (<0.10) ng/mL TSH 3rd Generation 0.666 (0.358-3.74) uIU/mL Shaun Results Last 24 Hours: Microbiology 10/03/19 06:59 Aerobic Blood Culture - Preliminary Blood - Venous NO GROWTH AFTER 2 DAYS Anaerobic Blood Culture - Preliminary NO GROWTH AFTER 2 DAYS 10/03/19 06:54 Aerobic Blood Culture - Preliminary Blood - Venous - Lab Draw NO GROWTH AFTER 2 DAYS Anaerobic Blood Culture - Preliminary NO GROWTH AFTER 2 DAYS Med Orders - Current: Current Medications Acetaminophen (Tylenol) 650 mg PO Q4H PRN PRN Reason: Pain (Mild 1-3)/fever Allopurinol (Zyloprim) 150 mg PO DAILY [facility] Last Admin: 10/05/19 08:07 Dose: 150 mg Artificial Tears (Refresh Liquigel 1%) 0 ml EYEBOTH Q2H PRN PRN Reason: Dry Eyes Aspirin (Halfprin) 81 mg PO DAILY [facility] Last Admin: 10/05/19 08:13 Dose: 81 mg Dextrose/Water (Dextrose 50% In Water) 50 ml IVPUSH ASDIRECTED PRN PRN Reason: Hypoglycemia Digoxin (Lanoxin) 125 mcg PO 1200 [facility] Last Admin: 10/04/19 11:49 Dose: 125 mcg Diltiazem HCl (Cardizem Cd) 120 mg PO BID [facility] Last Admin: 10/05/19 08:10 Dose: 120 mg Docusate Sodium (Colace) 100 mg PO BID [facility] Last Admin: 10/05/19 08:12 Dose: 100 mg Furosemide (Lasix) 40 mg IVPUSH TID [facility] Last Admin: 10/05/19 08:37 Dose: 40 mg Ceftriaxone Sodium 2 gm/ (Sodium Chloride) 100 mls @ 200 mls/hr IV Q24H [facility] Last Admin: 10/04/19 11:49 Dose: 200 mls/hr Insulin Glargine (Lantus) 30 unit SUBCUT BID [facility] Last Admin: 10/04/19 21:40 Dose: 30 units Insulin Human Lispro (Humalog) 0 unit SUBCUT QIDACANDBED [facility]; Protocol Last Admin: 10/04/19 21:50 Dose: Not Given Insulin Human Lispro (Humalog) 15 unit SUBCUT TIDPC [facility] Last Admin: 10/04/19 18:07 Dose: 15 units Methimazole (Methimazole) 5 mg PO MoTuWeThFr@1400 [facility] Metolazone (Zaroxolyn) 2.5 mg PO MoTh@0730 [facility] Last Admin: 10/05/19 08:05 Dose: 2.5 mg Metoprolol Tartrate (Lopressor) 75 mg PO BID [facility] Last Admin: 10/05/19 08:11 Dose: 75 mg Mineral Oil/White Petrolatum (Hydrocerin Crm) 0 gm TOP DAILY [facility] Last Admin: 10/05/19 08:19 Dose: 1 applic Mupirocin (Bactroban Oint) 0 gm TOP DAILY [facility] Last Admin: 10/05/19 08:20 Dose: 1 applic Pantoprazole Sodium (Protonix) 40 mg PO ACBREAKFAST [facility] Last Admin: 10/05/19 06:44 Dose: 40 mg Potassium Chloride (Klor-Con 10) 20 meq PO BID [facility] Last Admin: 10/05/19 08:15 Dose: 20 meq Sertraline HCl (Zoloft) 100 mg PO DAILY [facility] Last Admin: 10/05/19 08:06 Dose: 100 mg Spironolactone (Aldactone) 25 mg PO DAILY [facility] Last Admin: 10/05/19 08:12 Dose: 25 mg Warfarin Sodium (Pharmacy To Dose - Warfarin) 1 dose .XX ASDIRECTED PRN PRN Reason: RX TO DOSE WARFARIN Discontinued Medications Furosemide (Lasix) 40 mg IVPUSH NOW ONE Stop: 10/03/19 07:59 Last Admin: 10/03/19 09:30 Dose: 40 mg Furosemide (Lasix) 40 mg PO 1700 [facility] Furosemide (Lasix) 80 mg PO 0800 [facility] Insulin Glargine (Lantus) 44 unit SUBCUT BIDAC [facility] Last Admin: 10/03/19 17:26 Dose: Not Given Insulin Human Lispro (Humalog) 20 unit SUBCUT ONETIME ONE Stop: 10/03/19 12:35 Last Admin: 10/03/19 14:02 Dose: 20 units Insulin Human Lispro (Humalog) 20 unit SUBCUT TIDAC [facility] Last Admin: 10/03/19 17:27 Dose: Not Given Pantoprazole Sodium (Protonix) 20 mg PO DAILY [facility] Potassium Chloride (Klor-Con M20) 40 meq PO BID [facility] Stop: 10/04/19 21:01 Last Admin: 10/04/19 21:37 Dose: 40 meq Warfarin Sodium (Coumadin) 1.25 mg PO ONETIME ONE Stop: 10/03/19 18:01 Last Admin: 10/03/19 17:57 Dose: 1.25 mg Warfarin Sodium (Coumadin) 2.5 mg PO QPM [facility] Stop: 10/04/19 18:01 Last Admin: 10/04/19 18:05 Dose: 2.5 mg - Exam Quality Assessment: Supplemental Oxygen General: Alert, Oriented HEENT: Pupils Equal, Mucous Membr. Moist/[place] Neck: Supple Lungs: Clear to Auscultation, Normal Respiratory Effort Cardiovascular: Regular Rate, Regular Rhythm GI/Abdominal Exam: Normal Bowel Sounds, Soft, Non-Tender, No Organomegaly, No Distention, No Abnormal Bruit, No Mass Extremities: Normal Inspection, Normal Range of Motion, Non-Tender, Normal Capillary Refill, Pedal Edema (1+), Redness (Less induration and decrease in size of left lower extremity cellulitis) Skin: Warm, Dry, Intact Psy/Mental Status: Alert, Normal Affect, Normal Mood Sepsis Event Note - Evaluation Sepsis Screening Result: No Definite Risk - Focused Exam Vital Signs: Vital Signs Temp Temp Pulse Pulse Resp BP BP 10/05/19 08:17 98.1 F 95 20 106/65 10/05/19 08:14 10/05/19 08:11 95 106/65 10/05/19 08:10 95 106/65 10/05/19 04:49 83 10/05/19 04:48 97.9 F 90 18 102/59 L 10/04/19 21:52 86 10/04/19 21:38 98 110/57 L 10/04/19 21:35 98.1 F 98 18 110/57 L Pulse Ox 10/05/19 08:17 94 L 10/05/19 08:14 87 L 10/05/19 08:11 10/05/19 08:10 10/05/19 04:49 93 L 10/05/19 04:48 94 L 10/04/19 21:52 97 10/04/19 21:38 10/04/19 21:35 99 Date Exam was Performed: 10/05/19 Time Exam was Performed: 08:48 - Problem List Review Problem List Initiated/Reviewed/Updated: Yes - My Orders Last 24 Hours: My Active Orders 10/04/19 09:00 Aspirin [Halfprin] 81 mg PO DAILY Mineral Oil/Petrolatum,White [Hydrocerin Crm] 0 gm TOP DAILY Mupirocin Oint [Bactroban Oint] 0 gm TOP DAILY Sertraline [Zoloft] 100 mg PO DAILY Spironolactone [Aldactone] 25 mg PO DAILY allopurinoL [Zyloprim] 150 mg PO DAILY 10/04/19 12:00 Digoxin [Lanoxin] 125 mcg PO 1200 10/05/19 07:30 metOLazone [Zaroxolyn] 2.5 mg PO MoTh@0730 10/05/19 14:00 methIMAzole 5 mg PO MoTuWeThFr@1400 10/06/19 05:11 C-REACTIVE PROTEIN [CHEM] AM CBC WITH AUTO DIFF [HEME] AM COMPREHENSIVE METABOLIC PN,CMP [CHEM] AM INR,PT,PROTHROMBIN TIME [COAG] AM MAGNESIUM [CHEM] AM 10/07/19 05:11 C-REACTIVE PROTEIN [CHEM] AM CBC WITH AUTO DIFF [HEME] AM COMPREHENSIVE METABOLIC PN,CMP [CHEM] AM INR,PT,PROTHROMBIN TIME [COAG] AM MAGNESIUM [CHEM] AM 10/08/19 05:11 INR,PT,PROTHROMBIN TIME [COAG] AM 10/09/19 05:11 INR,PT,PROTHROMBIN TIME [COAG] AM - Plan Plan:: Left lower extremity cellulitis * Fever with chills night prior to admission * No fever since that hospitalization * White count 21-->14-->15 * Improvement while on Rocephin * Complains of redness in the left leg. -Improved * Bilateral lower extremity pain. -Improved * MRSA screen negative * No signs of sepsis * Procalcitonin 0.32 on admission * C-reactive protein 23.9-->18.1 Plan * Continue Rocephin 2 g IV every 24 hours. * CBC and C-reactive protein in the morning Urinary retention * Greater than 900 mL out in the emergency department with straight cath * History of overactive bladder * On mirabegron for OAB. Side effects include urinary retention * No urinary retention since admission, but incontinent. Plan * Stop mirabegron * Monitor urinary output and follow with bladder ultrasound Decompensated congestive heart failure * Requiring 3 to 4 FiO2 overnight * proBNP 3155 on admission * Chest x-ray consistent with pulmonary vascular congestion and cardiomegaly * Patient is asymptomatic. * Given Lasix 40 mg IV push in the emergency room Plan * Continue Lasix 40 mg IV 3 times daily * Follow electrolytes and renal function * Goal to decrease need for FiO2 * Daily I's and O's and weights Acute on chronic renal insufficiency * Creatinine 1.3-->1.0-->1.1, BUN 49-->45-->54, estimated GFR 41-->55-->49 Plan * Monitor renal function closely since she will be getting an increase in furosemide secondary to her decompensated heart failure * Avoid nephrotoxic medications. Atrial fibrillation * Patient on multiple medications including: Diltiazem, metoprolol, digoxin * Rate controlled * INR 2.36-->2.3-->2.2 Plan * Telemetry * Continue home meds * Pharmacy to dose warfarin Insulin-dependent diabetes * Hemoglobin A1c 7.7 * 147 to 284 Plan * Decrease insulin dose slightly from home dose to prevent hypoglycemia and use sliding scale insulin. * Lantus 20 units twice daily * Humalog 15 units with meals * Check hemoglobin A1c * Monitor blood sugars closely. Blood sugars coming down Hyperthyroid * On methimazole 2.5 mg Saturday, Saturday, Saturday, , and Saturday * TSH 0.66 Plan * Continue home methimazole VTE prophylaxis with warfarin CODE STATUS: Full code Disposition: Admit to floor on telemetry
[2019-10-05] MEDS: Insulin Lispro 100 Units/ML 3 ML Vial SUBCUT SCH ×7 (09:49→21:10)
[2019-10-05] MEDS: Insulin Glarg,Human.Rec.Analog 100 Unit/ML SUBCUT SCH ×2 (09:50→21:09)
[2019-10-05] MEDS: cefTRIAXone 2 GM in Sodium Chloride 0.9% 100 ML IV SCH (11:20)
[2019-10-05] MEDS: Digoxin 125 MCG Tab PO SCH (11:21)
[2019-10-05] MEDS: Methimazole 5 MG Tab PO SCH (13:16)
[2019-10-05] MEDS ORDERED: Warfarin 2.5 MG Tab PO SCH (18:00)
[2019-10-06] MEDS: Pantoprazole 40 MG Tab.CR PO SCH (05:37)
[2019-10-06] MEDS: Docusate Sodium 100 MG Cap PO SCH ×2 (08:55→20:29)
[2019-10-06] MEDS: Aspirin 81 MG Tab.EC PO SCH (08:55)
[2019-10-06] MEDS: Diltiazem 120 MG Cap.CD PO SCH ×2 (08:55→20:28)
[2019-10-06] MEDS: Allopurinol 300 MG Tab PO SCH (08:56)
[2019-10-06] MEDS: Spironolactone 25 MG Tab PO SCH (08:56)
[2019-10-06] MEDS: Potassium Chloride 20 MEQ Tab.ER PO SCH ×2 (08:58→20:28)
[2019-10-06] MEDS: Metoprolol Tartrate 50 MG Tab PO SCH ×2 (08:59→20:26)
[2019-10-06] MEDS: Sertraline 50 MG Tab PO SCH (08:59)
[2019-10-06] MEDS: Mineral Oil/White Petrolatum Crm 113 GM Jar TOP SCH (09:00)
[2019-10-06] MEDS ORDERED: Potassium Chloride 20 MEQ Tab.ER PO ONE (09:00)
[2019-10-06] MEDS: Mupirocin Oint 22 GM Tube TOP SCH (09:02)
--- NOTE | 2019-10-06 09:04 | PCM.PN ---
- General Info Date of Service: 10/06/19 Admission Dx/Problem (Free Text): Admission Diagnosis/Problem Admission Diagnosis/Problem Cellulitis Functional Status: Reports: Pain Controlled, Tolerating Diet, Urinating. Denies : New Symptoms - Review of Systems General: Reports: No Symptoms. Denies: Fever, Weakness, Fatigue, Malaise, Chills HEENT: Reports: No Symptoms. Denies: Headaches, Sore Throat Pulmonary: Reports: Shortness of Breath. Denies: Cough, Sputum Cardiovascular: Reports: No Symptoms. Denies: Chest Pain, Palpitations, Dyspnea on Exertion Gastrointestinal: Reports: No Symptoms. Denies: Abdominal Pain, Constipation, Diarrhea, Nausea, Vomiting Genitourinary: Reports: Incontinence. Denies: Pain Musculoskeletal: Reports: No Symptoms. Denies: Leg Pain Skin: Reports: No Symptoms. Denies: Cyanosis Neurological: Reports: No Symptoms. Denies: Confusion Psychiatric: Reports: No Symptoms - Patient Data Vitals - Most Recent: Last Vital Signs Temp 98.8 F 10/06/19 05:26 Pulse 95 10/06/19 08:59 Resp 16 10/06/19 05:26 BP 102/57 L 10/06/19 08:59 Pulse Ox 96 10/06/19 05:26 Weight - Most Recent: 230 lb 8 oz I&O - Last 24 Hours: Intake & Output 10/05/19 10/06/19 10/06/19 22:59 06:59 14:59 Intake Total 730 80 Output Total 200 0 Balance 530 80 Lab Results Last 24 Hours: Laboratory Results - last 24 hr 10/05/19 10/05/19 10/05/19 Range/Units 10:57 16:35 20:44 WBC (3.98-10.04) K/mm3 RBC (3.98-5.22) M/mm3 Hgb (11.2-15.7) gm/dl Hct (34.1-44.9) % MCV (79.4-94.8) fl MCH (25.6-32.2) pg MCHC (32.2-35.5) g/dl RDW Std Deviation (36.4-46.3) fL Plt Count (182-369) K/mm3 MPV (9.4-12.3) fl Neut % (Auto) (34.0-71.1) % Lymph % (Auto) (19.3-51.7) % [place] % (Auto) (4.7-12.5) % Eos % (Auto) (0.7-5.8) Baso % (Auto) (0.1-1.2) % Neut # (Auto) (1.56-6.13) K/mm3 Lymph # (Auto) (1.18-3.74) K/mm3 [place] # (Auto) (0.24-0.36) K/mm3 Eos # (Auto) (0.04-0.36) K/mm3 Baso # (Auto) (0.01-0.08) K/mm3 Manual Slide Review PT (9.7-12.0) SECONDS INR Sodium (136-145) mEq/L Potassium (3.5-5.1) mEq/L Chloride (98-107) mEq/L Carbon Dioxide (21-32) mEq/L Anion Gap (5-15) BUN (7-18) mg/dL Creatinine (0.55-1.02) mg/dL Est Cr Clr Drug Dosing mL/min Estimated GFR (MDRD) (>60) mL/min BUN/Creatinine Ratio (14-18) Glucose (80-115) mg/dL POC Glucose 240 H 128 H 126 H (80-115) mg/dL Calcium (8.5-10.1) mg/dL Magnesium (1.8-2.4) mg/dl Total Bilirubin (0.2-1.0) mg/dL AST (15-37) U/L ALT (14-59) U/L Alkaline Phosphatase (46-116) U/L C-Reactive Protein (<1.0) mg/dL Total Protein (6.4-8.2) g/dl Albumin (3.4-5.0) g/dl Globulin gm/dL Albumin/Globulin Ratio (1-2) 10/06/19 10/06/19 10/06/19 Range/Units 05:35 05:35 05:35 WBC 13.67 H (3.98-10.04) K/mm3 RBC 4.24 (3.98-5.22) M/mm3 Hgb 12.9 (11.2-15.7) gm/dl Hct 41.1 (34.1-44.9) % MCV 96.9 H (79.4-94.8) fl MCH 30.4 (25.6-32.2) pg MCHC 31.4 L (32.2-35.5) g/dl RDW Std Deviation 53.6 H (36.4-46.3) fL Plt Count 283 (182-369) K/mm3 MPV 10.8 (9.4-12.3) fl Neut % (Auto) 84.4 H (34.0-71.1) % Lymph % (Auto) 6.9 L (19.3-51.7) % [place] % (Auto) 5.2 (4.7-12.5) % Eos % (Auto) 3.0 (0.7-5.8) Baso % (Auto) 0.2 (0.1-1.2) % Neut # (Auto) 11.53 H (1.56-6.13) K/mm3 Lymph # (Auto) 0.95 L (1.18-3.74) K/mm3 [place] # (Auto) 0.71 H (0.24-0.36) K/mm3 Eos # (Auto) 0.41 H (0.04-0.36) K/mm3 Baso # (Auto) 0.03 (0.01-0.08) K/mm3 Manual Slide Review Abnormal smear PT 22.8 H (9.7-12.0) SECONDS INR 2.19 Sodium 140 (136-145) mEq/L Potassium 3.7 (3.5-5.1) mEq/L Chloride 99 (98-107) mEq/L Carbon Dioxide 30 (21-32) mEq/L Anion Gap 14.7 (5-15) BUN 57 H (7-18) mg/dL Creatinine 1.1 H (0.55-1.02) mg/dL Est Cr Clr Drug Dosing 52.20 mL/min Estimated GFR (MDRD) 49 (>60) mL/min BUN/Creatinine Ratio 51.8 H (14-18) Glucose 129 H (80-115) mg/dL POC Glucose (80-115) mg/dL Calcium 9.4 (8.5-10.1) mg/dL Magnesium 2.1 (1.8-2.4) mg/dl Total Bilirubin 0.6 (0.2-1.0) mg/dL AST 12 L (15-37) U/L ALT 14 (14-59) U/L Alkaline Phosphatase 67 (46-116) U/L C-Reactive Protein 17.2 H* (<1.0) mg/dL Total Protein 6.9 (6.4-8.2) g/dl Albumin 3.1 L (3.4-5.0) g/dl Globulin 3.8 gm/dL Albumin/Globulin Ratio 0.8 L (1-2) 20 Range/Units 05:35 WBC (3.98-10.04) K/mm3 RBC (3.98-5.22) M/mm3 Hgb (11.2-15.7) gm/dl Hct (34.1-44.9) % MCV (79.4-94.8) fl MCH (25.6-32.2) pg MCHC (32.2-35.5) g/dl RDW Std Deviation (36.4-46.3) fL Plt Count (182-369) K/mm3 MPV (9.4-12.3) fl Neut % (Auto) (34.0-71.1) % Lymph % (Auto) (19.3-51.7) % [place] % (Auto) (4.7-12.5) % Eos % (Auto) (0.7-5.8) Baso % (Auto) (0.1-1.2) % Neut # (Auto) (1.56-6.13) K/mm3 Lymph # (Auto) (1.18-3.74) K/mm3 [place] # (Auto) (0.24-0.36) K/mm3 Eos # (Auto) (0.04-0.36) K/mm3 Baso # (Auto) (0.01-0.08) K/mm3 Manual Slide Review PT (9.7-12.0) SECONDS INR Sodium (136-145) mEq/L Potassium (3.5-5.1) mEq/L Chloride (98-107) mEq/L Carbon Dioxide (21-32) mEq/L Anion Gap (5-15) BUN (7-18) mg/dL Creatinine (0.55-1.02) mg/dL Est Cr Clr Drug Dosing mL/min Estimated GFR (MDRD) (>60) mL/min BUN/Creatinine Ratio (14-18) Glucose (80-115) mg/dL POC Glucose 116 H (80-115) mg/dL Calcium (8.5-10.1) mg/dL Magnesium (1.8-2.4) mg/dl Total Bilirubin (0.2-1.0) mg/dL AST (15-37) U/L ALT (14-59) U/L Alkaline Phosphatase (46-116) U/L C-Reactive Protein (<1.0) mg/dL Total Protein (6.4-8.2) g/dl Albumin (3.4-5.0) g/dl Globulin gm/dL Albumin/Globulin Ratio (1-2) Shaun Results Last 24 Hours: Microbiology 10/03/19 06:59 Aerobic Blood Culture - Preliminary Blood - Venous NO GROWTH AFTER 3 DAYS Anaerobic Blood Culture - Preliminary NO GROWTH AFTER 3 DAYS 10/03/19 06:54 Aerobic Blood Culture - Preliminary Blood - Venous - Lab Draw NO GROWTH AFTER 3 DAYS Anaerobic Blood Culture - Preliminary NO GROWTH AFTER 3 DAYS Med Orders - Current: Current Medications Acetaminophen (Tylenol) 650 mg PO Q4H PRN PRN Reason: Pain (Mild 1-3)/fever Allopurinol (Zyloprim) 150 mg PO DAILY [facility] Last Admin: 10/06/19 08:56 Dose: 150 mg Artificial Tears (Refresh Liquigel 1%) 0 ml EYEBOTH Q2H PRN PRN Reason: Dry Eyes Aspirin (Halfprin) 81 mg PO DAILY [facility] Last Admin: 10/06/19 08:55 Dose: 81 mg Dextrose/Water (Dextrose 50% In Water) 50 ml IVPUSH ASDIRECTED PRN PRN Reason: Hypoglycemia Digoxin (Lanoxin) 125 mcg PO 1200 [facility] Last Admin: 10/05/19 11:21 Dose: 125 mcg Diltiazem HCl (Cardizem Cd) 120 mg PO BID [facility] Last Admin: 10/06/19 08:55 Dose: 120 mg Docusate Sodium (Colace) 100 mg PO BID [facility] Last Admin: 10/06/19 08:55 Dose: 100 mg Furosemide (Lasix) 40 mg IVPUSH TID [facility] Last Admin: 10/05/19 21:09 Dose: 40 mg Ceftriaxone Sodium 2 gm/ (Sodium Chloride) 100 mls @ 200 mls/hr IV Q24H [facility] Last Admin: 10/05/19 11:20 Dose: 200 mls/hr Insulin Glargine (Lantus) 30 unit SUBCUT BID [facility] Last Admin: 10/05/19 21:09 Dose: 30 units Insulin Human Lispro (Humalog) 0 unit SUBCUT QIDACANDBED [facility]; Protocol Last Admin: 10/05/19 21:10 Dose: Not Given Insulin Human Lispro (Humalog) 15 unit SUBCUT TIDPC [facility] Last Admin: 10/05/19 18:06 Dose: 15 units Methimazole (Methimazole) 5 mg PO MoTuWeThFr@1400 [facility] Last Admin: 10/05/19 13:16 Dose: 5 mg Metolazone (Zaroxolyn) 2.5 mg PO MoTh@0730 [facility] Last Admin: 10/05/19 08:05 Dose: 2.5 mg Metoprolol Tartrate (Lopressor) 75 mg PO BID [facility] Last Admin: 10/06/19 08:59 Dose: 75 mg Mineral Oil/White Petrolatum (Hydrocerin Crm) 0 gm TOP DAILY [facility] Last Admin: 10/06/19 09:00 Dose: 1 applic Mupirocin (Bactroban Oint) 0 gm TOP DAILY [facility] Last Admin: 10/06/19 09:02 Dose: 1 applic Pantoprazole Sodium (Protonix) 40 mg PO ACBREAKFAST [facility] Last Admin: 10/06/19 05:37 Dose: 40 mg Potassium Chloride (Klor-Con M20) 20 meq PO BID [facility] Last Admin: 10/06/19 08:58 Dose: 20 meq Sertraline HCl (Zoloft) 100 mg PO DAILY [facility] Last Admin: 10/06/19 08:59 Dose: 100 mg Spironolactone (Aldactone) 25 mg PO DAILY [facility] Last Admin: 10/06/19 08:56 Dose: 25 mg Warfarin Sodium (Pharmacy To Dose - Warfarin) 1 dose .XX ASDIRECTED PRN PRN Reason: RX TO DOSE WARFARIN Warfarin Sodium (Coumadin) 2.5 mg PO QPM [facility] Stop: 10/06/19 18:01 Discontinued Medications Furosemide (Lasix) 40 mg IVPUSH NOW ONE Stop: 10/03/19 07:59 Last Admin: 10/03/19 09:30 Dose: 40 mg Furosemide (Lasix) 40 mg PO 1700 [facility] Furosemide (Lasix) 80 mg PO 0800 [facility] Insulin Glargine (Lantus) 44 unit SUBCUT BIDAC [facility] Last Admin: 10/03/19 17:26 Dose: Not Given Insulin Human Lispro (Humalog) 20 unit SUBCUT ONETIME ONE Stop: 10/03/19 12:35 Last Admin: 10/03/19 14:02 Dose: 20 units Insulin Human Lispro (Humalog) 20 unit SUBCUT TIDAC [facility] Last Admin: 10/03/19 17:27 Dose: Not Given Pantoprazole Sodium (Protonix) 20 mg PO DAILY [facility] Potassium Chloride (Klor-Con 10) 20 meq PO BID [facility] Last Admin: 10/05/19 21:09 Dose: 20 meq Potassium Chloride (Klor-Con M20) 40 meq PO BID [facility] Stop: 10/04/19 21:01 Last Admin: 10/04/19 21:37 Dose: 40 meq Potassium Chloride (Klor-Con M20) 40 meq PO ONETIME ONE Stop: 10/06/19 09:01 Last Admin: 10/06/19 08:57 Dose: 40 meq Warfarin Sodium (Coumadin) 1.25 mg PO ONETIME ONE Stop: 10/03/19 18:01 Last Admin: 10/03/19 17:57 Dose: 1.25 mg Warfarin Sodium (Coumadin) 2.5 mg PO QPM [facility] Stop: 10/04/19 18:01 Last Admin: 10/04/19 18:05 Dose: 2.5 mg Warfarin Sodium (Coumadin) 2.5 mg PO QPM [facility] Stop: 10/05/19 18:01 Last Admin: 10/05/19 17:56 Dose: 2.5 mg - Exam Quality Assessment: Supplemental Oxygen, DVT Prophylaxis General: Alert, Oriented, Cooperative, No Acute Distress HEENT: Pupils Equal, Pupils Reactive, Mucous Membr. Moist/[place] Neck: Supple, Trachea Midline Lungs: Clear to Auscultation, Normal Respiratory Effort Cardiovascular: Regular Rate, Regular Rhythm GI/Abdominal Exam: Normal Bowel Sounds, Soft, Non-Tender, No Distention (Female) Exam: Deferred Back Exam: Normal Inspection, Full Range of Motion Extremities: Pedal Edema (1+), Redness (improving ), Other (Cellulitis of left leg improving from demarcated area.). No: Leg Pain Skin: Warm, Dry, Intact Neurological: No New Focal Deficit Psy/Mental Status: Alert, Normal Affect, Normal Mood Sepsis Event Note - Evaluation Sepsis Screening Result: No Definite Risk - Focused Exam Vital Signs: Vital Signs Temp Pulse Resp BP Pulse Ox 10/06/19 08:59 95 102/57 L 10/06/19 08:55 95 102/57 L 10/06/19 05:26 98.8 F 79 16 98/71 96 10/05/19 23:55 98.1 F 94 17 105/67 95 10/05/19 21:08 76 104/59 L 10/05/19 21:07 76 104/59 L 10/05/19 21:05 104/59 L Date Exam was Performed: 10/06/19 Time Exam was Performed: 10:01 - Problem List & Annotations (1) CHF exacerbation SNOMED Code(s): 984391572, 65022920615186 Code(s): I50.9 - HEART FAILURE, UNSPECIFIED Status: Acute Priority: High Current Visit: Yes Qualifiers: Heart failure type: unspecified Qualified Code(s): I50.9 - Heart failure, unspecified (2) Cellulitis of left leg SNOMED Code(s): 200235608 Code(s): L03.116 - CELLULITIS OF LEFT LOWER LIMB Status: Acute Priority: High Current Visit: Yes (3) Chronic atrial fibrillation SNOMED Code(s): 312167006 Code(s): I48.20 - CHRONIC ATRIAL FIBRILLATION, UNSPECIFIED Status: Chronic Priority: Medium Current Visit: No (4) Hypoxemia SNOMED Code(s): 608140729 Code(s): R09.02 - HYPOXEMIA Status: Acute Priority: High Current Visit : Yes (5) Urinary retention SNOMED Code(s): 806460544 Code(s): R33.9 - RETENTION OF URINE, UNSPECIFIED Status: Acute Priority: High Current Visit: Yes (6) Chronic renal insufficiency SNOMED Code(s): 711098169 Code(s): N18.9 - CHRONIC KIDNEY DISEASE, UNSPECIFIED Status: Chronic Priority: Medium Current Visit: Yes Qualifiers: Chronic kidney disease stage: unspecified stage Qualified Code(s): N18.9 - Chronic kidney disease, unspecified (7) Hyperthyroidism SNOMED Code(s): 37702224 Code(s): E05.90 - THYROTOXICOSIS, UNSP WITHOUT THYROTOXIC CRISIS OR STORM Status: Chronic Priority: Low Current Visit: No (8) Diabetes mellitus SNOMED Code(s): 11605100 Code(s): E11.9 - TYPE 2 DIABETES MELLITUS WITHOUT COMPLICATIONS Status: Chronic Priority: Medium Current Visit: Yes Qualifiers: Diabetes mellitus type: type 2 Diabetes mellitus intermodal dispatcher insulin use: with intermodal dispatcher use Diabetes mellitus complication status: with other specified complication Qualified Code(s): E11.69 - Type 2 diabetes mellitus with other specified complication; Z79.4 - intermodal dispatcher (current) use of insulin - Problem List Review Problem List Initiated/Reviewed/Updated: Yes - My Orders Last 24 Hours: My Active Orders 10/06/19 09:01 Echo Comp wo Cont [US] Routine - Plan Plan:: Left lower extremity cellulitis * Fever with chills night prior to admission * No fever since that hospitalization * White count 21-->14-->15-->13 * Improvement while on Rocephin * Complains of redness in the left leg. -Improved * Bilateral lower extremity pain. -Improved * MRSA screen negative * No signs of sepsis * Procalcitonin 0.32 on admission * C-reactive protein 23.9-->18.1-->17.2 Plan * Continue Rocephin 2 g IV every 24 hours. * Monitor labs Urinary retention * Greater than 900 mL out in the emergency department with straight cath * History of overactive bladder * On mirabegron for OAB. Side effects include urinary retention * No urinary retention since admission, but incontinent. Plan * Stop mirabegron * Monitor urinary output and follow with bladder ultrasound Decompensated congestive heart failure * Requiring 3 to 4 FiO2 overnight * proBNP 3155 on admission * Chest x-ray consistent with pulmonary vascular congestion and cardiomegaly * Patient is asymptomatic. * Given Lasix 40 mg IV push in the emergency room Plan * Start Lasix 60 mg IV 3 times daily * Follow electrolytes and renal function * Goal to decrease need for FiO2 * Daily I's and O's and weights Acute on chronic renal insufficiency * Creatinine 1.3-->1.0-->1.1, BUN 49-->45-->54-->57, estimated GFR 41-->55-->49 Plan * Monitor renal function closely since she will be getting an increase in furosemide secondary to her decompensated heart failure * Avoid nephrotoxic medications. Atrial fibrillation * Patient on multiple medications including: Diltiazem, metoprolol, digoxin * Rate controlled * INR 2.36-->2.3-->2.2-->2.19 Plan * Telemetry * Continue home meds * Pharmacy to dose warfarin Insulin-dependent diabetes * Hemoglobin A1c 7.7 * 116 to 284 Plan * Decrease insulin dose slightly from home dose to prevent hypoglycemia and use sliding scale insulin. * Lantus 20 units twice daily * Humalog 15 units with meals * Check hemoglobin A1c * Monitor blood sugars closely. Blood sugars coming down Hyperthyroid * On methimazole 2.5 mg Saturday, Saturday, Saturday, , and Saturday * TSH 0.66 Plan * Continue home methimazole VTE prophylaxis with warfarin CODE STATUS: Full code Disposition: Admit to floor on telemetry; Likely discharge tomorrow 10/07/19 pending continued improvement. LOS > 96 hrs due to slow response to treatment. Need for more diuresis.
--- NOTE | 2019-10-06 09:57 | CR ---
Chest: 2 views of the chest are obtained. Comparison: Previous chest x-ray of 10/03/19. Heart is enlarged. Tortuous thoracic aorta is seen. Lungs are clear no acute parenchymal change. Lungs are hyperinflated on the lateral view. Scattered disc space narrowing is seen throughout the thoracic spine with mild endplate osteophytes. Impression: 1. Stable cardiomegaly. 2. Emphysematous change. Diagnostic code #3 This report was dictated in MDT
[2019-10-06] MEDS: Furosemide 40 MG/4 ML VIAL IVPUSH SCH ×4 (10:22→20:21)
[2019-10-06] MEDS: Insulin Glarg,Human.Rec.Analog 100 Unit/ML SUBCUT SCH ×2 (10:23→21:16)
[2019-10-06] MEDS: Insulin Lispro 100 Units/ML 3 ML Vial SUBCUT SCH ×7 (10:25→21:18)
[2019-10-06] MEDS: cefTRIAXone 2 GM in Sodium Chloride 0.9% 100 ML IV SCH (12:57)
[2019-10-06] MEDS: Digoxin 125 MCG Tab PO SCH (12:57)
[2019-10-06] MEDS: Methimazole 5 MG Tab PO SCH (14:27)
[2019-10-06] MEDS ORDERED: Warfarin 2.5 MG Tab PO SCH (18:00)
[2019-10-07] MEDS: Pantoprazole 40 MG Tab.CR PO SCH (06:32)
--- NOTE | 2019-10-07 07:29 | PCM.PN ---
- General Info Date of Service: 10/07/19 Admission Dx/Problem (Free Text): Admission Diagnosis/Problem Admission Diagnosis/Problem Cellulitis Subjective Update: Patient reports her feet hurt every AM Last BM yesterday 10/06/19 Awaiting echo results No other patient concerns Legs improving On 2L O2 Functional Status: Reports: Pain Controlled, Tolerating Diet, Ambulating, Urinating. Denies: New Symptoms - Review of Systems General: Reports: Weakness. Denies: Fever, Fatigue, Malaise, Chills HEENT: Reports: No Symptoms. Denies: Headaches, Sore Throat Pulmonary: Reports: No Symptoms. Denies: Shortness of Breath, Cough, Sputum, Wheezing Cardiovascular: Reports: No Symptoms. Denies: Chest Pain, Palpitations Gastrointestinal: Reports: No Symptoms. Denies: Abdominal Pain, Constipation, Diarrhea, Nausea, Vomiting Genitourinary: Reports: No Symptoms. Denies: Pain Musculoskeletal: Reports: Foot Pain (In AM ) Skin: Reports: No Symptoms. Denies: Cyanosis Neurological: Reports: Difficulty Walking, Weakness, Gait Disturbance. Denies: Confusion Psychiatric: Reports: No Symptoms - Patient Data Vitals - Most Recent: Last Vital Signs Temp 97.9 F 10/07/19 04:15 Pulse 85 10/07/19 04:15 Resp 18 10/07/19 04:15 BP 103/58 L 10/07/19 04:15 Pulse Ox 94 L 10/07/19 04:15 Weight - Most Recent: 227 lb 4.8 oz I&O - Last 24 Hours: Intake & Output 10/06/19 10/07/19 10/07/19 22:59 06:59 14:59 Intake Total 840 100 Output Total 1462 1215 Balance -622 -1115 Lab Results Last 24 Hours: Laboratory Results - last 24 hr 10/06/19 10/06/19 10/06/19 Range/Units 10:21 14:17 18:43 WBC (3.98-10.04) K/mm3 RBC (3.98-5.22) M/mm3 Hgb (11.2-15.7) gm/dl Hct (34.1-44.9) % MCV (79.4-94.8) fl MCH (25.6-32.2) pg MCHC (32.2-35.5) g/dl RDW Std Deviation (36.4-46.3) fL Plt Count (182-369) K/mm3 MPV (9.4-12.3) fl Neut % (Auto) (34.0-71.1) % Lymph % (Auto) (19.3-51.7) % Victoria % (Auto) (4.7-12.5) % Eos % (Auto) (0.7-5.8) Baso % (Auto) (0.1-1.2) % Neut # (Auto) (1.56-6.13) K/mm3 Lymph # (Auto) (1.18-3.74) K/mm3 Victoria # (Auto) (0.24-0.36) K/mm3 Eos # (Auto) (0.04-0.36) K/mm3 Baso # (Auto) (0.01-0.08) K/mm3 Manual Slide Review PT (9.7-12.0) SECONDS INR Sodium (136-145) mEq/L Potassium (3.5-5.1) mEq/L Chloride (98-107) mEq/L Carbon Dioxide (21-32) mEq/L Anion Gap (5-15) BUN (7-18) mg/dL Creatinine (0.55-1.02) mg/dL Est Cr Clr Drug Dosing mL/min Estimated GFR (MDRD) (>60) mL/min BUN/Creatinine Ratio (14-18) Glucose (80-115) mg/dL POC Glucose 168 H 142 H 109 (80-115) mg/dL Calcium (8.5-10.1) mg/dL Magnesium (1.8-2.4) mg/dl Total Bilirubin (0.2-1.0) mg/dL AST (15-37) U/L ALT (14-59) U/L Alkaline Phosphatase (46-116) U/L C-Reactive Protein (<1.0) mg/dL Total Protein (6.4-8.2) g/dl Albumin (3.4-5.0) g/dl Globulin gm/dL Albumin/Globulin Ratio (1-2) 10/06/19 10/07/19 10/07/19 Range/Units 21:15 05:34 05:34 WBC 13.40 H (3.98-10.04) K/mm3 RBC 4.37 (3.98-5.22) M/mm3 Hgb 13.3 (11.2-15.7) gm/dl Hct 42.4 (34.1-44.9) % MCV 97.0 H (79.4-94.8) fl MCH 30.4 (25.6-32.2) pg MCHC 31.4 L (32.2-35.5) g/dl RDW Std Deviation 53.3 H (36.4-46.3) fL Plt Count 283 (182-369) K/mm3 MPV 10.3 (9.4-12.3) fl Neut % (Auto) 85.6 H (34.0-71.1) % Lymph % (Auto) 6.2 L (19.3-51.7) % Victoria % (Auto) 5.7 (4.7-12.5) % Eos % (Auto) 2.1 (0.7-5.8) Baso % (Auto) 0.2 (0.1-1.2) % Neut # (Auto) 11.46 H (1.56-6.13) K/mm3 Lymph # (Auto) 0.83 L (1.18-3.74) K/mm3 Victoria # (Auto) 0.77 H (0.24-0.36) K/mm3 Eos # (Auto) 0.28 (0.04-0.36) K/mm3 Baso # (Auto) 0.03 (0.01-0.08) K/mm3 Manual Slide Review Abnormal smear PT 20.7 H (9.7-12.0) SECONDS INR 1.97 Sodium (136-145) mEq/L Potassium (3.5-5.1) mEq/L Chloride (98-107) mEq/L Carbon Dioxide (21-32) mEq/L Anion Gap (5-15) BUN (7-18) mg/dL Creatinine (0.55-1.02) mg/dL Est Cr Clr Drug Dosing mL/min Estimated GFR (MDRD) (>60) mL/min BUN/Creatinine Ratio (14-18) Glucose (80-115) mg/dL POC Glucose 154 H (80-115) mg/dL Calcium (8.5-10.1) mg/dL Magnesium (1.8-2.4) mg/dl Total Bilirubin (0.2-1.0) mg/dL AST (15-37) U/L ALT (14-59) U/L Alkaline Phosphatase (46-116) U/L C-Reactive Protein (<1.0) mg/dL Total Protein (6.4-8.2) g/dl Albumin (3.4-5.0) g/dl Globulin gm/dL Albumin/Globulin Ratio (1-2) 10/07/19 10/07/19 Range/Units 05:34 06:30 WBC (3.98-10.04) K/mm3 RBC (3.98-5.22) M/mm3 Hgb (11.2-15.7) gm/dl Hct (34.1-44.9) % MCV (79.4-94.8) fl MCH (25.6-32.2) pg MCHC (32.2-35.5) g/dl RDW Std Deviation (36.4-46.3) fL Plt Count (182-369) K/mm3 MPV (9.4-12.3) fl Neut % (Auto) (34.0-71.1) % Lymph % (Auto) (19.3-51.7) % Victoria % (Auto) (4.7-12.5) % Eos % (Auto) (0.7-5.8) Baso % (Auto) (0.1-1.2) % Neut # (Auto) (1.56-6.13) K/mm3 Lymph # (Auto) (1.18-3.74) K/mm3 Victoria # (Auto) (0.24-0.36) K/mm3 Eos # (Auto) (0.04-0.36) K/mm3 Baso # (Auto) (0.01-0.08) K/mm3 Manual Slide Review PT (9.7-12.0) SECONDS INR Sodium 141 (136-145) mEq/L Potassium 3.4 L (3.5-5.1) mEq/L Chloride 99 (98-107) mEq/L Carbon Dioxide 29 (21-32) mEq/L Anion Gap 16.4 H (5-15) BUN 58 H (7-18) mg/dL Creatinine 1.2 H (0.55-1.02) mg/dL Est Cr Clr Drug Dosing 47.85 mL/min Estimated GFR (MDRD) 45 (>60) mL/min BUN/Creatinine Ratio 48.3 H (14-18) Glucose 159 H (80-115) mg/dL POC Glucose 175 H (80-115) mg/dL Calcium 9.6 (8.5-10.1) mg/dL Magnesium 2.2 (1.8-2.4) mg/dl Total Bilirubin 0.6 (0.2-1.0) mg/dL AST 14 L (15-37) U/L ALT 14 (14-59) U/L Alkaline Phosphatase 68 (46-116) U/L C-Reactive Protein 9.4 H* (<1.0) mg/dL Total Protein 7.1 (6.4-8.2) g/dl Albumin 3.2 L (3.4-5.0) g/dl Globulin 3.9 gm/dL Albumin/Globulin Ratio 0.8 L (1-2) Shaun Results Last 24 Hours: Microbiology 10/03/19 06:59 Aerobic Blood Culture - Preliminary Blood - Venous NO GROWTH AFTER 4 DAYS Anaerobic Blood Culture - Preliminary NO GROWTH AFTER 4 DAYS 10/03/19 06:54 Aerobic Blood Culture - Preliminary Blood - Venous - Lab Draw NO GROWTH AFTER 4 DAYS Anaerobic Blood Culture - Preliminary NO GROWTH AFTER 4 DAYS Med Orders - Current: Current Medications Acetaminophen (Tylenol) 650 mg PO Q4H PRN PRN Reason: Pain (Mild 1-3)/fever Allopurinol (Zyloprim) 150 mg PO DAILY [facility] Last Admin: 10/06/19 08:56 Dose: 150 mg Artificial Tears (Refresh Liquigel 1%) 0 ml EYEBOTH Q2H PRN PRN Reason: Dry Eyes Aspirin (Halfprin) 81 mg PO DAILY [facility] Last Admin: 10/06/19 08:55 Dose: 81 mg Dextrose/Water (Dextrose 50% In Water) 50 ml IVPUSH ASDIRECTED PRN PRN Reason: Hypoglycemia Digoxin (Lanoxin) 125 mcg PO 1200 [facility] Last Admin: 10/06/19 12:57 Dose: 125 mcg Diltiazem HCl (Cardizem Cd) 120 mg PO BID [facility] Last Admin: 10/06/19 20:28 Dose: 120 mg Docusate Sodium (Colace) 100 mg PO BID [facility] Last Admin: 10/06/19 20:29 Dose: 100 mg Furosemide (Lasix) 60 mg IVPUSH TID [facility] Last Admin: 10/06/19 20:21 Dose: 60 mg Ceftriaxone Sodium 2 gm/ (Sodium Chloride) 100 mls @ 200 mls/hr IV Q24H [facility] Last Admin: 10/06/19 12:57 Dose: 200 mls/hr Insulin Glargine (Lantus) 30 unit SUBCUT BID [facility] Last Admin: 10/06/19 21:16 Dose: 30 units Insulin Human Lispro (Humalog) 0 unit SUBCUT QIDACANDBED [facility]; Protocol Last Admin: 10/06/19 21:18 Dose: 1 unit Insulin Human Lispro (Humalog) 15 unit SUBCUT TIDPC [facility] Last Admin: 10/06/19 18:41 Dose: 15 units Methimazole (Methimazole) 5 mg PO MoTuWeThFr@1400 [facility] Last Admin: 10/06/19 14:27 Dose: 5 mg Metolazone (Zaroxolyn) 2.5 mg PO MoTh@0730 [facility] Last Admin: 10/05/19 08:05 Dose: 2.5 mg Metoprolol Tartrate (Lopressor) 75 mg PO BID [facility] Last Admin: 10/06/19 20:26 Dose: 75 mg Mineral Oil/White Petrolatum (Hydrocerin Crm) 0 gm TOP DAILY [facility] Last Admin: 10/06/19 09:00 Dose: 1 applic Mupirocin (Bactroban Oint) 0 gm TOP DAILY [facility] Last Admin: 10/06/19 09:02 Dose: 1 applic Pantoprazole Sodium (Protonix) 40 mg PO ACBREAKFAST [facility] Last Admin: 10/07/19 06:32 Dose: 40 mg Sertraline HCl (Zoloft) 100 mg PO DAILY [facility] Last Admin: 10/06/19 08:59 Dose: 100 mg Spironolactone (Aldactone) 25 mg PO DAILY [facility] Last Admin: 10/06/19 08:56 Dose: 25 mg Warfarin Sodium (Pharmacy To Dose - Warfarin) 1 dose .XX ASDIRECTED PRN PRN Reason: RX TO DOSE WARFARIN Discontinued Medications Furosemide (Lasix) 40 mg IVPUSH NOW ONE Stop: 10/03/19 07:59 Last Admin: 10/03/19 09:30 Dose: 40 mg Furosemide (Lasix) 40 mg PO 1700 [facility] Furosemide (Lasix) 80 mg PO 0800 [facility] Furosemide (Lasix) 40 mg IVPUSH TID [facility] Last Admin: 10/06/19 12:18 Dose: Not Given Insulin Glargine (Lantus) 44 unit SUBCUT BIDAC [facility] Last Admin: 10/03/19 17:26 Dose: Not Given Insulin Human Lispro (Humalog) 20 unit SUBCUT ONETIME ONE Stop: 10/03/19 12:35 Last Admin: 10/03/19 14:02 Dose: 20 units Insulin Human Lispro (Humalog) 20 unit SUBCUT TIDAC [facility] Last Admin: 10/03/19 17:27 Dose: Not Given Pantoprazole Sodium (Protonix) 20 mg PO DAILY [facility] Potassium Chloride (Klor-Con 10) 20 meq PO BID [facility] Last Admin: 10/05/19 21:09 Dose: 20 meq Potassium Chloride (Klor-Con M20) 40 meq PO BID [facility] Stop: 10/04/19 21:01 Last Admin: 10/04/19 21:37 Dose: 40 meq Potassium Chloride (Klor-Con M20) 40 meq PO ONETIME ONE Stop: 10/06/19 09:01 Last Admin: 10/06/19 08:57 Dose: 40 meq Potassium Chloride (Klor-Con M20) 20 meq PO BID [facility] Last Admin: 10/06/19 20:28 Dose: 20 meq Warfarin Sodium (Coumadin) 1.25 mg PO ONETIME ONE Stop: 10/03/19 18:01 Last Admin: 10/03/19 17:57 Dose: 1.25 mg Warfarin Sodium (Coumadin) 2.5 mg PO QPM [facility] Stop: 10/04/19 18:01 Last Admin: 10/04/19 18:05 Dose: 2.5 mg Warfarin Sodium (Coumadin) 2.5 mg PO QPM [facility] Stop: 10/05/19 18:01 Last Admin: 10/05/19 17:56 Dose: 2.5 mg Warfarin Sodium (Coumadin) 2.5 mg PO QPM [facility] Stop: 10/06/19 18:01 Last Admin: 10/06/19 18:41 Dose: 2.5 mg - Exam Quality Assessment: Supplemental Oxygen (2L), DVT Prophylaxis General: Alert, Oriented, Cooperative, No Acute Distress HEENT: Pupils Equal, Pupils Reactive, Mucous Membr. Moist/Reid Neck: Supple, Trachea Midline Lungs: Clear to Auscultation, Normal Respiratory Effort Cardiovascular: Regular Rate, Regular Rhythm GI/Abdominal Exam: Normal Bowel Sounds, Soft, Non-Tender, No Distention (Female) Exam: Deferred Extremities: Pedal Edema, Redness (improving ), Other (Improving edema and erythema on left leg. Pain has improved. ). No: Leg Pain Skin: Warm, Dry, Intact Neurological: No New Focal Deficit Psy/Mental Status: Alert, Normal Affect, Normal Mood Sepsis Event Note - Evaluation Sepsis Screening Result: Sepsis Risk - Focused Exam Vital Signs: Vital Signs Temp Pulse Resp BP Pulse Ox Pulse Ox 10/07/19 04:15 97.9 F 85 18 103/58 L 94 L 10/06/19 20:28 100 110/71 10/06/19 20:26 97.9 F 100 18 110/71 93 L 10/06/19 19:31 94 L Date Exam was Performed: 10/07/19 Time Exam was Performed: 10:29 - Problem List & Annotations (1) CHF exacerbation SNOMED Code(s): 584819887, 39094565502482 Code(s): I50.9 - HEART FAILURE, UNSPECIFIED Status: Acute Priority: High Current Visit: Yes Qualifiers: Heart failure type: unspecified Qualified Code(s): I50.9 - Heart failure, unspecified (2) Cellulitis of left leg SNOMED Code(s): 559928461 Code(s): L03.116 - CELLULITIS OF LEFT LOWER LIMB Status: Acute Priority: High Current Visit: Yes (3) Chronic atrial fibrillation SNOMED Code(s): 305212575 Code(s): I48.20 - CHRONIC ATRIAL FIBRILLATION, UNSPECIFIED Status: Chronic Priority: Medium Current Visit: No (4) Hypoxemia SNOMED Code(s): 760425617 Code(s): R09.02 - HYPOXEMIA Status: Acute Priority: High Current Visit : Yes (5) Urinary retention SNOMED Code(s): 273924498 Code(s): R33.9 - RETENTION OF URINE, UNSPECIFIED Status: Acute Priority: High Current Visit: Yes (6) Chronic renal insufficiency SNOMED Code(s): 048454907 Code(s): N18.9 - CHRONIC KIDNEY DISEASE, UNSPECIFIED Status: Chronic Priority: Medium Current Visit: Yes Qualifiers: Chronic kidney disease stage: unspecified stage Qualified Code(s): N18.9 - Chronic kidney disease, unspecified (7) Hyperthyroidism SNOMED Code(s): 95601723 Code(s): E05.90 - THYROTOXICOSIS, UNSP WITHOUT THYROTOXIC CRISIS OR STORM Status: Chronic Priority: Low Current Visit: No (8) Diabetes mellitus SNOMED Code(s): 91731357 Code(s): E11.9 - TYPE 2 DIABETES MELLITUS WITHOUT COMPLICATIONS Status: Chronic Priority: Medium Current Visit: Yes Qualifiers: Diabetes mellitus type: type 2 Diabetes mellitus senior living insulin use: with manager cardiology use Diabetes mellitus complication status: with other specified complication Qualified Code(s): E11.69 - Type 2 diabetes mellitus with other specified complication; Z79.4 - skilled nursing (current) use of insulin (9) Plantar fasciitis SNOMED Code(s): 165541774 Code(s): M72.2 - PLANTAR FASCIAL FIBROMATOSIS Status: Acute Current Visit : Yes (10) Hypokalemia SNOMED Code(s): 63049623 Code(s): E87.6 - HYPOKALEMIA Status: Acute Priority: High Current Visit : Yes (11) On warfarin for atrial fibrillation SNOMED Code(s): 60266676 Code(s): I48.91 - UNSPECIFIED ATRIAL FIBRILLATION; Z79.01 - ASSISTED ( CURRENT) USE OF ANTICOAGULANTS Status: Chronic Priority: Low Current Visit : Yes - Problem List Review Problem List Initiated/Reviewed/Updated: Yes - My Orders Last 24 Hours: My Active Orders 10/06/19 09:15 Furosemide [Lasix] 60 mg IVPUSH TID 10/06/19 11:29 Communication Order [RC] PER UNIT ROUTINE 10/07/19 09:00 Potassium Chloride [Klor-Con M20] 40 meq PO BID - Plan Plan:: Left lower extremity cellulitis Fever with chills night prior to admission No fever since that hospitalization White count 21-->14-->15-->13-->13 Improvement while on Rocephin Complains of redness in the left leg. -Improved Bilateral lower extremity pain. -Improved MRSA screen negative No signs of sepsis Procalcitonin 0.32 on admission C-reactive protein 23.9-->18.1-->17.2-->9.4 PLAN * Discontinue Rocephin -> Start Bactrim DS BID * Monitor labs Urinary retention Greater than 900 mL out in the emergency department with straight cath History of overactive bladder On mirabegron for OAB. Side effects include urinary retention No urinary retention since admission, but incontinent. PLAN * Stop mirabegron * Monitor urinary output and follow with bladder ultrasound PRN Decompensated congestive heart failure Requiring 2L FiO2 proBNP 3155 on admission Chest x-ray consistent with pulmonary vascular congestion and cardiomegaly Patient is asymptomatic. Given Lasix 40 mg IV push in the emergency room Down 2.4L yesterday Back to admission weight PLAN * Start Lasix 60 mg IV 3 times daily * Follow electrolytes and renal function * Goal to decrease need for FiO2 * Daily I's and O's and weights Acute on chronic renal insufficiency Creatinine 1.3-->1.0-->1.1-->1.2, BUN 49-->45-->54-->57-->58, estimated GFR 41-- >55-->49-->45 PLAN * Monitor renal function closely since she will be getting an increase in furosemide secondary to her decompensated heart failure * Avoid nephrotoxic medications. Hypokalemia Potassium 3.4 2/2 diuresis PLAN * Supplement * Monitor labs Atrial fibrillation On warfarin for atrial fibrillation Patient on multiple medications including: Diltiazem, metoprolol, digoxin Rate controlled INR 2.36-->2.3-->2.2-->2.19-->1.97 PLAN * Continue home meds * Pharmacy to dose warfarin Insulin-dependent diabetes Hemoglobin A1c 7.7 BS 109-175 over past day PLAN * Decrease insulin dose slightly from home dose to prevent hypoglycemia * Lantus 30 units twice daily * Humalog 15 units with meals * Monitor blood sugars Hyperthyroid On methimazole 2.5 mg Saturday, Saturday, Saturday, , and Saturday TSH 0.66 PLAN * Continue home methimazole Plantar fasciitis Reports foot pain worse in AM PLAN * Recommend cold water bottle stretched in AM at discharge VTE PROPHYLAXIS: Warfarin CODE STATUS: Full code PCP: Dr. Mchugh DISPOSITION: Admit to floor on telemetry; Likely discharge tomorrow 10/08/19 pending continued improvement. LOS > 96 hrs due to slow response to treatment; Need for more diuresis.
[2019-10-07] MEDS: Diltiazem 120 MG Cap.CD PO SCH ×2 (08:05→20:47)
[2019-10-07] MEDS: Sertraline 50 MG Tab PO SCH (08:05)
[2019-10-07] MEDS: Metoprolol Tartrate 50 MG Tab PO SCH ×2 (08:10→20:46)
[2019-10-07] MEDS: Docusate Sodium 100 MG Cap PO SCH ×2 (08:10→20:48)
[2019-10-07] MEDS: Allopurinol 300 MG Tab PO SCH (08:11)
[2019-10-07] MEDS: Spironolactone 25 MG Tab PO SCH (08:12)
[2019-10-07] MEDS: Aspirin 81 MG Tab.EC PO SCH (08:12)
[2019-10-07] MEDS: Potassium Chloride 20 MEQ Tab.ER PO SCH ×2 (08:13→20:46)
[2019-10-07] MEDS: Mineral Oil/White Petrolatum Crm 113 GM Jar TOP SCH (08:13)
[2019-10-07] MEDS: Furosemide 40 MG/4 ML VIAL IVPUSH SCH ×3 (08:13→20:50)
[2019-10-07] MEDS: Insulin Lispro 100 Units/ML 3 ML Vial SUBCUT SCH ×4 (08:31→19:00)
[2019-10-07] MEDS: Insulin Glarg,Human.Rec.Analog 100 Unit/ML SUBCUT SCH ×2 (10:23→20:58)
[2019-10-07] MEDS: Sulfamethoxazole/Trimethoprim 800-160 MG Tab PO SCH ×2 (11:58→20:46)
[2019-10-07] MEDS: Mupirocin Oint 22 GM Tube TOP SCH (11:59)
[2019-10-07] MEDS: Digoxin 125 MCG Tab PO SCH (11:59)
[2019-10-07] MEDS: Methimazole 5 MG Tab PO SCH (14:37)
[2019-10-07] MEDS ORDERED: Warfarin 3 MG Tab PO SCH (18:00)
[2019-10-07] MEDS ORDERED: Warfarin 2.5 MG Tab PO SCH (18:00)
[2019-10-08] MEDS: Pantoprazole 40 MG Tab.CR PO SCH (06:14)
[2019-10-08] MEDS: Metolazone 2.5 MG Tab PO SCH (06:45)
[2019-10-08] MEDS: Furosemide 40 MG/4 ML VIAL IVPUSH SCH (08:22)
[2019-10-08] MEDS: Mupirocin Oint 22 GM Tube TOP SCH (08:22)
[2019-10-08] MEDS: Potassium Chloride 20 MEQ Tab.ER PO SCH (08:23)
[2019-10-08] MEDS: Metoprolol Tartrate 50 MG Tab PO SCH (08:23)
[2019-10-08] MEDS: Sertraline 50 MG Tab PO SCH (08:24)
[2019-10-08] MEDS: Diltiazem 120 MG Cap.CD PO SCH (08:27)
[2019-10-08] MEDS: Allopurinol 300 MG Tab PO SCH (08:27)
[2019-10-08] MEDS: Spironolactone 25 MG Tab PO SCH (08:28)
[2019-10-08] MEDS: Docusate Sodium 100 MG Cap PO SCH (08:29)
[2019-10-08] MEDS: Aspirin 81 MG Tab.EC PO SCH (08:29)
[2019-10-08] MEDS: Mineral Oil/White Petrolatum Crm 113 GM Jar TOP SCH (08:29)
[2019-10-08] MEDS: Sulfamethoxazole/Trimethoprim 800-160 MG Tab PO SCH (08:57)
[2019-10-08] MEDS: Insulin Lispro 100 Units/ML 3 ML Vial SUBCUT SCH ×2 (10:18→12:54)
[2019-10-08] MEDS: Insulin Glarg,Human.Rec.Analog 100 Unit/ML SUBCUT SCH (10:19)
--- NOTE | 2019-10-08 10:56 | PCM.DCSUM1 ---
Discharge Summary - Hospital Course HPI Initial Comments: 59-year-old female from [facility] presents to the ED via EMS secondary to fever and chills last night. Patient states that she has had a swollen red left lower extremity for the last week or more. She has been on clindamycin and Keflex without improvement. Patient started on clindamycin on September 09, 2019 through September 14, 2019. Started on Keflex 2 days ago. She denies any significant pain in the left leg versus the right. Temperature last night is unknown. She does complain of pain in both legs. In the emergency department she was found to have oxygen saturations of 80% on room air and 91% on 4 L of O2 per nasal cannula. Patient denies any shortness of breath, chest pain, cough. She does use oxygen at night but not during the day. In the emergency department they did a straight cath and she had greater than 900 mL of urine. Nursing noted that her genitalia and buttocks are inflamed. Patient is on medication for overactive bladder which can cause urinary retention. Chest x-ray done showed pulmonary vascular congestion and cardiomegaly. No infiltrate. Patient was then given furosemide 40 mg IV push. PCR for COVID was negative. Blood work showed a white count of 20.87 with no bandemia. Sodium was 134 and a BUN/creatinine of 49/1.3. Lactic acid was normal at 1.2. proBNP 3155, ferritin 213, d-dimer 0.24 Patient has multiple chronic medical conditions including diabetes, CHF, renal insufficiency, cognitive disability, urinary incontinence, atrial fibrillation, and others Diagnosis: Stroke: No - Discharge Data Discharge Date: 10/08/19 (Admit date: 10/03/19) Discharge Disposition: DC/Tfer to SNF 03 Condition: Good - Referral to Home Health Primary Care Physician: Hany Mchugh MD - Discharge Diagnosis/Problem(s) (1) CHF exacerbation SNOMED Code(s): 962520318, [id number] ICD Code: I50.9 - HEART FAILURE, UNSPECIFIED Status: Acute Priority: High Current Visit: Yes Qualifiers: Heart failure type: unspecified Qualified Code(s): I50.9 - Heart failure, unspecified (2) Cellulitis of left leg SNOMED Code(s): 350472633 ICD Code: L03.116 - CELLULITIS OF LEFT LOWER LIMB Status: Acute Priority : High Current Visit: Yes (3) Chronic atrial fibrillation SNOMED Code(s): 660958924 ICD Code: I48.20 - CHRONIC ATRIAL FIBRILLATION, UNSPECIFIED Status: Chronic Priority: Medium Current Visit: No (4) Hypoxemia SNOMED Code(s): 829283036 ICD Code: R09.02 - HYPOXEMIA Status: Acute Priority: High Current Visit : Yes (5) Urinary retention SNOMED Code(s): 154244558 ICD Code: R33.9 - RETENTION OF URINE, UNSPECIFIED Status: Acute Priority : High Current Visit: Yes (6) Chronic renal insufficiency SNOMED Code(s): 683769648 ICD Code: N18.9 - CHRONIC KIDNEY DISEASE, UNSPECIFIED Status: Chronic Priority: Medium Current Visit: Yes Qualifiers: Chronic kidney disease stage: unspecified stage Qualified Code(s): N18.9 - Chronic kidney disease, unspecified (7) Hyperthyroidism SNOMED Code(s): 53218765 ICD Code: E05.90 - THYROTOXICOSIS, UNSP WITHOUT THYROTOXIC CRISIS OR STORM Status: Chronic Priority: Low Current Visit: No (8) Diabetes mellitus SNOMED Code(s): 92266032 ICD Code: E11.9 - TYPE 2 DIABETES MELLITUS WITHOUT COMPLICATIONS Status: Chronic Priority: Medium Current Visit: Yes Qualifiers: Diabetes mellitus type: type 2 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: with fdc use Diabetes mellitus complication status: with other specified complication Qualified Code(s): E11.69 - Type 2 diabetes mellitus with other specified complication; 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 (9) Plantar fasciitis SNOMED Code(s): 439259458 ICD Code: M72.2 - PLANTAR FASCIAL FIBROMATOSIS Status: Acute Current Visit: Yes (10) Hypokalemia SNOMED Code(s): 62848413 ICD Code: E87.6 - HYPOKALEMIA Status: Acute Priority: High Current Visit: Yes (11) On warfarin for atrial fibrillation SNOMED Code(s): 53560542 ICD Code: I48.91 - UNSPECIFIED ATRIAL FIBRILLATION; Z79.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 -Recommend re-check CBC, CMP, Magnesium, Phosphorous at that appointment. Re-check INR on 10/12/19 with results to PCP Hospital Course: Elaine was admitted to the medical floor due to cellulitis with failed outpatient treatment and hypoxia. She was started on IV Rocephin and did show improvement with this. Her leg pain did resolve. She did report worsening foot pain in the morning and it is thought this is likely plantar fasciitis. Recommend PT work with the patient on this and she do stretching with frozen water bottles to improve her pain and symptoms. She did work with PT/OT while here and recommend she continue this at SNF. She was switched to p.o. Bactrim DS prior to discharge, 1 tab p.o. twice daily and this will be continued for 6 more days. She was requiring 2 L of oxygen on admission and states that she had been wearing oxygen only at night prior. She was noted to have some increased swelling and her diuretics were adjusted, as her Lasix was increased. She did have 8 pound weight loss. Recommend she continue fluid restrictions at discharge of 2 L. She was switched to 2 mg p.o. Bumex in the morning and 1 mg p.o. Bumex at night. She is on metolazone Saturday and and this was continued. Echo was obtained on 10/06/2019 and interpreted as "1. Mildly decreased left ventricular systolic function. 2. Mild concentric left ventricular hypertrophy. 3. Moderate mitral valve regurgitation. 4. Mild to moderate tricuspid valve regurgitation. 5. The right ventricular systolic pressure is mildly elevated at 44.0 mmHg. 6. There is severe biatrial dilation. " We did attempt to wean her off oxygen and unfortunately were unable to do so. She tenuous to require 2 L and this should be continued at SNF. In the ED she was noted to have urinary retention. This was not observed on the floor as her mirabegron was stopped. This will be discontinued at discharge. She was incontinent while here. Her insulin was adjusted prior to discharge. She was instructed to continue to check her blood sugars 4 times daily at before meals and bedtime. She was instructed to record these in a journal and bring them with to all medical appointments. Her weights should be checked daily and recorded in a journal. That should also be brought along to all medical appointments. Primary care provider should be contacted if patient gains more than 3 pounds in 1 day or more than 5 pounds in 1 week. She should follow-up with her primary care provider within 5 to 7 days of discharge. INR should be rechecked on 10/12/2019 with results to primary care provider. All other home medications were otherwise continued, including her prior warfarin dose. She was discharged today back to [facility] [place]. - Patient Instructions Diet: Fluid Restriction, Diabetic Diet Fluid Restriction: 2000 mL Activity: As Tolerated Driving: Do Not Drive Showering/Bathing: May Shower Notify Provider of: Fever, Increased Pain, Nausea and/or Vomiting Other/Special Instructions: Follow-up with primary care provider within 5-7 days of discharge. Re-check INR on 10/12/19 with results to PCP. Continue to check blood glucose readings QID AC and bedtime. Record these and bring with to all medical appointments. Monitor dialy weight and record this in a journal. Bring this with to all medical appointments. Contact primary care provider for greater than 3lb weight gain in 24 hours or 5lb weight gain in 1 week. Continue home medications as directed. Your insulin dosing was adjusted. Be sure to follow new dosing. We switched you from lasix to bumex. Be sure to follow this new dosing and discontinue lasix. Take all of your antibiotic, even if you feel 100% better. Elaine was complaining of some foot pain while here. Recommend PT address possible plantar fasciitis. Recommend frozen water bottle rolled on bottom of foot for inflammation relief and stretching. Should symptoms return or worsen contact primary care provider or return to the Emergency Department. - Discharge Plan *PRESCRIPTION DRUG MONITORING PROGRAM REVIEWED*: Not Applicable *COPY OF PRESCRIPTION DRUG MONITORING REPORT IN PATIENT BALJEET: Not Applicable Prescriptions/Med Rec: Bumetanide [Bumex] 2 mg PO 0800 #20 tablet Bumetanide [Bumex] 1 mg PO 1400 #20 tablet Insulin Glarg,Human.Rec.Analog [Lantus] 30 unit SUBCUT BID #10 ml Insulin Lispro [HumaLOG] 15 unit SUBCUT TIDPC #5 vial Sulfamethoxazole/Trimethoprim [Septra DS] 1 tab PO BID #12 tablet Home Medications: Home Meds Acetaminophen [Tylenol Extra Strength] 1,000 mg PO 08,1730 02/02/16 [History] Allopurinol [Zyloprim] 150 mg PO DAILY 02/02/16 [History] Cholecalciferol (Vitamin D3) [Vitamin D3] 400 units PO DAILY 02/02/16 [History] Digoxin 125 mcg PO DAILY 02/02/16 [History] Docusate Sodium [Doc-Q-Lace] 100 mg PO BID 02/02/16 [History] Ferrous Sulfate 325 mg PO DAILY 02/02/16 [History] Potassium Chloride [Klor-Con 10] 20 meq PO BID 02/02/16 [History] Pravastatin Sodium 10 mg PO DAILY 02/02/16 [History] Sertraline [Zoloft] 100 mg PO DAILY 02/02/16 [History] Vit C/E/Zn/Coppr/Lutein/Zeaxan [Preservision Areds 2 Softgel] 2 tab PO DAILY [History] metOLazone [Metolazone] 2.5 mg PO MOTH 02/02/16 [History] methIMAzole [Methimazole] 5 mg PO MOTUWETHFR 02/02/16 [History] Warfarin [Coumadin] 1.25 mg PO WESA 03/10/17 [History] [place]/Min Oil/Meghan/Wool Alcoh [Eucerin Creme] 1 applic TOP DAILY 02/27/18 [ History] Pantoprazole [ProTONIX] 20 mg PO DAILY 02/27/18 [History] Diltiazem [Cardizem CD] 120 mg PO BID 12/13/18 [History] Spironolactone [Aldactone] 25 mg PO DAILY 12/13/18 [History] Warfarin [Coumadin] 2.5 mg PO SUMOTUTHFR 12/16/18 [History] Ascorbate Calcium [Vitamin C] 500 mg PO DAILY 10/03/19 [History] Aspirin [Aspirin EC] 81 mg PO DAILY 10/03/19 [History] Carboxymethylcellulose Sodium [Artificial Tears] 1 drop EYEBOTH ASDIRECTED PRN 10/03/19 [History] Metoprolol Tartrate [Lopressor] 75 mg PO BID 10/03/19 [History] Mupirocin Oint [Bactroban Oint] 1 applic TOP DAILY 10/03/19 [History] Triamcinolone Acetonide [Triamcinolone Acetonide 0.1% Crm] 1 applic TOP BID [History] Bumetanide [Bumex] 1 mg PO 1400 #20 tablet 10/08/19 [Rx] Bumetanide [Bumex] 2 mg PO 0800 #20 tablet 10/08/19 [Rx] Insulin Glarg,Human.Rec.Analog [Lantus] 30 unit SUBCUT BID #10 ml 10/08/19 [Rx] Insulin Lispro [HumaLOG] 15 unit SUBCUT TIDPC #5 vial 10/08/19 [Rx] Sulfamethoxazole/Trimethoprim [Septra DS] 1 tab PO BID #12 tablet 10/08/19 [Rx] Oxygen Therapy Mode: Nasal Cannula Oxygen Flow Rate (L/min): 2 Maintain SPO2% less than: 90 Patient Handouts: Cellulitis, Adult, Sepsis, Self Care, Adult Forms: ED Department Discharge Referrals: Hany Mchugh MD [Primary Care Provider] - 10/14/19 11:00 am - Discharge Summary/Plan Comment DC Time >30 min.: Yes (45 mins ) - General Info Date of Service: 10/08/19 Admission Dx/Problem (Free Text: Admission Diagnosis/Problem Admission Diagnosis/Problem Cellulitis Functional Status: Reports: Pain Controlled, Tolerating Diet, Urinating. Denies : New Symptoms - Review of Systems General: Reports: No Symptoms. Denies: Fever, Weakness, Fatigue, Malaise, Chills HEENT: Reports: No Symptoms. Denies: Headaches, Sore Throat Pulmonary: Reports: No Symptoms. Denies: Shortness of Breath, Cough, Sputum, Wheezing Cardiovascular: Reports: Edema. Denies: Chest Pain, Palpitations Gastrointestinal: Reports: No Symptoms. Denies: Abdominal Pain, Constipation, Diarrhea, Nausea, Vomiting Genitourinary: Reports: Incontinence. Denies: Pain Musculoskeletal: Reports: No Symptoms Skin: Reports: No Symptoms. Denies: Cyanosis Neurological: Reports: No Symptoms. Denies: Confusion Psychiatric: Reports: No Symptoms - Patient Data Vitals - Most Recent: Last Vital Signs Temp 97.0 F 10/08/19 08:11 Pulse 98 10/08/19 08:27 Resp 22 H 10/08/19 08:11 BP 110/74 10/08/19 08:27 Pulse Ox 92 L 10/08/19 08:15 Weight - Most Recent: 222 lb 9 oz I&O - Last 24 hours: Intake & Output 10/07/19 10/08/19 10/08/19 22:59 06:59 14:59 Intake Total 600 150 240 Output Total 570 1005 0 Balance 30 -855 240 Lab Results - Last 24 hrs: Laboratory Results - last 24 hr 10/07/19 10/07/19 10/07/19 Range/Units 11:00 17:21 20:57 WBC (3.98-10.04) K/mm3 RBC (3.98-5.22) M/mm3 Hgb (11.2-15.7) gm/dl Hct (34.1-44.9) % MCV (79.4-94.8) fl MCH (25.6-32.2) pg MCHC (32.2-35.5) g/dl RDW Std Deviation (36.4-46.3) fL Plt Count (182-369) K/mm3 MPV (9.4-12.3) fl Neut % (Auto) (34.0-71.1) % Lymph % (Auto) (19.3-51.7) % [place] % (Auto) (4.7-12.5) % Eos % (Auto) (0.7-5.8) Baso % (Auto) (0.1-1.2) % Neut # (Auto) (1.56-6.13) K/mm3 Lymph # (Auto) (1.18-3.74) K/mm3 [place] # (Auto) (0.24-0.36) K/mm3 Eos # (Auto) (0.04-0.36) K/mm3 Baso # (Auto) (0.01-0.08) K/mm3 Manual Slide Review PT (9.7-12.0) SECONDS INR Sodium (136-145) mEq/L Potassium (3.5-5.1) mEq/L Chloride (98-107) mEq/L Carbon Dioxide (21-32) mEq/L Anion Gap (5-15) BUN (7-18) mg/dL Creatinine (0.55-1.02) mg/dL Est Cr Clr Drug Dosing mL/min Estimated GFR (MDRD) (>60) mL/min BUN/Creatinine Ratio (14-18) Glucose (80-115) mg/dL POC Glucose 261 H 122 H 153 H (80-115) mg/dL Calcium (8.5-10.1) mg/dL 10/08/19 10/08/19 10/08/19 Range/Units 06:13 06:15 06:15 WBC 13.85 H (3.98-10.04) K/mm3 RBC 4.73 (3.98-5.22) M/mm3 Hgb 14.1 (11.2-15.7) gm/dl Hct 46.1 H (34.1-44.9) % MCV 97.5 H (79.4-94.8) fl MCH 29.8 (25.6-32.2) pg MCHC 30.6 L (32.2-35.5) g/dl RDW Std Deviation 53.9 H (36.4-46.3) fL Plt Count 321 (182-369) K/mm3 MPV 10.7 (9.4-12.3) fl Neut % (Auto) 85.3 H (34.0-71.1) % Lymph % (Auto) 7.1 L (19.3-51.7) % Hawkins % (Auto) 5.2 (4.7-12.5) % Eos % (Auto) 1.8 (0.7-5.8) Baso % (Auto) 0.3 (0.1-1.2) % Neut # (Auto) 11.82 H (1.56-6.13) K/mm3 Lymph # (Auto) 0.98 L (1.18-3.74) K/mm3 Hawkins # (Auto) 0.72 H (0.24-0.36) K/mm3 Eos # (Auto) 0.25 (0.04-0.36) K/mm3 Baso # (Auto) 0.04 (0.01-0.08) K/mm3 Manual Slide Review Abnormal smear PT 19.6 H (9.7-12.0) SECONDS INR 1.86 Sodium (136-145) mEq/L Potassium (3.5-5.1) mEq/L Chloride (98-107) mEq/L Carbon Dioxide (21-32) mEq/L Anion Gap (5-15) BUN (7-18) mg/dL Creatinine (0.55-1.02) mg/dL Est Cr Clr Drug Dosing mL/min Estimated GFR (MDRD) (>60) mL/min BUN/Creatinine Ratio (14-18) Glucose (80-115) mg/dL POC Glucose 156 H (80-115) mg/dL Calcium (8.5-10.1) mg/dL 10/08/19 Range/Units 06:15 WBC (3.98-10.04) K/mm3 RBC (3.98-5.22) M/mm3 Hgb (11.2-15.7) gm/dl Hct (34.1-44.9) % MCV (79.4-94.8) fl MCH (25.6-32.2) pg MCHC (32.2-35.5) g/dl RDW Std Deviation (36.4-46.3) fL Plt Count (182-369) K/mm3 MPV (9.4-12.3) fl Neut % (Auto) (34.0-71.1) % Lymph % (Auto) (19.3-51.7) % Hawkins % (Auto) (4.7-12.5) % Eos % (Auto) (0.7-5.8) Baso % (Auto) (0.1-1.2) % Neut # (Auto) (1.56-6.13) K/mm3 Lymph # (Auto) (1.18-3.74) K/mm3 [place] # (Auto) (0.24-0.36) K/mm3 Eos # (Auto) (0.04-0.36) K/mm3 Baso # (Auto) (0.01-0.08) K/mm3 Manual Slide Review PT (9.7-12.0) SECONDS INR Sodium 144 (136-145) mEq/L Potassium 4.2 (3.5-5.1) mEq/L Chloride 104 (98-107) mEq/L Carbon Dioxide 31 (21-32) mEq/L Anion Gap 13.2 (5-15) BUN 60 H (7-18) mg/dL Creatinine 1.3 H (0.55-1.02) mg/dL Est Cr Clr Drug Dosing 44.17 mL/min Estimated GFR (MDRD) 41 (>60) mL/min BUN/Creatinine Ratio 46.2 H (14-18) Glucose 148 H (80-115) mg/dL POC Glucose (80-115) mg/dL Calcium 10.2 H (8.5-10.1) mg/dL [id number] Results - Last 24 hrs: Microbiology 10/03/19 06:59 Aerobic Blood Culture - Preliminary Blood - Venous NO GROWTH AFTER 5 DAYS Anaerobic Blood Culture - Preliminary NO GROWTH AFTER 5 DAYS 10/03/19 06:54 Aerobic Blood Culture - Preliminary Blood - Venous - Lab Draw NO GROWTH AFTER 5 DAYS Anaerobic Blood Culture - Preliminary NO GROWTH AFTER 5 DAYS Med Orders - Current: Current Medications Acetaminophen (Tylenol) 650 mg PO Q4H PRN PRN Reason: Pain (Mild 1-3)/fever Last Admin: 10/07/19 09:53 Dose: 650 mg Allopurinol (Zyloprim) 150 mg PO DAILY [facility] Last Admin: 10/08/19 08:27 Dose: 150 mg Artificial Tears (Refresh Liquigel 1%) 0 ml EYEBOTH Q2H PRN PRN Reason: Dry Eyes Aspirin (Halfprin) 81 mg PO DAILY [facility] Last Admin: 10/08/19 08:29 Dose: 81 mg Bumetanide (Bumex) 2 mg PO 0800 [place] Bumetanide (Bumex) 1 mg PO 1400 [facility] Dextrose/Water (Dextrose 50% In Water) 50 ml IVPUSH ASDIRECTED PRN PRN Reason: Hypoglycemia Digoxin (Lanoxin) 125 mcg PO 1200 [facility] Last Admin: 10/07/19 11:59 Dose: 125 mcg Diltiazem HCl (Cardizem Cd) 120 mg PO BID [facility] Last Admin: 10/08/19 08:27 Dose: 120 mg Docusate Sodium (Colace) 100 mg PO BID [facility] Last Admin: 10/08/19 08:29 Dose: 100 mg Insulin Glargine (Lantus) 30 unit SUBCUT BID [facility] Last Admin: 10/08/19 10:19 Dose: 30 units Insulin Human Lispro (Humalog) 15 unit SUBCUT TIDPC [facility] Last Admin: 10/08/19 10:18 Dose: 15 units Methimazole (Methimazole) 5 mg PO MoTuWeThFr@1400 [facility] Last Admin: 10/07/19 14:37 Dose: 5 mg Metolazone (Zaroxolyn) 2.5 mg PO MoTh@0730 [facility] Last Admin: 10/08/19 06:45 Dose: 2.5 mg Metoprolol Tartrate (Lopressor) 75 mg PO BID [facility] Last Admin: 10/08/19 08:23 Dose: 75 mg Mineral Oil/White Petrolatum (Hydrocerin Crm) 0 gm TOP DAILY [facility] Last Admin: 10/08/19 08:29 Dose: 1 applic Mupirocin (Bactroban Oint) 0 gm TOP DAILY [facility] Last Admin: 10/08/19 08:22 Dose: 1 applic Pantoprazole Sodium (Protonix) 40 mg PO ACBREAKFAST [facility] Last Admin: 10/08/19 06:14 Dose: 40 mg Potassium Chloride (Klor-Con M20) 40 meq PO BID [facility] Last Admin: 10/08/19 08:23 Dose: 40 meq Sertraline HCl (Zoloft) 100 mg PO DAILY [facility] Last Admin: 10/08/19 08:24 Dose: 100 mg Spironolactone (Aldactone) 25 mg PO DAILY [facility] Last Admin: 10/08/19 08:28 Dose: 25 mg Trimethoprim/Sulfamethoxazole (Septra Ds) 1 tab PO BID [facility] Last Admin: 10/08/19 08:57 Dose: 1 tab Warfarin Sodium (Pharmacy To Dose - Warfarin) 1 dose .XX ASDIRECTED PRN PRN Reason: RX TO DOSE WARFARIN Warfarin Sodium (Coumadin) 3 mg PO QPM [facility] Stop: 10/08/19 18:01 Discontinued Medications Furosemide (Lasix) 40 mg IVPUSH NOW ONE Stop: 10/03/19 07:59 Last Admin: 10/03/19 09:30 Dose: 40 mg Furosemide (Lasix) 40 mg PO 1700 [facility] Furosemide (Lasix) 80 mg PO 0800 [facility] Furosemide (Lasix) 40 mg IVPUSH TID [facility] Last Admin: 10/06/19 12:18 Dose: Not Given Furosemide (Lasix) 60 mg IVPUSH TID [facility] Last Admin: 10/08/19 08:22 Dose: 60 mg Ceftriaxone Sodium 2 gm/ (Sodium Chloride) 100 mls @ 200 mls/hr IV Q24H [facility] Last Admin: 05/26/20 12:57 Dose: 200 mls/hr Insulin Glargine (Lantus) 44 unit SUBCUT BIDAC [facility] Last Admin: 10/03/19 17:26 Dose: Not Given Insulin Human Lispro (Humalog) 0 unit SUBCUT QIDACANDBED [facility]; Protocol Last Admin: 10/07/19 08:31 Dose: 1 unit Insulin Human Lispro (Humalog) 20 unit SUBCUT ONETIME ONE Stop: 10/03/19 12:35 Last Admin: 10/03/19 14:02 Dose: 20 units Insulin Human Lispro (Humalog) 20 unit SUBCUT TIDAC [facility] Last Admin: 10/03/19 17:27 Dose: Not Given Pantoprazole Sodium (Protonix) 20 mg PO DAILY [facility] Potassium Chloride (Klor-Con 10) 20 meq PO BID [facility] Last Admin: 10/05/19 21:09 Dose: 20 meq Potassium Chloride (Klor-Con M20) 40 meq PO BID [facility] Stop: 10/04/19 21:01 Last Admin: 10/04/19 21:37 Dose: 40 meq Potassium Chloride (Klor-Con M20) 40 meq PO ONETIME ONE Stop: 10/06/19 09:01 Last Admin: 10/06/19 08:57 Dose: 40 meq Potassium Chloride (Klor-Con M20) 20 meq PO BID [facility] Last Admin: 10/06/19 20:28 Dose: 20 meq Warfarin Sodium (Coumadin) 1.25 mg PO ONETIME ONE Stop: 10/03/19 18:01 Last Admin: 10/03/19 17:57 Dose: 1.25 mg Warfarin Sodium (Coumadin) 2.5 mg PO QPM [facility] Stop: 10/04/19 18:01 Last Admin: 10/04/19 18:05 Dose: 2.5 mg Warfarin Sodium (Coumadin) 2.5 mg PO QPM [facility] Stop: 10/05/19 18:01 Last Admin: 10/05/19 17:56 Dose: 2.5 mg Warfarin Sodium (Coumadin) 2.5 mg PO QPM [facility] Stop: 10/06/19 18:01 Last Admin: 10/06/19 18:41 Dose: 2.5 mg Warfarin Sodium (Coumadin) 2.5 mg PO QPM [facility] Stop: 10/07/19 18:01 Last Admin: 05/27/20 18:22 Dose: 2.5 mg - Exam Quality Assessment: Reports: Supplemental Oxygen (2L), DVT Prophylaxis General: Reports: Alert, Oriented, Cooperative, No Acute Distress HEENT: Reports: Pupils Equal, Pupils Reactive, Mucous Membr. Moist/[place] Neck: Reports: Supple, Trachea Midline Lungs: Reports: Clear to Auscultation, Normal Respiratory Effort Cardiovascular: Reports: Regular Rate, Regular Rhythm GI/Abdominal Exam: Normal Bowel Sounds, Soft, Non-Tender, No Distention (Female) Exam: Deferred Rectal (Female) Exam: Deferred Back Exam: Reports: Normal Inspection, Full Range of Motion Extremities: Pedal Edema (trace-1+), Redness (improving ), Other (Right leg cellulitis which has greatly improved and is less edematous and erythematous. Bilateral legs have chronic discoloration consistent with PVD.). No: Leg Pain Skin: Reports: Warm, Dry, Intact Wound/Incisions: Reports: Healing Well, No Drainage, Erythema Improving Neurological: Reports: No New Focal Deficit Psy/Mental Status: Reports: Alert, Normal Affect, Normal Mood
[2019-10-08 12:16] VITALS: BP 96/81
[2019-10-08] MEDS: Methimazole 5 MG Tab PO SCH (12:51)
[2019-10-08] MEDS: Digoxin 125 MCG Tab PO SCH (12:52)
[2019-10-08 12:53] VITALS: PULSE 98
[2019-10-08] MEDS ORDERED: Bumetanide 1 MG Tab PO SCH (14:00)
[2019-10-08] MEDS ORDERED: Warfarin 3 MG Tab PO SCH (18:00)
[2019-10-09] MEDS ORDERED: Bumetanide 1 MG Tab PO SCH (08:00)
== END 2019-10-08 13:30 | DRG 638 ==
LOC: JD.ED 05:40 → JD.MS 09:59
PROVIDERS: ADMIT Family Medicine; ATTEND Family Medicine
DX: E11.628 Type 2 diabetes mellitus with other skin complications (principal); L03.116 Cellulitis of left lower limb; R09.02 Hypoxemia; H35.30 Unspecified macular degeneration; I48.20 Chronic atrial fibrillation, unspecified; I13.0 Hypertensive heart and chronic kidney disease with heart failure and stage 1 through stage 4 chronic kidney disease, or unspecified chronic kidney disease; N17.9 Acute kidney failure, unspecified; R33.9 Retention of urine, unspecified; N18.9 Chronic kidney disease, unspecified; Z20.828 Contact with and (suspected) exposure to other viral communicable diseases; E87.6 Hypokalemia; M10.9 Gout, unspecified; M72.2 Plantar fascial fibromatosis; E05.90 Thyrotoxicosis, unspecified without thyrotoxic crisis or storm; I50.9 Heart failure, unspecified; E66.9 Obesity, unspecified; E61.1 Iron deficiency; Z90.710 Acquired absence of both cervix and uterus; E11.22 Type 2 diabetes mellitus with diabetic chronic kidney disease; Z80.0 Family history of malignant neoplasm of digestive organs; I25.10 Atherosclerotic heart disease of native coronary artery without angina pectoris; E78.00 Pure hypercholesterolemia, unspecified; K21.9 Gastro-esophageal reflux disease without esophagitis; Z99.81 Dependence on supplemental oxygen; F41.9 Anxiety disorder, unspecified; F32.9 Major depressive disorder, single episode, unspecified; D64.9 Anemia, unspecified; Z79.01 Long term (current) use of anticoagulants; Z88.0 Allergy status to penicillin; Z88.8 Allergy status to other drugs, medicaments and biological substances; Z79.82 Long term (current) use of aspirin; Z79.4 Long term (current) use of insulin; Z79.899 Other long term (current) drug therapy; I25.2 Old myocardial infarction
CPT/HCPCS: 36415; 71045; 71045-26; 71046; 71046-26; 80048; 80053; 81001; 82728; 82962; 83036; 83605; 83615; 83735; 83880; 84145; 84443; 85007; 85025; 85027; 85379; 85610; 85730; 86140; 87040; 87641; 93005; 93010; 93306; 94760; 96374; 97110-GP; 97116-GP; 97162-GP; 97165-GO; 97530-GO; 97530-GP; 99222; 99232; 99239; 99285; 99285-25; A9270-GY; J0696; J1815-GY; J1940; J7050; U0002

== ENCOUNTER 2020-02-15 15:06 | Emergency (ER) | payer MEDICARE, MEDICAID ==
[2020-02-15] MEDS ORDERED: Sodium Chloride 0.9% 10 ML Syringe FLUSH PRN (15:36)
--- NOTE | 2020-02-15 17:55 | EDM.PDOC ---
ED HPI GENERAL MEDICAL PROBLEM - General Chief Complaint: Respiratory Problem Stated Complaint: [facility] Time Seen by Provider: 02/15/20 15:23 Source of Information: Reports: Patient, EMS, [facility] Records History Limitations: Reports: No Limitations - History of Present Illness INITIAL COMMENTS - FREE TEXT/NARRATIVE: The patient presents by [facility] from [facility] for shortness of breath, cough and increased oxygen demands. She is on oxygen at the long term for hypoxemia and CHF. She is on 2L by [place]. She is needing at least 4L to keep her saturations above 90. She has a slight cough and she is more short of breath. She has no chest pain, abdominal pain, nausea, vomiting or diarrhea. She has no loss of taste or smell. She is COVID 19 positive. Onset: Gradual Duration: Day(s): Severity: Moderate Improves with: Reports: None Worsens with: Reports: None Associated Symptoms: Reports: Cough, Shortness of Breath. Denies: Chest Pain, Fever/Chills, Headaches, Nausea/Vomiting - Related Data Allergies Allergy/AdvReac Type Severity Reaction Status Date / Time clopidogrel [From Plavix] Allergy Cannot Verified 02/15/20 15:21 Remember Penicillins Allergy Cannot Verified 02/15/20 15:21 Remember Home Meds: Home Meds Acetaminophen [Tylenol Extra Strength] 1,000 mg PO BID 02/02/16 [History] Allopurinol [Zyloprim] 150 mg PO DAILY 02/02/16 [History] Cholecalciferol (Vitamin D3) [Vitamin D3] 400 units PO DAILY 02/02/16 [History] Digoxin 125 mcg PO DAILY 02/02/16 [History] Docusate Sodium [Doc-Q-Lace] 100 mg PO BID 02/02/16 [History] Ferrous Sulfate 325 mg PO DAILY 02/02/16 [History] Potassium Chloride [Klor-Con 10] 20 meq PO BID 02/02/16 [History] Pravastatin Sodium 10 mg PO DAILY 02/02/16 [History] Sertraline [Zoloft] 100 mg PO DAILY 02/02/16 [History] Vit C/E/Zn/Coppr/Lutein/Zeaxan [Preservision Areds 2 Softgel] 1 tab PO DAILY 02/02/16 [History] metOLazone [Metolazone] 2.5 mg PO MOTH 02/02/16 [History] methIMAzole [Methimazole] 5 mg PO MOTUWETHFR 02/02/16 [History] Warfarin [Coumadin] 1.25 mg PO SA 03/10/17 [History] [place]/Min Oil/Meghan/Wool Alcoh [Eucerin Creme] 1 applic TOP DAILY 02/27/18 [History] Pantoprazole [ProTONIX] 20 mg PO DAILY 02/27/18 [History] Diltiazem [Cardizem CD] 120 mg PO BID 12/13/18 [History] Spironolactone [Aldactone] 25 mg PO DAILY 12/13/18 [History] Warfarin [Coumadin] 2.5 mg PO SUMOTUTHFR 12/16/18 [History] Ascorbate Calcium [Vitamin C] 500 mg PO DAILY 10/03/19 [History] Aspirin [Aspirin EC] 81 mg PO DAILY 10/03/19 [History] Carboxymethylcellulose Sodium [Artificial Tears] 1 drop EYEBOTH ASDIRECTED PRN 10/03/19 [History] Metoprolol Tartrate [Lopressor] 75 mg PO BID 10/03/19 [History] Mupirocin Oint [Bactroban Oint] 1 applic TOP DAILY 10/03/19 [History] Bumetanide [Bumex] 2 mg PO BID 02/15/20 [History] Insulin Aspart [NovoLOG] 22 unit SUBCUT DAILY 02/15/20 [History] Insulin Aspart [NovoLOG] 26 unit SUBCUT BID 02/15/20 [History] Insulin Detemir [Levemir] 44 unit SQ BID 02/15/20 [History] Magnesium Sulfate [Epsom Salt] 1 applic TOP DAILY 02/15/20 [History] Past Medical History HEENT History: Reports: Macular Degeneration Other HEENT History: 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; cataract to left eye; dry eyes Cardiovascular History: Reports: Afib, CAD, Heart Failure, High Cholesterol, Hypertension, MA Other Cardiovascular History: edema; Respiratory History: Reports: None Other Respiratory History: hypoxemia, O2/NC at night Gastrointestinal History: Reports: GERD Other Gastrointestinal History: hx hematochezia Genitourinary History: Reports: Chronic Renal Insuffiency, Retention, Urinary Other Genitourinary History: overactive bladder Musculoskeletal History: Reports: Gout Other Musculoskeletal History: chronic pain; dorsalgia Neurological History: Reports: Other (See Below) 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 Psychiatric History: Reports: Anxiety, Depression Other Psychiatric History: cognitive deficits Endocrine/Metabolic History: Reports: Diabetes, Type II, Obesity/BMI 30+ Other Endocrine/Metabolic History: thyrotoxicosis Hematologic History: Reports: Anemia, Iron Deficiency Dermatologic History: Reports: None Other Dermatologic History: bruising - Infectious Disease History Infectious Disease History: Reports: Chicken Pox, Measles, Mumps - Past Surgical History HEENT Surgical History: Reports: Detached Retina, Tonsillectomy Female Surgical History: Reports: Hysterectomy Oncologic Surgical History: Reports: Biopsy of Breast Social & Family History - Family History Family Medical History: Noncontributory - Tobacco Use Smoking Status *Q: Unknown Ever Smoked - Caffeine Use Caffeine Use: Reports: None - Recreational Drug Use Recreational Drug Use: No - Living Situation & Occupation Living situation: Reports: Single Occupation: Disabled ED ROS GENERAL - Review of Systems Review Of Systems: See Below Constitutional: Reports: No Symptoms HEENT: Reports: No Symptoms Respiratory: Reports: Shortness of Breath, Cough Cardiovascular: Reports: No Symptoms Endocrine: Reports: No Symptoms GI/Abdominal: Reports: No Symptoms : Reports: No Symptoms Musculoskeletal: Reports: No Symptoms ED EXAM, GENERAL - Physical Exam Exam: See Below Exam Limited By: No Limitations General Appearance: Alert, No Apparent Distress Ears: Normal External Exam Nose: Normal Inspection Head: Atraumatic, Normocephalic Neck: Normal Inspection, Supple, Non-Tender Respiratory/Chest: No Respiratory Distress, Normal Breath Sounds, Decreased Breath Sounds, Rhonchi Cardiovascular: Regular Rate, Rhythm, No Edema, No Murmur GI/Abdominal: Soft, Non-Tender, No Organomegaly, No Mass Back Exam: Normal Inspection Extremities: Normal Inspection Neurological: Alert, Oriented, No Motor/Sensory Deficits Course - Vital Signs Last Recorded V/S: Last Vital Signs Temp 98.1 F 02/15/20 15:21 Pulse 102 H 02/15/20 15:21 Resp 16 02/15/20 15:21 BP 105/68 02/15/20 15:21 Pulse Ox 93 L 02/15/20 15:21 - Orders/Labs/Meds Orders: Active Orders 24 hr Category Date Time Status Cardiac Monitoring [RC] . DIRECTED Care 02/15/20 15:36 Active Oxygen Therapy [RC] PRN Care 02/15/20 15:37 Active Peripheral IV Care [RC] . DIRECTED Care 02/15/20 15:38 Active Chest 1V Frontal [CR] Stat Exams 02/15/20 15:38 Taken CULTURE BLOOD [BC] Stat Lab 02/15/20 16:20 Received CULTURE BLOOD [BC] Stat Lab 02/15/20 16:52 Received Sodium Chloride 0.9% [Saline Flush] Med 02/15/20 15:36 Active 10 ml FLUSH ASDIRECTED PRN Blood Culture x2 Reflex Set [OM.PC] Stat Oth 02/15/20 15:38 Ordered Peripheral IV Insertion Adult [OM.PC] Stat Oth 02/15/20 15:36 Ordered Medication Orders Sodium Chloride (Saline Flush) 10 ml FLUSH ASDIRECTED PRN PRN Reason: Keep Vein Open Last Admin: 02/15/20 17:22 Dose: 10 ml Documented by: KIT Labs: Laboratory Tests 02/15/20 02/15/20 02/15/20 Range/Units 15:50 16:00 16:00 WBC 4.27 (3.98-10.04) K/mm3 RBC 5.45 H (3.98-5.22) M/mm3 Hgb 16.9 H D (11.2-15.7) gm/dl Hct 53.3 H (34.1-44.9) % MCV 97.8 H (79.4-94.8) fl MCH 31.0 (25.6-32.2) pg MCHC 31.7 L (32.2-35.5) g/dl RDW Std Deviation 53.1 H (36.4-46.3) fL Plt Count 149 L D (182-369) K/mm3 MPV 10.6 (9.4-12.3) fl Neut % (Auto) 72.6 H (34.0-71.1) % Lymph % (Auto) 11.7 L (19.3-51.7) % [place] % (Auto) 14.3 H (4.7-12.5) % Eos % (Auto) 0.2 L (0.7-5.8) Baso % (Auto) 0.5 (0.1-1.2) % Neut # (Auto) 3.10 (1.56-6.13) K/mm3 Lymph # (Auto) 0.50 L (1.18-3.74) K/mm3 [place] # (Auto) 0.61 H (0.24-0.36) K/mm3 Eos # (Auto) 0.01 L (0.04-0.36) K/mm3 Baso # (Auto) 0.02 (0.01-0.08) K/mm3 PT 70.9 H* (9.7-11.7) SECONDS INR 6.88 H* APTT 76 H (22-31) SECONDS D-Dimer, Quantitative 0.31 (0.19-0.50) mg/L Puncture Site Rt radial ABG pH 7.46 H (7.35-7.45) ABG pCO2 36.7 (35.0-45.0) mmHg ABG pO2 56.0 L (80.0-100.0) mmHg ABG HCO3 25.6 (22.0-26.0) meq/L ABG O2 Saturation 86.9 L (96.0-97.0) % ABG Base Excess 2.5 H (-2-2.0) Nicolás Test Positive A-a Gradient 155 mmHg O2 Delivery Device Nasal cannula Oxygen Flow Rate 4.0 FiO2 36.00 (21.00-100.00) % Sodium (136-145) mEq/L Potassium (3.5-5.1) mEq/L Chloride (98-107) mEq/L Carbon Dioxide (21-32) mEq/L Anion Gap (5-15) BUN (7-18) mg/dL Creatinine (0.55-1.02) mg/dL Est Cr Clr Drug Dosing mL/min Estimated GFR (MDRD) (>60) mL/min BUN/Creatinine Ratio (14-18) Glucose (80-115) mg/dL Lactic Acid (0.4-2.0) mmol/L Calcium (8.5-10.1) mg/dL Ferritin (8-252) ng/ml Total Bilirubin (0.2-1.0) mg/dL AST (15-37) U/L ALT (14-59) U/L Alkaline Phosphatase (46-116) U/L Lactate Dehydrogenase (81-234) U/L C-Reactive Protein (<1.0) mg/dL Total Protein (6.4-8.2) g/dl Albumin (3.4-5.0) g/dl Globulin gm/dL Albumin/Globulin Ratio (1-2) Urine Color (Yellow) Urine Appearance (Clear) Urine pH (5.0-8.0) Ur Specific [place] (1.005-1.030) Urine Protein (Negative) Urine Glucose (UA) (Negative) Urine Ketones (Negative) Urine Occult Blood (Negative) Urine Nitrite (Negative) Urine Bilirubin (Negative) Urine Urobilinogen (0.2-1.0) Ur Leukocyte Esterase (Negative) Urine RBC (0-5) /hpf Urine WBC (0-5) /hpf Ur Squamous Epith Cells (0-5) /hpf Urine Bacteria (FEW) /hpf Urine Mucus (FEW) /hpf 02/15/20 02/15/20 02/15/20 Range/Units 16:00 16:00 16:52 WBC (3.98-10.04) K/mm3 RBC (3.98-5.22) M/mm3 Hgb (11.2-15.7) gm/dl Hct (34.1-44.9) % MCV (79.4-94.8) fl MCH (25.6-32.2) pg MCHC (32.2-35.5) g/dl RDW Std Deviation (36.4-46.3) fL Plt Count (182-369) K/mm3 MPV (9.4-12.3) fl Neut % (Auto) (34.0-71.1) % Lymph % (Auto) (19.3-51.7) % [place] % (Auto) (4.7-12.5) % Eos % (Auto) (0.7-5.8) Baso % (Auto) (0.1-1.2) % Neut # (Auto) (1.56-6.13) K/mm3 Lymph # (Auto) (1.18-3.74) K/mm3 [place] # (Auto) (0.24-0.36) K/mm3 Eos # (Auto) (0.04-0.36) K/mm3 Baso # (Auto) (0.01-0.08) K/mm3 PT (9.7-11.7) SECONDS INR APTT (22-31) SECONDS D-Dimer, Quantitative (0.19-0.50) mg/L Puncture Site ABG pH (7.35-7.45) ABG pCO2 (35.0-45.0) mmHg ABG pO2 (80.0-100.0) mmHg ABG HCO3 (22.0-26.0) meq/L ABG O2 Saturation (96.0-97.0) % ABG Base Excess (-2-2.0) Nicolás Test A-a Gradient mmHg O2 Delivery Device Oxygen Flow Rate FiO2 (21.00-100.00) % Sodium 134 L D (136-145) mEq/L Potassium 4.2 (3.5-5.1) mEq/L Chloride 96 L (98-107) mEq/L Carbon Dioxide 27 (21-32) mEq/L Anion Gap 15.2 H (5-15) BUN 58 H (7-18) mg/dL Creatinine 1.5 H (0.55-1.02) mg/dL Est Cr Clr Drug Dosing 35.71 mL/min Estimated GFR (MDRD) 34 (>60) mL/min BUN/Creatinine Ratio 38.7 H (14-18) Glucose 85 (80-115) mg/dL Lactic Acid 1.0 (0.4-2.0) mmol/L Calcium 9.5 (8.5-10.1) mg/dL Ferritin 387 H (8-252) ng/ml Total Bilirubin 0.8 (0.2-1.0) mg/dL AST 24 (15-37) U/L ALT 15 (14-59) U/L Alkaline Phosphatase 77 (46-116) U/L Lactate Dehydrogenase 273 H (81-234) U/L C-Reactive Protein 17.4 H* (<1.0) mg/dL Total Protein 7.2 (6.4-8.2) g/dl Albumin 3.3 L (3.4-5.0) g/dl Globulin 3.9 gm/dL Albumin/Globulin Ratio 0.9 L (1-2) Urine Color (Yellow) Urine Appearance (Clear) Urine pH (5.0-8.0) Ur Specific [place] (1.005-1.030) Urine Protein (Negative) Urine Glucose (UA) (Negative) Urine Ketones (Negative) Urine Occult Blood (Negative) Urine Nitrite (Negative) Urine Bilirubin (Negative) Urine Urobilinogen (0.2-1.0) Ur Leukocyte Esterase (Negative) Urine RBC (0-5) /hpf Urine WBC (0-5) /hpf Ur Squamous Epith Cells (0-5) /hpf Urine Bacteria (FEW) /hpf Urine Mucus (FEW) /hpf 02/15/20 Range/Units 17:17 WBC (3.98-10.04) K/mm3 RBC (3.98-5.22) M/mm3 Hgb (11.2-15.7) gm/dl Hct (34.1-44.9) % MCV (79.4-94.8) fl MCH (25.6-32.2) pg MCHC (32.2-35.5) g/dl RDW Std Deviation (36.4-46.3) fL Plt Count (182-369) K/mm3 MPV (9.4-12.3) fl Neut % (Auto) (34.0-71.1) % Lymph % (Auto) (19.3-51.7) % [place] % (Auto) (4.7-12.5) % Eos % (Auto) (0.7-5.8) Baso % (Auto) (0.1-1.2) % Neut # (Auto) (1.56-6.13) K/mm3 Lymph # (Auto) (1.18-3.74) K/mm3 [place] # (Auto) (0.24-0.36) K/mm3 Eos # (Auto) (0.04-0.36) K/mm3 Baso # (Auto) (0.01-0.08) K/mm3 PT (9.7-11.7) SECONDS INR APTT (22-31) SECONDS D-Dimer, Quantitative (0.19-0.50) mg/L Puncture Site ABG pH (7.35-7.45) ABG pCO2 (35.0-45.0) mmHg ABG pO2 (80.0-100.0) mmHg ABG HCO3 (22.0-26.0) meq/L ABG O2 Saturation (96.0-97.0) % ABG Base Excess (-2-2.0) Nicolás Test A-a Gradient mmHg O2 Delivery Device Oxygen Flow Rate FiO2 (21.00-100.00) % Sodium (136-145) mEq/L Potassium (3.5-5.1) mEq/L Chloride (98-107) mEq/L Carbon Dioxide (21-32) mEq/L Anion Gap (5-15) BUN (7-18) mg/dL Creatinine (0.55-1.02) mg/dL Est Cr Clr Drug Dosing mL/min Estimated GFR (MDRD) (>60) mL/min BUN/Creatinine Ratio (14-18) Glucose (80-115) mg/dL Lactic Acid (0.4-2.0) mmol/L Calcium (8.5-10.1) mg/dL Ferritin (8-252) ng/ml Total Bilirubin (0.2-1.0) mg/dL AST (15-37) U/L ALT (14-59) U/L Alkaline Phosphatase (46-116) U/L Lactate Dehydrogenase (81-234) U/L C-Reactive Protein (<1.0) mg/dL Total Protein (6.4-8.2) g/dl Albumin (3.4-5.0) g/dl Globulin gm/dL Albumin/Globulin Ratio (1-2) Urine Color Yellow (Yellow) Urine Appearance Clear (Clear) Urine pH 6.0 (5.0-8.0) Ur Specific [place] 1.015 (1.005-1.030) Urine Protein Negative (Negative) Urine Glucose (UA) Negative (Negative) Urine Ketones Negative (Negative) Urine Occult Blood Negative (Negative) Urine Nitrite Negative (Negative) Urine Bilirubin Negative (Negative) Urine Urobilinogen 0.2 (0.2-1.0) Ur Leukocyte Esterase Negative (Negative) Urine RBC 0-5 (0-5) /hpf Urine WBC 0-5 (0-5) /hpf Ur Squamous Epith Cells 0-5 (0-5) /hpf Urine Bacteria Few (FEW) /hpf Urine Mucus Not seen (FEW) /hpf Meds: Medications Generic Name Dose Route Start Last Admin Trade Name Freq PRN Reason Stop Dose Admin Sodium Chloride 10 ml 02/15/20 15:36 02/15/20 17:22 Saline Flush FLUSH 10 ml ASDIRECTED PRN Administration Keep Vein Open Discontinued Medications Generic Name Dose Route Start Last Admin Trade Name Freq PRN Reason Stop Dose Admin Dexamethasone 6 mg 02/15/20 18:15 Dexamethasone IVPUSH 02/15/20 18:16 ONETIME ONE Remdesivir 200 mg/ Sodium 250 mls @ 250 mls/hr 02/15/20 18:17 Chloride IV 02/15/20 18:18 ONETIME ONE - Re-Assessments/Exams Free Text/Narrative Re-Assessment/Exam: 02/15/20 18:06 I ordered oxygen, IV saline lock, CXR, labs, blood cultures, and lactic acid. Her CXR shows chronic appearing interstitial change with peripheral ground glass opacities concerning for multilobar pneumonia. Consider atypical/viral etiologies. Moderate grade cardiomegaly without pulmonary edema. Her WBC is normal. Her Hgb is elevated at 16.9. Her platelets are low at 149. Her PT was elevated at 70.9. Her INR is elevated at 6.88. Her d-dimer is negative. Her pH is 7.46. Her pCO2 is normal at 36.7. Her pO2 is low at 56. I told my nurse to go up with her oxygen. Her Na is low at 134. Her anion gap is elevated at 15.2. Her creatinine is elevated at 1.5. Her ferritin is elevated at 387. Her LDH is elevated at 273. Her CRP is 17.4. Her UA shows no UTI. I feel she needs to be admitted. We have no beds here at our facility. I also called both hospitals in [facility] and they are full. I called [facility] in [place] and talked with Dr Oconnell and he agreed to the transfer. She will have to fly because it is to far to go by ground and to long to have an ambulance gone. I have ordered dexamethasone 6mg IV and remdesivir 200mg IV. Departure - Departure Time of Disposition: 18:20 Disposition: DC/Tfer to Acute Hospital 02 Condition: Serious Clinical Impression: Supratherapeutic INR, COVID-19, Pneumonia due to COVID-19 virus, Renal insufficiency, Hypoxia - Discharge Information Referrals: Hany Mchugh MD [Primary Care Provider] - Forms: ED Department Discharge Sepsis Event Note (ED) - Evaluation Sepsis Screening Result: No Definite Risk - Focused Exam Vital Signs: Vital Signs Temp Pulse Resp BP Pulse Ox 02/15/20 15:21 98.1 F 102 H 16 105/68 93 L - My Orders Last 24 Hours: My Active Orders 02/15/20 15:36 Cardiac Monitoring [RC] . DIRECTED Sodium Chloride 0.9% [Saline Flush] 10 ml FLUSH ASDIRECTED PRN Peripheral IV Insertion Adult [OM.PC] Stat 02/15/20 15:37 Oxygen Therapy [RC] PRN 02/15/20 15:38 Peripheral IV Care [RC] . DIRECTED Chest 1V Frontal [CR] Stat Blood Culture x2 Reflex Set [OM.PC] Stat 02/15/20 16:20 CULTURE BLOOD [BC] Stat 02/15/20 16:52 CULTURE BLOOD [BC] Stat - Assessment/Plan Last 24 Hours: My Active Orders 02/15/20 15:36 Cardiac Monitoring [RC] . DIRECTED Sodium Chloride 0.9% [Saline Flush] 10 ml FLUSH ASDIRECTED PRN Peripheral IV Insertion Adult [OM.PC] Stat 02/15/20 15:37 Oxygen Therapy [RC] PRN 02/15/20 15:38 Peripheral IV Care [RC] . DIRECTED Chest 1V Frontal [CR] Stat Blood Culture x2 Reflex Set [OM.PC] Stat 02/15/20 16:20 CULTURE BLOOD [BC] Stat 02/15/20 16:52 CULTURE BLOOD [BC] Stat
[2020-02-15] MEDS ORDERED: Dexamethasone 4 MG/ML SDV IVPUSH ONE (18:15)
[2020-02-15] MEDS ORDERED: REMDESIVIR (EUA) 100 MG ONE (18:32)
[2020-02-15 18:54] VITALS: BP 97/74; PULSE 85
--- NOTE | 2020-03-18 13:15 | CR ---
PROCEDURE INFORMATION: Exam: XR Chest, 1 View Exam date and time: 02/15/2020 3:44 PM Age: 69 years old Clinical indication: Chest pain; Type not specified TECHNIQUE: Imaging protocol: XR of the chest Views: 1 view. COMPARISON: DX Chest 2V 10/06/2019 9:23 AM FINDINGS: Lungs: Chronic appearing interstitial changes are present with patchy peripheral airspace opacity. Pneumonia is possible including atypical/viral etiologies. There is no pulmonary edema. Pleural space: Unremarkable. No pleural effusion. No pneumothorax. Heart/Mediastinum: The heart is moderately enlarged. Bones/joints: Unremarkable. IMPRESSION: 1. Chronic appearing interstitial change with peripheral ground-glass opacities concerning for multilobar pneumonia. Consider atypical/viral etiologies. 2. Moderate grade cardiomegaly without pulmonary edema. Thank you for allowing us to participate in the care of your patient. Dictated and Authenticated by: Goran Mantilla MD 03/18/2020 1:10 PM Central Time ([place] & [place]) KEN
== END 2020-02-15 19:07 ==
LOC: JD.ED 15:06
DX: U07.1 COVID-19 (principal); J12.89 Other viral pneumonia; R09.02 Hypoxemia; R79.1 Abnormal coagulation profile; R74.02 Elevation of levels of lactic acid dehydrogenase [LDH]; R79.89 Other specified abnormal findings of blood chemistry; I13.0 Hypertensive heart and chronic kidney disease with heart failure and stage 1 through stage 4 chronic kidney disease, or unspecified chronic kidney disease; E11.22 Type 2 diabetes mellitus with diabetic chronic kidney disease; I50.9 Heart failure, unspecified; N18.9 Chronic kidney disease, unspecified; I25.2 Old myocardial infarction; I25.10 Atherosclerotic heart disease of native coronary artery without angina pectoris; I48.91 Unspecified atrial fibrillation; M10.9 Gout, unspecified; E78.00 Pure hypercholesterolemia, unspecified; K21.9 Gastro-esophageal reflux disease without esophagitis; F41.9 Anxiety disorder, unspecified; F32.9 Major depressive disorder, single episode, unspecified; E66.9 Obesity, unspecified; D63.1 Anemia in chronic kidney disease; Z90.710 Acquired absence of both cervix and uterus; Z90.49 Acquired absence of other specified parts of digestive tract; Z88.0 Allergy status to penicillin; Z88.8 Allergy status to other drugs, medicaments and biological substances; Z79.82 Long term (current) use of aspirin; Z79.4 Long term (current) use of insulin; Z79.899 Other long term (current) drug therapy; Z68.34 Body mass index [BMI] 34.0-34.9, adult
CPT/HCPCS: 36415; 36600; 71045; 80053; 81001; 82728; 82803; 83605; 83615; 85025; 85379; 85610; 85730; 86140; 87040; 96365; 96375; 99285; J1100; J7050; 99284

== ENCOUNTER 2020-09-29 12:17 | Observation (INO) | payer MEDICARE, MEDICAID ==
[2020-09-29] MEDS ORDERED: Sodium Chloride 0.9% 10 ML Syringe FLUSH PRN (13:16)
[2020-09-29] MEDS ORDERED: Sodium Chloride 0.9% 1,000 ML ONE (14:05)
[2020-09-29] MEDS ORDERED: Sodium Chloride 0.9% 1,000 ML IV SCH (14:15)
--- NOTE | 2020-09-29 14:24 | EDM.PDOC ---
ED HPI GENERAL MEDICAL PROBLEM - General Chief Complaint: General Stated Complaint: LOW HEMBOGLOBIN Time Seen by Provider: 09/29/20 12:54 Source of Information: Reports: Patient, RN History Limitations: Reports: No Limitations, Other (ED vital signs reveal a temp of 96.1, pulse of 91, respiratory rate of 20, blood pressure 94/62, pulse ox 95% on room air.) - History of Present Illness INITIAL COMMENTS - FREE TEXT/NARRATIVE: 70-year-old female presents to the emergency department today from [facility] with a hemoglobin of 5.3. Per the snf report the patient had labs drawn and the clinic called to report to them that the patient's hemoglobin was 5.3 and that she needed to come to the emergency department. Per the snf report and the patient's report there has been no emesis noted, she has not had any black tarry stools or bright red stools. Patient denies any abdominal pain or discomfort. She has not had any recent falls or trauma. Of note the patient is on Coumadin therapy for chronic atrial fibrillation. She is also being treated for a foot ulcer for which she receives IV vancomycin daily. She does have a PICC line in her left upper extremity. Labs that were completed at [place] this morning reveal a WBC of 2.6, hemoglobin 5.3, hematocrit 15.8, MCV 112.9, platelet count is 78. Her previous hemoglobin that was drawn on Aug was 9.1. - Related Data Allergies Allergy/AdvReac Type Severity Reaction Status Date / Time clopidogrel [From Plavix] Allergy Severe Cannot Verified 09/29/20 13:04 Remember iodine Allergy Severe Cannot Verified 09/29/20 13:04 Remember Penicillins Allergy Severe Cannot Verified 09/29/20 13:04 Remember Home Meds: Home Meds Acetaminophen [Tylenol Extra Strength] 1,000 mg PO BID 02/02/16 [History] Allopurinol [Zyloprim] 150 mg PO DAILY 02/02/16 [History] Cholecalciferol (Vitamin D3) [Vitamin D3] 400 units PO DAILY 02/02/16 [History] Digoxin 125 mcg PO DAILY 02/02/16 [History] Docusate Sodium [Doc-Q-Lace] 100 mg PO BID 02/02/16 [History] Ferrous Sulfate 325 mg PO DAILY 02/02/16 [History] Potassium Chloride [Klor-Con 10] 20 meq PO BID 02/02/16 [History] Pravastatin Sodium 10 mg PO DAILY 02/02/16 [History] Sertraline [Zoloft] 100 mg PO DAILY 02/02/16 [History] Vit C/E/Zn/Coppr/Lutein/Zeaxan [Preservision Areds 2 Softgel] 1 tab PO DAILY 02/02/16 [History] metOLazone [Metolazone] 2.5 mg PO MOTH 02/02/16 [History] methIMAzole [Methimazole] 5 mg PO MOTUWETHFR 02/02/16 [History] Warfarin [Coumadin] 1.25 mg PO SA 03/10/17 [History] [place]/Min Oil/Meghan/Wool Alcoh [Eucerin Creme] 1 applic TOP DAILY 02/27/18 [History] Pantoprazole [ProTONIX] 20 mg PO DAILY 02/27/18 [History] Diltiazem [Cardizem CD] 120 mg PO BID 12/13/18 [History] Spironolactone [Aldactone] 25 mg PO DAILY 12/13/18 [History] Warfarin [Coumadin] 2.5 mg PO SUMOTUTHFR 12/16/18 [History] Ascorbate Calcium [Vitamin C] 500 mg PO DAILY 10/03/19 [History] Aspirin [Aspirin EC] 81 mg PO DAILY 10/03/19 [History] Carboxymethylcellulose Sodium [Artificial Tears] 1 drop EYEBOTH ASDIRECTED PRN 10/03/19 [History] Metoprolol Tartrate [Lopressor] 75 mg PO BID 10/03/19 [History] Mupirocin Oint [Bactroban Oint] 1 applic TOP DAILY 10/03/19 [History] Bumetanide [Bumex] 2 mg PO BID 02/15/20 [History] Insulin Aspart [NovoLOG] 22 unit SUBCUT DAILY 02/15/20 [History] Insulin Aspart [NovoLOG] 26 unit SUBCUT BID 02/15/20 [History] Insulin Detemir [Levemir] 44 unit SQ BID 02/15/20 [History] Magnesium Sulfate [Epsom Salt] 1 applic TOP DAILY 02/15/20 [History] Past Medical History HEENT History: Reports: Macular Degeneration Other HEENT History: 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; cataract to left eye; dry eyes Cardiovascular History: Reports: Afib, CAD, Heart Failure, High Cholesterol, Hypertension, MS Other Cardiovascular History: edema; Respiratory History: Reports: None Other Respiratory History: hypoxemia, O2/NC at night Gastrointestinal History: Reports: GERD Other Gastrointestinal History: hx hematochezia Genitourinary History: Reports: Chronic Renal Insuffiency, Retention, Urinary Other Genitourinary History: overactive bladder Musculoskeletal History: Reports: Gout Other Musculoskeletal History: chronic pain; dorsalgia Neurological History: Reports: Other (See Below) 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 Psychiatric History: Reports: Anxiety, Depression Other Psychiatric History: cognitive deficits Endocrine/Metabolic History: Reports: Diabetes, Type II, Obesity/BMI 30+ Other Endocrine/Metabolic History: thyrotoxicosis Hematologic History: Reports: Anemia, Iron Deficiency Dermatologic History: Reports: None Other Dermatologic History: bruising - Infectious Disease History Infectious Disease History: Reports: Chicken Pox, Measles, Mumps - Past Surgical History HEENT Surgical History: Reports: Detached Retina, Tonsillectomy GI Surgical History: Reports: Cholecystectomy, Colonoscopy Female Surgical History: Reports: Hysterectomy Musculoskeletal Surgical History: Reports: Other (See Below) Other Musculoskeletal Surgeries/Procedures:: right carpal tunnel procedure Oncologic Surgical History: Reports: Biopsy of Breast Social & Family History - Family History Family Medical History: No Pertinent Family History - Tobacco Use Tobacco Use Status *Q: Former Tobacco User Used Tobacco, but Quit: Yes Month/Year Tobacco Last Used: 12/25/1994 - Caffeine Use Caffeine Use: Reports: Coffee, Soda - Recreational Drug Use Recreational Drug Use: No - Living Situation & Occupation Living situation: Reports: Single Occupation: Disabled ED ROS GENERAL - Review of Systems Review Of Systems: Comprehensive ROS is negative, except as noted in HPI. ED EXAM, GENERAL - Physical Exam Exam: See Below Exam Limited By: No Limitations General Appearance: Alert, WD/WN, No Apparent Distress Ears: Normal External Exam, Hearing Grossly Normal Nose: Normal Inspection Throat/Mouth: Normal Inspection, Normal Lips, Normal Voice, No Airway Compromise Head: Atraumatic Neck: Normal Inspection, Supple Respiratory/Chest: No Respiratory Distress, Lungs Clear, Normal Breath Sounds, No Accessory Muscle Use, Chest Non-Tender Cardiovascular: Normal Peripheral Pulses, Systolic Murmur, Irregularly Irregular Peripheral Pulses: 2+: Radial (L), Radial (R) GI/Abdominal: Normal Bowel Sounds, Soft, Non-Tender, No Distention (Female) Exam: Deferred Rectal (Female) Exam: Normal Exam, Normal Rectal Tone, Heme - Stool, Hemorrhoids. No: Black Stool, Bloody Stool Back Exam: Normal Inspection Extremities: Other (ulcer to right heel-currently receiving vancomycin infusions) Neurological: Alert, Oriented, Normal Cognition Psychiatric: Normal Affect, Normal Mood Skin Exam: Warm, Dry, No Rash, Wound/Incision (right heel ulcer). No: Intact Lymphatic: No Adenopathy Course - Vital Signs Text/Narrative:: Patient presents from the snf after having routine lab work completed it was found that she had a hemoglobin of 5.3. The patient and the snf both deny that she has had any emesis recently, she denies any black tarry stools or bloody stools. She denies any abdominal pain. Denies any fever or chills. Patient is currently being treated for a foot ulcer. She is receiving vancomycin 1 g IV daily as an outpatient. I have ordered labs as I only have a CBC that was drawn on her from this morning from the clinic. I will also do an occult stool on the patient. Ordered for the patient to be typed and crossed for 3 units of PRBCs. She will likely need to receive Lasix during the transfusion as she does have a history of heart failure. Last Recorded V/S: Last Vital Signs Temp 95.5 F L 09/29/20 17:05 Pulse 75 09/29/20 17:05 Resp 12 09/29/20 17:05 BP 120/70 09/29/20 17:05 Pulse Ox 100 09/29/20 13:05 - Orders/Labs/Meds Orders: Active Orders 24 hr Category Date Time Status Blood Glucose Check, Bedside [] TIDMEALS Care 09/29/20 16:13 Active Hemoccult [Fecal Occult Blood Collection] [] Care 09/29/20 16:10 Active ASDIRECTED Up With Assistance [RC] ASDIRECTED Care 09/29/20 16:03 Active Verify Patient Consent Obtain [RC] ASDIRECTED Care 09/29/20 13:15 Active Vital Signs [RC] PER UNIT ROUTINE Care 09/29/20 16:02 Active CBC WITH AUTO DIFF [HEME] AM Lab 09/30/20 05:11 Ordered RED BLOOD CELLS LP [BBK] Stat Lab 09/29/20 14:43 Results TYPE AND SCREEN [BBK] Stat Lab 09/29/20 14:43 Results Acetaminophen Med 09/29/20 21:00 Active 1,000 mg PO BID Bumetanide [Bumex] Med 09/29/20 21:00 Active 2 mg PO BID Carboxymethylcellulose Sodium [Artificial Tears] Med 09/29/20 15:56 Active 1 drop EYEBOTH ASDIRECTED PRN Digoxin [Lanoxin] Med 09/30/20 09:00 Active 125 mcg PO DAILY Diltiazem [Cardizem CD] Med 09/29/20 21:00 Active 120 mg PO BID Docusate Sodium [Colace] Med 09/29/20 21:00 Active 100 mg PO BID Ferrous Sulfate Med 09/30/20 09:00 Active 325 mg PO DAILY Insulin Aspart Med 09/29/20 21:00 Active 26 unit SUBCUT BID Insulin Detemir Med 09/29/20 21:00 Active 44 unit SQ BID Magnesium Sulfate [Epsom Salt] Med 09/30/20 09:00 Active 1 applic TOP DAILY Metoprolol Tartrate [Lopressor] Med 09/29/20 21:00 Active 75 mg PO BID Pantoprazole [ProTONIX IV] Med 09/29/20 16:15 Active 40 mg IVPUSH Q12H Potassium Chloride [Klor-Con 10] Med 09/29/20 21:00 Active 20 meq PO BID Pravastatin Sodium [Pravastatin Sodium] Med 09/30/20 09:00 Active 10 mg PO DAILY Sertraline [Zoloft] Med 09/30/20 09:00 Active 100 mg PO DAILY Sodium Chloride 0.9% [Normal Saline] 1,000 ml Med 09/29/20 14:15 Active IV ASDIRECTED Sodium Chloride 0.9% [Saline Flush] Med 09/29/20 13:16 Active 10 ml FLUSH ASDIRECTED PRN Spironolactone [Aldactone] Med 09/30/20 09:00 Active 25 mg PO DAILY allopurinoL [Zyloprim] Med 09/30/20 09:00 Active 150 mg PO DAILY metOLazone [Zaroxolyn] Med 09/29/20 16:15 Active 2.5 mg PO MOTH methIMAzole Med 09/29/20 16:15 Active 5 mg PO MOTUWETHFR oxyCODONE Med 09/29/20 16:02 Active 5 mg PO Q4H PRN Peripheral IV Insertion Adult [OM.PC] Urgent Oth 09/29/20 13:14 Ordered Saline Lock Insert [OM.PC] Stat Oth 09/29/20 13:16 Ordered Transfuse PRBC [Transfuse Red Blood Cells] [COMM] Stat Oth 09/29/20 13:14 Ordered Resuscitation Status Routine Resus Stat 09/29/20 16:02 Ordered Medication Orders Allopurinol (Allopurinol 300 Mg Tab) 150 mg PO DAILY [facility] Bumetanide (Bumetanide 1 Mg Tab) 2 mg PO BID [facility] Digoxin (Digoxin 125 Mcg Tab) 125 mcg PO DAILY [facility] Diltiazem HCl (Diltiazem 120 Mg Cap.Cd) 120 mg PO BID [facility] Docusate Sodium (Docusate Sodium 100 Mg Cap) 100 mg PO BID [facility] Sodium Chloride (Normal Saline) 1,000 mls @ 50 mls/hr IV ASDIRECTED [facility] Stop: 10/03/20 14:03 Last Admin: 09/29/20 14:44 Dose: 50 mls/hr Documented by: SCHOKAT Methimazole (Methimazole 5 Mg Tab) 5 mg PO MOTUWETHFR [facility] Metolazone (Metolazone 2.5 Mg Tab) 2.5 mg PO MOTH [facility] Metoprolol Tartrate (Metoprolol Tartrate 50 Mg Tab) 75 mg PO BID [facility] Non-Formulary Medication (Acetaminophen) 1,000 mg PO BID [facility] Non-Formulary Medication (Carboxymethylcellulose Sodium [Artificial Tears]) 1 drop EYEBOTH ASDIRECTED PRN PRN Reason: Dry Eyes Non-Formulary Medication (Ferrous Sulfate) 325 mg PO DAILY [facility] Non-Formulary Medication (Magnesium Sulfate [Epsom Salt]) 1 applic TOP DAILY [facility] Non-Formulary Medication (Insulin Aspart) 26 unit SUBCUT BID [facility] Non-Formulary Medication (Insulin Detemir) 44 unit SQ BID [facility] Non-Formulary Medication (Pravastatin Sodium [Pravastatin Sodium]) 10 mg PO DAILY [facility] Oxycodone HCl (Oxycodone 5 Mg Tab) 5 mg PO Q4H PRN PRN Reason: Pain Pantoprazole Sodium (Pantoprazole 40 Mg Vial) 40 mg IVPUSH Q12H [facility] Potassium Chloride (Potassium Chloride 10 Meq Tab.Er) 20 meq PO BID [facility] Sertraline HCl (Sertraline 50 Mg Tab) 100 mg PO DAILY [facility] Sodium Chloride (Sodium Chloride 0.9% 10 Ml Syringe) 10 ml FLUSH ASDIRECTED PRN PRN Reason: Keep Vein Open Last Admin: 09/29/20 14:43 Dose: 10 ml Documented by: BRANDONOKAT Spironolactone (Spironolactone 25 Mg Tab) 25 mg PO DAILY [facility] Labs: Laboratory Tests 09/29/20 09/29/20 09/29/20 Range/Units 14:30 14:43 14:43 PT (9.7-12.0) SECONDS INR APTT (21.7-31.4) SECONDS Sodium 139 (136-145) mEq/L Potassium 3.5 (3.5-5.1) mEq/L Chloride 101 (98-107) mEq/L Carbon Dioxide 27 (21-32) mEq/L Anion Gap 14.5 (5-15) BUN 68 H (7-18) mg/dL Creatinine 1.2 H (0.55-1.02) mg/dL Est Cr Clr Drug Dosing 47.17 mL/min Estimated GFR (MDRD) 44 (>60) mL/min BUN/Creatinine Ratio 56.7 H (14-18) Glucose 149 H (70-99) mg/dL Calcium 9.3 (8.5-10.1) mg/dL Magnesium 2.6 H (1.8-2.4) mg/dL Total Bilirubin 1.2 H (0.2-1.0) mg/dL AST 20 (15-37) U/L ALT 18 (14-59) U/L Alkaline Phosphatase 69 (46-116) U/L NT-Pro-B Natriuret Pep (0-125) pg/mL Total Protein 6.8 (6.4-8.2) g/dl Albumin 3.6 (3.4-5.0) g/dl Globulin 3.2 gm/dL Albumin/Globulin Ratio 1.1 (1-2) Urine Color Yellow (Yellow) Urine Appearance Clear (Clear) Urine pH 6.5 (5.0-8.0) Ur Specific [place] 1.015 (1.005-1.030) Urine Protein Negative (Negative) Urine Glucose (UA) Negative (Negative) Urine Ketones Negative (Negative) Urine Occult Blood Negative (Negative) Urine Nitrite Negative (Negative) Urine Bilirubin Negative (Negative) Urine Urobilinogen 0.2 (0.2-1.0) Ur Leukocyte Esterase Negative (Negative) SARS-CoV-2 RNA (SUSANNA) (NEGATIVE) Blood Type O POSITIVE Gel Antibody Screen Negative Crossmatch See Detail 09/29/20 09/29/20 09/29/20 Range/Units 14:43 14:43 15:35 PT 21.9 H (9.7-12.0) SECONDS INR 2.08 APTT 29.2 (21.7-31.4) SECONDS Sodium (136-145) mEq/L Potassium (3.5-5.1) mEq/L Chloride (98-107) mEq/L Carbon Dioxide (21-32) mEq/L Anion Gap (5-15) BUN (7-18) mg/dL Creatinine (0.55-1.02) mg/dL Est Cr Clr Drug Dosing mL/min Estimated GFR (MDRD) (>60) mL/min BUN/Creatinine Ratio (14-18) Glucose (70-99) mg/dL Calcium (8.5-10.1) mg/dL Magnesium (1.8-2.4) mg/dL Total Bilirubin (0.2-1.0) mg/dL AST (15-37) U/L ALT (14-59) U/L Alkaline Phosphatase (46-116) U/L NT-Pro-B Natriuret Pep 3672 H (0-125) pg/mL Total Protein (6.4-8.2) g/dl Albumin (3.4-5.0) g/dl Globulin gm/dL Albumin/Globulin Ratio (1-2) Urine Color (Yellow) Urine Appearance (Clear) Urine pH (5.0-8.0) Ur Specific [place] (1.005-1.030) Urine Protein (Negative) Urine Glucose (UA) (Negative) Urine Ketones (Negative) Urine Occult Blood (Negative) Urine Nitrite (Negative) Urine Bilirubin (Negative) Urine Urobilinogen (0.2-1.0) Ur Leukocyte Esterase (Negative) SARS-CoV-2 RNA (SUSANNA) Negative (NEGATIVE) Blood Type Gel Antibody Screen Crossmatch Meds: Medications Generic Name Dose Route Start Last Admin Trade Name Freq PRN Reason Stop Dose Admin Allopurinol 150 mg 09/30/20 09:00 Allopurinol 300 Mg Tab PO DAILY [facility] Bumetanide 2 mg 09/29/20 21:00 Bumetanide 1 Mg Tab PO BID [facility] Digoxin 125 mcg 09/30/20 09:00 Digoxin 125 Mcg Tab PO DAILY [facility] Diltiazem HCl 120 mg 09/29/20 21:00 Diltiazem 120 Mg Cap.Cd PO BID [facility] Docusate Sodium 100 mg 09/29/20 21:00 Docusate Sodium 100 Mg Cap PO BID [facility] Sodium Chloride 1,000 mls @ 50 mls/hr 09/29/20 14:15 09/29/20 14:44 Normal Saline IV 10/03/20 14:03 50 mls/hr ASDIRECTED [facility] Administration Methimazole 5 mg 09/29/20 16:15 Methimazole 5 Mg Tab PO MOTUWETHFR [facility] Metolazone 2.5 mg 09/29/20 16:15 Metolazone 2.5 Mg Tab PO MOTH [facility] Metoprolol Tartrate 75 mg 09/29/20 21:00 Metoprolol Tartrate 50 Mg Tab PO BID [facility] Non-Formulary Medication 1,000 mg 09/29/20 21:00 Acetaminophen PO BID [facility] Non-Formulary Medication 1 drop 09/29/20 15:56 Carboxymethylcellulose Sodium [Artificial Tears] EYEBOTH ASDIRECTED PRN Dry Eyes Non-Formulary Medication 325 mg 09/30/20 09:00 Ferrous Sulfate PO DAILY [facility] Non-Formulary Medication 1 applic 09/30/20 09:00 Magnesium Sulfate [Epsom Salt] TOP DAILY [facility] Non-Formulary Medication 26 unit 09/29/20 21:00 Insulin Aspart SUBCUT BID [facility] Non-Formulary Medication 44 unit 09/29/20 21:00 Insulin Detemir SQ BID [facility] Non-Formulary Medication 10 mg 09/30/20 09:00 Pravastatin Sodium [Pravastatin Sodium] PO DAILY [facility] Oxycodone HCl 5 mg 09/29/20 16:02 Oxycodone 5 Mg Tab PO Q4H PRN Pain Pantoprazole Sodium 40 mg 09/29/20 16:15 Pantoprazole 40 Mg Vial IVPUSH Q12H [facility] Potassium Chloride 20 meq 09/29/20 21:00 Potassium Chloride 10 Meq Tab.Er PO BID [facility] Sertraline HCl 100 mg 09/30/20 09:00 Sertraline 50 Mg Tab PO DAILY [facility] Sodium Chloride 10 ml 09/29/20 13:16 09/29/20 14:43 Sodium Chloride 0.9% 10 Ml Syringe FLUSH 10 ml ASDIRECTED PRN Administration Keep Vein Open Spironolactone 25 mg 09/30/20 09:00 Spironolactone 25 Mg Tab PO DAILY [facility] Discontinued Medications Generic Name Dose Route Start Last Admin Trade Name Omayra PRN Reason Stop Dose Admin Furosemide 20 mg 09/29/20 16:34 Furosemide 20 Mg/2 Ml Vial IVPUSH 09/29/20 16:35 ONETIME ONE Sodium Chloride Confirm 09/29/20 14:05 09/29/20 14:43 Normal Saline Administered 09/29/20 14:06 Not Given Dose 1,000 mls @ as directed .ROUTE .Isai-MED ONE - Re-Assessments/Exams Free Text/Narrative Re-Assessment/Exam: 09/29/20 15:36 Coagulation reveals a pro time of 21.9, INR 2.08, PTT 29.2, chemistry reveals a sodium of 139, potassium 3.5, carbon dioxide 27, anion gap 14.5, BUN 68, creatinine 1.2, glucose 149, magnesium 2.6, total bili 1.2, AST 20, ALT 18, alk phos 69, proBNP 3672 Urinalysis is unremarkable Rectal exam was negative for occult blood. 09/29/20 15:38 I think that this patient does need to be admitted to the hospital. I have called , and he has agreed to admit the patient. 09/29/20 17:12 I do not feel that this patient is a sepsis risk. Her heart rate is 91 and she is slightly hypotensive however I believe this is due to blood loss and anemia. Departure - Departure Time of Disposition: 17:12 Disposition: Refer to Observation Condition: Fair Clinical Impression: Anemia Qualifiers: Anemia type: unspecified type Qualified Code(s): D64.9 - Anemia, unspecified - Discharge Information Sepsis Event Note (ED) - Evaluation Sepsis Screening Result: Possible Sepsis Risk - Focused Exam Vital Signs: Vital Signs Temp Pulse Resp BP Pulse Ox 09/29/20 13:05 100 13 120/60 100 09/29/20 12:58 96.1 F L 91 20 94/62 95 - My Orders Last 24 Hours: My Active Orders 09/29/20 13:14 Peripheral IV Insertion Adult [OM.PC] Urgent Transfuse PRBC [Transfuse Red Blood Cells] [COMM] Stat 09/29/20 13:15 Verify Patient Consent Obtain [RC] ASDIRECTED 09/29/20 13:16 Sodium Chloride 0.9% [Saline Flush] 10 ml FLUSH ASDIRECTED PRN Saline Lock Insert [OM.PC] Stat 09/29/20 14:15 Sodium Chloride 0.9% [Normal Saline] 1,000 ml IV ASDIRECTED 09/29/20 14:43 RED BLOOD CELLS LP [BBK] Stat TYPE AND SCREEN [BBK] Stat - Assessment/Plan Last 24 Hours: My Active Orders 09/29/20 13:14 Peripheral IV Insertion Adult [OM.PC] Urgent Transfuse PRBC [Transfuse Red Blood Cells] [COMM] Stat 09/29/20 13:15 Verify Patient Consent Obtain [RC] ASDIRECTED 09/29/20 13:16 Sodium Chloride 0.9% [Saline Flush] 10 ml FLUSH ASDIRECTED PRN Saline Lock Insert [OM.PC] Stat 09/29/20 14:15 Sodium Chloride 0.9% [Normal Saline] 1,000 ml IV ASDIRECTED 09/29/20 14:43 RED BLOOD CELLS LP [BBK] Stat TYPE AND SCREEN [BBK] Stat
[2020-09-29] MEDS ORDERED: Non-Formulary Medication 1 Each (Carboxymethylcellulose Sodium [Artificial Tears] 15 ML Dr EYEBOTH PRN (15:56)
[2020-09-29] MEDS ORDERED: oxyCODONE 5 MG Tab PO PRN (16:02)
[2020-09-29] MEDS ORDERED: Pantoprazole 40 MG Vial IVPUSH SCH (16:15)
[2020-09-29] MEDS ORDERED: Methimazole 5 MG Tab PO SCH (16:15)
[2020-09-29] MEDS ORDERED: Metolazone 2.5 MG Tab PO SCH (16:15)
[2020-09-29] MEDS ORDERED: Furosemide 20 MG/2 ML VIAL IVPUSH ONE ×2 (16:34→20:15)
--- NOTE | 2020-09-29 18:13 | PCM.HP.2 ---
H&P History of Present Illness - General Date of Service: 09/29/20 Admit Problem/Dx: Admission Diagnosis/Problem Admission Diagnosis/Problem Anemia - History of Present Illness Initial Comments - Free Text/Narative: Ms. Vu is a 70-year-old female who presented [facility] emergency department [facility] for anemia. Per the alf report the patient had labs drawn and the clinic called to report to them that the patient's hemoglobin was 5.3 g/dl. Her previous hemoglobin that was drawn on August 24, 2020 was 9.1. The patient's report no recent hematemesis, abdominal pain or hematochezia. She has not had any black tarry stools or bright red stools. She takes a baby aspirin daily but denies taking any NSAIDS. She denies any h/o GI bleeds or PUD. She reports having had a colonoscopy many years ago but no EGD that she can recall. She has not had any recent falls or trauma. She is on Coumadin therapy for chronic atrial fibrillation. She is also being treated for a foot ulcer for which she receives IV vancomycin daily. She does have a PICC line in her left upper extremity. - Related Data Allergies/Adverse Reactions: Allergies Allergy/AdvReac Type Severity Reaction Status Date / Time clopidogrel [From Plavix] Allergy Severe Cannot Verified 09/29/20 13:04 Remember iodine Allergy Severe Cannot Verified 09/29/20 13:04 Remember Penicillins Allergy Severe Cannot Verified 09/29/20 13:04 Remember Home Medications: Home Meds Acetaminophen [Tylenol Extra Strength] 1,000 mg PO BID 02/02/16 [History] Allopurinol [Zyloprim] 150 mg PO DAILY 02/02/16 [History] Cholecalciferol (Vitamin D3) [Vitamin D3] 400 units PO DAILY 02/02/16 [History] Digoxin 125 mcg PO DAILY 02/02/16 [History] Docusate Sodium [Doc-Q-Lace] 100 mg PO BID 02/02/16 [History] Ferrous Sulfate 325 mg PO DAILY 02/02/16 [History] Potassium Chloride [Klor-Con 10] 20 meq PO BID 02/02/16 [History] Pravastatin Sodium 10 mg PO DAILY 02/02/16 [History] Sertraline [Zoloft] 75 mg PO DAILY 02/02/16 [History] Vit C/E/Zn/Coppr/Lutein/Zeaxan [Preservision Areds 2 Softgel] 500 tab PO DAILY 02/02/16 [History] metOLazone [Metolazone] 2.5 mg PO MOTH 02/02/16 [History] methIMAzole [Methimazole] 5 mg PO MOTUWETHFR 02/02/16 [History] Warfarin [Coumadin] 1.25 mg PO SA 03/10/17 [History] [place]/Min Oil/Meghan/Wool Alcoh [Eucerin Creme] 1 applic TOP DAILY 02/27/18 [History] Pantoprazole [ProTONIX] 20 mg PO DAILY 02/27/18 [History] Diltiazem [Cardizem CD] 120 mg PO BID 12/13/18 [History] Spironolactone [Aldactone] 25 mg PO DAILY 12/13/18 [History] Warfarin [Coumadin] 2.5 mg PO SUMOTUTHFR 12/16/18 [History] Ascorbate Calcium [Vitamin C] 500 mg PO DAILY 10/03/19 [History] Aspirin [Aspirin EC] 81 mg PO DAILY 10/03/19 [History] Carboxymethylcellulose Sodium [Artificial Tears] 1 drop EYEBOTH ASDIRECTED PRN 10/03/19 [History] Metoprolol Tartrate [Lopressor] 75 mg PO BID 10/03/19 [History] Mupirocin Oint [Bactroban Oint] 1 applic TOP DAILY 10/03/19 [History] Bumetanide [Bumex] 2 mg PO BID 02/15/20 [History] Insulin Aspart [NovoLOG] 17 unit SUBCUT TID 02/15/20 [History] Insulin Aspart [NovoLOG] unit SUBCUT DAILY 02/15/20 [History] Insulin Detemir [Levemir] 44 unit SQ BID 02/15/20 [History] Magnesium Sulfate [Epsom Salt] 1 applic TOP DAILY 02/15/20 [History] Metoprolol Succinate [Toprol XL] 1 tab PO BID 09/29/20 [History] Past Medical History HEENT History: Reports: Macular Degeneration Other HEENT History: 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; cataract to left eye; dry eyes Cardiovascular History: Reports: Afib, CAD, Heart Failure, High Cholesterol, Hypertension, MA Other Cardiovascular History: edema; Respiratory History: Reports: None Other Respiratory History: hypoxemia, O2/NC at night Gastrointestinal History: Reports: GERD Other Gastrointestinal History: hx hematochezia Genitourinary History: Reports: Chronic Renal Insuffiency, Retention, Urinary Other Genitourinary History: overactive bladder Musculoskeletal History: Reports: Gout Other Musculoskeletal History: chronic pain; dorsalgia Neurological History: Reports: Other (See Below) 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 Psychiatric History: Reports: Anxiety, Depression Other Psychiatric History: cognitive deficits Endocrine/Metabolic History: Reports: Diabetes, Type II, Obesity/BMI 30+ Other Endocrine/Metabolic History: thyrotoxicosis Hematologic History: Reports: Anemia, Iron Deficiency Dermatologic History: Reports: None Other Dermatologic History: bruising - Infectious Disease History Infectious Disease History: Reports: Chicken Pox, Measles, Mumps - Past Surgical History HEENT Surgical History: Reports: Detached Retina, Tonsillectomy GI Surgical History: Reports: Cholecystectomy, Colonoscopy Female Surgical History: Reports: Hysterectomy Musculoskeletal Surgical History: Reports: Other (See Below) Other Musculoskeletal Surgeries/Procedures:: right carpal tunnel procedure Oncologic Surgical History: Reports: Biopsy of Breast Social & Family History - Family History Family Medical History: No Pertinent Family History - Tobacco Use Tobacco Use Status *Q: Former Tobacco User Used Tobacco, but Quit: Yes Month/Year Tobacco Last Used: 12/25/1994 - Caffeine Use Caffeine Use: Reports: Coffee, Soda - Recreational Drug Use Recreational Drug Use: No - Living Situation & Occupation Living situation: Reports: Single Occupation: Disabled H&P Review of Systems - Review of Systems: Review Of Systems: See Below Exam - Exam Exam: See Below - Vital Signs Vital Signs: Last Vital Signs Temp 95.8 F L 09/29/20 17:20 Pulse 79 09/29/20 17:20 Resp 12 09/29/20 17:20 BP 108/59 L 09/29/20 17:20 Pulse Ox 100 09/29/20 13:05 Weight: 219 lb - Exam Physical Exam Comments:: General: elderly female. She is awake and able to respond to questions appropriately CVS :S1S2 appreciated. irregular rate and rhythm. No murmurs, rubs or gallops lungs: clear with no rales or wheezes pa: soft, non tender. Bowel sounds are present ext: no clubbing, cyanosis or edema Pt has dressings over the right leg ulcer neuro: moves all extremities. Unable to examine gait. Sensation is intact. psych: mood and affect are stable. - Patient Data Lab Results Last 24 hrs: Laboratory Results - last 24 hr 09/29/20 09/29/20 09/29/20 Range/Units 14:30 14:43 14:43 PT (9.7-12.0) SECONDS INR APTT (21.7-31.4) SECONDS Sodium 139 (136-145) mEq/L Potassium 3.5 (3.5-5.1) mEq/L Chloride 101 (98-107) mEq/L Carbon Dioxide 27 (21-32) mEq/L Anion Gap 14.5 (5-15) BUN 68 H (7-18) mg/dL Creatinine 1.2 H (0.55-1.02) mg/dL Est Cr Clr Drug Dosing 47.17 mL/min Estimated GFR (MDRD) 44 (>60) mL/min BUN/Creatinine Ratio 56.7 H (14-18) Glucose 149 H (70-99) mg/dL Calcium 9.3 (8.5-10.1) mg/dL Magnesium 2.6 H (1.8-2.4) mg/dL Total Bilirubin 1.2 H (0.2-1.0) mg/dL AST 20 (15-37) U/L ALT 18 (14-59) U/L Alkaline Phosphatase 69 (46-116) U/L NT-Pro-B Natriuret Pep (0-125) pg/mL Total Protein 6.8 (6.4-8.2) g/dl Albumin 3.6 (3.4-5.0) g/dl Globulin 3.2 gm/dL Albumin/Globulin Ratio 1.1 (1-2) Urine Color Yellow (Yellow) Urine Appearance Clear (Clear) Urine pH 6.5 (5.0-8.0) Ur Specific [place] 1.015 (1.005-1.030) Urine Protein Negative (Negative) Urine Glucose (UA) Negative (Negative) Urine Ketones Negative (Negative) Urine Occult Blood Negative (Negative) Urine Nitrite Negative (Negative) Urine Bilirubin Negative (Negative) Urine Urobilinogen 0.2 (0.2-1.0) Ur Leukocyte Esterase Negative (Negative) SARS-CoV-2 RNA (SUSANNA) (NEGATIVE) Blood Type O POSITIVE Gel Antibody Screen Negative Crossmatch See Detail 09/29/20 09/29/20 09/29/20 Range/Units 14:43 14:43 15:35 PT 21.9 H (9.7-12.0) SECONDS INR 2.08 APTT 29.2 (21.7-31.4) SECONDS Sodium (136-145) mEq/L Potassium (3.5-5.1) mEq/L Chloride (98-107) mEq/L Carbon Dioxide (21-32) mEq/L Anion Gap (5-15) BUN (7-18) mg/dL Creatinine (0.55-1.02) mg/dL Est Cr Clr Drug Dosing mL/min Estimated GFR (MDRD) (>60) mL/min BUN/Creatinine Ratio (14-18) Glucose (70-99) mg/dL Calcium (8.5-10.1) mg/dL Magnesium (1.8-2.4) mg/dL Total Bilirubin (0.2-1.0) mg/dL AST (15-37) U/L ALT (14-59) U/L Alkaline Phosphatase (46-116) U/L NT-Pro-B Natriuret Pep 3672 H (0-125) pg/mL Total Protein (6.4-8.2) g/dl Albumin (3.4-5.0) g/dl Globulin gm/dL Albumin/Globulin Ratio (1-2) Urine Color (Yellow) Urine Appearance (Clear) Urine pH (5.0-8.0) Ur Specific [place] (1.005-1.030) Urine Protein (Negative) Urine Glucose (UA) (Negative) Urine Ketones (Negative) Urine Occult Blood (Negative) Urine Nitrite (Negative) Urine Bilirubin (Negative) Urine Urobilinogen (0.2-1.0) Ur Leukocyte Esterase (Negative) SARS-CoV-2 RNA (SUSANNA) Negative (NEGATIVE) Blood Type Gel Antibody Screen Crossmatch Result Diagrams: 09/29/20 14:43 Sepsis Event Note - Evaluation Sepsis Screening Result: Possible Sepsis Risk - Focused Exam Vital Signs: Vital Signs Temp Temp Pulse Resp BP Pulse Ox 09/29/20 17:20 95.8 F L 79 12 108/59 L 09/29/20 17:05 95.5 F L 75 12 120/70 09/29/20 16:52 96.1 F L 110 H 12 115/63 09/29/20 13:05 100 13 120/60 100 09/29/20 12:58 96.1 F L 91 20 94/62 95 - Problem List (1) Acute blood loss anemia SNOMED Code(s): 992989359 ICD Code: D62 - ACUTE POSTHEMORRHAGIC ANEMIA Status: Acute Current Visit: Yes Problem Details: Admit pt to the medical floor under observation status. Type screen and transfuse 3 units of PRBC's repeat H/H PPI BID hold coumadin and ASA check stool occults Pt will benefit from a colonoscopy and EGD at some point as an outpt prior to resuming coumadin therapy. (2) Chronic a-fib SNOMED Code(s): 311524643 ICD Code: I48.20 - CHRONIC ATRIAL FIBRILLATION, UNSPECIFIED Status: Acute Current Visit: Yes Problem Details: rate controlled continue home meds. Hold coumadin. (3) T2DM (type 2 diabetes mellitus) SNOMED Code(s): 91505464 ICD Code: E11.9 - TYPE 2 DIABETES MELLITUS WITHOUT COMPLICATIONS Status: Acute Current Visit: Yes Problem Details: continue home meds blood glucose checks Q ac (4) Full code status SNOMED Code(s): 230671121 ICD Code: Z78.9 - OTHER SPECIFIED HEALTH STATUS Status: Acute Current Visit: Yes (5) Lower limb ulcer SNOMED Code(s): 34010233, 325261309 ICD Code: L97.909 - NON-PRS CHRONIC ULC UNSP PRT OF UNSP LOW LEG W UNSP SEVERITY Status: Acute Current Visit: Yes Problem Details: continue with outpt wound care tomorrow. (6) Hyperthyroidism SNOMED Code(s): 94942016 ICD Code: E05.90 - THYROTOXICOSIS, UNSP WITHOUT THYROTOXIC CRISIS OR STORM Status: Chronic Priority: Low Current Visit: No Problem Details: on methimazole. Problem List Initiated/Reviewed/Updated: Yes Orders Last 24hrs: Active Orders 24 hr Category Date Time Status Admission Status [Patient Status] [ADT] Routine ADT 09/29/20 16:26 Active Blood Glucose Check, Bedside [RC] TIDMEALS Care 09/29/20 16:13 Active Hemoccult [Fecal Occult Blood Collection] [RC] Care 09/29/20 16:10 Active ASDIRECTED Up With Assistance [RC] ASDIRECTED Care 09/29/20 16:03 Active Verify Patient Consent Obtain [RC] ASDIRECTED Care 09/29/20 13:15 Active Vital Signs [RC] PER UNIT ROUTINE Care 09/29/20 16:02 Active Consistent Carbohydrate Diet [DIET] Diet 09/29/20 Dinner Active CBC WITH AUTO DIFF [HEME] AM Lab 09/30/20 05:11 Ordered HEMOGLOBIN/HEMATOCRIT,HH [HEME] Timed Lab 09/29/20 20:00 Ordered INR,PT,PROTHROMBIN TIME [COAG] Routine Lab 10/02/20 07:00 Ordered RED BLOOD CELLS LP [BBK] Stat Lab 09/29/20 14:43 Results TYPE AND SCREEN [BBK] Stat Lab 09/29/20 14:43 Results Acetaminophen Med 09/29/20 21:00 Active 1,000 mg PO BID Bumetanide [Bumex] Med 09/29/20 21:00 Active 2 mg PO BID Carboxymethylcellulose Sodium [Artificial Tears] Med 09/29/20 15:56 Active 1 drop EYEBOTH ASDIRECTED PRN Digoxin [Lanoxin] Med 09/30/20 09:00 Active 125 mcg PO DAILY Diltiazem [Cardizem CD] Med 09/29/20 21:00 Active 120 mg PO BID Docusate Sodium [Colace] Med 09/29/20 21:00 Active 100 mg PO BID Ferrous Sulfate Med 09/30/20 09:00 Active 325 mg PO DAILY Insulin Aspart Med 09/29/20 21:00 Active 26 unit SUBCUT BID Insulin Detemir Med 09/29/20 21:00 Active 44 unit SQ BID Magnesium Sulfate [Epsom Salt] Med 09/30/20 09:00 Active 1 applic TOP DAILY Metoprolol Tartrate [Lopressor] Med 09/29/20 21:00 Active 75 mg PO BID Pantoprazole [ProTONIX IV] Med 09/29/20 16:15 Active 40 mg IVPUSH Q12H Potassium Chloride [Klor-Con 10] Med 09/29/20 21:00 Active 20 meq PO BID Pravastatin Sodium [Pravastatin Sodium] Med 09/30/20 09:00 Active 10 mg PO DAILY Sertraline [Zoloft] Med 09/30/20 09:00 Active 100 mg PO DAILY Sodium Chloride 0.9% [Normal Saline] 1,000 ml Med 09/29/20 14:15 Active IV ASDIRECTED Sodium Chloride 0.9% [Saline Flush] Med 09/29/20 13:16 Active 10 ml FLUSH ASDIRECTED PRN Spironolactone [Aldactone] Med 09/30/20 09:00 Active 25 mg PO DAILY allopurinoL [Zyloprim] Med 09/30/20 09:00 Active 150 mg PO DAILY metOLazone [Zaroxolyn] Med 09/29/20 16:15 Active 2.5 mg PO MOTH methIMAzole Med 09/29/20 16:15 Active 5 mg PO MOTUWETHFR oxyCODONE Med 09/29/20 16:02 Active 5 mg PO Q4H PRN Peripheral IV Insertion Adult [OM.PC] Urgent Ot 09/29/20 13:14 Ordered Saline Lock Insert [OM.PC] Stat Ot 09/29/20 13:16 Ordered Transfuse PRBC [Transfuse Red Blood Cells] [COMM] Stat Ot 09/29/20 13:14 Ordered Resuscitation Status Routine Resus Stat 09/29/20 16:02 Ordered Medication Orders Allopurinol (Allopurinol 300 Mg Tab) 150 mg PO DAILY [facility] Bumetanide (Bumetanide 1 Mg Tab) 2 mg PO BID [facility] Digoxin (Digoxin 125 Mcg Tab) 125 mcg PO DAILY [facility] Diltiazem HCl (Diltiazem 120 Mg Cap.Cd) 120 mg PO BID [facility] Docusate Sodium (Docusate Sodium 100 Mg Cap) 100 mg PO BID [facility] Sodium Chloride (Normal Saline) 1,000 mls @ 50 mls/hr IV ASDIRECTED [facility] Stop: 10/03/20 14:03 Last Admin: 09/29/20 14:44 Dose: 50 mls/hr Documented by: SCHOKAT Methimazole (Methimazole 5 Mg Tab) 5 mg PO MOTUWETHFR [facility] Metolazone (Metolazone 2.5 Mg Tab) 2.5 mg PO MOTH [facility] Metoprolol Tartrate (Metoprolol Tartrate 50 Mg Tab) 75 mg PO BID [facility] Non-Formulary Medication (Acetaminophen) 1,000 mg PO BID [facility] Non-Formulary Medication (Carboxymethylcellulose Sodium [Artificial Tears]) 1 drop EYEBOTH ASDIRECTED PRN PRN Reason: Dry Eyes Non-Formulary Medication (Ferrous Sulfate) 325 mg PO DAILY [facility] Non-Formulary Medication (Magnesium Sulfate [Epsom Salt]) 1 applic TOP DAILY [facility] Non-Formulary Medication (Insulin Aspart) 26 unit SUBCUT BID [facility] Non-Formulary Medication (Insulin Detemir) 44 unit SQ BID [facility] Non-Formulary Medication (Pravastatin Sodium [Pravastatin Sodium]) 10 mg PO DAILY [facility] Oxycodone HCl (Oxycodone 5 Mg Tab) 5 mg PO Q4H PRN PRN Reason: Pain Pantoprazole Sodium (Pantoprazole 40 Mg Vial) 40 mg IVPUSH Q12H [facility] Potassium Chloride (Potassium Chloride 10 Meq Tab.Er) 20 meq PO BID [facility] Sertraline HCl (Sertraline 50 Mg Tab) 100 mg PO DAILY [facility] Sodium Chloride (Sodium Chloride 0.9% 10 Ml Syringe) 10 ml FLUSH ASDIRECTED PRN PRN Reason: Keep Vein Open Last Admin: 09/29/20 14:43 Dose: 10 ml Documented by: KIT Spironolactone (Spironolactone 25 Mg Tab) 25 mg PO DAILY [facility] - Mortality Measure Prognosis:: Good
[2020-09-29] MEDS ORDERED: Phytonadione ORAL 2.5mg/2.5ml Soln Simple Syrup U/D PO ONE ×2 (18:35→20:15)
[2020-09-29] MEDS ORDERED: Sodium Chloride 0.9% 250 ML ONE (19:43)
[2020-09-29] MEDS: Acetaminophen 325 MG Tab PO SCH (20:35)
[2020-09-29] MEDS: Methimazole 5 MG Tab PO SCH (20:40)
[2020-09-29] MEDS: Pantoprazole 40 MG Vial IVPUSH SCH (20:42)
[2020-09-29] MEDS: Docusate Sodium 100 MG Cap PO SCH (20:42)
[2020-09-29] MEDS ORDERED: INSULIN DETEMIR 100 UNIT/ML SQ SCH (21:00)
[2020-09-29] MEDS ORDERED: Bumetanide 1 MG Tab PO SCH (21:00)
[2020-09-29] MEDS ORDERED: Non-Formulary Medication 1 Each (Insulin Aspart 100 UNIT/ML Pen) SUBCUT SCH (21:00)
[2020-09-29] MEDS ORDERED: Metoprolol Tartrate 50 MG Tab PO SCH (21:00)
[2020-09-29] MEDS ORDERED: Diltiazem 120 MG Cap.CD PO SCH (21:00)
[2020-09-29] MEDS ORDERED: Potassium Chloride 10 MEQ Tab.ER PO SCH (21:00)
[2020-09-30] MEDS ORDERED: Polyvinyl Alcohol 1.4% Ophth Soln 15 ML Bottle EYEBOTH PRN (00:05)
[2020-09-30] MEDS ORDERED: Bumetanide 1 MG Tab PO SCH (06:00)
[2020-09-30] MEDS ORDERED: Potassium Chloride 20 MEQ Tab.ER PO SCH (07:00)
[2020-09-30] MEDS ORDERED: Insulin Lispro 100 UNIT/ML 10 ML Vial SUBCUT SCH ×2 (07:08→11:00)
[2020-09-30] MEDS ORDERED: Carboxymethylcellulose Sodium 1% Ophth Gel 15 ML Bottle EYEBOTH PRN (07:30)
[2020-09-30 08:14] VITALS: BP 129/52; PULSE 75
[2020-09-30] MEDS: Docusate Sodium 100 MG Cap PO SCH (08:34)
[2020-09-30] MEDS: Methimazole 5 MG Tab PO SCH (08:37)
[2020-09-30] MEDS: Acetaminophen 325 MG Tab PO SCH (08:38)
[2020-09-30] MEDS: Pantoprazole 40 MG Vial IVPUSH SCH (08:40)
[2020-09-30] MEDS ORDERED: Sertraline 50 MG Tab PO SCH (09:00)
[2020-09-30] MEDS ORDERED: Spironolactone 25 MG Tab PO SCH (09:00)
[2020-09-30] MEDS ORDERED: Ferrous Sulfate 324 MG Tab.EC PO SCH (09:00)
[2020-09-30] MEDS ORDERED: Pravastatin 20 MG Tab PO SCH (09:00)
[2020-09-30] MEDS ORDERED: MAGNESIUM SULFATE TOP SCH (09:00)
[2020-09-30] MEDS ORDERED: Allopurinol 300 MG Tab PO SCH (09:00)
[2020-09-30] MEDS ORDERED: Insulin Glarg,Human.Rec.Analog 100 Unit/ML SUBCUT SCH ×2 (09:00→18:00)
[2020-09-30] MEDS ORDERED: Metoprolol Succinate 50 MG Tab.ER PO SCH (09:00)
--- NOTE | 2020-09-30 10:16 | PCM.DCSUM1 ---
<[employer] - Last Filed: 09/30/20 10:39> Discharge Summary - Hospital Course HPI Initial Comments: Ms. Vu is a 70-year-old female who presented to the emergency department from the SNF for anemia. Per the fdc report the patient had labs drawn and the clinic called to report to them that the patient's hemoglobin was 5.3 g/dl. Her previous hemoglobin that was drawn on August 24, 2020 was 9.1. The patient's report no recent hematemesis, abdominal pain or hematochezia. She has not had any black tarry stools or bright red stools. She takes a baby aspirin daily but denies taking any NSAIDS. She denies any h/o GI bleeds or PUD. She reports having had a colonoscopy many years ago but no EGD that she can recall. She has not had any recent falls or trauma. She is on Coumadin therapy for chronic atrial fibrillation. She is also being treated for a foot ulcer for w hich she receives IV vancomycin daily. She does have a PICC line in her left upper extremity. Diagnosis: Stroke: No - Discharge Data Discharge Date: 09/30/20 (Admit date: 09/29/2020) Discharge Disposition: DC/Tfer to SNF 03 Condition: Good - Referral to Home Health Primary Care Physician: Hany Mchugh MD - Discharge Diagnosis/Problem(s) (1) Former smoker SNOMED Code(s): 1640797 ICD Code: Z87.891 - PERSONAL HISTORY OF NICOTINE DEPENDENCE Status: Chronic Priority: Low Current Visit: No (2) Legally blind SNOMED Code(s): 62543554 ICD Code: H54.8 - LEGAL BLINDNESS, DEFINED IN [place] Status: Chronic Priority: Low Current Visit: No (3) CAD (coronary artery disease) SNOMED Code(s): 95725717 ICD Code: I25.10 - ATHSCL HEART DISEASE OF [place] CORONARY ARTERY W/O ANG PCTRS Status: Chronic Priority: Medium Current Visit: No Qualifiers: Coronary Disease-Associated Artery/Lesion type: unspecified vessel or lesion type [place] vs. transplanted heart: [place] heart Associated angina: unspecified whether angina present Qualified Code(s): I25.10 - Atherosclerotic heart disease of [place] coronary artery without angina pectoris (4) CHF (congestive heart failure) SNOMED Code(s): 42039211 ICD Code: I50.9 - HEART FAILURE, UNSPECIFIED Status: Chronic Priority: Medium Current Visit: No Qualifiers: Heart failure type: unspecified Heart failure chronicity: unspecified Qualified Code(s): I50.9 - Heart failure, unspecified (5) HLD (hyperlipidemia) SNOMED Code(s): 85050558 ICD Code: E78.5 - HYPERLIPIDEMIA, UNSPECIFIED Status: Chronic Priority: Low Current Visit: No Qualifiers: Hyperlipidemia type: unspecified Qualified Code(s): E78.5 - Hyperlipidemia, unspecified (6) HTN (hypertension) SNOMED Code(s): 85940704 ICD Code: I10 - ESSENTIAL (PRIMARY) HYPERTENSION Status: Chronic Priority: Low Current Visit: No Qualifiers: Hypertension type: unspecified Qualified Code(s): I10 - Essential (primary) hypertension (7) History of CT (myocardial infarction) SNOMED Code(s): 537885786 ICD Code: I25.2 - OLD MYOCARDIAL INFARCTION Status: Chronic Priority: Low Current Visit: No (8) Edema SNOMED Code(s): 969901417, 386809102 ICD Code: R60.9 - EDEMA, UNSPECIFIED Status: Chronic Priority: Low Current Visit: No Qualifiers: Edema type: unspecified Qualified Code(s): R60.9 - Edema, unspecified (9) GERD (gastroesophageal reflux disease) SNOMED Code(s): 053390262 ICD Code: K21.9 - GASTRO-ESOPHAGEAL REFLUX DISEASE WITHOUT ESOPHAGITIS Status: Chronic Priority: Low Current Visit: No Qualifiers: Esophagitis presence: esophagitis presence not specified Qualified Code(s): K21.9 - Gastro-esophageal reflux disease without esophagitis (10) Iron deficiency SNOMED Code(s): 95938186 ICD Code: E61.1 - IRON DEFICIENCY Status: Chronic Priority: Medium Current Visit: No (11) Overactive bladder SNOMED Code(s): 072680741 ICD Code: N32.81 - OVERACTIVE BLADDER Status: Chronic Priority: Low Current Visit: No (12) Gout SNOMED Code(s): 82948320 ICD Code: M10.9 - GOUT, UNSPECIFIED Status: Chronic Priority: Low Cur rent Visit: No Qualifiers: Gout site: unspecified site Gout etiology: unspecified cause Chronicity: chronic Presence of tophus: without tophus Qualified Code(s): M1A.9XX0 - Chronic gout, unspecified, without tophus (tophi) (13) Chronic pain SNOMED Code(s): 50229306 ICD Code: G89.29 - OTHER CHRONIC PAIN Status: Chronic Priority: Medium Current Visit: No Qualifiers: Chronic pain type: other chronic pain Qualified Code(s): G89.29 - Other chronic pain (14) Cognitive developmental delay SNOMED Code(s): 167352260 ICD Code: F81.9 - DEVELOPMENTAL DISORDER OF SCHOLASTIC SKILLS, UNSPECIFIED Status: Chronic Priority: Low Current Visit: No (15) Anxiety SNOMED Code(s): 91358622 ICD Code: F41.9 - ANXIETY DISORDER, UNSPECIFIED Status: Chronic Priority: Low Current Visit: No (16) Depression SNOMED Code(s): 67854519 ICD Code: F32.9 - MAJOR DEPRESSIVE DISORDER, SINGLE EPISODE, UNSPECIFIED Status: Chronic Priority: Low Current Visit: No Qualifiers: Depression Type: other depression Qualified Code(s): F32.89 - Other specified depressive episodes (17) Obesity (BMI 30.0-34.9) SNOMED Code(s): 355074204517598 ICD Code: E66.9 - OBESITY, UNSPECIFIED Status: Chronic Priority: Low Current Visit: No (18) Anemia SNOMED Code(s): 468251051 ICD Code: D64.9 - ANEMIA, UNSPECIFIED Status: Acute Priority: High Current Visit: Yes Qualifiers: Anemia type: unspecified type Qualified Code(s): D64.9 - Anemia, unspecified (19) Chronic a-fib SNOMED Code(s): 324124298 ICD Code: I48.20 - CHRONIC ATRIAL FIBRILLATION, UNSPECIFIED Status: Chronic Priority: Medium Current Visit: No Problem Details: rate controlled continue home meds. Hold coumadin. (20) T2DM (type 2 diabetes mellitus) SNOMED Code(s): 32572490 ICD Code: E11.9 - TYPE 2 DIABETES MELLITUS WITHOUT COMPLICATIONS Status: Chronic Priority: Medium Current Visit: No Problem Details: continue home meds blood glucose checks Q ac Qualifiers: Diabetes mellitus visual merchandising coordinator insulin use: without fci use Diabetes mellitus complication status: with other specified complication Qualified Code(s): E11.69 - Type 2 diabetes mellitus with other specified complication (21) Urinary retention SNOMED Code(s): 679591473 ICD Code: R33.9 - RETENTION OF URINE, UNSPECIFIED Status: Chronic Priority: Low Current Visit: No (22) Chronic renal insufficiency SNOMED Code(s): 499769249 ICD Code: N18.9 - CHRONIC KIDNEY DISEASE, UNSPECIFIED Status: Chronic Priority: Medium Current Visit: No Qualifiers: Chronic kidney disease stage: stage 3 (moderate) Chronic kidney disease stage 3 subtype: stage 3b (GFR 30-44) Qualified Code(s): N18.32 - Chronic kidney disease, stage 3b (23) On warfarin for atrial fibrillation SNOMED Code(s): 82400381 ICD Code: I48.91 - UNSPECIFIED ATRIAL FIBRILLATION; Z79.01 - SENIOR LIVING (CURRENT) USE OF ANTICOAGULANTS Status: Chronic Priority: Medium Current Visit: Yes (24) Neutropenia SNOMED Code(s): 641083508 ICD Code: D70.9 - NEUTROPENIA, UNSPECIFIED Status: Acute Priority: Medium Current Visit: Yes Qualifiers: Neutropenia type: unspecified Qualified Code(s): D70.9 - Neutropenia, unspecified - Patient Summary/Data Labs Pending at D/C: None Recommended Follow-up Testing/Procedures: Follow-up with primary care provider within 7-10 days of discharge, sooner if needed. -Recommend repeat CBC, CMP, and magnesium at that visit. -Repeat CBC ordered for 10/04/2020 with results to PCP. -Consider outpatient surgical follow-up for possible colonoscopy -Home aspirin and warfarin held at discharge due to anemia. Consider resumption at follow-up. Hospital Course: This is a 70-year-old female who presents to ED on 09/29/2020 after being sent from [facility] where she resides. Patient reportedly had b lood drawn at the clinic and was noted to have a hemoglobin of 5.3. According to prior labs she did have a hemoglobin check on August 242020 which was noted to be 9.1. Per the patient and fdc notes she has had no hematemesis, hematochezia, melena, or other obvious bleeding. She does take a 81 mg baby aspirin and is on Coumadin for chronic atrial fibrillation. INR was checked and was 2.08 here. She does have a history of chronic kidney dysfunction. Creatinine here was 1.2 with a GFR 44 which appears to be around her baseline. She was given 3 units of packed red blood cells which did increase her hemoglobin to 8.2 today. She was noted to be neutropenic with WBC of 2.25. Aspirin and warfarin were held. These will be discontinued on discharge and the primary care provider can follow-up with this and restart as he sees appropriate. Consider follow-up colonoscopy, although occult stool was heme-negative while here. Suspect anemia is caused by combination of chronic ki dney disease and anemia of chronic illness. Patient does have PICC line in place in her left upper extremity, as she has been receiving treatment on ulcer of her right heel with IV vancomycin. Prior to discharge patient does state that she feels much better, as she had been quite weak. She is a baseline Char lift and wheelchair bound. Should be discharged back to [facility] today. Orders were placed for repeat CBC on 10/04/2020 with results to patient's primary care provider, Dr. Mchugh. Patient was instructed to follow-up with primary care provider within 7 to 10 days of discharge, sooner if needed. Recommend repeat CBC, CMP, and magnesium at that time. Consider outpatient colonoscopy if anemia continues or there is noted melena or hematochezia. Patient is already on a home PPI. All other home medications were continued with the exception of aspirin and warfarin as noted prior. Patient advised to follow-up with primary care provider or return the emergency room should symptoms return or worsen. - Patient Instructions Diet: Low Sodium, Diabetic Diet Activity: As Tolerated Driving: Do Not Drive Showering/Bathing: May Shower Notify Provider of: Fever, Increased Pain, Nausea and/or Vomiting Other/Special Instructions: Follow-up with primary care provider within 7-10 days of discharge, sooner if needed. Consider surgical follow-up regarding possible colonoscopy. Order to re-check CBC on 10/04/2020 placed. Results to PCP - Dr. Mchugh. Discontinue home aspirin and Warfarin for now. PCP can determine if/when to resume this. Resume home medications as directed. Weight yourself daily and record this in a journal. Contact your primary care provider if you experience greater than 3 pound weight gain in 1 day or 5 pound weight gain in 1 week. Bring this journal with to all medical appointments. Resume blood glucose checks as prior. Should symptoms return or worsen contact primary care provider or return to the Emergency Department. - Discharge Plan *PRESCRIPTION DRUG MONITORING PROGRAM REVIEWED*: No *COPY OF PRESCRIPTION DRUG MONITORING REPORT IN PATIENT BALJEET: No Home Medications: Home Meds Acetaminophen [Tylenol Extra Strength] 1,000 mg PO BID 02/02/16 [History] Allopurinol [Zyloprim] 150 mg PO DAILY 02/02/16 [History] Cholecalciferol (Vitamin D3) [Vitamin D3] 2,000 units PO DAILY 02/02/16 [ History] Digoxin 125 mcg PO ASDIRECTED 02/02/16 [History] Docusate Sodium [Doc-Q-Lace] 100 mg PO BID 02/02/16 [History] Ferrous Sulfate 325 mg PO DAILY 02/02/16 [History] Potassium Chloride [Klor-Con 10] 20 meq PO BID 02/02/16 [History] Pravastatin Sodium 10 mg PO DAILY 02/02/16 [History] Sertraline [Zoloft] 75 mg PO DAILY 02/02/16 [History] Vit C/E/Zn/Coppr/Lutein/Zeaxan [Preservision Areds 2 Softgel] 2 cap PO DAILY 02/02/16 [History] metOLazone [Metolazone] 2.5 mg PO MOTH 02/02/16 [History] methIMAzole [Methimazole] 5 mg PO MOTUWETHFR 02/02/16 [History] Sproul/Min Oil/Meghan/Wool Alcoh [Eucerin Creme] 1 applic TOP DAILY 02/27/18 [History] Pantoprazole [ProTONIX] 20 mg PO DAILY 02/27/18 [History] Spironolactone [Aldactone] 25 mg PO DAILY 12/13/18 [History] Ascorbate Calcium [Vitamin C] 500 mg PO DAILY 10/03/19 [History] Carboxymethylcellulose Sodium [Artificial Tears] 1 drop EYEBOTH ASDIRECTED PRN 10/03/19 [History] Bumetanide [Bumex] 2 mg PO BID 02/15/20 [History] Insulin Aspart [NovoLOG] 0 unit SUBCUT TIDMEALS 02/15/20 [History] Insulin Aspart [NovoLOG] 17 unit SUBCUT TIDMEALS 02/15/20 [History] Insulin Detemir [Levemir] 44 unit SQ DAILY 02/15/20 [History] Diphenhyd/Lidocaine/Nystatin [Magic Mouthwash] 15 ml PO QID PRN 09/29/20 [History] Insulin Detemir [Levemir Flextouch] 16 units SQ BEDTIME 09/29/20 [History] Metoprolol Succinate [Toprol XL] 125 mg PO BID 09/29/20 [History] Multivit-Min/FA/Lycopen/Lutein [Certavite Senior Tablet] 1 tab PO DAILY 09/29/20 [History] Vancomycin/0.9 % Sod Chloride [Vanco 750 mg/150 ml-0.9% NaCl] 750 mg IV DAILY 09/29/20 [History] Zinc Sulfate [Zincate] 220 mg PO DAILY 09/29/20 [History] Oxygen Therapy Mode: Nasal Cannula Oxygen Flow Rate (L/min): 2 Maintain SpO2% greater than: 90 Patient Handouts: Heart Failure Action Plan Referrals: Hany Mchugh MD [Primary Care Provider] - 10/07/20 9:30 am (arrival time 9:15) - Discharge Summary/Plan Comment DC Time >30 min.: No - General Info Date of Service: 09/30/20 Admission Dx/Problem (Free Text: Admission Diagnosis/Problem Admission Diagnosis/Problem Anemia Functional Status: Reports: Pain Controlled, Tolerating Diet, Urinating. Denies: Ambulating (Baseline wheelchair and char lift ), New Symptoms - Review of Systems General: Reports: No Symptoms. Denies: Fever, Weakness, Fatigue, Malaise, Chills HEENT: Reports: No Symptoms. Denies: Headaches, Sore Throat Pulmonary: Reports: No Symptoms. Denies: Shortness of Breath, Cough, Sputum, Wheezing Cardiovascular: Reports: No Symptoms. Denies: Chest Pain, Palpitations, Dyspnea on Exertion, Edema Gastrointestinal: Reports: No Symptoms. Denies: Abdominal Pain, Constipation, Diarrhea, Nausea, Vomiting Genitourinary: Reports: No Symptoms. Denies: Pain Musculoskeletal: Reports: No Symptoms Skin: Reports: No Symptoms. Denies: Cyanosis Neurological: Reports: No Symptoms, Other (Baseline cognitive deficit.). Denies: Confusion Psychiatric: Reports: No Symptoms - Patient Data Vitals - Most Recent: Last Vital Signs Temp 97.9 F 09/30/20 07:45 Pulse 75 09/30/20 08:35 Resp 12 09/30/20 07:45 BP 129/52 L 09/30/20 08:35 Pulse Ox 95 09/30/20 07:45 Weight - Most Recent: 97.432 kg I&O - Last 24 hours: Intake & Output 09/29/20 09/30/20 09/30/20 22:59 06:59 14:59 Intake Total 460 2080 Balance 460 2080 Lab Results - Last 24 hrs: Laboratory Results - last 24 hr 09/29/20 09/29/20 09/29/20 Range/Units 14:30 14:43 14:43 WBC (3.98-10.04) K/mm3 RBC (3.98-5.22) M/mm3 Hgb (11.2-15.7) gm/dl Hct (34.1-44.9) % MCV (79.4-94.8) fl MCH (25.6-32.2) pg MCHC (32.2-35.5) g/dl RDW Std Deviation (36.4-46.3) fL Plt Count (182-369) K/mm3 MPV Neut % (Auto) (34.0-71.1) % Lymph % (Auto) (19.3-51.7) % [place] % (Auto) (4.7-12.5) % Eos % (Auto) (0.7-5.8) Baso % (Auto) (0.1-1.2) % Neut # (Auto) (1.56-6.13) K/mm3 Lymph # (Auto) (1.18-3.74) K/mm3 [place] # (Auto) (0.24-0.36) K/mm3 Eos # (Auto) (0.04-0.36) K/mm3 Baso # (Auto) (0.01-0.08) K/mm3 Manual Slide Review PT (9.7-12.0) SECONDS INR APTT (21.7-31.4) SECONDS Sodium 139 (136-145) mEq/L Potassium 3.5 (3.5-5.1) mEq/L Chloride 101 (98-107) mEq/L Carbon Dioxide 27 (21-32) mEq/L Anion Gap 14.5 (5-15) BUN 68 H (7-18) mg/dL Creatinine 1.2 H (0.55-1.02) mg/dL Est Cr Clr Drug Dosing 47.17 mL/min Estimated GFR (MDRD) 44 (>60) mL/min BUN/Creatinine Ratio 56.7 H (14-18) Glucose 149 H (70-99) mg/dL POC Glucose (70-99) mg/dL Calcium 9.3 (8.5-10.1) mg/dL Magnesium 2.6 H (1.8-2.4) mg/dL Total Bilirubin 1.2 H (0.2-1.0) mg/dL AST 20 (15-37) U/L ALT 18 (14-59) U/L Alkaline Phosphatase 69 (46-116) U/L NT-Pro-B Natriuret Pep (0-125) pg/mL Total Protein 6.8 (6.4-8.2) g/dl Albumin 3.6 (3.4-5.0) g/dl Globulin 3.2 gm/dL Albumin/Globulin Ratio 1.1 (1-2) Urine Color Yellow (Yellow) Urine Appearance Clear (Clear) Urine pH 6.5 (5.0-8.0) Ur Specific Means 1.015 (1.005-1.030) Urine Protein Negative (Negative) Urine Glucose (UA) Negative (Negative) Urine Ketones Negative (Negative) Urine Occult Blood Negative (Negative) Urine Nitrite Negative (Negative) Urine Bilirubin Negative (Negative) Urine Urobilinogen 0.2 (0.2-1.0) Ur Leukocyte Esterase Negative (Negative) SARS-CoV-2 RNA (SUSANNA) (NEGATIVE) MRSA (PCR) Blood Type O POSITIVE Gel Antibody Screen Negative Crossmatch See Detail 09/29/20 09/29/20 09/29/20 Range/Units 14:43 14:43 15:35 WBC (3.98-10.04) K/mm3 RBC (3.98-5.22) M/mm3 Hgb (11.2-15.7) gm/dl Hct (34.1-44.9) % MCV (79.4-94.8) fl MCH (25.6-32.2) pg MCHC (32.2-35.5) g/dl RDW Std Deviation (36.4-46.3) fL Plt Count (182-369) K/mm3 MPV Neut % (Auto) (34.0-71.1) % Lymph % (Auto) (19.3-51.7) % [place] % (Auto) (4.7-12.5) % Eos % (Auto) (0.7-5.8) Baso % (Auto) (0.1-1.2) % Neut # (Auto) (1.56-6.13) K/mm3 Lymph # (Auto) (1.18-3.74) K/mm3 [place] # (Auto) (0.24-0.36) K/mm3 Eos # (Auto) (0.04-0.36) K/mm3 Baso # (Auto) (0.01-0.08) K/mm3 Manual Slide Review PT 21.9 H (9.7-12.0) SECONDS INR 2.08 APTT 29.2 (21.7-31.4) SECONDS Sodium (136-145) mEq/L Potassium (3.5-5.1) mEq/L Chloride (98-107) mEq/L Carbon Dioxide (21-32) mEq/L Anion Gap (5-15) BUN (7-18) mg/dL Creatinine (0.55-1.02) mg/dL Est Cr Clr Drug Dosing mL/min Estimated GFR (MDRD) (>60) mL/min BUN/Creatinine Ratio (14-18) Glucose (70-99) mg/dL POC Glucose (70-99) mg/dL Calcium (8.5-10.1) mg/dL Magnesium (1.8-2.4) mg/dL Total Bilirubin (0.2-1.0) mg/dL AST (15-37) U/L ALT (14-59) U/L Alkaline Phosphatase (46-116) U/L NT-Pro-B Natriuret Pep 3672 H (0-125) pg/mL Total Protein (6.4-8.2) g/dl Albumin (3.4-5.0) g/dl Globulin gm/dL Albumin/Globulin Ratio (1-2) Urine Color (Yellow) Urine Appearance (Clear) Urine pH (5.0-8.0) Ur Specific Means (1.005-1.030) Urine Protein (Negative) Urine Glucose (UA) (Negative) Urine Ketones (Negative) Urine Occult Blood (Negative) Urine Nitrite (Negative) Urine Bilirubin (Negative) Urine Urobilinogen (0.2-1.0) Ur Leukocyte Esterase (Negative) SARS-CoV-2 RNA (SUSANNA) Negative (NEGATIVE) MRSA (PCR) Blood Type Gel Antibody Screen Crossmatch 09/29/20 09/29/20 09/30/20 Range/Units 19:57 22:10 02:00 WBC (3.98-10.04) K/mm3 RBC (3.98-5.22) M/mm3 Hgb 7.9 L D (11.2-15.7) gm/dl Hct 23.8 L (34.1-44.9) % MCV (79.4-94.8) fl MCH (25.6-32.2) pg MCHC (32.2-35.5) g/dl RDW Std Deviation (36.4-46.3) fL Plt Count (182-369) K/mm3 MPV Neut % (Auto) (34.0-71.1) % Lymph % (Auto) (19.3-51.7) % [place] % (Auto) (4.7-12.5) % Eos % (Auto) (0.7-5.8) Baso % (Auto) (0.1-1.2) % Neut # (Auto) (1.56-6.13) K/mm3 Lymph # (Auto) (1.18-3.74) K/mm3 [place] # (Auto) (0.24-0.36) K/mm3 Eos # (Auto) (0.04-0.36) K/mm3 Baso # (Auto) (0.01-0.08) K/mm3 Manual Slide Review PT (9.7-12.0) SECONDS INR APTT (21.7-31.4) SECONDS Sodium (136-145) mEq/L Potassium (3.5-5.1) mEq/L Chloride (98-107) mEq/L Carbon Dioxide (21-32) mEq/L Anion Gap (5-15) BUN (7-18) mg/dL Creatinine (0.55-1.02) mg/dL Est Cr Clr Drug Dosing mL/min Estimated GFR (MDRD) (>60) mL/min BUN/Creatinine Ratio (14-18) Glucose (70-99) mg/dL POC Glucose 122 H (70-99) mg/dL Calcium (8.5-10.1) mg/dL Magnesium (1.8-2.4) mg/dL Total Bilirubin (0.2-1.0) mg/dL AST (15-37) U/L ALT (14-59) U/L Alkaline Phosphatase (46-116) U/L NT-Pro-B Natriuret Pep (0-125) pg/mL Total Protein (6.4-8.2) g/dl Albumin (3.4-5.0) g/dl Globulin gm/dL Albumin/Globulin Ratio (1-2) Urine Color (Yellow) Urine Appearance (Clear) Urine pH (5.0-8.0) Ur Specific Means (1.005-1.030) Urine Protein (Negative) Urine Glucose (UA) (Negative) Urine Ketones (Negative) Urine Occult Blood (Negative) Urine Nitrite (Negative) Urine Bilirubin (Negative) Urine Urobilinogen (0.2-1.0) Ur Leukocyte Esterase (Negative) SARS-CoV-2 RNA (SUSANNA) (NEGATIVE) MRSA (PCR) Negative Blood Type Gel Antibody Screen Crossmatch 09/30/20 09/30/20 Range/Units 06:21 06:23 WBC 2.25 L* (3.98-10.04) K/mm3 RBC 2.47 L (3.98-5.22) M/mm3 Hgb 8.2 L (11.2-15.7) gm/dl Hct 24.6 L (34.1-44.9) % MCV 99.6 H (79.4-94.8) fl MCH 33.2 H (25.6-32.2) pg MCHC 33.3 (32.2-35.5) g/dl RDW Std Deviation 77.5 H (36.4-46.3) fL Plt Count 60 L D (182-369) K/mm3 MPV TNP Neut % (Auto) 31.6 L (34.0-71.1) % Lymph % (Auto) 38.2 (19.3-51.7) % [place] % (Auto) 12.4 (4.7-12.5) % Eos % (Auto) 4.9 (0.7-5.8) Baso % (Auto) 12.0 H (0.1-1.2) % Neut # (Auto) 0.71 L (1.56-6.13) K/mm3 Lymph # (Auto) 0.86 L (1.18-3.74) K/mm3 [place] # (Auto) 0.28 (0.24-0.36) K/mm3 Eos # (Auto) 0.11 (0.04-0.36) K/mm3 Baso # (Auto) 0.27 H (0.01-0.08) K/mm3 Manual Slide Review Abnormal smear PT (9.7-12.0) SECONDS INR APTT (21.7-31.4) SECONDS Sodium (136-145) mEq/L Potassium (3.5-5.1) mEq/L Chloride (98-107) mEq/L Carbon Dioxide (21-32) mEq/L Anion Gap (5-15) BUN (7-18) mg/dL Creatinine (0.55-1.02) mg/dL Est Cr Clr Drug Dosing mL/min Estimated GFR (MDRD) (>60) mL/min BUN/Creatinine Ratio (14-18) Glucose (70-99) mg/dL POC Glucose 140 H (70-99) mg/dL Calcium (8.5-10.1) mg/dL Magnesium (1.8-2.4) mg/dL Total Bilirubin (0.2-1.0) mg/dL AST (15-37) U/L ALT (14-59) U/L Alkaline Phosphatase (46-116) U/L NT-Pro-B Natriuret Pep (0-125) pg/mL Total Protein (6.4-8.2) g/dl Albumin (3.4-5.0) g/dl Globulin gm/dL Albumin/Globulin Ratio (1-2) Urine Color (Yellow) Urine Appearance (Clear) Urine pH (5.0-8.0) Ur Specific Means (1.005-1.030) Urine Protein (Negative) Urine Glucose (UA) (Negative) Urine Ketones (Negative) Urine Occult Blood (Negative) Urine Nitrite (Negative) Urine Bilirubin (Negative) Urine Urobilinogen (0.2-1.0) Ur Leukocyte Esterase (Negative) SARS-CoV-2 RNA (SUSANNA) (NEGATIVE) MRSA (PCR) Blood Type Gel Antibody Screen Crossmatch Med Orders - Current: Current Medications Acetaminophen (Acetaminophen 325 Mg Tab) 975 mg PO BID [facility] Last Admin: 09/30/20 08:38 Dose: 975 mg Documented by: Allopurinol (Allopurinol 300 Mg Tab) 150 mg PO DAILY [facility] Last Admin: 09/30/20 08:37 Dose: 150 mg Documented by: Artificial Tears (Carboxymethylcellulose Sodium 1% Ophth Gel 15 Ml Bottle) 0 ml EYEBOTH BID PRN PRN Reason: Dry Eyes Bumetanide (Bumetanide 1 Mg Tab) 2 mg PO BIDDIURETIC [facility] Last Admin: 09/30/20 06:07 Dose: 2 mg Documented by: Digoxin (Digoxin 125 Mcg Tab) 125 mcg PO Q48H [facility] Docusate Sodium (Docusate Sodium 100 Mg Cap) 100 mg PO BID [facility] Last Admin: 09/30/20 08:34 Dose: 100 mg Documented by: Ferrous Sulfate (Ferrous Sulfate 324 Mg Tab.Ec) 324 mg PO DAILY [facility] Last Admin: 09/30/20 08:34 Dose: 324 mg Documented by: Insulin Glargine (Insulin Glarg,Human.Rec.Analog 100 Unit/Ml) 44 unit SUBCUT DAILY [facility] Last Admin: 09/30/20 08:39 Dose: 44 units Documented by: Insulin Glargine (Insulin Glarg,Human.Rec.Analog 100 Unit/Ml) 16 unit SUBCUT QPM [facility] Insulin Human Lispro (Insulin Lispro 100 Unit/Ml 10 Ml Vial) 17 unit SUBCUT TIDMEALS [facility] Methimazole (Methimazole 5 Mg Tab) 5 mg PO MoTuWeThFr@0900 [facility] Last Admin: 09/30/20 08:37 Dose: 5 mg Documented by: Metolazone (Metolazone 2.5 Mg Tab) 2.5 mg PO MoTh@0900 [facility] Metoprolol Succinate (Metoprolol Succinate 50 Mg Tab.Er) 125 mg PO BID [facility] Last Admin: 09/30/20 08:35 Dose: 125 mg Documented by: Oxycodone HCl (Oxycodone 5 Mg Tab) 5 mg PO Q4H PRN PRN Reason: Pain Pantoprazole Sodium (Pantoprazole 40 Mg Vial) 40 mg IVPUSH Q12HR [facility] Last Admin: 09/30/20 08:40 Dose: 40 mg Documented by: Potassium Chloride (Potassium Chloride 20 Meq Tab.Er) 20 meq PO BIDMEALS [facility] Last Admin: 09/30/20 06:08 Dose: 20 meq Documented by: Pravastatin Sodium (Pravastatin 20 Mg Tab) 10 mg PO DAILY [facility] Last Admin: 09/30/20 08:34 Dose: 10 mg Documented by: Sertraline HCl (Sertraline 50 Mg Tab) 75 mg PO DAILY [facility] Last Admin: 09/30/20 08:38 Dose: 75 mg Documented by: Sodium Chloride (Sodium Chloride 0.9% 10 Ml Syringe) 10 ml FLUSH ASDIRECTED PRN PRN Reason: Keep Vein Open Last Admin: 09/29/20 14:43 Dose: 10 ml Documented by: Spironolactone (Spironolactone 25 Mg Tab) 25 mg PO DAILY [facility] Last Admin: 09/30/20 08:34 Dose: 25 mg Documented by: Discontinued Medications Artificial Tears (Polyvinyl Alcohol 1.4% Ophth Soln 15 Ml Bottle) 0 ml EYEBOTH ASDIRECTED PRN PRN Reason: Dry Eyes Bumetanide (Bumetanide 1 Mg Tab) 2 mg PO BID [facility] Last Admin: 09/29/20 20:41 Dose: 2 mg Documented by: Diltiazem HCl (Diltiazem 120 Mg Cap.Cd) 120 mg PO BID [facility] Last Admin: 09/29/20 20:41 Dose: 120 mg Documented by: Furosemide (Furosemide 20 Mg/2 Ml Vial) 20 mg IVPUSH ONETIME ONE Stop: 09/29/20 16:35 Last Admin: 09/29/20 20:26 Dose: Not Given Documented by: Furosemide (Furosemide 20 Mg/2 Ml Vial) 20 mg IVPUSH ONETIME ONE Stop: 09/29/20 20:16 Last Admin: 09/29/20 20:42 Dose: 20 mg Documented by: Sodium Chloride (Normal Saline) 1,000 mls @ 50 mls/hr IV ASDIRECTED [facility] Stop: 10/03/20 14:03 Last Admin: 09/29/20 14:44 Dose: 50 mls/hr Documented by: Sodium Chloride (Normal Saline) Confirm Administered Dose 1,000 mls @ as directed .ROUTE .STK-MED ONE Stop: 09/29/20 14:06 Last Admin: 09/29/20 14:43 Dose: Not Given Documented by: Sodium Chloride (Normal Saline) Confirm Administered Dose 250 mls @ as directed .ROUTE .STK-MED ONE Stop: 09/29/20 19:44 Last Admin: 09/29/20 20:34 Dose: 50 mls/hr Documented by: Insulin Human Lispro (Insulin Lispro 100 Unit/Ml 10 Ml Vial) 26 unit SUBCUT BID [facility] Methimazole (Methimazole 5 Mg Tab) 5 mg PO MOTUWETHFR [facility] Last Admin: 09/29/20 20:19 Dose: Not Given Documented by: Metolazone (Metolazone 2.5 Mg Tab) 2.5 mg PO MOTH [facility] Last Admin: 09/29/20 20:21 Dose: Not Given Documented by: Metoprolol Tartrate (Metoprolol Tartrate 50 Mg Tab) 75 mg PO BID [facility] Last Admin: 09/29/20 20:41 Dose: 75 mg Documented by: Non-Formulary Medication (Carboxymethylcellulose Sodium [Artificial Tears]) 1 drop EYEBOTH ASDIRECTED PRN PRN Reason: Dry Eyes Non-Formulary Medication (Magnesium Sulfate [Epsom Salt]) 1 applic TOP DAILY [facility] Non-Formulary Medication (Insulin Aspart) 26 unit SUBCUT BID [facility] Last Admin: 09/29/20 22:01 Dose: Not Given Documented by: Non-Formulary Medication (Insulin Detemir) 44 unit SQ BID [facility] Last Admin: 09/29/20 22:01 Dose: Not Given Documented by: Pantoprazole Sodium (Pantoprazole 40 Mg Vial) 40 mg IVPUSH Q12H [facility] Last Admin: 09/29/20 20:20 Dose: Not Given Documented by: Phytonadione (Phytonadione Oral 2.5mg/2.5ml Soln Simple Syrup U/D) 2.5 mg PO ONETIME ONE Stop: 09/29/20 18:36 Last Admin: 09/29/20 20:27 Dose: Not Given Documented by: Phytonadione (Phytonadione Oral 2.5mg/2.5ml Soln Simple Syrup U/D) 2.5 mg PO ONETIME ONE Stop: 09/29/20 20:16 Last Admin: 09/29/20 20:42 Dose: 2.5 mg Documented by: Potassium Chloride (Potassium Chloride 10 Meq Tab.Er) 20 meq PO BID [facility] Last Admin: 09/29/20 20:42 Dose: 20 meq Documented by: - Exam Quality Assessment: Reports: Supplemental Oxygen (2L), Central Line/PICC (Chronic - left upper extremity), DVT Prophylaxis. Denies: Urine Catheter General: Reports: Alert, Oriented, Cooperative, No Acute Distress HEENT: Reports: Pupils Equal, Pupils Reactive, Mucous Membr. Moist/[place] Neck: Reports: Supple, Trachea Midline Lungs: Reports: Clear to Auscultation, Normal Respiratory Effort Cardiovascular: Reports: Regular Rate, Irregular Rhythm GI/Abdominal Exam: Normal Bowel Sounds, Soft, Non-Tender, No Distention (Female) Exam: Deferred Rectal (Female) Exam: Deferred Extremities: Non-Tender, Limited Range of Motion (Baseline ), Other (Ulcer on right heel which is bandaged.). No: Pedal Edema, Leg Pain Skin: Reports: Warm, Dry, Intact Wound/Incisions: Reports: Healing Well, Dressing Dry and Intact Neurological: Reports: No New Focal Deficit Psy/Mental Status: Reports: Alert, Normal Affect, Normal Mood <CecyYury carbone M - Last Filed: 09/30/20 13:55> Discharge Summary - Hospital Course HPI Initial Comments: I have seen and evaluated the patient independently of Grupo Lerner PA-C, I have discussed the case with him. I have reviewed and agree with the assessment and plan. Please see orders. The patient should follow with her PCP for leukopenia - Referral to Home Health Primary Care Physician: Hany Mchugh MD - Patient Data Vitals - Most Recent: Last Vital Signs Temp 36.6 C 09/30/20 07:45 Pulse 75 09/30/20 08:35 Resp 12 09/30/20 07:45 BP 129/52 L 09/30/20 08:35 Pulse Ox 95 09/30/20 07:45 I&O - Last 24 hours: Intake & Output 09/29/20 09/30/20 09/30/20 22:59 06:59 14:59 Intake Total 460 2080 Balance 460 2080 Lab Results - Last 24 hrs: Laboratory Results - last 24 hr 09/29/20 09/29/20 09/29/20 Range/Units 14:30 14:43 14:43 WBC (3.98-10.04) K/mm3 RBC (3.98-5.22) M/mm3 Hgb (11.2-15.7) gm/dl Hct (34.1-44.9) % MCV (79.4-94.8) fl MCH (25.6-32.2) pg MCHC (32.2-35.5) g/dl RDW Std Deviation (36.4-46.3) fL Plt Count (182-369) K/mm3 MPV Neut % (Auto) (34.0-71.1) % Lymph % (Auto) (19.3-51.7) % [place] % (Auto) (4.7-12.5) % Eos % (Auto) (0.7-5.8) Baso % (Auto) (0.1-1.2) % Neut # (Auto) (1.56-6.13) K/mm3 Lymph # (Auto) (1.18-3.74) K/mm3 [place] # (Auto) (0.24-0.36) K/mm3 Eos # (Auto) (0.04-0.36) K/mm3 Baso # (Auto) (0.01-0.08) K/mm3 Manual Slide Review PT (9.7-12.0) SECONDS INR APTT (21.7-31.4) SECONDS Sodium 139 (136-145) mEq/L Potassium 3.5 (3.5-5.1) mEq/L Chloride 101 (98-107) mEq/L Carbon Dioxide 27 (21-32) mEq/L Anion Gap 14.5 (5-15) BUN 68 H (7-18) mg/dL Creatinine 1.2 H (0.55-1.02) mg/dL Est Cr Clr Drug Dosing 47.17 mL/min Estimated GFR (MDRD) 44 (>60) mL/min BUN/Creatinine Ratio 56.7 H (14-18) Glucose 149 H (70-99) mg/dL POC Glucose (70-99) mg/dL Calcium 9.3 (8.5-10.1) mg/dL Magnesium 2.6 H (1.8-2.4) mg/dL Total Bilirubin 1.2 H (0.2-1.0) mg/dL AST 20 (15-37) U/L ALT 18 (14-59) U/L Alkaline Phosphatase 69 (46-116) U/L NT-Pro-B Natriuret Pep (0-125) pg/mL Total Protein 6.8 (6.4-8.2) g/dl Albumin 3.6 (3.4-5.0) g/dl Globulin 3.2 gm/dL Albumin/Globulin Ratio 1.1 (1-2) Urine Color Yellow (Yellow) Urine Appearance Clear (Clear) Urine pH 6.5 (5.0-8.0) Ur Specific Means 1.015 (1.005-1.030) Urine Protein Negative (Negative) Urine Glucose (UA) Negative (Negative) Urine Ketones Negative (Negative) Urine Occult Blood Negative (Negative) Urine Nitrite Negative (Negative) Urine Bilirubin Negative (Negative) Urine Urobilinogen 0.2 (0.2-1.0) Ur Leukocyte Esterase Negative (Negative) SARS-CoV-2 RNA ([facility]US[facility]NA) (NEGATIVE) MRSA (PCR) Blood Type O POSITIVE Gel Antibody Screen Negative Crossmatch See Detail 09/29/20 09/29/20 09/29/20 Range/Units 14:43 14:43 15:35 WBC (3.98-10.04) K/mm3 RBC (3.98-5.22) M/mm3 Hgb (11.2-15.7) gm/dl Hct (34.1-44.9) % MCV (79.4-94.8) fl MCH (25.6-32.2) pg MCHC (32.2-35.5) g/dl RDW Std Deviation (36.4-46.3) fL Plt Count (182-369) K/mm3 MPV Neut % (Auto) (34.0-71.1) % Lymph % (Auto) (19.3-51.7) % [place] % (Auto) (4.7-12.5) % Eos % (Auto) (0.7-5.8) Baso % (Auto) (0.1-1.2) % Neut # (Auto) (1.56-6.13) K/mm3 Lymph # (Auto) (1.18-3.74) K/mm3 [place] # (Auto) (0.24-0.36) K/mm3 Eos # (Auto) (0.04-0.36) K/mm3 Baso # (Auto) (0.01-0.08) K/mm3 Manual Slide Review PT 21.9 H (9.7-12.0) SECONDS INR 2.08 APTT 29.2 (21.7-31.4) SECONDS Sodium (136-145) mEq/L Potassium (3.5-5.1) mEq/L Chloride (98-107) mEq/L Carbon Dioxide (21-32) mEq/L Anion Gap (5-15) BUN (7-18) mg/dL Creatinine (0.55-1.02) mg/dL Est Cr Clr Drug Dosing mL/min Estimated GFR (MDRD) (>60) mL/min BUN/Creatinine Ratio (14-18) Glucose (70-99) mg/dL POC Glucose (70-99) mg/dL Calcium (8.5-10.1) mg/dL Magnesium (1.8-2.4) mg/dL Total Bilirubin (0.2-1.0) mg/dL AST (15-37) U/L ALT (14-59) U/L Alkaline Phosphatase (46-116) U/L NT-Pro-B Natriuret Pep 3672 H (0-125) pg/mL Total Protein (6.4-8.2) g/dl Albumin (3.4-5.0) g/dl Globulin gm/dL Albumin/Globulin Ratio (1-2) Urine Color (Yellow) Urine Appearance (Clear) Urine pH (5.0-8.0) Ur Specific Means (1.005-1.030) Urine Protein (Negative) Urine Glucose (UA) (Negative) Urine Ketones (Negative) Urine Occult Blood (Negative) Urine Nitrite (Negative) Urine Bilirubin (Negative) Urine Urobilinogen (0.2-1.0) Ur Leukocyte Esterase (Negative) SARS-CoV-2 RNA (SUSANNA) Negative (NEGATIVE) MRSA (PCR) Blood Type Gel Antibody Screen Crossmatch 09/29/20 09/29/20 09/30/20 Range/Units 19:57 22:10 02:00 WBC (3.98-10.04) K/mm3 RBC (3.98-5.22) M/mm3 Hgb 7.9 L D (11.2-15.7) gm/dl Hct 23.8 L (34.1-44.9) % MCV (79.4-94.8) fl MCH (25.6-32.2) pg MCHC (32.2-35.5) g/dl RDW Std Deviation (36.4-46.3) fL Plt Count (182-369) K/mm3 MPV Neut % (Auto) (34.0-71.1) % Lymph % (Auto) (19.3-51.7) % [place] % (Auto) (4.7-12.5) % Eos % (Auto) (0.7-5.8) Baso % (Auto) (0.1-1.2) % Neut # (Auto) (1.56-6.13) K/mm3 Lymph # (Auto) (1.18-3.74) K/mm3 [place] # (Auto) (0.24-0.36) K/mm3 Eos # (Auto) (0.04-0.36) K/mm3 Baso # (Auto) (0.01-0.08) K/mm3 Manual Slide Review PT (9.7-12.0) SECONDS INR APTT (21.7-31.4) SECONDS Sodium (136-145) mEq/L Potassium (3.5-5.1) mEq/L Chloride (98-107) mEq/L Carbon Dioxide (21-32) mEq/L Anion Gap (5-15) BUN (7-18) mg/dL Creatinine (0.55-1.02) mg/dL Est Cr Clr Drug Dosing mL/min Estimated GFR (MDRD) (>60) mL/min BUN/Creatinine Ratio (14-18) Glucose (70-99) mg/dL POC Glucose 122 H (70-99) mg/dL Calcium (8.5-10.1) mg/dL Magnesium (1.8-2.4) mg/dL Total Bilirubin (0.2-1.0) mg/dL AST (15-37) U/L ALT (14-59) U/L Alkaline Phosphatase (46-116) U/L NT-Pro-B Natriuret Pep (0-125) pg/mL Total Protein (6.4-8.2) g/dl Albumin (3.4-5.0) g/dl Globulin gm/dL Albumin/Globulin Ratio (1-2) Urine Color (Yellow) Urine Appearance (Clear) Urine pH (5.0-8.0) Ur Specific Means (1.005-1.030) Urine Protein (Negative) Urine Glucose (UA) (Negative) Urine Ketones (Negative) Urine Occult Blood (Negative) Urine Nitrite (Negative) Urine Bilirubin (Negative) Urine Urobilinogen (0.2-1.0) Ur Leukocyte Esterase (Negative) SARS-CoV-2 RNA (SUSANNA) (NEGATIVE) MRSA (PCR) Negative Blood Type Gel Antibody Screen Crossmatch 09/30/20 09/30/20 09/30/20 Range/Units 06:21 06:23 11:10 WBC 2.25 L* (3.98-10.04) K/mm3 RBC 2.47 L (3.98-5.22) M/mm3 Hgb 8.2 L (11.2-15.7) gm/dl Hct 24.6 L (34.1-44.9) % MCV 99.6 H (79.4-94.8) fl MCH 33.2 H (25.6-32.2) pg MCHC 33.3 (32.2-35.5) g/dl RDW Std Deviation 77.5 H (36.4-46.3) fL Plt Count 60 L D (182-369) K/mm3 MPV TNP Neut % (Auto) 31.6 L (34.0-71.1) % Lymph % (Auto) 38.2 (19.3-51.7) % [place] % (Auto) 12.4 (4.7-12.5) % Eos % (Auto) 4.9 (0.7-5.8) Baso % (Auto) 12.0 H (0.1-1.2) % Neut # (Auto) 0.71 L (1.56-6.13) K/mm3 Lymph # (Auto) 0.86 L (1.18-3.74) K/mm3 [place] # (Auto) 0.28 (0.24-0.36) K/mm3 Eos # (Auto) 0.11 (0.04-0.36) K/mm3 Baso # (Auto) 0.27 H (0.01-0.08) K/mm3 Manual Slide Review Abnormal smear PT (9.7-12.0) SECONDS INR APTT (21.7-31.4) SECONDS Sodium (136-145) mEq/L Potassium (3.5-5.1) mEq/L Chloride (98-107) mEq/L Carbon Dioxide (21-32) mEq/L Anion Gap (5-15) BUN (7-18) mg/dL Creatinine (0.55-1.02) mg/dL Est Cr Clr Drug Dosing mL/min Estimated GFR (MDRD) (>60) mL/min BUN/Creatinine Ratio (14-18) Glucose (70-99) mg/dL POC Glucose 140 H 256 H (70-99) mg/dL Calcium (8.5-10.1) mg/dL Magnesium (1.8-2.4) mg/dL Total Bilirubin (0.2-1.0) mg/dL AST (15-37) U/L ALT (14-59) U/L Alkaline Phosphatase (46-116) U/L NT-Pro-B Natriuret Pep (0-125) pg/mL Total Protein (6.4-8.2) g/dl Albumin (3.4-5.0) g/dl Globulin gm/dL Albumin/Globulin Ratio (1-2) Urine Color (Yellow) Urine Appearance (Clear) Urine pH (5.0-8.0) Ur Specific Means (1.005-1.030) Urine Protein (Negative) Urine Glucose (UA) (Negative) Urine Ketones (Negative) Urine Occult Blood (Negative) Urine Nitrite (Negative) Urine Bilirubin (Negative) Urine Urobilinogen (0.2-1.0) Ur Leukocyte Esterase (Negative) SARS-CoV-2 RNA (SUSANNA) (NEGATIVE) MRSA (PCR) Blood Type Gel Antibody Screen Crossmatch 09/30/20 Range/Units 11:27 WBC (3.98-10.04) K/mm3 RBC (3.98-5.22) M/mm3 Hgb (11.2-15.7) gm/dl Hct (34.1-44.9) % MCV (79.4-94.8) fl MCH (25.6-32.2) pg MCHC (32.2-35.5) g/dl RDW Std Deviation (36.4-46.3) fL Plt Count (182-369) K/mm3 MPV Neut % (Auto) (34.0-71.1) % Lymph % (Auto) (19.3-51.7) % [place] % (Auto) (4.7-12.5) % Eos % (Auto) (0.7-5.8) Baso % (Auto) (0.1-1.2) % Neut # (Auto) (1.56-6.13) K/mm3 Lymph # (Auto) (1.18-3.74) K/mm3 [place] # (Auto) (0.24-0.36) K/mm3 Eos # (Auto) (0.04-0.36) K/mm3 Baso # (Auto) (0.01-0.08) K/mm3 Manual Slide Review PT (9.7-12.0) SECONDS INR APTT (21.7-31.4) SECONDS Sodium (136-145) mEq/L Potassium (3.5-5.1) mEq/L Chloride (98-107) mEq/L Carbon Dioxide (21-32) mEq/L Anion Gap (5-15) BUN (7-18) mg/dL Creatinine (0.55-1.02) mg/dL Est Cr Clr Drug Dosing mL/min Estimated GFR (MDRD) (>60) mL/min BUN/Creatinine Ratio (14-18) Glucose (70-99) mg/dL POC Glucose (70-99) mg/dL Calcium (8.5-10.1) mg/dL Magnesium (1.8-2.4) mg/dL Total Bilirubin (0.2-1.0) mg/dL AST (15-37) U/L ALT (14-59) U/L Alkaline Phosphatase (46-116) U/L NT-Pro-B Natriuret Pep (0-125) pg/mL Total Protein (6.4-8.2) g/dl Albumin (3.4-5.0) g/dl Globulin gm/dL Albumin/Globulin Ratio (1-2) Urine Color (Yellow) Urine Appearance (Clear) Urine pH (5.0-8.0) Ur Specific Means (1.005-1.030) Urine Protein (Negative) Urine Glucose (UA) (Negative) Urine Ketones (Negative) Urine Occult Blood (Negative) Urine Nitrite (Negative) Urine Bilirubin (Negative) Urine Urobilinogen (0.2-1.0) Ur Leukocyte Esterase (Negative) SARS-CoV-2 RNA (SUSANNA) Negative (NEGATIVE) MRSA (PCR) Blood Type Gel Antibody Screen Crossmatch Med Orders - Current: Current Medications Acetaminophen (Acetaminophen 325 Mg Tab) 975 mg PO BID [facility] Last Admin: 09/30/20 08:38 Dose: 975 mg Documented by: Allopurinol (Allopurinol 300 Mg Tab) 150 mg PO DAILY [facility] Last Admin: 09/30/20 08:37 Dose: 150 mg Documented by: Artificial Tears (Carboxymethylcellulose Sodium 1% Ophth Gel 15 Ml Bottle) 0 ml EYEBOTH BID PRN PRN Reason: Dry Eyes Bumetanide (Bumetanide 1 Mg Tab) 2 mg PO BIDDIURETIC [facility] Last Admin: 09/30/20 06:07 Dose: 2 mg Documented by: Digoxin (Digoxin 125 Mcg Tab) 125 mcg PO Q48H [facility] Docusate Sodium (Docusate Sodium 100 Mg Cap) 100 mg PO BID [facility] Last Admin: 09/30/20 08:34 Dose: 100 mg Documented by: Ferrous Sulfate (Ferrous Sulfate 324 Mg Tab.Ec) 324 mg PO DAILY [facility] Last Admin: 09/30/20 08:34 Dose: 324 mg Documented by: Insulin Glargine (Insulin Glarg,Human.Rec.Analog 100 Unit/Ml) 44 unit SUBCUT DAILY [facility] Last Admin: 09/30/20 08:39 Dose: 44 units Documented by: Insulin Glargine (Insulin Glarg,Human.Rec.Analog 100 Unit/Ml) 16 unit SUBCUT QPM [facility] Insulin Human Lispro (Insulin Lispro 100 Unit/Ml 10 Ml Vial) 17 unit SUBCUT TIDMEALS [facility] Last Admin: 09/30/20 12:20 Dose: 17 units Documented by: Methimazole (Methimazole 5 Mg Tab) 5 mg PO MoTuWeThFr@0900 [facility] Last Admin: 09/30/20 08:37 Dose: 5 mg Documented by: Metolazone (Metolazone 2.5 Mg Tab) 2.5 mg PO MoTh@0900 [facility] Metoprolol Succinate (Metoprolol Succinate 50 Mg Tab.Er) 125 mg PO BID [facility] Last Admin: 09/30/20 08:35 Dose: 125 mg Documented by: Oxycodone HCl (Oxycodone 5 Mg Tab) 5 mg PO Q4H PRN PRN Reason: Pain Pantoprazole Sodium (Pantoprazole 40 Mg Vial) 40 mg IVPUSH Q12HR [facility] Last Admin: 09/30/20 08:40 Dose: 40 mg Documented by: Potassium Chloride (Potassium Chloride 20 Meq Tab.Er) 20 meq PO BIDMEALS [facility] Last Admin: 09/30/20 06:08 Dose: 20 meq Documented by: Pravastatin Sodium (Pravastatin 20 Mg Tab) 10 mg PO DAILY [facility] Last Admin: 09/30/20 08:34 Dose: 10 mg Documented by: Sertraline HCl (Sertraline 50 Mg Tab) 75 mg PO DAILY [facility] Last Admin: 09/30/20 08:38 Dose: 75 mg Documented by: Sodium Chloride (Sodium Chloride 0.9% 10 Ml Syringe) 10 ml FLUSH ASDIRECTED PRN PRN Reason: Keep Vein Open Last Admin: 09/29/20 14:43 Dose: 10 ml Documented by: Spironolactone (Spironolactone 25 Mg Tab) 25 mg PO DAILY [facility] Last Admin: 09/30/20 08:34 Dose: 25 mg Documented by: Discontinued Medications Artificial Tears (Polyvinyl Alcohol 1.4% Ophth Soln 15 Ml Bottle) 0 ml EYEBOTH ASDIRECTED PRN PRN Reason: Dry Eyes Bumetanide (Bumetanide 1 Mg Tab) 2 mg PO BID [facility] Last Admin: 09/29/20 20:41 Dose: 2 mg Documented by: Diltiazem HCl (Diltiazem 120 Mg Cap.Cd) 120 mg PO BID [facility] Last Admin: 09/29/20 20:41 Dose: 120 mg Documented by: Furosemide (Furosemide 20 Mg/2 Ml Vial) 20 mg IVPUSH ONETIME ONE Stop: 09/29/20 16:35 Last Admin: 09/29/20 20:26 Dose: Not Given Documented by: Furosemide (Furosemide 20 Mg/2 Ml Vial) 20 mg IVPUSH ONETIME ONE Stop: 09/29/20 20:16 Last Admin: 09/29/20 20:42 Dose: 20 mg Documented by: Sodium Chloride (Normal Saline) 1,000 mls @ 50 mls/hr IV ASDIRECTED [facility] Stop: 10/03/20 14:03 Last Admin: 09/29/20 14:44 Dose: 50 mls/hr Documented by: Sodium Chloride (Normal Saline) Confirm Administered Dose 1,000 mls @ as directed .ROUTE .[facility] ONE Stop: 09/29/20 14:06 Last Admin: 09/29/20 14:43 Dose: Not Given Documented by: Sodium Chloride (Normal Saline) Confirm Administered Dose 250 mls @ as directed .ROUTE .[facility] ONE Stop: 09/29/20 19:44 Last Admin: 09/29/20 20:34 Dose: 50 mls/hr Documented by: Insulin Human Lispro (Insulin Lispro 100 Unit/Ml 10 Ml Vial) 26 unit SUBCUT BID [facility] Methimazole (Methimazole 5 Mg Tab) 5 mg PO MOTUWETHFR [facility] Last Admin: 09/29/20 20:19 Dose: Not Given Documented by: Metolazone (Metolazone 2.5 Mg Tab) 2.5 mg PO MOTH [facility] Last Admin: 09/29/20 20:21 Dose: Not Given Documented by: Metoprolol Tartrate (Metoprolol Tartrate 50 Mg Tab) 75 mg PO BID [facility] Last Admin: 09/29/20 20:41 Dose: 75 mg Documented by: Non-Formulary Medication (Carboxymethylcellulose Sodium [Artificial Tears]) 1 drop EYEBOTH ASDIRECTED PRN PRN Reason: Dry Eyes Non-Formulary Medication (Magnesium Sulfate [Epsom Salt]) 1 applic TOP DAILY [facility] Non-Formulary Medication (Insulin Aspart) 26 unit SUBCUT BID [facility] Last Admin: 09/29/20 22:01 Dose: Not Given Documented by: Non-Formulary Medication (Insulin Detemir) 44 unit SQ BID [facility] Last Admin: 09/29/20 22:01 Dose: Not Given Documented by: Pantoprazole Sodium (Pantoprazole 40 Mg Vial) 40 mg IVPUSH Q12H [facility] Last Admin: 09/29/20 20:20 Dose: Not Given Documented by: Phytonadione (Phytonadione Oral 2.5mg/2.5ml Soln Simple Syrup U/D) 2.5 mg PO ONETIME ONE Stop: 09/29/20 18:36 Last Admin: 09/29/20 20:27 Dose: Not Given Documented by: Phytonadione (Phytonadione Oral 2.5mg/2.5ml Soln Simple Syrup U/D) 2.5 mg PO ONETIME ONE Stop: 09/29/20 20:16 Last Admin: 09/29/20 20:42 Dose: 2.5 mg Documented by: Potassium Chloride (Potassium Chloride 10 Meq Tab.Er) 20 meq PO BID [facility] Last Admin: 09/29/20 20:42 Dose: 20 meq Documented by:
[2020-10-01] MEDS ORDERED: Digoxin 125 MCG Tab PO SCH (08:00)
[2020-10-03] MEDS ORDERED: Metolazone 2.5 MG Tab PO SCH (09:00)
== END 2020-09-30 14:25 ==
LOC: JD.ED 12:17 → JD.MS 16:26
PROVIDERS: ADMIT Hospitalist; ATTEND Hospitalist
DX: D62 Acute posthemorrhagic anemia (principal); I48.20 Chronic atrial fibrillation, unspecified; L97.809 Non-pressure chronic ulcer of other part of unspecified lower leg with unspecified severity; I25.10 Atherosclerotic heart disease of native coronary artery without angina pectoris; I25.2 Old myocardial infarction; E78.00 Pure hypercholesterolemia, unspecified; K21.9 Gastro-esophageal reflux disease without esophagitis; E66.9 Obesity, unspecified; I13.0 Hypertensive heart and chronic kidney disease with heart failure and stage 1 through stage 4 chronic kidney disease, or unspecified chronic kidney disease; N18.9 Chronic kidney disease, unspecified; E05.90 Thyrotoxicosis, unspecified without thyrotoxic crisis or storm; H54.8 Legal blindness, as defined in USA; I50.9 Heart failure, unspecified; E61.1 Iron deficiency; M10.9 Gout, unspecified; F81.9 Developmental disorder of scholastic skills, unspecified; G89.29 Other chronic pain; D70.9 Neutropenia, unspecified; Z20.822 Contact with and (suspected) exposure to COVID-19; Z79.01 Long term (current) use of anticoagulants; Z87.891 Personal history of nicotine dependence; Z88.8 Allergy status to other drugs, medicaments and biological substances; Z88.0 Allergy status to penicillin; Z79.899 Other long term (current) drug therapy; Z79.82 Long term (current) use of aspirin
CPT/HCPCS: 36415; 36430; 80053; 81003; 82947; 83735; 83880; 85014; 85018; 85025; 85610; 85730; 86850; 86900; 86901; 86922; 87641; 94761; 96374; 96376; 99284; A9270; C9113; G0378; J1815; J1940; J7030; J7050; P9016; U0002; 99217; 99219; 99283